=== PATIENT | male | born 1980 | race African-American/Black ===

== ENCOUNTER 2019-05-16 13:00 | Inpatient (IN) | payer OTHER ==
--- NOTE | 2019-05-16 14:37 | PDOC ---
History of Present Illness - General Chief Complaint: Altered Mental Status Stated Complaint: LETHARGIC Time Seen by Provider: 05/16/19 13:38 - History of Present Illness Initial Comments: 05/16/19 13:30 38yo M hx autism, HTN, behavior disorder, seizure disorder, and obesity presents from [facility] with lethargy and AMS x1 day. Per [facility] workers at bedside, pt's baseline is walking, talking (slightly slurred speech), and taking care of self. Pt was at baseline in [facility] yesterday, last seen normal yesterday afternoon. When they checked on him this AM, he was in bed lethargic but still able to walk and talk. Pt ate a little then went back to sleep. Pt was checked in at approximately 1200 and was found severely lethargic, responsive only to painful stimuli, unable to walk or talk. 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 States the [facility] is in charge of his medications and did not recently change his medications. States they did not notice any fever, vomiting, or indications of pain. Denies head trauma or falls. Meds: Metoprol, Clonazepam, Trazodone, Klor-Con, Hydrochlorot, Lisinopril, Atorvastatin, Cetirizine, Docusate, Divalproex, Quetiapine, Chlorpromazine PCP - Dr Mcdaniel Past History - Past Medical History Allergies/Adverse Reactions: Allergies Allergy/AdvReac Type Severity Reaction Status Date / Time No Known Allergies Allergy Unverified 07/25/13 19:47 Home Medications: Ambulatory Orders Cetirizine HCl [Wal-Zyr] 10 mg PO DAILY 08/28/14 Cholecalciferol (Vitamin D3) [Vitamin D] 2,000 unit PO DAILY 08/28/14 Clonazepam 0.5 mg PO BID 08/28/14 Clonazepam 1 mg PO BID 08/28/14 Clonidine HCl [Clonidine HCl ER] 0.1 mg PO TID 08/28/14 Divalproex *ER* [Depakote *ER* -] 1,000 mg PO BID 08/28/14 Divalproex [Depakote -] 250 mg PO HS 08/28/14 Docusate Sodium [Colace -] 100 mg PO DAILY 08/28/14 Hydrochlorothiazide [Hctz -] 25 mg PO DAILY 08/28/14 Lisinopril [Prinivil -] 5 mg PO DAILY 08/28/14 Potassium Chloride [Klor-Con 10] 10 meq PO DAILY 08/28/14 Quetiapine Fumarate "Xr" [Seroquel XR] 200 mg PO BID 08/28/14 Quetiapine Fumarate [Seroquel -] 400 mg PO HS 08/28/14 traZODone HCL [Desyrel -] 50 mg PO TID 08/28/14 COPD: No HTN: Yes Seizures: Yes - Immunization History Immunization Up to Date: Yes - Psycho Social/Smoking Cessation Hx Smoking History: Never smoked Have you smoked in the past 12 months: No Number of Cigarettes Smoked Daily: 0 Information on smoking cessation initiated: No Hx Alcohol Use: No Drug/Substance Use Hx: No Substance Use Type: None Review of Systems - Review of Systems Able to Perform ROS?: No (AMS) *Physical Exam - Vital Signs Last Vital Signs Temp Pulse Resp BP Pulse Ox 99.4 F 98 H 18 110/73 99 05/16/19 13:16 05/16/19 13:16 05/16/19 13:16 05/16/19 13:16 05/16/19 13:16 - Physical Exam Comments: 05/16/19 18:06 Gen: Responsive to painful stimulus only, NAD HEENT: PERRL, EOMI, MMM, NCAT. No conjunctival pallor. Sclera are non-icteric. Oropharynx is clear. CV: Regular rate and rhythm. No murmurs, rubs, or gallops. PULM: No resp distress. CTAB, no wheezes, rales, or rhonchi. ABD: soft, NT/ND, no rebound tenderness or guarding, no CVA tenderness. BACK: No TTP of c/t/l-spine. No step-offs or deformities. MSK: No bony deformities. 2+ pulses in all extremities. NEURO: Responsive to painful stimulus only, unable to talk. PERRL. No gross CN deficits. Moving all extremities on own. EXTREMITIES: No cyanosis. No clubbing. No edema. +1" diameter round wound on L knee, no exudate, w/extensive surrounding erythema and warmth. +large bump distal to patella b/l (chronic). PSYCH: Unable to assess. SKIN: Warm and dry. Normal capillary refill. No jaundice. Heart Score/ECG Review - ECG Impressions Comment:: 05/16/19 18:24 Sinus tachycardia, 103bpm, normal axis, no TWIs, no ST elevations or depressions. ED Treatment Course - LABORATORY CBC & Chemistry Diagram: 05/16/19 16:04 05/16/19 15:46 Medical Decision Making - Medical Decision Making Medical Decision Makin 38yo M hx autism, HTN, behavior disorder, seizure disorder, and obesity presents from [facility] with lethargy and AMS x1 day. Per [facility] workers at bedside, pt's baseline is walking, talking (slightly slurred speech), and taking care of self. Pt was at baseline in [place] yesterday, last seen normal yesterday afternoon. When they checked on him this AM, he was in bed lethargic but still able to walk and talk. Pt ate a little then went back to sleep. Pt was checked in at approximately 1200 and was found severely lethargic, responsive only to painful stimuli, unable to walk or talk. 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 States the [facility] is in charge of his medications and did not recently change his medications. States they did not notice any fever, vomiting, or indications of pain. Denies head trauma or falls. Upon arrival, pt is responsive only to pain, nonverbal, moving all extremities on own, opens eyes to painful stimulus, able to swallow secretions, in no respiratory distress, managing airway, no indications of pain on physical exam. Tachycardic to 100s, hypotensive 80s/50s, tachypneic 20s, O2 98% on RA, rectal temp 100.0, +small wound with extensive surrounding erythema and warmth overlying L chopra/knee. Meds: Metoprol, Clonazepam, Trazodone, Klor-Con, Hydrochlorot, Lisinopril, Atorvastatin, Cetirizine, Docusate, Divalproex, Quetiapine, Chlorpromazine PCP - Dr Mcdaniel High concern for sepsis, most likely 2/2 LLE cellulitis, but also consider UTI or PNA - r/o with sepsis w/u including UTI and UA. Also consider meningitis, though of lower concern due to supple neck and low-grade fever, will consider further testing pending w/u. Due to AMS, obtain CTH to r/o ICH, though of lower concern due to lack of reported head injury. Also consider metabolic derangement , anemia, or cardiac etiology - r/o w/labs including fingerstick glucose and EKG. -Fingerstick glucose -Sepsis w/u: CBC, CMP, Coags, Trop, Lact, ABG, BCx x2, UA/UC -IVF -CTH -CXR -EKG -Monitor -Dispo: likely admit pending w/u 1400 CTH reviewed. No acute pathology. Fingerstick glucose reviewed. 1613 Labs drawn from radial artery. Labs sent. CXR ordered. IVF running in R hand. 1648 Labs reviewed. Of note, WBC WNL, lact 0.7. BP 110s/60s. d/c 2nd lact. No septic shock. Tachycardia, hypotension, and tachypnea resolved s/p IVF. 1657 Start vanc/zosyn. Admit for sepsis 2/2 LLE cellulitis. 1736 2nd CXR obtained, attempted better inspiratory effort but still poor. Signed out to admitting team. 05/16/19 19:19 Also consider medication overdose. No dilated pupils, decreased bowel sounds, HTN, high-grade fever, or muscular rigidity concerning for serotonin syndrome at this time. Discharge - Discharge Information Problems reviewed: Yes Clinical Impression/Diagnosis: Sepsis Condition: Improved - Admission Yes - Follow up/Referral - Patient Discharge Instructions - Post Discharge Activity
[2019-05-16] MEDS ORDERED: SODIUM CHLORIDE 3,266 ML IV ONE (15:59)
[2019-05-16 16:21] LABS: BASO % 0.6 % (0-2.0); EOS % 0.2 % (0-4.5); HEMATOCRIT 38.3 % (35.4-49); HEMOGLOBIN 12.9 GM/dL (11.7-16.9); LYMPH % 25.3 % (8-40); MCH 30.5 pg (25.7-33.7); MCHC 33.8 g/dl (32.0-35.9); MEAN CELL VOLUME 90.3 fl (80-96); MEAN PLT VOLUME 9.8 fl (7.5-11.1); MONO % 20.6 % (3.8-10.2); NEUT % 53.3 % (42.8-82.8); PLATELET COUNT 188 K/MM3 (134-434); RBC 4.24 M/mm3 (4.00-5.60); RDW 13.6 % (11.9-15.9); WHITE BLOOD COUNT 8.3 K/mm3 (4.0-10.0)
[2019-05-16 16:36] LABS: INR 1.18 (0.83-1.09); PROTHROMBIN TIME (PATIENT) 13.9 SEC (9.7-13.0)
[2019-05-16 16:37] LABS: ARTERIAL BLD GAS O2 SATURATION 98.2 % (95-98); ARTERIAL BLOOD GAS BASE EXCESS 2.9 meq/l (-2-2); ARTERIAL BLOOD GAS PCO2 42.6 mmHg (35-45); ARTERIAL BLOOD GAS PO2 114 mmHg (80-100); ARTERIAL BLOOD GAS pH 7.42 (7.35-7.45)
[2019-05-16 16:38] LABS: ACTIVATED PTT 34.3 SECONDS (25.2-36.5)
[2019-05-16 16:52] LABS: ALBUMIN 3.4 g/dl (3.4-5.0); BILIRUBIN,TOTAL 0.6 mg/dL (0.2-1); BLOOD UREA NITROGEN 13.9 mg/dL (7-18); CALCIUM 8.9 mg/dL (8.5-10.1); CREATININE 1.1 mg/dL (0.55-1.3); POTASSIUM 4.4 mmol/L (3.5-5.1); TOT PROT 7.2 g/dl (6.4-8.2)
[2019-05-16] MEDS ORDERED: VANCOMYCIN 1 GM in D5W (PRE-DOCKED) 1,000 MG/250 ML IVPB ONE (16:55)
[2019-05-16] MEDS ORDERED: PIPERACILLIN/TAZOB 3.375 GM 3.375 GM in DEXTROSE 5%-WATER - 50 ML IVPB ONE (16:55)
[2019-05-16 17:07] LABS: PLATELET ESTIMATE ADEQUATE
--- NOTE | 2019-05-16 17:36 | HP ---
Admitting History and Physical - Primary Care Physician PCP: Shena Mcdaniel - Admission Chief Complaint: AMS as per senior care staff x 36-48 hrs with lethargy and ataxia History of Present Illness: 38yo M hx autism, HTN,sz disorder,able to communicate (slightly slurred speech) , and taking care of self. Pt was at baseline yesterday, last seen normal yesterday afternoon. When they checked on him this AM, he was in bed lethargic but still able to walk and talk. Pt ate a little then went back to sleep. Pt was checked in at approximately 1200 and was found severely lethargic, responsive only to painful stimuli, unable to walk or talk. 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 States the senior care is in charge of his medications and did not recently change his medications. States they did not notice any fever, vomiting, or indications of pain. Denies head trauma or falls. 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 Cardiovascular: Yes: HTN Psych: Yes: Other (austic/developmental delays) - Smoking History Smoking history: Never smoked Have you smoked in the past 12 months: No Aproximately how many cigarettes per day: 0 - Alcohol/Substance Use Hx Alcohol Use: No - Social History Usual Living Arrangement: Yes: Other (senior care) ADL: Support Services Occupation: disability History of Recent Travel: No Other Social History: mother involved in detention Medications - Allergies Allergies/Adverse Reactions: Allergies Allergy/AdvReac Type Severity Reaction Status Date / Time No Known Allergies Allergy Unverified 07/25/13 19:47 - Home Medications Home Medications: Ambulatory Orders Cetirizine HCl [Wal-Zyr] 10 mg PO DAILY 08/28/14 Cholecalciferol (Vitamin D3) [Vitamin D] 2,000 unit PO DAILY 08/28/14 Clonazepam 0.5 mg PO BID 08/28/14 Clonazepam 1 mg PO BID 08/28/14 Clonidine HCl [Clonidine HCl ER] 0.1 mg PO TID 08/28/14 Divalproex *ER* [Depakote *ER* -] 1,000 mg PO BID 08/28/14 Divalproex [Depakote -] 250 mg PO HS 08/28/14 Docusate Sodium [Colace -] 100 mg PO DAILY 08/28/14 Hydrochlorothiazide [Hctz -] 25 mg PO DAILY 08/28/14 Lisinopril [Prinivil -] 5 mg PO DAILY 08/28/14 Potassium Chloride [Klor-Con 10] 10 meq PO DAILY 08/28/14 Quetiapine Fumarate "Xr" [Seroquel XR] 200 mg PO BID 08/28/14 Quetiapine Fumarate [Seroquel -] 400 mg PO HS 08/28/14 traZODone HCL [Desyrel -] 50 mg PO TID 08/28/14 Family Medical History Family History: Unable to Obtain Review of Systems Unable to obtain ROS, reason: no able to fully obtain - Review of Systems Musculoskeletal: reports: Extremity Pain (left knee/calf), Joint Pain, Joint Swelling Neurological: reports: Change in LOC, Incoordination Physical Examination Vital Signs: Vital Signs Temperature 100.0 F H 05/16/19 15:59 Pulse Rate 98 H 05/16/19 13:16 Respiratory Rate 18 05/16/19 13:16 Blood Pressure 110/73 05/16/19 13:16 O2 Sat by Pulse Oximetry (%) 99 05/16/19 13:16 Constitutional: Yes: Well Nourished, Anxious Eyes: Yes: WNL, Conjunctiva Clear, EOM Intact HENT: Yes: Drooling Neck: Yes: WNL, Supple, Trachea Midline Cardiovascular: Yes: WNL, Regular Rate and Rhythm Respiratory: Yes: Regular, CTA Bilaterally, On Nasal O2 Gastrointestinal: Yes: WNL, Normal Bowel Sounds ...Rectal Exam: Yes: Deferred Renal/: Yes: WNL Breast(s): Yes: WNL Musculoskeletal: Yes: Joint Swelling (left knee) Extremities: Yes: Erythema (to left knee/calf) Edema: LLE: 1+, RLE: Trace Peripheral Pulses WNL: Yes Peripheral Pulses: Left Radial: 2+, Right Radial: 2+, Left Doralis Pedis: 2+, Right Dorsalis Pedis: 2+, Left Femoral: 2+, Right Femoral: 2+ Integumentary: Yes: Erythema, Other (1cm lesion to left patella) Neurological: Yes: Alert, Confusion, Dysarthria, Unsteady Gait ...Motor Strength: WNL Labs: CBC, BMP 05/16/19 16:04 05/16/19 15:46 Imaging - Results Chest X-ray: Image Reviewed (no acute lung pathology) Ultrasound: Report Reviewed (to evidence of DVT) Problem List - Problems (1) Altered mental state Assessment/Plan: head CT withput acute pathology toxicology panel pending hold sedating agents until mental status is back to baseline c/w depakote for sz prevention r/o infectious etiology LA .7, WBC 8.3, afebrile blood urine Cx pending Vanco/zosyn given in ED neurology consult if mental status does no return back to baseline Code(s): R41.82 - ALTERED MENTAL STATUS, UNSPECIFIED (2) HTN (hypertension) Assessment/Plan: hypotensive on arrival, 2L NS given hold antihypertensives Code(s): I10 - ESSENTIAL (PRIMARY) HYPERTENSION (3) Developmental delay, severe Assessment/Plan: supportive care Code(s): R62.50 - UNSP LACK OF EXPECTED NORMAL PHYSIOL DEV IN CHILDHOOD (4) Cellulitis Assessment/Plan: left knee with erythema with 1cm lesion/scab ceftriaxone 2g daily dopplers of lower extrem without DVT ID consultation requested monitor WBC, temp trend Code(s): L03.90 - CELLULITIS, UNSPECIFIED (5) Seizure Assessment/Plan: dose od depakote not clear in med reconciliation will dose 1000mg bid and contact senior care for dose fall precautions Code(s): R56.9 - UNSPECIFIED CONVULSIONS (6) Preventive measure Assessment/Plan: FEN 2L IVF given in ED chopped diet monitor electrolytes and replete prn DVT heparin sq Dispo mainatin as in patient Full code discharge planning back to senior care Code(s): Z29.9 - ENCOUNTER FOR PROPHYLACTIC MEASURES, UNSPECIFIED Visit type - Emergency Visit Emergency Visit: Yes ED Registration Date: 05/16/19 Care time: The patient presented to the Emergency Department on the above date and was hospitalized for further evaluation of their emergent condition. - New Patient This patient is new to me today: Yes Date on this admission: 05/16/19 - Critical Care Critical Care patient: No
[2019-05-16] MEDS ORDERED: VANCOMYCIN 1 GRAM (PRE-DOCKED) 1,000 MG/250 ML BAG IVPB ONE (18:11)
[2019-05-16] MEDS ORDERED: PIPERACILLIN/TAZOB 3.375 GM 3.375 GM/50 ML BAG IVPB ONE (18:11)
[2019-05-16 19:02] LABS: CARBOXYHEMOGLOBIN 1.2 % (0-2)
--- NOTE | 2019-05-16 21:34 | PDOC ---
Documentation entered by Abdias Feliciano SCRIBE, acting as scribe for Uyen Sanchez MD. Uyen Sanchez MD: This documentation has been prepared by the katteBraden Aiswarya, SCRIBE, under my direction and personally reviewed by me in its entirety. I confirm that the documentation accurately reflects all work, treatment, procedures, and medical decision making performed by me. Attending Attestation - Resident Resident Name: Carmelita Beverly - ED Attending Attestation I have performed the following: I have examined & evaluated the patient, The case was reviewed & discussed with the resident, I agree w/resident's findings & plan, Exceptions are as noted - HPI HPI: 05/16/19 15:46 38 yo male h/o psych disorder , lives in a [facility], htn hld, here with AMS pt unable to provide history and history is provided by [facility] staff at bedside. per them. pt became more progressively altered last 48 . states at baseline he talks, is interactive and ambulates. over last two days he becamse more sleepy. no new change to his medications. no f/c no n/v no cough. no trauma. - Physicial Exam PE: 05/16/19 21:26 awake, but drowsy, pupils small reactive. lungs clear bilat heart rrr no mrg. abd soft nt nd ext wwp. bilat prominant ant tibial tuberosity. left with small wound scab over tibial tuberosity. mild fluctuance. knee FROM no effusion. nuero : pt not following commmands, moves all four ext, speech slow intermittent. skin warm and dry, except left leg leg erythema redness to calf, scab as described. 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 differential: sepsis, from left leg cellulitis, pna, uti, medication SE such as depakote toxicity, vs do not fix serotonergic syndrome or NMS. will obtain ct head r/o ich or other intracranial process. plan to cover broad spectrum abx for sepsis and left leg cellulitis. admit. throughout time in ED pt verbal at times, ct head negative. rectal temperature 100. abx given, sugar normal 115. admitted to medical team. for AMS, sepsis
[2019-05-16] MEDS ORDERED: DIVALPROEX SODIUM 250 MG TABLET E.C. PO SCH (22:00)
[2019-05-16] MEDS ORDERED: DIVALPROEX NA *ER* EXTEND REL 500 MG TABLET.SA (FP) PO SCH (22:00)
[2019-05-16] MEDS ORDERED: DIVALPROEX SODIUM 500 MG TABLET E.C. ONE (22:44)
[2019-05-16] MEDS: DIVALPROEX SODIUM 500 MG TABLET E.C. PO SCH (22:50)
[2019-05-16] MEDS: HEPARIN NA (PORCINE) 5,000 UNITS/ML 1ML VIAL SQ SCH (23:28)
--- NOTE | 2019-05-17 08:18 | PN ---
Progress Note, Physician Chief Complaint: more alert, requesting to go home with [facility] (staff at [facility]) History of Present Illness: 38yo M hx autism, HTN,sz disorder,able to communicate (slightly slurred speech) , and taking care of self. Pt was at baseline yesterday, last seen normal yesterday afternoon. When they checked on him this AM, he was in bed lethargic but still able to walk and talk. Pt ate a little then went back to sleep. Pt was checked in at approximately 1200 and was found severely lethargic, responsive only to painful stimuli, unable to walk or talk. 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 States the [facility] is in charge of his medications and did not recently change his medications. States they did not notice any fever, vomiting, or indications of pain. Denies head trauma or falls. Noted that his left knee was warm with a "scab" on middle of patella Resident of [facility] [place], [facility] - Current Medication List Current Medications: Active Medications Cholecalciferol (Vitamin D3 -) 2,000 unit PO DAILY [facility] Divalproex Sodium (Depakote -) 1,000 mg PO BID [facility] Last Admin: 05/16/19 22:50 Dose: 1,000 mg Docusate Sodium (Colace -) 100 mg PO DAILY [facility] Heparin Sodium (Porcine) (Heparin -) 5,000 unit SQ BID [facility] Last Admin: 05/16/19 23:28 Dose: 5,000 unit Hydrochlorothiazide (Hctz -) 25 mg PO DAILY [facility] Ceftriaxone Sodium 2 gm/ (Dextrose) 100 mls @ 200 mls/hr IVPB DAILY [facility]; Protocol Quetiapine Fumarate (Seroquel -) 400 mg PO [facility] - Objective Vital Signs: Vital Signs Temperature 98.2 F 05/17/19 07:00 Pulse Rate 113 H 05/17/19 07:00 Respiratory Rate 18 05/17/19 07:00 Blood Pressure 138/83 05/17/19 07:00 O2 Sat by Pulse Oximetry (%) 97 05/17/19 02:25 Additional Findings/Remarks: Constitutional: Yes: Well Nourished, Anxious Eyes: Yes: WNL, Conjunctiva Clear, EOM Intact HENT: Yes: Drooling Neck: Yes: WNL, Supple, Trachea Midline Cardiovascular: Yes: WNL, Regular Rate and Rhythm Respiratory: Yes: Regular, CTA Bilaterally, On Nasal O2 Gastrointestinal: Yes: WNL, Normal Bowel Sounds ...Rectal Exam: Yes: Deferred Renal/: Yes: WNL Breast(s): Yes: WNL Musculoskeletal: Yes: Joint Swelling (left knee) Extremities: Yes: Erythema (to left knee/calf) Edema: LLE: 1+, RLE: Trace Peripheral Pulses WNL: Yes Peripheral Pulses: Left Radial: 2+, Right Radial: 2+, Left Doralis Pedis: 2+, Right Dorsalis Pedis: 2+, Left Femoral: 2+, Right Femoral: 2+ Integumentary: Yes: Erythema, Other (1cm lesion to left patella) 3cm flucuant are to medial acpect of patella Neurological: Yes: Alert, Confusion, Dysarthria, Unsteady Gait ...Motor Strength: WNL Labs: INR, PTT INR 1.18 (0.83-1.09) H 05/16/19 16:04 - ....Imaging X-ray: Report Reviewed (Knee xray: no acute pathology) Ultrasound: Report Reviewed (no DVT) MRI: Pending (Lower extrem) Problem List - Problems (1) Altered mental state Assessment/Plan: Back to baseline as per Skilled Nursing staff head CT without acute pathology LA .7, WBC 7.1, afebrile blood urine Cx pending Vanco/zosyn given in ED ceftriaxone, vanco to continue appreciate ID consultation resume all psych meds MRI lower extrem for cellulitus/osteo Code(s): R41.82 - ALTERED MENTAL STATUS, UNSPECIFIED (2) HTN (hypertension) Assessment/Plan: c/w lisinipril, hctz Code(s): I10 - ESSENTIAL (PRIMARY) HYPERTENSION (3) Developmental delay, severe Assessment/Plan: supportive care staff from [facility] present spoke with Dr Hernandez from home and reviewed medications [phone] Code(s): R62.50 - UNSP LACK OF EXPECTED NORMAL PHYSIOL DEV IN CHILDHOOD (4) Cellulitis Assessment/Plan: left knee with erythema with 1cm lesion/scab 3cm flucuant area ceftriaxone 2g daily, vanco bid dopplers of lower extrem without DVT ID consultation apppreciated monitor WBC, temp trend MRI on LE Code(s): L03.90 - CELLULITIS, UNSPECIFIED (5) Seizure Assessment/Plan: c/w depakote fall precautions Code(s): R56.9 - UNSPECIFIED CONVULSIONS (6) Preventive measure Assessment/Plan: FEN 2L IVF given in ED chopped diet monitor electrolytes and replete prn DVT heparin sq Dispo maintain as in patient Full code discharge planning back to [facility] Code(s): Z29.9 - ENCOUNTER FOR PROPHYLACTIC MEASURES, UNSPECIFIED Visit type - Emergency Visit Emergency Visit: Yes ED Registration Date: 05/16/19 Care time: The patient presented to the Emergency Department on the above date and was hospitalized for further evaluation of their emergent condition. - New Patient This patient is new to me today: No - Critical Care Critical Care patient: No - Discharge Referral Referred to [facility] No
[2019-05-17 08:19] LABS: ALBUMIN 3.2 g/dl (3.4-5.0); BILIRUBIN,TOTAL 0.5 mg/dL (0.2-1); CALCIUM 8.6 mg/dL (8.5-10.1); MAGNESIUM 2.2 mg/dL (1.8-2.4); TOT PROT 6.9 g/dl (6.4-8.2)
[2019-05-17 08:42] LABS: BASO % 0.5 % (0-2.0); EOS % 0.7 % (0-4.5); HEMATOCRIT 36.7 % (35.4-49); HEMOGLOBIN 12.8 GM/dL (11.7-16.9); LYMPH % 29.4 % (8-40); MCH 31.3 pg (25.7-33.7); MCHC 34.8 g/dl (32.0-35.9); MEAN CELL VOLUME 89.9 fl (80-96); MEAN PLT VOLUME 9.7 fl (7.5-11.1); MONO % 19.6 % (3.8-10.2); NEUT % 49.8 % (42.8-82.8); PLATELET COUNT 187 K/MM3 (134-434); RBC 4.09 M/mm3 (4.00-5.60); RDW 13.5 % (11.9-15.9); WHITE BLOOD COUNT 7.1 K/mm3 (4.0-10.0)
[2019-05-17] MEDS ORDERED: DEXTROSE 5%-WATER 100 ML IVPB ONE (09:52)
[2019-05-17] MEDS ORDERED: VANCOMYCIN 1 GM in D5W (PRE-DOCKED) 1,000 MG/250 ML IVPB SCH (10:00)
[2019-05-17] MEDS: HYDROCHLOROTHIAZIDE 25 MG TABLET (FP) PO SCH (10:02)
[2019-05-17] MEDS: HEPARIN NA (PORCINE) 5,000 UNITS/ML 1ML VIAL SQ SCH ×2 (10:02→21:51)
[2019-05-17] MEDS: CHOLECALCIFEROL (VIT D3) 1,000 UNIT (25 MCG) TABLET PO SCH (10:02)
[2019-05-17] MEDS: DOCUSATE SODIUM 100 MG CAPSULE (FP) PO SCH (10:02)
[2019-05-17] MEDS: DIVALPROEX SODIUM 500 MG TABLET E.C. PO SCH (10:02)
[2019-05-17] MEDS: CEFTRIAXONE 2 GM in DEXTROSE 5%-WATER 100 ML IVPB SCH (10:03)
--- NOTE | 2019-05-17 11:48 | CON.ID ---
Consult - History of Present Illness History of Present Illness: 38 y.o. male with PMH of autism/developmental delay, seizure d.o., HTN brought in from halfway for AMS/lethargy noted x 1 day. Normally pt was reported to be alert, talking, ambulating at baseline but became lethargic, only responding to painful stimuli. No reported fever/chills, n/v/d, rash prior to arrival. In the ER pt was noted to be lethargic, with low grade fever 100F, tachycardic, and initially with low BP. Found to have LLE/tibial lesion and warmth/mild erythema/edema in LLE. CXR/Lt Knee Xray without any specific findings. Was given doses of antibiotics empirically. Currently patient is alert and responsive, with hazardous waste material technician at bedside stating he is at baseline mental status/ functional level today. No other specific complaints. 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 Cardio/Vascular: Yes: HTN Psych: Yes: Other (austic/developmental delays) - Alcohol/Substance Use Hx Alcohol Use: No - Smoking History Smoking history: Never smoked Have you smoked in the past 12 months: No Aproximately how many cigarettes per day: 0 - Social History ADL: Support Services Occupation: disability History of Recent Travel: No Home Medications - Allergies Allergies/Adverse Reactions: Allergies Allergy/AdvReac Type Severity Reaction Status Date / Time No Known Allergies Allergy Unverified 07/25/13 19:47 - Home Medications Home Medications: Ambulatory Orders Cetirizine HCl [Wal-Zyr] 10 mg PO DAILY 08/28/14 Cholecalciferol (Vitamin D3) [Vitamin D] 2,000 unit PO DAILY 08/28/14 Clonazepam 0.5 mg PO BID 08/28/14 Clonazepam 1 mg PO BID 08/28/14 Divalproex *ER* [Depakote *ER* -] 500 mg PO AM 08/28/14 Divalproex [Depakote -] 750 mg PO HS 08/28/14 Docusate Sodium [Colace -] 100 mg PO DAILY 08/28/14 Hydrochlorothiazide [Hctz -] 25 mg PO AM 08/28/14 Lisinopril [Prinivil -] 5 mg PO DAILY 08/28/14 Potassium Chloride [Klor-Con 10] 10 meq PO DAILY 08/28/14 Quetiapine Fumarate "Xr" [Seroquel XR] 200 mg PO BID 08/28/14 Quetiapine Fumarate [Seroquel -] 400 mg PO HS 08/28/14 traZODone HCL [Desyrel -] 25 mg PO TID 08/28/14 Atorvastatin Ca [Lipitor] 20 mg PO HS 05/16/19 Chlorpromazine [Thorazine -] 100 mg PO BID 05/16/19 Metoprolol Tartrate 25 mg PO BID 05/16/19 Sodium Chloride [Saline Nasal Mist] 126 ml NS BID 05/16/19 traZODone HCL [Trazodone HCl] 50 mg PO HS 05/16/19 Review of Systems - Review of Systems Constitutional: reports: No Symptoms Eyes: reports: No Symptoms HENT: reports: No Symptoms Neck: reports: No Symptoms Cardiovascular: reports: No Symptoms Respiratory: reports: No Symptoms Gastrointestinal: reports: No Symptoms Musculoskeletal: reports: No Symptoms Neurological: reports: No Symptoms Hematology/Lymphatic: reports: No Symptoms Physical Exam Vital Signs: Vital Signs Temperature 99.1 F 05/17/19 09:01 Pulse Rate 111 H 05/17/19 09:01 Respiratory Rate 20 05/17/19 09:01 Blood Pressure 153/78 05/17/19 09:01 O2 Sat by Pulse Oximetry (%) 97 05/17/19 02:25 Constitutional: Yes: No Distress, Calm Eyes: Yes: Conjunctiva Clear HENT: Yes: Atraumatic Neck: Yes: Supple Cardiovascular: Yes: Tachycardia Respiratory: Yes: CTA Bilaterally Gastrointestinal: Yes: Normal Bowel Sounds, Soft Renal/: Yes: WNL Integumentary: Yes: Other (Lt tibial fluctuant 3x3 inch lesion, without significant tenderness, +LLE edema/erythema/mild warmth) Labs: CBC, BMP 05/17/19 07:15 05/17/19 07:15 Imaging - Results Chest X-ray: Report Reviewed X-ray: Report Reviewed Problem List - Problems (1) Altered mental state Code(s): R41.82 - ALTERED MENTAL STATUS, UNSPECIFIED (2) Cellulitis Code(s): L03.90 - CELLULITIS, UNSPECIFIED (3) Developmental delay, severe Code(s): R62.50 - UNSP LACK OF EXPECTED NORMAL PHYSIOL DEV IN CHILDHOOD (4) HTN (hypertension) Code(s): I10 - ESSENTIAL (PRIMARY) HYPERTENSION (5) Seizure Code(s): R56.9 - UNSPECIFIED CONVULSIONS (6) Sepsis Code(s): A41.9 - SEPSIS, UNSPECIFIED ORGANISM Assessment/Plan 38 y.o. male with PMH of autism/developmental delay, seizure d.o., HTN brought in from halfway for AMS/lethargy noted x 1 day, low grade fever, Lt tibial fluctuant lesion AMS / Possible Sepsis LLE Cellulitis r/o abscess Fever -- Ceftriaxone/Vancomycin IV for now -- suggest MRI of LLE -- follow up blood culture results -- monitor temps/vitals, mental status Will follow Thank you
[2019-05-17] MEDS ORDERED: traZODone HCL 50 MG TABLET (FP) PO SCH ×2 (12:00)
--- NOTE | 2019-05-17 14:08 | EKG ---
Test Reason : Blood Pressure : / mmHG Vent. Rate : 103 BPM Atrial Rate : 103 BPM P-R Int : 154 ms QRS Dur : 078 ms QT Int : 334 ms P-R-T Axes : 040 -05 039 degrees QTc Int : 437 ms SINUS TACHYCARDIA OTHERWISE NORMAL ECG NO PREVIOUS ECGS AVAILABLE Confirmed by KERI YEE MD ([id number]) on 05/17/2019 2:08:18 PM Referred By: Confirmed By:KERI YEE MD
[2019-05-17] MEDS: clonazePAM 0.5 MG TABLET PO SCH ×3 (14:19→20:58)
[2019-05-17] MEDS: VANCOMYCIN 1 GM in D5W (PRE-DOCKED) 1,000 MG/250 ML IVPB SCH (14:19)
[2019-05-17] MEDS: traZODone HCL 50 MG TABLET (FP) PO SCH ×3 (14:19→21:51)
[2019-05-17] MEDS: QUEtiapine FUMARATE 200 MG TABLET PO SCH (17:52)
[2019-05-17] MEDS: chlorproMAZINE HCL 100 MG TABLET PO SCH (17:56)
[2019-05-17] MEDS: LISINOPRIL 5 MG TABLET (FP) PO SCH (20:56)
[2019-05-17] MEDS: ATORVASTATIN CA 20 MG TABLET (FP) PO SCH (21:51)
[2019-05-17] MEDS: METOPROLOL TARTRATE 25 MG TABLET (FP) PO SCH (21:51)
[2019-05-17] MEDS: DIVALPROEX NA *ER* EXTEND REL 250 MG TABLET.SA PO SCH (21:52)
[2019-05-17] MEDS ORDERED: QUEtiapine FUMARATE 400 MG TABLET PO SCH (22:00)
[2019-05-18] MEDS: VANCOMYCIN 1 GM in D5W (PRE-DOCKED) 1,000 MG/250 ML IVPB SCH (01:14)
--- NOTE | 2019-05-18 07:55 | PN ---
Progress Note, Physician Chief Complaint: back to his baseline as per [facility] staff, asking when he's going home History of Present Illness: 38yo M hx autism, HTN,sz disorder,able to communicate (slightly slurred speech) , and taking care of self. Pt was at baseline yesterday, last seen normal yesterday afternoon. When they checked on him this AM, he was in bed lethargic but still able to walk and talk. Pt ate a little then went back to sleep. Pt was checked in at approximately 1200 and was found severely lethargic, responsive only to painful stimuli, unable to walk or talk. 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 States the [facility] is in charge [facility] his [facility] and did not recently change his medications. States they did not notice any fever, vomiting, or indications of pain. Denies head trauma or falls. Noted that his left knee was warm with a "scab" on middle of patella Resident of [facility] - Current Medication List Current Medications: Active Medications Atorvastatin Calcium (Lipitor -) 20 mg PO HS [facility] Last Admin: 05/17/19 21:51 Dose: 20 mg Chlorpromazine HCl (Thorazine -) 100 mg PO BID@0800,1600 [facility] Last Admin: 05/17/19 17:56 Dose: 100 mg Cholecalciferol (Vitamin D3 -) 2,000 unit PO DAILY [facility] Last Admin: 05/17/19 10:02 Dose: 2,000 unit Clonazepam (Klonopin -) 0.5 mg PO 0800,1200,1600,2100 [facility] Last Admin: 05/17/19 20:58 Dose: 0.5 mg Divalproex Sodium (Depakote *Er* -) 750 mg PO DAILY@2100 [facility] Last Admin: 05/17/19 21:52 Dose: 750 mg Divalproex Sodium (Depakote *Er* -) 500 mg PO DAILY@0800 [facility] Docusate Sodium (Colace -) 100 mg PO DAILY [facility] Last Admin: 05/17/19 10:02 Dose: 100 mg Heparin Sodium (Porcine) (Heparin -) 5,000 unit SQ BID [facility] Last Admin: 05/17/19 21:51 Dose: 5,000 unit Hydrochlorothiazide (Hctz -) 25 mg PO DAILY [facility] Last Admin: 05/17/19 10:02 Dose: 25 mg Ceftriaxone Sodium 2 gm/ (Dextrose) 100 mls @ 200 mls/hr IVPB DAILY [facility]; Protocol Last Admin: 05/17/19 10:03 Dose: 200 mls/hr Lisinopril (Prinivil) 5 mg PO DAILY@2100 [facility] Last Admin: 05/17/19 20:56 Dose: 5 mg Metoprolol Tartrate (Lopressor -) 12.5 mg PO BID [facility] Last Admin: 05/17/19 21:51 Dose: 12.5 mg Quetiapine Fumarate (Seroquel -) 400 mg PO 0800,1600 [facility] Last Admin: 05/17/19 17:52 Dose: 400 mg Quetiapine Fumarate (Seroquel -) 400 mg PO HS [facility] Trazodone HCl (Desyrel -) 50 mg PO HS [facility] Last Admin: 05/17/19 21:51 Dose: 50 mg Trazodone HCl (Desyrel -) 25 mg PO 0800,1200,1600 [facility] Last Admin: 05/17/19 17:52 Dose: 25 mg Vancomycin HCl (Vancomycin (Pre-Docked)) 1,000 mg IVPB Q12H [facility]; Protocol Last Admin: 05/18/19 01:14 Dose: 1,000 mg - Objective Vital Signs: Vital Signs Temperature 98.2 F 05/18/19 03:00 Pulse Rate 94 H 05/18/19 03:00 Respiratory Rate 20 05/17/19 23:41 Blood Pressure 107/66 05/18/19 03:00 O2 Sat by Pulse Oximetry (%) 97 05/17/19 21:00 Additional Findings/Remarks: Constitutional: Yes: Well Nourished, Anxious Eyes: Yes: WNL, Conjunctiva Clear, EOM Intact HENT: Yes: Drooling Neck: Yes: WNL, Supple, Trachea Midline Cardiovascular: Yes: WNL, Regular Rate and Rhythm Respiratory: Yes: Regular, CTA Bilaterally, On Nasal O2 Gastrointestinal: Yes: WNL, Normal Bowel Sounds ...Rectal Exam: Yes: Deferred Renal/: Yes: WNL Breast(s): Yes: WNL Musculoskeletal: Yes: Joint Swelling (left knee) Extremities: Yes: Erythema (to left knee/calf) Edema: LLE: 1+, RLE: Trace Peripheral Pulses WNL: Yes Peripheral Pulses: Left Radial: 2+, Right Radial: 2+, Left Doralis Pedis: 2+, Right Dorsalis Pedis: 2+, Left Femoral: 2+, Right Femoral: 2+ Integumentary: Yes: Erythema, Other (1cm lesion to left patella) 3cm flucuant area to medial aspect of patella Neurological: Yes: Alert, Confusion, Dysarthria, Unsteady Gait ...Motor Strength: WNL Labs: CBC, BMP 05/17/19 07:15 05/17/19 07:15 INR, PTT INR 1.18 (0.83-1.09) H 05/16/19 16:04 - ....Imaging MRI: Report Reviewed (6 cm in its longer axis subcutaneous fluid collection anterior to the tibial tuberosity and distal aspect of the patellar tendon with extensive soft tissue swelling anterior and lateral aspect of the knee joint compatible with extensive cellulitis. The fluid collection is suspicious of abscess or less likely hematoma. Aspiration preferably under sonographic guidance recommended for further evaluation) Problem List - Problems (1) Altered mental state Assessment/Plan: [facility] head [facility] without acute pathology LA .7, WBC 7.1, afebrile blood urine Cx NGTD Vanco/zosyn given in ED appreciate ID consultation ceftriaxone to continue, vanco to stop resume all psych meds MRI noted Code(s): R41.82 - ALTERED MENTAL STATUS, UNSPECIFIED (2) HTN (hypertension) Assessment/Plan: c/w lisinipril, hctz Code(s): I10 - ESSENTIAL (PRIMARY) HYPERTENSION (3) Developmental delay, severe Assessment/Plan: supportive care staff from [facility] present spoke with Dr Hernandez from home yesterday and reviewed medications [phone] ordered all meds as per home regimen. On several Qtc prolonging agents. 437 Code(s): R62.50 - UNSP LACK OF EXPECTED NORMAL PHYSIOL DEV IN CHILDHOOD (4) Cellulitis Assessment/Plan: left knee with erythema with 1cm lesion/scab 3cm flucuant area ceftriaxone 2g daily, vanco bid dopplers of lower extrem without DVT ID consultation apppreciated monitor WBC, temp trend MRI noted. Suspicious of abcess Ortho consulted Code(s): L03.90 - CELLULITIS, UNSPECIFIED (5) Seizure Assessment/Plan: c/w depakote fall precautions Code(s): R56.9 - UNSPECIFIED CONVULSIONS (6) Preventive measure Assessment/Plan: FEN chopped diet monitor electrolytes and replete prn DVT heparin sq Dispo maintain as in patient Full code discharge planning back to [facility] Code(s): Z29.9 - ENCOUNTER FOR PROPHYLACTIC MEASURES, UNSPECIFIED Visit type - Emergency Visit Emergency Visit: Yes ED Registration Date: 05/16/19 Care time: The patient presented to the Emergency Department on the above date and was hospitalized for further evaluation of their emergent condition. - New Patient This patient is new to me today: No - Critical Care Critical Care patient: No - Discharge Referral Referred to [facility] Med P.C.: No
[2019-05-18] MEDS ORDERED: DIVALPROEX NA *ER* EXTEND REL 500 MG TABLET.SA (FP) PO SCH (08:00)
[2019-05-18 09:17] LABS: BASO % 0.9 % (0-2.0); EOS % 0.9 % (0-4.5); HEMATOCRIT 39.3 % (35.4-49); HEMOGLOBIN 13.4 GM/dL (11.7-16.9); LYMPH % 41.5 % (8-40); MCH 30.9 pg (25.7-33.7); MCHC 34.2 g/dl (32.0-35.9); MEAN CELL VOLUME 90.1 fl (80-96); MONO % 11.3 % (3.8-10.2); NEUT % 45.4 % (42.8-82.8); PLATELET COUNT 190 K/MM3 (134-434); RBC 4.36 M/mm3 (4.00-5.60); RDW 13.5 % (11.9-15.9); WHITE BLOOD COUNT 5.1 K/mm3 (4.0-10.0)
[2019-05-18] MEDS: traZODone HCL 50 MG TABLET (FP) PO SCH ×4 (09:19→21:24)
[2019-05-18] MEDS: DIVALPROEX NA *ER* EXTEND REL 500 MG TABLET.SA (FP) PO SCH (09:19)
[2019-05-18] MEDS: chlorproMAZINE HCL 100 MG TABLET PO SCH ×2 (09:20→17:33)
[2019-05-18] MEDS: QUEtiapine FUMARATE 200 MG TABLET PO SCH ×3 (09:20→21:24)
[2019-05-18] MEDS: clonazePAM 0.5 MG TABLET PO SCH ×4 (09:20→21:17)
[2019-05-18] MEDS ORDERED: DEXTROSE 5%-WATER 100 ML IVPB ONE (09:30)
[2019-05-18] MEDS: CEFTRIAXONE 2 GM in DEXTROSE 5%-WATER 100 ML IVPB SCH (09:31)
[2019-05-18] MEDS: DOCUSATE SODIUM 100 MG CAPSULE (FP) PO SCH (09:31)
[2019-05-18] MEDS: HEPARIN NA (PORCINE) 5,000 UNITS/ML 1ML VIAL SQ SCH ×2 (09:31→21:17)
[2019-05-18] MEDS: CHOLECALCIFEROL (VIT D3) 1,000 UNIT (25 MCG) TABLET PO SCH (09:31)
[2019-05-18] MEDS: METOPROLOL TARTRATE 25 MG TABLET (FP) PO SCH ×2 (09:31→21:16)
[2019-05-18] MEDS: HYDROCHLOROTHIAZIDE 25 MG TABLET (FP) PO SCH (09:31)
[2019-05-18 09:47] LABS: ALBUMIN 3.4 g/dl (3.4-5.0); BILIRUBIN,TOTAL 0.5 mg/dL (0.2-1); BLOOD UREA NITROGEN 14.9 mg/dL (7-18); CALCIUM 9.2 mg/dL (8.5-10.1); MAGNESIUM 2.4 mg/dL (1.8-2.4); POTASSIUM 4.2 mmol/L (3.5-5.1); TOT PROT 7.6 g/dl (6.4-8.2)
--- NOTE | 2019-05-18 10:57 | PN ---
Progress Note, Physician History of Present Illness: patient stable doing well - Current Medication List Current Medications: Active Medications Atorvastatin Calcium (Lipitor -) 20 mg PO [facility] Last Admin: 05/17/19 21:51 Dose: 20 mg Chlorpromazine HCl (Thorazine -) 100 mg PO BID@0800,1600 [facility] Last Admin: 05/18/19 09:20 Dose: 100 mg Cholecalciferol (Vitamin D3 -) 2,000 unit PO DAILY [facility] Last Admin: 05/18/19 09:31 Dose: 2,000 unit Clonazepam (Klonopin -) 0.5 mg PO 0800,1200,1600,2100 [facility] Last Admin: 05/18/19 09:20 Dose: 0.5 mg Divalproex Sodium (Depakote *Er* -) 750 mg PO DAILY@2100 [facility] Last Admin: 05/17/19 21:52 Dose: 750 mg Divalproex Sodium (Depakote *Er* -) 500 mg PO DAILY@0800 [facility] Last Admin: 05/18/19 09:19 Dose: 500 mg Docusate Sodium (Colace -) 100 mg PO DAILY [facility] Last Admin: 05/18/19 09:31 Dose: 100 mg Heparin Sodium (Porcine) (Heparin -) 5,000 unit SQ BID [facility] Last Admin: 05/18/19 09:31 Dose: 5,000 unit Hydrochlorothiazide (Hctz -) 25 mg PO DAILY [facility] Last Admin: 05/18/19 09:31 Dose: 25 mg Ceftriaxone Sodium 2 gm/ (Dextrose) 100 mls @ 200 mls/hr IVPB DAILY [facility]; Protocol Last Admin: 05/18/19 09:31 Dose: 200 mls/hr Lisinopril (Prinivil) 5 mg PO DAILY@2100 [facility] Last Admin: 05/17/19 20:56 Dose: 5 mg Metoprolol Tartrate (Lopressor -) 12.5 mg PO BID [facility] Last Admin: 05/18/19 09:31 Dose: 12.5 mg Quetiapine Fumarate (Seroquel -) 400 mg PO 0800,1600 [facility] Last Admin: 05/18/19 09:20 Dose: 400 mg Quetiapine Fumarate (Seroquel -) 400 mg PO [facility] Trazodone HCl (Desyrel -) 50 mg PO [facility] Last Admin: 05/17/19 21:51 Dose: 50 mg Trazodone HCl (Desyrel -) 25 mg PO 0800,1200,1600 [facility] Last Admin: 05/18/19 09:19 Dose: 25 mg Vancomycin HCl (Vancomycin (Pre-Docked)) 1,000 mg IVPB Q12H [facility]; Protocol Last Admin: 05/18/19 01:14 Dose: 1,000 mg - Objective Vital Signs: Vital Signs Temperature 98.2 F 05/18/19 06:00 Pulse Rate 95 H 05/18/19 06:00 Respiratory Rate 20 05/17/19 23:41 Blood Pressure 104/62 05/18/19 06:00 O2 Sat by Pulse Oximetry (%) 97 05/17/19 21:00 Constitutional: Yes: No Distress, Calm Cardiovascular: Yes: S1, S2 Respiratory: Yes: Regular, CTA Bilaterally Gastrointestinal: Yes: Normal Bowel Sounds, Soft Musculoskeletal: Yes: WNL Extremities: Yes: Other (left lower ext edema fluctuation present) Neurological: Yes: Alert Psychiatric: Yes: Other Labs: CBC, BMP 05/18/19 08:26 05/18/19 08:26 INR, PTT INR 1.18 (0.83-1.09) H 05/16/19 16:04 Assessment/Plan Problem List - Problems (1) Altered mental state Code(s): R41.82 - ALTERED MENTAL STATUS, UNSPECIFIED (2) Cellulitis Code(s): L03.90 - CELLULITIS, UNSPECIFIED (3) Developmental delay, severe Code(s): R62.50 - UNSP LACK OF EXPECTED NORMAL PHYSIOL DEV IN CHILDHOOD (4) HTN (hypertension) Code(s): I10 - ESSENTIAL (PRIMARY) HYPERTENSION (5) Seizure Code(s): R56.9 - UNSPECIFIED CONVULSIONS (6) Sepsis Code(s): A41.9 - SEPSIS, UNSPECIFIED ORGANISM plan will stop vanco now will continue ceftiraxone consider surgical evaluation rest as per the team
--- NOTE | 2019-05-18 14:04 | EKG ---
Test Reason : Blood Pressure : / mmHG Vent. Rate : 098 BPM Atrial Rate : 098 BPM P-R Int : 150 ms QRS Dur : 084 ms QT Int : 350 ms P-R-T Axes : 052 016 058 degrees QTc Int : 446 ms NORMAL SINUS RHYTHM NORMAL ECG WHEN COMPARED WITH ECG OF 16-MAY-2019 18:24, NO SIGNIFICANT CHANGE WAS FOUND Confirmed by ASHLEIGH CHENEY MD ([id number]) on 05/18/2019 2:04:26 PM Referred By: STEFANI KUMAR Confirmed By:ASHLEIGH CHENEY MD
--- NOTE | 2019-05-18 17:28 | CONSULT ---
Consult Consult Specialty:: orthopedics - History of Present Illness History of Present Illness: 38y/o male admitted for lethargy admitted to the hospital was found to have swelling and a scab on his left knee. Patient underwent mri examination which showed a fluid collection suspicious for an abscess. No pain in the knee at rest. patient is a poor historian. Unknown history of trauma. 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 Cardio/Vascular: Yes: HTN Psych: Yes: Other (austic/developmental delays) - Alcohol/Substance Use Hx Alcohol Use: No - Smoking History Smoking history: Never smoked Have you smoked in the past 12 months: No Aproximately how many cigarettes per day: 0 - Social History ADL: Support Services Occupation: disability History of Recent Travel: No Home Medications - Allergies Allergies/Adverse Reactions: Allergies Allergy/AdvReac Type Severity Reaction Status Date / Time No Known Allergies Allergy Unverified 07/25/13 19:47 - Home Medications Home Medications: Ambulatory Orders Cetirizine HCl [Wal-Zyr] 10 mg PO DAILY 08/28/14 Cholecalciferol (Vitamin D3) [Vitamin D] 2,000 unit PO DAILY 08/28/14 Clonazepam 0.5 mg PO BID 08/28/14 Clonazepam 1 mg PO BID 08/28/14 Divalproex *ER* [Depakote *ER* -] 500 mg PO AM 08/28/14 Divalproex [Depakote -] 750 mg PO HS 08/28/14 Docusate Sodium [Colace -] 100 mg PO DAILY 08/28/14 Hydrochlorothiazide [Hctz -] 25 mg PO AM 08/28/14 Lisinopril [Prinivil -] 5 mg PO DAILY 08/28/14 Potassium Chloride [Klor-Con 10] 10 meq PO DAILY 08/28/14 Quetiapine Fumarate "Xr" [Seroquel XR] 200 mg PO BID 08/28/14 Quetiapine Fumarate [Seroquel -] 400 mg PO HS 08/28/14 traZODone HCL [Desyrel -] 25 mg PO TID 08/28/14 Atorvastatin Ca [Lipitor] 20 mg PO HS 05/16/19 Chlorpromazine [Thorazine -] 100 mg PO BID 05/16/19 Metoprolol Tartrate 25 mg PO BID 05/16/19 Sodium Chloride [Saline Nasal Mist] 126 ml NS BID 05/16/19 traZODone HCL [Trazodone HCl] 50 mg PO HS 05/16/19 Review of Systems - Review of Systems Constitutional: reports: No Symptoms Eyes: reports: No Symptoms HENT: reports: No Symptoms Neck: reports: No Symptoms Cardiovascular: reports: No Symptoms Respiratory: reports: No Symptoms Gastrointestinal: reports: No Symptoms Genitourinary: reports: No Symptoms Breasts: reports: No Symptoms Reported Musculoskeletal: reports: No Symptoms Integumentary: reports: No Symptoms Neurological: reports: No Symptoms Endocrine: reports: No Symptoms Hematology/Lymphatic: reports: No Symptoms Psychiatric: reports: No Symptoms Physical Exam Vital Signs: Vital Signs Temperature 97.5 F L 05/18/19 15:00 Pulse Rate 88 05/18/19 15:00 Respiratory Rate 18 05/18/19 15:00 Blood Pressure 131/75 05/18/19 15:00 O2 Sat by Pulse Oximetry (%) 96 05/18/19 10:00 Constitutional: Yes: Well Nourished, No Distress, Calm HENT: Yes: Atraumatic, Normocephalic Extremities: Yes: Other (Left knee. There is a palpable flutuant area along the anterior aspect of the knee at the level of the prepatella bursa. There is mild tenderness here. There are no other areas of tenderness. Mild warmth here. Full ROM of the knee. No instablility. Compartments soft. NVID.) Labs: CBC, BMP 05/18/19 08:26 05/18/19 08:26 Imaging - Results MRI: Report Reviewed, Image Reviewed (Fulid collection suspicious for abcess) Assessment/Plan #1 Left knee swelling r/o abscess -I discussed todays findings and treatment options with the patient, caregiver and mother. I recommended aspiration of the fluid collection with possible I&D. Verbal consent via telephone was obtained from the mother. Procedure, Aspiration left knee bursa: A timeout procedure was performed and the site and procedure were reviewed. The knee was then double prepped with alcohol and allowed to fully dry. A 18g needle and 20cc syringe was then used to aspirate the fluid collection at the area of maximum fluctuance. Appox 10cc of serous fluid was removed and a sterile dressing was placed. The patient tolerated the procedure well. The knee was wrapped with an JEN bandage. -Culture, Cell count and crystal analysis sent to lab. -No abscess, aspirate consistent with bursitis. -WBAT -ABX per ID
[2019-05-18] MEDS ORDERED: PT OWN MED DRAWER 7, Y5N ONE ×2 (17:29→20:17)
[2019-05-18 18:55] LABS: BF WBC & OTHER NUCLEATED CELLS 3680 /mm3
[2019-05-18 19:37] LABS: BODY FLUID MONOCYTE 5 %
[2019-05-18] MEDS: DIVALPROEX NA *ER* EXTEND REL 250 MG TABLET.SA PO SCH (21:16)
[2019-05-18] MEDS: ATORVASTATIN CA 20 MG TABLET (FP) PO SCH (21:16)
[2019-05-18] MEDS: LISINOPRIL 5 MG TABLET (FP) PO SCH (21:17)
[2019-05-19 08:02] LABS: BASO % 0.7 % (0-2.0); EOS % 1.3 % (0-4.5); HEMATOCRIT 34.6 % (35.4-49); HEMOGLOBIN 12.2 GM/dL (11.7-16.9); LYMPH % 51.8 % (8-40); MCH 31.3 pg (25.7-33.7); MCHC 35.2 g/dl (32.0-35.9); MEAN PLT VOLUME 9.4 fl (7.5-11.1); MONO % 12.7 % (3.8-10.2); NEUT % 33.5 % (42.8-82.8); PLATELET COUNT 187 K/MM3 (134-434); RBC 3.89 M/mm3 (4.00-5.60); RDW 13.5 % (11.9-15.9); WHITE BLOOD COUNT 4.8 K/mm3 (4.0-10.0)
[2019-05-19 08:20] LABS: ALBUMIN 3.1 g/dl (3.4-5.0); BILIRUBIN,TOTAL 0.6 mg/dL (0.2-1); BLOOD UREA NITROGEN 16.2 mg/dL (7-18); CALCIUM 9.1 mg/dL (8.5-10.1); MAGNESIUM 2.3 mg/dL (1.8-2.4); POTASSIUM 4.2 mmol/L (3.5-5.1)
[2019-05-19] MEDS: traZODone HCL 50 MG TABLET (FP) PO SCH ×4 (08:26→22:33)
[2019-05-19] MEDS: clonazePAM 0.5 MG TABLET PO SCH ×4 (08:26→22:37)
[2019-05-19] MEDS: QUEtiapine FUMARATE 200 MG TABLET PO SCH ×3 (08:27→22:32)
[2019-05-19] MEDS: chlorproMAZINE HCL 100 MG TABLET PO SCH ×2 (08:27→16:15)
--- NOTE | 2019-05-19 08:33 | PN ---
Physical Exam: History of Present Illness: 38yo M hx autism, HTN,sz disorder,able to communicate (slightly slurred speech) , and taking care of self. Pt was at baseline yesterday, last seen normal yesterday afternoon. When they checked on him this AM, he was in bed lethargic but still able to walk and talk. Pt ate a little then went back to sleep. Pt was checked in at approximately 1200 and was found severely lethargic, responsive only to painful stimuli, unable to walk or talk. caseworker intake says he has never been like this before. States the [facility] is in charge of his medications and did not recently change his medications. States they did not notice any fever, vomiting, or indications of pain. Denies head trauma or falls. Noted that his left knee was warm with a "scab" on middle of patella Resident of [facility] SUBJECTIVE: Patient seen and examined. No signs or symptoms of distress. Staff AidKely at bedside OBJECTIVE: Vital Signs Period Temp Pulse Resp BP Sys/Baldwin Pulse Ox Last 24 Hr 97.5 F-98.2 F 79-101 18-19 123-131/70-79 96-96 Constitutional: Yes: Well Nourished, Anxious Eyes: Yes: WNL, Conjunctiva Clear, EOM Intact HENT: Yes: Drooling Neck: Yes: WNL, Supple, Trachea Midline Cardiovascular: Yes: WNL, Regular Rate and Rhythm Respiratory: Yes: Regular, CTA Bilaterally, On Nasal O2 Gastrointestinal: Yes: WNL, Normal Bowel Sounds ...Rectal Exam: Yes: Deferred Renal/: Yes: WNL Breast(s): Yes: WNL Musculoskeletal: Yes: Joint Swelling (left knee) Extremities: Yes: Erythema (to left knee/calf) Edema: LLE: 1+, RLE: Trace Peripheral Pulses WNL: Yes Peripheral Pulses: Left Radial: 2+, Right Radial: 2+, Left Doralis Pedis: 2+, Right Dorsalis Pedis: 2+, Left Femoral: 2+, Right Femoral: 2+ Integumentary: Yes: Erythema, Other (1cm lesion to left patella) 3cm flucuant area to medial aspect of patella Neurological: Yes: Alert, Confusion, Dysarthria, Unsteady Gait ...Motor Strength: WNL Laboratory Results - last 24 hr 05/18/19 05/18/19 05/18/19 08:26 08:26 10:02 WBC 5.1 RBC 4.36 Hgb 13.4 Hct 39.3 MCV 90.1 MCH 30.9 MCHC 34.2 RDW 13.5 Plt Count 190 MPV 10.0 Absolute Neuts (auto) 2.3 Neutrophils % 45.4 Lymphocytes % 41.5 H D Monocytes % 11.3 H Eosinophils % 0.9 Basophils % 0.9 Nucleated RBC % 0 Sodium 134 L Potassium 4.2 Chloride 97 L Carbon Dioxide 29 Anion Gap 8 BUN 14.9 Creatinine 1.0 Est GFR (CKD-EPI)AfAm 109.40 Est GFR (CKD-EPI)NonAf 94.39 Random Glucose 84 Calcium 9.2 Magnesium 2.4 Total Bilirubin 0.5 AST 49 H ALT 29 Alkaline Phosphatase 50 Total Protein 7.6 Albumin 3.4 Fluid Source Fluid WBC Fluid RBC Fluid Neutrophils Fluid Lymphocytes Pleural Monocytes Synovial Crystals Valproic Acid 98.3 05/18/19 05/18/19 05/19/19 17:15 17:15 07:15 WBC RBC Hgb Hct MCV MCH MCHC RDW Plt Count MPV Absolute Neuts (auto) Neutrophils % Lymphocytes % Monocytes % Eosinophils % Basophils % Nucleated RBC % Sodium 135 L Potassium 4.2 Chloride 100 Carbon Dioxide 29 Anion Gap 6 L BUN 16.2 Creatinine 1.0 Est GFR (CKD-EPI)AfAm 109.40 Est GFR (CKD-EPI)NonAf 94.39 Random Glucose 86 Calcium 9.1 Magnesium 2.3 Total Bilirubin 0.6 AST 41 H ALT 30 Alkaline Phosphatase 47 Total Protein 7.0 Albumin 3.1 L Fluid Source Synovial fluid Fluid WBC 3680 Fluid RBC 1387 Fluid Neutrophils 94 Fluid Lymphocytes 1 Pleural Monocytes 5 Synovial Crystals Negative Valproic Acid Active Medications Generic Name Dose Route Start Last Admin Trade Name Freq PRN Reason Stop Dose Admin Atorvastatin Calcium 20 mg 05/17/19 22:00 05/18/19 21:16 Lipitor - PO 20 mg HS REAL Administration Chlorpromazine HCl 100 mg 05/17/19 16:00 05/19/19 08:27 Thorazine - PO 100 mg BID@0800,1600 REAL Administration Cholecalciferol 2,000 unit 05/17/19 10:00 05/18/19 09:31 Vitamin D3 - PO 2,000 unit DAILY REAL Administration Clonazepam 0.5 mg 05/17/19 12:00 05/19/19 08:26 Klonopin - PO 0.5 mg 0800,1200,1600,2100 REAL Administration Divalproex Sodium 750 mg 05/17/19 21:00 05/18/19 21:16 Depakote *Er* - PO 750 mg DAILY@2100 REAL Administration Divalproex Sodium 500 mg 05/18/19 08:00 05/18/19 09:19 Depakote *Er* - PO 500 mg DAILY@0800 REAL Administration Docusate Sodium 100 mg 05/17/19 10:00 05/18/19 09:31 Colace - PO 100 mg DAILY REAL Administration Heparin Sodium (Porcine) 5,000 unit 05/16/19 22:00 05/18/19 21:17 Heparin - SQ 5,000 unit BID REAL Administration Hydrochlorothiazide 25 mg 05/17/19 10:00 05/18/19 09:31 Hctz - PO 25 mg DAILY REAL Administration Ceftriaxone Sodium 2 gm/ 100 mls @ 200 mls/hr 05/17/19 10:00 05/18/19 09:31 Dextrose IVPB 200 mls/hr DAILY REAL Administration Protocol Lisinopril 5 mg 05/17/19 21:00 05/18/19 21:17 Prinivil PO 5 mg DAILY@2100 REAL Administration Metoprolol Tartrate 12.5 mg 05/17/19 22:00 05/18/19 21:16 Lopressor - PO 12.5 mg BID REAL Administration Quetiapine Fumarate 400 mg 05/17/19 22:02 05/18/19 21:24 Seroquel - PO Not Given HS REAL Quetiapine Fumarate 200 mg 05/18/19 21:53 05/19/19 08:27 Seroquel - PO 200 mg 0800,1600 REAL Administration Trazodone HCl 50 mg 05/17/19 22:00 05/18/19 21:24 Desyrel - PO 50 mg HS REAL Administration Trazodone HCl 25 mg 05/17/19 12:00 05/19/19 08:26 Desyrel - PO 25 mg 0800,1200,1600 REAL Administration Imaging MRI: Report Reviewed (6 cm in its longer axis subcutaneous fluid collection anterior to the tibial tuberosity and distal aspect of the patellar tendon with extensive soft tissue swelling anterior and lateral aspect of the knee joint compatible with extensive cellulitis. The fluid collection is suspicious of abscess or less likely hematoma. Aspiration preferably under sonographic guidance recommended for further evaluation) ASSESSMENT/PLAN: (1) Altered mental state Assessment/Plan: Back to baseline as per Nursing Home staff head CT without acute pathology LA .7, WBC 4.8, afebrile blood urine Cx NGTD Vanco/zosyn given in ED appreciate ID consultation-Dr. Domenica Elizondo following today ceftriaxone to continue resume all psych meds Code(s): R41.82 - ALTERED MENTAL STATUS, UNSPECIFIED (2) HTN (hypertension) Assessment/Plan: c/w lisinipril, hctz Code(s): I10 - ESSENTIAL (PRIMARY) HYPERTENSION (3) Developmental delay, severe Assessment/Plan: supportive care staff from [facility] present (Kely) Dr Hernandez reached from home 05/17 and reviewed medications [phone] ordered all meds as per home regimen. On several Qtc prolonging agents. 437 Code(s): R62.50 - UNSP LACK OF EXPECTED NORMAL PHYSIOL DEV IN CHILDHOOD (4) Cellulitis Assessment/Plan: left knee with erythema with 1cm lesion/scab 3cm flucuant area ceftriaxone 2g daily, vanco bid dopplers of lower extrem without DVT ID consultation apppreciated Othro Consult-Dr. House aspirated fluid from knee --Culture, Cell count and crystal analysis sent to lab. --No abscess, aspirate consistent with bursitis. --WBAT --ABX per ID monitor WBC, temp trend MRI noted. Suspicious of abcess Ortho consulted Code(s): L03.90 - CELLULITIS, UNSPECIFIED (5) Seizure Assessment/Plan: c/w depakote fall precautions Code(s): R56.9 - UNSPECIFIED CONVULSIONS (6) Preventive measure Assessment/Plan: FEN chopped diet monitor electrolytes and replete prn DVT heparin sq Dispo maintain as in patient Full code discharge planning back to [facility] Code(s): Z29.9 - ENCOUNTER FOR PROPHYLACTIC MEASURES, UNSPECIFIED Visit type - Emergency Visit Emergency Visit: Yes ED Registration Date: 05/16/19 Care time: The patient presented to the Emergency Department on the above date and was hospitalized for further evaluation of their emergent condition. - New Patient This patient is new to me today: Yes Date on this admission: 05/19/19 - Critical Care Critical Care patient: No - Discharge Referral Referred to [facility] Med P.C.: No
[2019-05-19] MEDS ORDERED: DEXTROSE 5%-WATER 100 ML IVPB ONE (09:06)
[2019-05-19] MEDS: DOCUSATE SODIUM 100 MG CAPSULE (FP) PO SCH (09:08)
[2019-05-19] MEDS: CHOLECALCIFEROL (VIT D3) 1,000 UNIT (25 MCG) TABLET PO SCH (09:08)
[2019-05-19] MEDS: DIVALPROEX NA *ER* EXTEND REL 500 MG TABLET.SA (FP) PO SCH (09:08)
[2019-05-19] MEDS: HYDROCHLOROTHIAZIDE 25 MG TABLET (FP) PO SCH (09:09)
[2019-05-19] MEDS: HEPARIN NA (PORCINE) 5,000 UNITS/ML 1ML VIAL SQ SCH ×2 (09:09→22:34)
[2019-05-19] MEDS: METOPROLOL TARTRATE 25 MG TABLET (FP) PO SCH ×2 (09:11→22:30)
[2019-05-19] MEDS: CEFTRIAXONE 2 GM in DEXTROSE 5%-WATER 100 ML IVPB SCH (09:11)
--- NOTE | 2019-05-19 17:27 | PN ---
Progress Note, Physician History of Present Illness: Events noted. Pt had drainage of fluctuant tibial/knee lesion yesterday. He is afebrile but intermittently lethargic although easily arousable. Afebrile, vitals stable. No distress noted. - Current Medication List Current Medications: Active Medications Atorvastatin Calcium (Lipitor -) 20 mg PO HS [facility] Last Admin: 05/18/19 21:16 Dose: 20 mg Chlorpromazine HCl (Thorazine -) 100 mg PO BID@0800,1600 [facility] Last Admin: 05/19/19 16:15 Dose: 100 mg Cholecalciferol (Vitamin D3 -) 2,000 unit PO DAILY [facility] Last Admin: 05/19/19 09:08 Dose: 2,000 unit Clonazepam (Klonopin -) 0.5 mg PO 0800,1200,1600,2100 [facility] Last Admin: 05/19/19 16:14 Dose: 0.5 mg Divalproex Sodium (Depakote *Er* -) 750 mg PO DAILY@2100 [facility] Last Admin: 05/18/19 21:16 Dose: 750 mg Divalproex Sodium (Depakote *Er* -) 500 mg PO DAILY@0800 [facility] Last Admin: 05/19/19 09:08 Dose: 500 mg Docusate Sodium (Colace -) 100 mg PO DAILY [facility] Last Admin: 05/19/19 09:08 Dose: 100 mg Heparin Sodium (Porcine) (Heparin -) 5,000 unit SQ BID [facility] Last Admin: 05/19/19 09:09 Dose: 5,000 unit Hydrochlorothiazide (Hctz -) 25 mg PO DAILY [facility] Last Admin: 05/19/19 09:09 Dose: 25 mg Ceftriaxone Sodium 2 gm/ (Dextrose) 100 mls @ 200 mls/hr IVPB DAILY [facility]; Protocol Last Admin: 05/19/19 09:11 Dose: 200 mls/hr Lisinopril (Prinivil) 5 mg PO DAILY@2100 [facility] Last Admin: 05/18/19 21:17 Dose: 5 mg Metoprolol Tartrate (Lopressor -) 12.5 mg PO BID [facility] Last Admin: 05/19/19 09:11 Dose: 12.5 mg Quetiapine Fumarate (Seroquel -) 400 mg PO HS [facility] Last Admin: 05/18/19 21:24 Dose: Not Given Quetiapine Fumarate (Seroquel -) 200 mg PO 0800,1600 [facility] Last Admin: 05/19/19 16:14 Dose: 200 mg Trazodone HCl (Desyrel -) 50 mg PO HS [facility] Last Admin: 05/18/19 21:24 Dose: 50 mg Trazodone HCl (Desyrel -) 25 mg PO 0800,1200,1600 [facility] Last Admin: 05/19/19 16:14 Dose: 25 mg - Objective Vital Signs: Vital Signs Temperature 98.0 F 05/19/19 09:58 Pulse Rate 85 05/19/19 09:58 Respiratory Rate 20 05/19/19 09:58 Blood Pressure 120/73 05/19/19 09:58 O2 Sat by Pulse Oximetry (%) 94 L 05/19/19 09:00 Constitutional: Yes: No Distress Neck: Yes: Supple Cardiovascular: Yes: Regular Rate and Rhythm Respiratory: Yes: Regular Gastrointestinal: Yes: Normal Bowel Sounds, Soft Genitourinary: Yes: WNL Extremities: Yes: Other (Lt tibial fluctuance decreased since aspiration, less edema/no tenderness) Neurological: Yes: Other (arousable/responsive) Labs: CBC, BMP 05/19/19 07:15 05/19/19 07:15 INR, PTT INR 1.18 (0.83-1.09) H 05/16/19 16:04 - ....Imaging MRI: Report Reviewed Problem List - Problems (1) Altered mental state Code(s): R41.82 - ALTERED MENTAL STATUS, UNSPECIFIED (2) Cellulitis Code(s): L03.90 - CELLULITIS, UNSPECIFIED (3) Developmental delay, severe Code(s): R62.50 - UNSP LACK OF EXPECTED NORMAL PHYSIOL DEV IN CHILDHOOD (4) HTN (hypertension) Code(s): I10 - ESSENTIAL (PRIMARY) HYPERTENSION (5) Seizure Code(s): R56.9 - UNSPECIFIED CONVULSIONS (6) Sepsis Code(s): A41.9 - SEPSIS, UNSPECIFIED ORGANISM Assessment/Plan 38 y.o. male with PMH of autism/developmental delay, seizure d.o., HTN brought in from assisted for AMS/lethargy noted x 1 day, low grade fever, Lt tibial fluctuant lesion AMS Lt patellar bursitis s/p aspiration Fever - resolved -- continue antibiotics -- follow up fluid culture results, fluid analysis results noted -- monitor temps/vitals, mental status
[2019-05-19] MEDS: ATORVASTATIN CA 20 MG TABLET (FP) PO SCH (22:30)
[2019-05-19] MEDS: LISINOPRIL 5 MG TABLET (FP) PO SCH (22:30)
[2019-05-19] MEDS: DIVALPROEX NA *ER* EXTEND REL 250 MG TABLET.SA PO SCH (22:37)
[2019-05-20 08:15] LABS: BASO % 0.8 % (0-2.0); EOS % 3.2 % (0-4.5); HEMATOCRIT 37.5 % (35.4-49); HEMOGLOBIN 12.8 GM/dL (11.7-16.9); MCH 30.8 pg (25.7-33.7); MEAN CELL VOLUME 90.6 fl (80-96); MEAN PLT VOLUME 9.3 fl (7.5-11.1); MONO % 11.6 % (3.8-10.2); NEUT % 41.4 % (42.8-82.8); PLATELET COUNT 232 K/MM3 (134-434); RBC 4.14 M/mm3 (4.00-5.60); RDW 13.3 % (11.9-15.9); WHITE BLOOD COUNT 4.6 K/mm3 (4.0-10.0)
[2019-05-20] MEDS ORDERED: DEXTROSE 5%-WATER 100 ML IVPB ONE (08:21)
[2019-05-20] MEDS: traZODone HCL 50 MG TABLET (FP) PO SCH ×4 (08:30→21:15)
[2019-05-20] MEDS: chlorproMAZINE HCL 100 MG TABLET PO SCH ×2 (08:30→16:12)
[2019-05-20] MEDS: clonazePAM 0.5 MG TABLET PO SCH ×4 (08:30→21:24)
[2019-05-20 08:40] LABS: ALBUMIN 3.2 g/dl (3.4-5.0); BILIRUBIN,TOTAL 0.5 mg/dL (0.2-1); BLOOD UREA NITROGEN 16.6 mg/dL (7-18); CALCIUM 9.3 mg/dL (8.5-10.1); CREATININE 0.9 mg/dL (0.55-1.3); MAGNESIUM 2.1 mg/dL (1.8-2.4); POTASSIUM 4.4 mmol/L (3.5-5.1); TOT PROT 7.5 g/dl (6.4-8.2)
[2019-05-20] MEDS: CEFTRIAXONE 2 GM in DEXTROSE 5%-WATER 100 ML IVPB SCH (09:53)
[2019-05-20] MEDS: DIVALPROEX NA *ER* EXTEND REL 500 MG TABLET.SA (FP) PO SCH (09:54)
[2019-05-20] MEDS: METOPROLOL TARTRATE 25 MG TABLET (FP) PO SCH ×2 (09:55→21:12)
[2019-05-20] MEDS: HYDROCHLOROTHIAZIDE 25 MG TABLET (FP) PO SCH (09:55)
[2019-05-20] MEDS: CHOLECALCIFEROL (VIT D3) 1,000 UNIT (25 MCG) TABLET PO SCH (09:55)
[2019-05-20] MEDS: QUEtiapine FUMARATE 200 MG TABLET PO SCH ×3 (09:59→21:12)
[2019-05-20] MEDS: DOCUSATE SODIUM 100 MG CAPSULE (FP) PO SCH (10:00)
[2019-05-20] MEDS: HEPARIN NA (PORCINE) 5,000 UNITS/ML 1ML VIAL SQ SCH ×2 (10:00→21:16)
--- NOTE | 2019-05-20 13:30 | PN ---
Progress Note, Physician Chief Complaint: no complaints offered, staff from [place] at bedside History of Present Illness: 38yo M hx autism, HTN,sz disorder,able to communicate (slightly slurred speech) , and taking care of self. Pt was at baseline yesterday, last seen normal yesterday afternoon. When they checked on him this AM, he was in bed lethargic but still able to walk and talk. Pt ate a little then went back to sleep. Pt was checked in at approximately 1200 and was found severely lethargic, responsive only to painful stimuli, unable to walk or talk. engineering production worker says he has never been like this before. States the custodial is in charge of his medications and did not recently change his medications. States they did not notice any fever, vomiting, or indications of pain. Denies head trauma or falls. Noted that his left knee was warm with a "scab" on middle of patella Resident of [facility] - Current Medication List Current Medications: Active Medications Atorvastatin Calcium (Lipitor -) 20 mg PO HS [facility] Last Admin: 05/19/19 22:30 Dose: 20 mg Chlorpromazine HCl (Thorazine -) 100 mg PO BID@0800,1600 [facility] Last Admin: 05/20/19 08:30 Dose: 100 mg Cholecalciferol (Vitamin D3 -) 2,000 unit PO DAILY [facility] Last Admin: 05/20/19 09:55 Dose: 2,000 unit Clonazepam (Klonopin -) 0.5 mg PO 0800,1200,1600,2100 [facility] Last Admin: 05/20/19 13:25 Dose: 0.5 mg Divalproex Sodium (Depakote *Er* -) 750 mg PO DAILY@2100 [facility] Last Admin: 05/19/19 22:37 Dose: 750 mg Divalproex Sodium (Depakote *Er* -) 500 mg PO DAILY@0800 [facility] Last Admin: 05/20/19 09:54 Dose: 500 mg Docusate Sodium (Colace -) 100 mg PO DAILY [facility] Last Admin: 05/20/19 10:00 Dose: 100 mg Heparin Sodium (Porcine) (Heparin -) 5,000 unit SQ BID [facility] Last Admin: 05/20/19 10:00 Dose: 5,000 unit Hydrochlorothiazide (Hctz -) 25 mg PO DAILY [facility] Last Admin: 05/20/19 09:55 Dose: 25 mg Ceftriaxone Sodium 2 gm/ (Dextrose) 100 mls @ 200 mls/hr IVPB DAILY [facility]; Protocol Last Admin: 05/20/19 09:53 Dose: 200 mls/hr Lisinopril (Prinivil) 5 mg PO DAILY@2100 [facility] Last Admin: 05/19/19 22:30 Dose: 5 mg Metoprolol Tartrate (Lopressor -) 12.5 mg PO BID [facility] Last Admin: 05/20/19 09:55 Dose: 12.5 mg Quetiapine Fumarate (Seroquel -) 400 mg PO [facility] Last Admin: 05/19/19 22:32 Dose: 400 mg Quetiapine Fumarate (Seroquel -) 200 mg PO 0800,1600 [facility] Last Admin: 05/20/19 09:59 Dose: 200 mg Trazodone HCl (Desyrel -) 50 mg PO [facility] Last Admin: 05/19/19 22:33 Dose: 50 mg Trazodone HCl (Desyrel -) 25 mg PO 0800,1200,1600 [facility] Last Admin: 05/20/19 13:25 Dose: 25 mg - Objective Vital Signs: Vital Signs Temperature 98.3 F 05/20/19 10:00 Pulse Rate 85 05/20/19 10:00 Respiratory Rate 20 05/20/19 10:00 Blood Pressure 128/77 05/20/19 10:00 O2 Sat by Pulse Oximetry (%) 94 L 05/19/19 09:00 Additional Findings/Remarks: Constitutional: Yes: Well Nourished, Anxious Eyes: Yes: WNL, Conjunctiva Clear, EOM Intact HENT: Yes: Drooling Neck: Yes: WNL, Supple, Trachea Midline Cardiovascular: Yes: WNL, Regular Rate and Rhythm Respiratory: Yes: Regular, CTA Bilaterally, On Nasal O2 Gastrointestinal: Yes: WNL, Normal Bowel Sounds ...Rectal Exam: Yes: Deferred Renal/: Yes: WNL Breast(s): Yes: WNL Musculoskeletal: Yes: Joint Swelling (left knee) Extremities: Yes: Erythema (to left knee/calf) Edema: LLE: 1+, RLE: Trace Peripheral Pulses WNL: Yes Peripheral Pulses: Left Radial: 2+, Right Radial: 2+, Left Doralis Pedis: 2+, Right Dorsalis Pedis: 2+, Left Femoral: 2+, Right Femoral: 2+ Integumentary: Yes: Erythema, Other (1cm lesion to left patella) Area to medial aspect of patella no lomger flucuant Neurological: Yes: Alert, Confusion, Dysarthria, Unsteady Gait ...Motor Strength: WNL Labs: CBC, BMP 05/20/19 07:35 05/20/19 07:30 INR, PTT INR 1.18 (0.83-1.09) H 05/16/19 16:04 Problem List - Problems (1) Altered mental state Assessment/Plan: Back to baseline as per [facility] staff head CT without acute pathology appreciate ID consultation c/w ceftriaxone until synovial cx if resulted resume all psych meds MRI noted Code(s): R41.82 - ALTERED MENTAL STATUS, UNSPECIFIED (2) HTN (hypertension) Assessment/Plan: c/w lisinipril, hctz Code(s): I10 - ESSENTIAL (PRIMARY) HYPERTENSION (3) Developmental delay, severe Assessment/Plan: supportive care staff from custodial present spoke with Dr Hernandez from home, reviewed medications [phone] ordered all meds as per home regimen. On several Qtc prolonging agents. 446 Code(s): R62.50 - UNSP LACK OF EXPECTED NORMAL PHYSIOL DEV IN CHILDHOOD (4) Cellulitis Assessment/Plan: left knee with less erythema with 1cm lesion/scab c/w ceftriaxone dopplers of lower extrem without DVT ID consultation apppreciated monitor WBC, temp trend MRI noted. left knee aspiration done by Ortho, pending Cx Code(s): L03.90 - CELLULITIS, UNSPECIFIED (5) Seizure Assessment/Plan: c/w depakote fall precautions Code(s): R56.9 - UNSPECIFIED CONVULSIONS (6) Preventive measure Assessment/Plan: FEN chopped diet monitor electrolytes and replete prn DVT heparin sq Dispo maintain as in patient Full code discharge planning back to custodial Code(s): Z29.9 - ENCOUNTER FOR PROPHYLACTIC MEASURES, UNSPECIFIED Visit type - Emergency Visit Emergency Visit: Yes ED Registration Date: 05/16/19 Care time: The patient presented to the Emergency Department on the above date and was hospitalized for further evaluation of their emergent condition. - New Patient This patient is new to me today: No - Critical Care Critical Care patient: No - Discharge Referral Referred to [facility] Med P.C.: No
--- NOTE | 2019-05-20 14:32 | PN ---
Progress Note, Physician History of Present Illness: resting in bed. according to aid he has not been walking. c/o pain in knee. - Current Medication List Current Medications: Active Medications Atorvastatin Calcium (Lipitor -) 20 mg PO HS [facility] Last Admin: 05/19/19 22:30 Dose: 20 mg Chlorpromazine HCl (Thorazine -) 100 mg PO BID@0800,1600 [facility] Last Admin: 05/20/19 08:30 Dose: 100 mg Cholecalciferol (Vitamin D3 -) 2,000 unit PO DAILY [facility] Last Admin: 05/20/19 09:55 Dose: 2,000 unit Clonazepam (Klonopin -) 0.5 mg PO 0800,1200,1600,2100 [facility] Last Admin: 05/20/19 13:25 Dose: 0.5 mg Divalproex Sodium (Depakote *Er* -) 750 mg PO DAILY@2100 [facility] Last Admin: 05/19/19 22:37 Dose: 750 mg Divalproex Sodium (Depakote *Er* -) 500 mg PO DAILY@0800 [facility] Last Admin: 05/20/19 09:54 Dose: 500 mg Docusate Sodium (Colace -) 100 mg PO DAILY [facility] Last Admin: 05/20/19 10:00 Dose: 100 mg Heparin Sodium (Porcine) (Heparin -) 5,000 unit SQ BID [facility] Last Admin: 05/20/19 10:00 Dose: 5,000 unit Hydrochlorothiazide (Hctz -) 25 mg PO DAILY [facility] Last Admin: 05/20/19 09:55 Dose: 25 mg Ceftriaxone Sodium 2 gm/ (Dextrose) 100 mls @ 200 mls/hr IVPB DAILY [facility]; Protocol Last Admin: 05/20/19 09:53 Dose: 200 mls/hr Lisinopril (Prinivil) 5 mg PO DAILY@2100 [facility] Last Admin: 05/19/19 22:30 Dose: 5 mg Metoprolol Tartrate (Lopressor -) 12.5 mg PO BID [facility] Last Admin: 05/20/19 09:55 Dose: 12.5 mg Quetiapine Fumarate (Seroquel -) 400 mg PO HS [facility] Last Admin: 05/19/19 22:32 Dose: 400 mg Quetiapine Fumarate (Seroquel -) 200 mg PO 0800,1600 [facility] Last Admin: 05/20/19 09:59 Dose: 200 mg Trazodone HCl (Desyrel -) 50 mg PO HS [facility] Last Admin: 05/19/19 22:33 Dose: 50 mg Trazodone HCl (Desyrel -) 25 mg PO 0800,1200,1600 [facility] Last Admin: 05/20/19 13:25 Dose: 25 mg - Objective Vital Signs: Vital Signs Temperature 98.3 F 05/20/19 10:00 Pulse Rate 85 05/20/19 10:00 Respiratory Rate 20 05/20/19 10:00 Blood Pressure 128/77 05/20/19 10:00 O2 Sat by Pulse Oximetry (%) 94 L 05/19/19 09:00 Constitutional: Yes: Well Nourished, No Distress, Calm Musculoskeletal: Yes: Other (Left knee: Mild swelling along the infrapatella bursa. This is less swollen than prior to drainage tuesday evening. There is no tenderness to palpation. Full motion of the knee. patella centrally tracking. NVID. Compartments soft.) Labs: CBC, BMP 05/20/19 07:35 05/20/19 07:30 INR, PTT INR 1.18 (0.83-1.09) H 05/16/19 16:04 Laboratory Results - last 24 hr 05/20/19 05/20/19 07:30 07:35 WBC 4.6 RBC 4.14 Hgb 12.8 Hct 37.5 MCV 90.6 MCH 30.8 MCHC 34.0 RDW 13.3 Plt Count 232 D MPV 9.3 Absolute Neuts (auto) 1.9 Neutrophils % 41.4 L D Lymphocytes % 43.0 H Monocytes % 11.6 H Eosinophils % 3.2 D Basophils % 0.8 Nucleated RBC % 0 Sodium 136 Potassium 4.4 Chloride 100 Carbon Dioxide 29 Anion Gap 7 L BUN 16.6 Creatinine 0.9 Est GFR (CKD-EPI)AfAm 124.26 Est GFR (CKD-EPI)NonAf 107.21 Random Glucose 91 Calcium 9.3 Magnesium 2.1 Total Bilirubin 0.5 AST 38 H ALT 34 Alkaline Phosphatase 54 Total Protein 7.5 Albumin 3.2 L Microbiology 05/18/19 17:15 Aspirate Gram Stain - Final 05/18/19 17:15 Aspirate Body Fluid Culture - Preliminary 05/16/19 16:00 Blood - Peripheral Venous Blood Culture - Preliminary NO GROWTH OBTAINED AFTER 72 HOURS, INCUBATION TO CONTINUE FOR 2 DAYS. 05/16/19 16:00 Blood - Peripheral Venous Blood Culture - Preliminary NO GROWTH OBTAINED AFTER 72 HOURS, INCUBATION TO CONTINUE FOR 2 DAYS. Assessment/Plan Left knee infrapatellar bursitis, unlikely abscess -Awaiting culture -Continue abx per ID -PT WBAT
--- NOTE | 2019-05-20 16:45 | PN ---
Progress Note, Physician History of Present Illness: Pt afebrile, easily arousable, in no distress. - Current Medication List Current Medications: Active Medications Atorvastatin Calcium (Lipitor -) 20 mg PO [facility] Last Admin: 05/19/19 22:30 Dose: 20 mg Chlorpromazine HCl (Thorazine -) 100 mg PO BID@0800,1600 [facility] Last Admin: 05/20/19 16:12 Dose: 100 mg Cholecalciferol (Vitamin D3 -) 2,000 unit PO DAILY [facility] Last Admin: 05/20/19 09:55 Dose: 2,000 unit Clonazepam (Klonopin -) 0.5 mg PO 0800,1200,1600,2100 [facility] Last Admin: 05/20/19 16:11 Dose: 0.5 mg Divalproex Sodium (Depakote *Er* -) 750 mg PO DAILY@2100 [facility] Last Admin: 05/19/19 22:37 Dose: 750 mg Divalproex Sodium (Depakote *Er* -) 500 mg PO DAILY@0800 [facility] Last Admin: 05/20/19 09:54 Dose: 500 mg Docusate Sodium (Colace -) 100 mg PO DAILY [facility] Last Admin: 05/20/19 10:00 Dose: 100 mg Heparin Sodium (Porcine) (Heparin -) 5,000 unit SQ BID [facility] Last Admin: 05/20/19 10:00 Dose: 5,000 unit Hydrochlorothiazide (Hctz -) 25 mg PO DAILY [facility] Last Admin: 05/20/19 09:55 Dose: 25 mg Ceftriaxone Sodium 2 gm/ (Dextrose) 100 mls @ 200 mls/hr IVPB DAILY [facility]; Protocol Last Admin: 05/20/19 09:53 Dose: 200 mls/hr Lisinopril (Prinivil) 5 mg PO DAILY@2100 [facility] Last Admin: 05/19/19 22:30 Dose: 5 mg Metoprolol Tartrate (Lopressor -) 12.5 mg PO BID [facility] Last Admin: 05/20/19 09:55 Dose: 12.5 mg Quetiapine Fumarate (Seroquel -) 400 mg PO [facility] Last Admin: 05/19/19 22:32 Dose: 400 mg Quetiapine Fumarate (Seroquel -) 200 mg PO 0800,1600 [facility] Last Admin: 05/20/19 16:11 Dose: 200 mg Trazodone HCl (Desyrel -) 50 mg PO HS [facility] Last Admin: 05/19/19 22:33 Dose: 50 mg Trazodone HCl (Desyrel -) 25 mg PO 0800,1200,1600 [facility] Last Admin: 05/20/19 16:11 Dose: 25 mg - Objective Vital Signs: Vital Signs Temperature 98.3 F 05/20/19 10:00 Pulse Rate 85 05/20/19 10:00 Respiratory Rate 20 05/20/19 10:00 Blood Pressure 128/77 05/20/19 10:00 O2 Sat by Pulse Oximetry (%) 94 L 05/19/19 09:00 Constitutional: Yes: No Distress, Calm Cardiovascular: Yes: Regular Rate and Rhythm Respiratory: Yes: Regular Gastrointestinal: Yes: Normal Bowel Sounds, Soft Musculoskeletal: Yes: Other (LT tibial swelling, no erythema/tenderness/drainage ) Neurological: Yes: Alert Labs: CBC, BMP 05/20/19 07:35 05/20/19 07:30 INR, PTT INR 1.18 (0.83-1.09) H 05/16/19 16:04 Microbiology 05/16/19 16:00 Blood - Peripheral Venous Blood Culture - Preliminary NO GROWTH OBTAINED AFTER 96 HOURS, INCUBATION TO CONTINUE FOR 1 DAYS. 05/16/19 16:00 Blood - Peripheral Venous Blood Culture - Preliminary NO GROWTH OBTAINED AFTER 96 HOURS, INCUBATION TO CONTINUE FOR 1 DAYS. 05/18/19 17:15 Aspirate Gram Stain - Final 05/18/19 17:15 Aspirate Body Fluid Culture - Preliminary Problem List - Problems (1) Altered mental state Code(s): R41.82 - ALTERED MENTAL STATUS, UNSPECIFIED (2) Cellulitis Code(s): L03.90 - CELLULITIS, UNSPECIFIED (3) Developmental delay, severe Code(s): R62.50 - UNSP LACK OF EXPECTED NORMAL PHYSIOL DEV IN CHILDHOOD (4) HTN (hypertension) Code(s): I10 - ESSENTIAL (PRIMARY) HYPERTENSION (5) Seizure Code(s): R56.9 - UNSPECIFIED CONVULSIONS (6) Sepsis Code(s): A41.9 - SEPSIS, UNSPECIFIED ORGANISM Assessment/Plan 38 y.o. male with PMH of autism/developmental delay, seizure d.o., HTN brought in from assisted for AMS/lethargy noted x 1 day, low grade fever, Lt tibial fluctuant lesion AMS - now easily arousable Lt patellar bursitis s/p aspiration Fever - resolved -- follow up fluid culture results to determine need for continued antibiotic treatment -- monitor temps/vitals, mental status
[2019-05-20] MEDS: DIVALPROEX NA *ER* EXTEND REL 250 MG TABLET.SA PO SCH (21:12)
[2019-05-20] MEDS: LISINOPRIL 5 MG TABLET (FP) PO SCH (21:15)
[2019-05-20] MEDS: ATORVASTATIN CA 20 MG TABLET (FP) PO SCH (21:15)
[2019-05-21 08:43] LABS: BASO % 0.9 % (0-2.0); EOS % 3.9 % (0-4.5); HEMATOCRIT 36.7 % (35.4-49); HEMOGLOBIN 12.7 GM/dL (11.7-16.9); LYMPH % 44.1 % (8-40); MCHC 34.5 g/dl (32.0-35.9); MEAN PLT VOLUME 8.9 fl (7.5-11.1); MONO % 10.3 % (3.8-10.2); NEUT % 40.8 % (42.8-82.8); PLATELET COUNT 265 K/MM3 (134-434); RBC 4.08 M/mm3 (4.00-5.60); RDW 13.3 % (11.9-15.9); WHITE BLOOD COUNT 5.1 K/mm3 (4.0-10.0)
[2019-05-21] MEDS ORDERED: DEXTROSE 5%-WATER 100 ML IVPB ONE (09:08)
[2019-05-21] MEDS: DOCUSATE SODIUM 100 MG CAPSULE (FP) PO SCH (09:10)
[2019-05-21] MEDS: chlorproMAZINE HCL 100 MG TABLET PO SCH ×2 (09:10→16:55)
[2019-05-21] MEDS: HEPARIN NA (PORCINE) 5,000 UNITS/ML 1ML VIAL SQ SCH ×2 (09:11→21:45)
[2019-05-21] MEDS: traZODone HCL 50 MG TABLET (FP) PO SCH ×4 (09:11→21:42)
[2019-05-21] MEDS: CHOLECALCIFEROL (VIT D3) 1,000 UNIT (25 MCG) TABLET PO SCH (09:11)
[2019-05-21] MEDS: METOPROLOL TARTRATE 25 MG TABLET (FP) PO SCH ×2 (09:11→21:42)
[2019-05-21] MEDS: HYDROCHLOROTHIAZIDE 25 MG TABLET (FP) PO SCH (09:12)
[2019-05-21] MEDS: clonazePAM 0.5 MG TABLET PO SCH ×4 (09:12→21:46)
[2019-05-21] MEDS: CEFTRIAXONE 2 GM in DEXTROSE 5%-WATER 100 ML IVPB SCH (09:13)
[2019-05-21] MEDS: QUEtiapine FUMARATE 200 MG TABLET PO SCH ×3 (09:14→21:42)
[2019-05-21] MEDS: DIVALPROEX NA *ER* EXTEND REL 500 MG TABLET.SA (FP) PO SCH (09:14)
[2019-05-21 09:21] LABS: ALBUMIN 3.2 g/dl (3.4-5.0); BILIRUBIN,TOTAL 0.4 mg/dL (0.2-1); BLOOD UREA NITROGEN 16.8 mg/dL (7-18); MAGNESIUM 1.9 mg/dL (1.8-2.4); POTASSIUM 4.4 mmol/L (3.5-5.1); TOT PROT 7.3 g/dl (6.4-8.2)
--- NOTE | 2019-05-21 11:24 | PN ---
Progress Note, Physician History of Present Illness: stable no new issues - Current Medication List Current Medications: Active Medications Atorvastatin Calcium (Lipitor -) 20 mg PO HS [facility] Last Admin: 05/20/19 21:15 Dose: 20 mg Chlorpromazine HCl (Thorazine -) 100 mg PO BID@0800,1600 [facility] Last Admin: 05/21/19 09:10 Dose: 100 mg Cholecalciferol (Vitamin D3 -) 2,000 unit PO DAILY [facility] Last Admin: 05/21/19 09:11 Dose: 2,000 unit Clonazepam (Klonopin -) 0.5 mg PO 0800,1200,1600,2100 [facility] Last Admin: 05/21/19 09:12 Dose: 0.5 mg Divalproex Sodium (Depakote *Er* -) 750 mg PO DAILY@2100 [facility] Last Admin: 05/20/19 21:12 Dose: 750 mg Divalproex Sodium (Depakote *Er* -) 500 mg PO DAILY@0800 [facility] Last Admin: 05/21/19 09:14 Dose: 500 mg Docusate Sodium (Colace -) 100 mg PO DAILY [facility] Last Admin: 05/21/19 09:10 Dose: 100 mg Heparin Sodium (Porcine) (Heparin -) 5,000 unit SQ BID [facility] Last Admin: 05/21/19 09:11 Dose: 5,000 unit Hydrochlorothiazide (Hctz -) 25 mg PO DAILY [facility] Last Admin: 05/21/19 09:12 Dose: 25 mg Ceftriaxone Sodium 2 gm/ (Dextrose) 100 mls @ 200 mls/hr IVPB DAILY [facility]; Protocol Last Admin: 05/21/19 09:13 Dose: 200 mls/hr Lisinopril (Prinivil) 5 mg PO DAILY@2100 [facility] Last Admin: 05/20/19 21:15 Dose: 5 mg Metoprolol Tartrate (Lopressor -) 12.5 mg PO BID [facility] Last Admin: 05/21/19 09:11 Dose: 12.5 mg Quetiapine Fumarate (Seroquel -) 400 mg PO [facility] Last Admin: 05/20/19 21:12 Dose: 400 mg Quetiapine Fumarate (Seroquel -) 200 mg PO 0800,1600 [facility] Last Admin: 05/21/19 09:14 Dose: 200 mg Trazodone HCl (Desyrel -) 50 mg PO [facility] Last Admin: 05/20/19 21:15 Dose: 50 mg Trazodone HCl (Desyrel -) 25 mg PO 0800,1200,1600 [facility] Last Admin: 05/21/19 09:11 Dose: 25 mg - Objective Vital Signs: Vital Signs Temperature 98.0 F 05/21/19 07:00 Pulse Rate 72 05/21/19 07:00 Respiratory Rate 20 05/21/19 07:00 Blood Pressure 123/82 05/21/19 07:00 O2 Sat by Pulse Oximetry (%) 95 05/21/19 09:00 Constitutional: Yes: No Distress, Calm Cardiovascular: Yes: S1, S2 Respiratory: Yes: Regular, CTA Bilaterally Gastrointestinal: Yes: Normal Bowel Sounds, Soft Musculoskeletal: Yes: WNL Extremities: Yes: Other Neurological: Yes: Alert Psychiatric: Yes: Alert, Other Labs: CBC, BMP 05/21/19 07:45 05/21/19 07:45 INR, PTT INR 1.18 (0.83-1.09) H 05/16/19 16:04 Assessment/Plan Problem List - Problems (1) Altered mental state Code(s): R41.82 - ALTERED MENTAL STATUS, UNSPECIFIED (2) Cellulitis Code(s): L03.90 - CELLULITIS, UNSPECIFIED (3) Developmental delay, severe Code(s): R62.50 - UNSP LACK OF EXPECTED NORMAL PHYSIOL DEV IN CHILDHOOD (4) HTN (hypertension) Code(s): I10 - ESSENTIAL (PRIMARY) HYPERTENSION (5) Seizure Code(s): R56.9 - UNSPECIFIED CONVULSIONS (6) Sepsis Code(s): A41.9 - SEPSIS, UNSPECIFIED ORGANISM Assessment/Plan 38 y.o. male with PMH of autism/developmental delay, seizure d.o., HTN brought in from [facility] for AMS/lethargy noted x 1 day, low grade fever, Lt tibial fluctuant lesion AMS - now easily arousable Lt patellar bursitis s/p aspiration Fever - resolved await for cx results once w ehave that then we will decide on further treatment
--- NOTE | 2019-05-21 17:26 | PN ---
Progress Note, Physician Chief Complaint: 24HR events -no complaints, ready to be d/ever back to long-term -aspirate fluid culture - MSSA. - Current Medication List Current Medications: Active Medications Atorvastatin Calcium (Lipitor -) 20 mg PO HS [facility] Last Admin: 05/20/19 21:15 Dose: 20 mg Chlorpromazine HCl (Thorazine -) 100 mg PO BID@0800,1600 [facility] Last Admin: 05/21/19 16:55 Dose: 100 mg Cholecalciferol (Vitamin D3 -) 2,000 unit PO DAILY [facility] Last Admin: 05/21/19 09:11 Dose: 2,000 unit Clonazepam (Klonopin -) 0.5 mg PO 0800,1200,1600,2100 [facility] Last Admin: 05/21/19 16:57 Dose: 0.5 mg Divalproex Sodium (Depakote *Er* -) 750 mg PO DAILY@2100 [facility] Last Admin: 05/20/19 21:12 Dose: 750 mg Divalproex Sodium (Depakote *Er* -) 500 mg PO DAILY@0800 [facility] Last Admin: 05/21/19 09:14 Dose: 500 mg Docusate Sodium (Colace -) 100 mg PO DAILY [facility] Last Admin: 05/21/19 09:10 Dose: 100 mg Heparin Sodium (Porcine) (Heparin -) 5,000 unit SQ BID [facility] Last Admin: 05/21/19 09:11 Dose: 5,000 unit Hydrochlorothiazide (Hctz -) 25 mg PO DAILY [facility] Last Admin: 05/21/19 09:12 Dose: 25 mg Ceftriaxone Sodium 2 gm/ (Dextrose) 100 mls @ 200 mls/hr IVPB DAILY [facility]; Protocol Last Admin: 05/21/19 09:13 Dose: 200 mls/hr Lisinopril (Prinivil) 5 mg PO DAILY@2100 [facility] Last Admin: 05/20/19 21:15 Dose: 5 mg Metoprolol Tartrate (Lopressor -) 12.5 mg PO BID [facility] Last Admin: 05/21/19 09:11 Dose: 12.5 mg Quetiapine Fumarate (Seroquel -) 400 mg PO HS [facility] Last Admin: 05/20/19 21:12 Dose: 400 mg Quetiapine Fumarate (Seroquel -) 200 mg PO 0800,1600 [facility] Last Admin: 05/21/19 16:57 Dose: 200 mg Trazodone HCl (Desyrel -) 50 mg PO HS [facility] Last Admin: 05/20/19 21:15 Dose: 50 mg Trazodone HCl (Desyrel -) 25 mg PO 0800,1200,1600 [facility] Last Admin: 05/21/19 16:57 Dose: 25 mg - Objective Vital Signs: Vital Signs Temperature 97.9 F 05/21/19 10:00 Pulse Rate 78 05/21/19 10:00 Respiratory Rate 18 05/21/19 10:00 Blood Pressure 122/75 05/21/19 10:00 O2 Sat by Pulse Oximetry (%) 95 05/21/19 09:00 Constitutional: Yes: Well Nourished, No Distress, Calm Eyes: Yes: PERRL HENT: Yes: Atraumatic Neck: Yes: Supple Cardiovascular: Yes: Regular Rate and Rhythm Respiratory: Yes: Regular Gastrointestinal: Yes: Normal Bowel Sounds, Soft ...Rectal Exam: Yes: Deferred Musculoskeletal: Yes: WNL Extremities: Yes: WNL Edema: No Peripheral Pulses WNL: Yes Peripheral Pulses: Left Radial: 2+, Right Radial: 2+, Left Doralis Pedis: 2+, Right Dorsalis Pedis: 2+ Integumentary: Yes: Other (Left knee healing inferior patella lesion. non- tender to palpation) Neurological: Yes: Alert ...Motor Strength: WNL Psychiatric: Yes: Alert Labs: CBC, BMP 05/21/19 07:45 05/21/19 07:45 INR, PTT INR 1.18 (0.83-1.09) H 05/16/19 16:04 Impression/Plan Impression/Plan: 38yo M hx autism, HTN,sz disorder admitted for work up of lethargy and was noted to have left knee joint infection. He is now s/p aspiration along with IV abx therapy with much improvement in his condition. (1) HTN (hypertension) c/w lisinopril, hctz, metoprolol cardiac diet Code(s): I10 - ESSENTIAL (PRIMARY) HYPERTENSION (2) Developmental delay, severe supportive care staff from long-term present continue trazodone, thorazine, seroquel - monitor QTc c/w klonopin Code(s): R62.50 - UNSP LACK OF EXPECTED NORMAL PHYSIOL DEV IN CHILDHOOD (3) Cellulitis left knee lesion improving c/w ceftriaxone - ID consultation apppreciated dopplers of lower extremity without DVT monitor WBC, temp trend left knee aspiration done by Ortho, pending final aspirate Cx Code(s): L03.90 - CELLULITIS, UNSPECIFIED (4) Seizure c/w depakote fall precautions Code(s): R56.9 - UNSPECIFIED CONVULSIONS (5) Preventive measure FEN- cardiac diet monitor electrolytes and replete prn DVT: heparin sq colace daily HLD- statin therapy Dispo: consider d/c tomorrow if aspirate culture finalized Full code discharge planning back to long-term Code(s): Z29.9 - ENCOUNTER FOR PROPHYLACTIC MEASURES, UNSPECIFIED Visit type - Emergency Visit Emergency Visit: Yes ED Registration Date: 05/16/19 Care time: The patient presented to the Emergency Department on the above date and was hospitalized for further evaluation of their emergent condition. - New Patient This patient is new to me today: Yes Date on this admission: 05/21/19 - Critical Care Critical Care patient: No - Discharge Referral Referred to [facility] Med P.C.: No
[2019-05-21] MEDS ORDERED: PT OWN MED DRAWER 7, Y5N ONE (21:07)
[2019-05-21] MEDS: DIVALPROEX NA *ER* EXTEND REL 250 MG TABLET.SA PO SCH (21:42)
[2019-05-21] MEDS: ATORVASTATIN CA 20 MG TABLET (FP) PO SCH (21:42)
[2019-05-21] MEDS: LISINOPRIL 5 MG TABLET (FP) PO SCH (21:45)
--- NOTE | 2019-05-22 07:47 | PN ---
Progress Note, Physician History of Present Illness: patient stable no issues - Current Medication List Current Medications: Active Medications Atorvastatin Calcium (Lipitor -) 20 mg PO HS [facility] Last Admin: 05/21/19 21:42 Dose: 20 mg Chlorpromazine HCl (Thorazine -) 100 mg PO BID@0800,1600 [facility] Last Admin: 05/21/19 16:55 Dose: 100 mg Cholecalciferol (Vitamin D3 -) 2,000 unit PO DAILY [facility] Last Admin: 05/21/19 09:11 Dose: 2,000 unit Clonazepam (Klonopin -) 0.5 mg PO 0800,1200,1600,2100 [facility] Last Admin: 05/21/19 21:46 Dose: 0.5 mg Divalproex Sodium (Depakote *Er* -) 750 mg PO DAILY@2100 [facility] Last Admin: 05/21/19 21:42 Dose: 750 mg Divalproex Sodium (Depakote *Er* -) 500 mg PO DAILY@0800 [facility] Last Admin: 05/21/19 09:14 Dose: 500 mg Docusate Sodium (Colace -) 100 mg PO DAILY [facility] Last Admin: 05/21/19 09:10 Dose: 100 mg Heparin Sodium (Porcine) (Heparin -) 5,000 unit SQ BID [facility] Last Admin: 05/21/19 21:45 Dose: 5,000 unit Hydrochlorothiazide (Hctz -) 25 mg PO DAILY [facility] Last Admin: 05/21/19 09:12 Dose: 25 mg Ceftriaxone Sodium 2 gm/ (Dextrose) 100 mls @ 200 mls/hr IVPB DAILY [facility]; Protocol Last Admin: 05/21/19 09:13 Dose: 200 mls/hr Lisinopril (Prinivil) 5 mg PO DAILY@2100 [facility] Last Admin: 05/21/19 21:45 Dose: 5 mg Metoprolol Tartrate (Lopressor -) 12.5 mg PO BID [facility] Last Admin: 05/21/19 21:42 Dose: 12.5 mg Quetiapine Fumarate (Seroquel -) 400 mg PO [facility] Last Admin: 05/21/19 21:42 Dose: 400 mg Quetiapine Fumarate (Seroquel -) 200 mg PO 0800,1600 [facility] Last Admin: 05/21/19 16:57 Dose: 200 mg Trazodone HCl (Desyrel -) 50 mg PO [facility] Last Admin: 05/21/19 21:42 Dose: 50 mg Trazodone HCl (Desyrel -) 25 mg PO 0800,1200,1600 [facility] Last Admin: 05/21/19 16:57 Dose: 25 mg - Objective Vital Signs: Vital Signs Temperature 98.7 F 05/22/19 06:00 Pulse Rate 72 05/22/19 06:00 Respiratory Rate 18 05/22/19 06:00 Blood Pressure 131/86 05/22/19 06:00 O2 Sat by Pulse Oximetry (%) 97 05/21/19 21:00 Constitutional: Yes: No Distress, Calm, Obese Cardiovascular: Yes: Regular Rate and Rhythm Respiratory: Yes: Regular, CTA Bilaterally Gastrointestinal: Yes: Normal Bowel Sounds, Soft Musculoskeletal: Yes: Other Extremities: Yes: Other Neurological: Yes: Alert, Other Labs: CBC, BMP 05/21/19 07:45 05/21/19 07:45 INR, PTT INR 1.18 (0.83-1.09) H 05/16/19 16:04 Assessment/Plan Problem List - Problems (1) Altered mental state Code(s): R41.82 - ALTERED MENTAL STATUS, UNSPECIFIED (2) Cellulitis Code(s): L03.90 - CELLULITIS, UNSPECIFIED (3) Developmental delay, severe Code(s): R62.50 - UNSP LACK OF EXPECTED NORMAL PHYSIOL DEV IN CHILDHOOD (4) HTN (hypertension) Code(s): I10 - ESSENTIAL (PRIMARY) HYPERTENSION (5) Seizure Code(s): R56.9 - UNSPECIFIED CONVULSIONS (6) Sepsis Code(s): A41.9 - SEPSIS, UNSPECIFIED ORGANISM 7 septic knee left Assessment/Plan 38 y.o. male with PMH of autism/developmental delay, seizure d.o., HTN brought in from [facility] for AMS/lethargy noted x 1 day, low grade fever, Lt tibial fluctuant lesion AMS - now easily arousable Lt patellar bursitis s/p aspiration Fever - resolved cx result noted continue abx await for sensitivities rest as per the team
[2019-05-22 08:15] LABS: HEMATOCRIT 35.9 % (35.4-49); HEMOGLOBIN 12.3 GM/dL (11.7-16.9); MCH 30.8 pg (25.7-33.7); MCHC 34.4 g/dl (32.0-35.9); MEAN CELL VOLUME 89.4 fl (80-96); MEAN PLT VOLUME 8.9 fl (7.5-11.1); PLATELET COUNT 291 K/MM3 (134-434); RBC 4.01 M/mm3 (4.00-5.60); RDW 13.3 % (11.9-15.9); WHITE BLOOD COUNT 5.5 K/mm3 (4.0-10.0)
[2019-05-22] MEDS: QUEtiapine FUMARATE 200 MG TABLET PO SCH ×3 (08:18→21:22)
[2019-05-22] MEDS: clonazePAM 0.5 MG TABLET PO SCH ×4 (08:18→21:35)
[2019-05-22] MEDS: traZODone HCL 50 MG TABLET (FP) PO SCH ×4 (08:18→21:23)
[2019-05-22] MEDS ORDERED: DEXTROSE 5%-WATER 100 ML IVPB ONE (09:02)
[2019-05-22] MEDS: METOPROLOL TARTRATE 25 MG TABLET (FP) PO SCH ×2 (09:07→21:21)
[2019-05-22] MEDS: chlorproMAZINE HCL 100 MG TABLET PO SCH ×2 (09:07→15:54)
[2019-05-22] MEDS: DOCUSATE SODIUM 100 MG CAPSULE (FP) PO SCH (09:07)
[2019-05-22] MEDS: CHOLECALCIFEROL (VIT D3) 1,000 UNIT (25 MCG) TABLET PO SCH (09:07)
[2019-05-22] MEDS: DIVALPROEX NA *ER* EXTEND REL 500 MG TABLET.SA (FP) PO SCH (09:07)
[2019-05-22] MEDS: HEPARIN NA (PORCINE) 5,000 UNITS/ML 1ML VIAL SQ SCH ×2 (09:07→21:23)
[2019-05-22] MEDS: HYDROCHLOROTHIAZIDE 25 MG TABLET (FP) PO SCH (09:07)
[2019-05-22] MEDS: CEFTRIAXONE 2 GM in DEXTROSE 5%-WATER 100 ML IVPB SCH (09:08)
--- NOTE | 2019-05-22 12:34 | PN ---
Physical Exam: SUBJECTIVE: Patient seen and examined at the bedside. aides at bedside. patient appears comfortable and mentation at baseline. OBJECTIVE: Patient is a 38 year old male with a significant past medical history of autism , HTN,sz disorder admitted for work up of lethargy and was noted to have left knee joint infection. He is now s/p aspiration on 05/18/19 along with IV abx therapy with much improvement in his condition. Vital Signs Period Temp Pulse Resp BP Sys/Baldwin Pulse Ox Last 24 Hr 98.7 F-99.3 F 72-80 18-18 120-135/68-88 97 Constitutional: Yes: Well Nourished, No Distress, Calm Eyes: Yes: PERRL HENT: Yes: Atraumatic Neck: Yes: Supple Cardiovascular: Yes: Regular Rate and Rhythm Respiratory: Yes: Regular Gastrointestinal: Yes: Normal Bowel Sounds, Soft ...Rectal Exam: Yes: Deferred Musculoskeletal: Yes: WNL Extremities: Yes: WNL Edema: No Peripheral Pulses WNL: Yes Peripheral Pulses: Left Radial: 2+, Right Radial: 2+, Left Doralis Pedis: 2+, Right Dorsalis Pedis: 2+ Integumentary: Yes: Other (Left knee healing inferior patella lesion. non- tender to palpation) Neurological: Yes: Alert ...Motor Strength: WNL Psychiatric: Yes: Alert Laboratory Results - last 24 hr 05/22/19 06:25 WBC 5.5 RBC 4.01 Hgb 12.3 Hct 35.9 MCV 89.4 MCH 30.8 MCHC 34.4 RDW 13.3 Plt Count 291 MPV 8.9 Active Medications Generic Name Dose Route Start Last Admin Trade Name Andresq PRN Reason Stop Dose Admin Atorvastatin Calcium 20 mg 05/17/19 22:00 05/21/19 21:42 Lipitor - PO 20 mg HS REAL Administration Chlorpromazine HCl 100 mg 05/17/19 16:00 05/22/19 09:07 Thorazine - PO 100 mg BID@0800,1600 REAL Administration Cholecalciferol 2,000 unit 05/17/19 10:00 05/22/19 09:07 Vitamin D3 - PO 2,000 unit DAILY REAL Administration Clonazepam 0.5 mg 05/17/19 12:00 05/22/19 08:18 Klonopin - PO 0.5 mg 0800,1200,1600,2100 REAL Administration Divalproex Sodium 750 mg 05/17/19 21:00 05/21/19 21:42 Depakote *Er* - PO 750 mg DAILY@2100 REAL Administration Divalproex Sodium 500 mg 05/18/19 08:00 05/22/19 09:07 Depakote *Er* - PO 500 mg DAILY@0800 REAL Administration Docusate Sodium 100 mg 05/17/19 10:00 05/22/19 09:07 Colace - PO 100 mg DAILY REAL Administration Heparin Sodium (Porcine) 5,000 unit 05/16/19 22:00 05/22/19 09:07 Heparin - SQ 5,000 unit BID REAL Administration Hydrochlorothiazide 25 mg 05/17/19 10:00 05/22/19 09:07 Hctz - PO 25 mg DAILY REAL Administration Ceftriaxone Sodium 2 gm/ 100 mls @ 200 mls/hr 05/17/19 10:00 05/22/19 09:08 Dextrose IVPB 200 mls/hr DAILY REAL Administration Protocol Lisinopril 5 mg 05/17/19 21:00 05/21/19 21:45 Prinivil PO 5 mg DAILY@2100 REAL Administration Metoprolol Tartrate 12.5 mg 05/17/19 22:00 05/22/19 09:07 Lopressor - PO 12.5 mg BID REAL Administration Quetiapine Fumarate 400 mg 05/17/19 22:02 05/21/19 21:42 Seroquel - PO 400 mg HS REAL Administration Quetiapine Fumarate 200 mg 05/18/19 21:53 05/22/19 08:18 Seroquel - PO 200 mg 0800,1600 REAL Administration Trazodone HCl 50 mg 05/17/19 22:00 05/21/19 21:42 Desyrel - PO 50 mg HS REAL Administration Trazodone HCl 25 mg 05/17/19 12:00 05/22/19 08:18 Desyrel - PO 25 mg 0800,1200,1600 REAL Administration ASSESSMENT/PLAN: Problem List - Problems (1) Cellulitis Assessment/Plan: eft knee lesion improving c/w ceftriaxone - ID consultation apppreciated dopplers of lower extremity without DVT monitor WBC, temp trend left knee aspiration done by Ortho on 05/18, pending final culture Code(s): L03.90 - CELLULITIS, UNSPECIFIED (2) Developmental delay, severe Assessment/Plan: supportive care Code(s): R62.50 - UNSP LACK OF EXPECTED NORMAL PHYSIOL DEV IN CHILDHOOD (3) HTN (hypertension) Assessment/Plan: controlled lisinopril, hctz, metoprolol cardiac diet Code(s): I10 - ESSENTIAL (PRIMARY) HYPERTENSION (4) Seizure Assessment/Plan: c/w depakote fall precautions Code(s): R56.9 - UNSPECIFIED CONVULSIONS (5) Sepsis Code(s): A41.9 - SEPSIS, UNSPECIFIED ORGANISM (6) DVT prophylaxis Assessment/Plan: heparin Code(s): Z29.9 - ENCOUNTER FOR PROPHYLACTIC MEASURES, UNSPECIFIED Visit type - Emergency Visit Emergency Visit: Yes ED Registration Date: 05/16/19 Care time: The patient presented to the Emergency Department on the above date and was hospitalized for further evaluation of their emergent condition. - New Patient This patient is new to me today: Yes Date on this admission: 05/22/19 - Critical Care Critical Care patient: No - Discharge Referral Referred to [facility] Med P.C.: No
[2019-05-22] MEDS ORDERED: PT OWN MED DRAWER 7, Y5N ONE ×2 (20:48→21:48)
[2019-05-22] MEDS: DIVALPROEX NA *ER* EXTEND REL 250 MG TABLET.SA PO SCH (21:21)
[2019-05-22] MEDS: ATORVASTATIN CA 20 MG TABLET (FP) PO SCH (21:23)
[2019-05-22] MEDS: LISINOPRIL 5 MG TABLET (FP) PO SCH (21:24)
[2019-05-23 07:56] LABS: BASO % 0.8 % (0-2.0); EOS % 5.7 % (0-4.5); HEMATOCRIT 38.9 % (35.4-49); HEMOGLOBIN 13.3 GM/dL (11.7-16.9); LYMPH % 36.6 % (8-40); MCHC 34.3 g/dl (32.0-35.9); MEAN CELL VOLUME 90.3 fl (80-96); MEAN PLT VOLUME 8.7 fl (7.5-11.1); MONO % 12.4 % (3.8-10.2); NEUT % 44.5 % (42.8-82.8); PLATELET COUNT 319 K/MM3 (134-434); RBC 4.31 M/mm3 (4.00-5.60); RDW 13.2 % (11.9-15.9); WHITE BLOOD COUNT 5.9 K/mm3 (4.0-10.0)
[2019-05-23 08:25] LABS: ALBUMIN 3.4 g/dl (3.4-5.0); BILIRUBIN,TOTAL 0.4 mg/dL (0.2-1); BLOOD UREA NITROGEN 19.8 mg/dL (7-18); CALCIUM 9.2 mg/dL (8.5-10.1); MAGNESIUM 2.1 mg/dL (1.8-2.4); POTASSIUM 4.4 mmol/L (3.5-5.1); TOT PROT 7.8 g/dl (6.4-8.2)
[2019-05-23] MEDS ORDERED: DEXTROSE 5%-WATER 100 ML IVPB ONE (08:53)
[2019-05-23] MEDS ORDERED: PT OWN MED DRAWER 7, Y5N ONE (08:53)
[2019-05-23] MEDS: CEFTRIAXONE 2 GM in DEXTROSE 5%-WATER 100 ML IVPB SCH (09:03)
[2019-05-23] MEDS: DIVALPROEX NA *ER* EXTEND REL 500 MG TABLET.SA (FP) PO SCH (09:04)
[2019-05-23] MEDS: chlorproMAZINE HCL 100 MG TABLET PO SCH ×2 (09:04→16:55)
[2019-05-23] MEDS: clonazePAM 0.5 MG TABLET PO SCH ×4 (09:06→21:37)
[2019-05-23] MEDS: CHOLECALCIFEROL (VIT D3) 1,000 UNIT (25 MCG) TABLET PO SCH (09:07)
[2019-05-23] MEDS: QUEtiapine FUMARATE 200 MG TABLET PO SCH ×3 (09:07→21:30)
[2019-05-23] MEDS: METOPROLOL TARTRATE 25 MG TABLET (FP) PO SCH ×2 (09:08→21:31)
[2019-05-23] MEDS: DOCUSATE SODIUM 100 MG CAPSULE (FP) PO SCH (09:08)
[2019-05-23] MEDS: traZODone HCL 50 MG TABLET (FP) PO SCH ×4 (09:08→21:31)
[2019-05-23] MEDS: HYDROCHLOROTHIAZIDE 25 MG TABLET (FP) PO SCH (09:09)
[2019-05-23] MEDS: HEPARIN NA (PORCINE) 5,000 UNITS/ML 1ML VIAL SQ SCH ×2 (09:09→21:31)
--- NOTE | 2019-05-23 10:29 | PN ---
Physical Exam: SUBJECTIVE: Patient seen and examined at the bedside. OBJECTIVE: per id, will need 3 more weeks of ceftriaxone NA trending down - will gently hydrate and hold HCTZ Vital Signs Period Temp Pulse Resp BP Sys/Baldwin Pulse Ox Last 24 Hr 97.6 F-98.8 F 70-81 19-20 105-118/56-76 97 Constitutional: Yes: Well Nourished, No Distress, Calm Eyes: Yes: PERRL HENT: Yes: Atraumatic Neck: Yes: Supple Cardiovascular: Yes: Regular Rate and Rhythm Respiratory: Yes: Regular Gastrointestinal: Yes: Normal Bowel Sounds, Soft ...Rectal Exam: Yes: Deferred Musculoskeletal: Yes: WNL Extremities: Yes: WNL Edema: left knee s/p aspiration Peripheral Pulses WNL: Yes Peripheral Pulses: Left Radial: 2+, Right Radial: 2+, Left Doralis Pedis: 2+, Right Dorsalis Pedis: 2+ Integumentary: Yes: Other (Left knee healing inferior patella lesion. non- tender to palpation) Neurological: Yes: Alert ...Motor Strength: WNL Psychiatric: Yes: Alert Laboratory Results - last 24 hr 05/23/19 05/23/19 06:50 06:50 WBC 5.9 RBC 4.31 Hgb 13.3 Hct 38.9 MCV 90.3 MCH 31.0 MCHC 34.3 RDW 13.2 Plt Count 319 MPV 8.7 Absolute Neuts (auto) 2.6 Neutrophils % 44.5 Lymphocytes % 36.6 Monocytes % 12.4 H Eosinophils % 5.7 H Basophils % 0.8 Nucleated RBC % 0 Sodium 131 L Potassium 4.4 Chloride 97 L Carbon Dioxide 27 Anion Gap 7 L BUN 19.8 H Creatinine 1.0 Est GFR (CKD-EPI)AfAm 109.40 Est GFR (CKD-EPI)NonAf 94.39 Random Glucose 83 Calcium 9.2 Magnesium 2.1 Total Bilirubin 0.4 AST 26 ALT 33 Alkaline Phosphatase 62 Total Protein 7.8 Albumin 3.4 Active Medications Generic Name Dose Route Start Last Admin Trade Name Freq PRN Reason Stop Dose Admin Atorvastatin Calcium 20 mg 05/17/19 22:00 05/22/19 21:23 Lipitor - PO 20 mg HS REAL Administration Chlorpromazine HCl 100 mg 05/17/19 16:00 05/23/19 09:04 Thorazine - PO 100 mg BID@0800,1600 REAL Administration Cholecalciferol 2,000 unit 05/17/19 10:00 05/23/19 09:07 Vitamin D3 - PO 2,000 unit DAILY REAL Administration Clonazepam 0.5 mg 05/17/19 12:00 05/23/19 09:06 Klonopin - PO 0.5 mg 0800,1200,1600,2100 REAL Administration Divalproex Sodium 750 mg 05/17/19 21:00 05/22/19 21:21 Depakote *Er* - PO 750 mg DAILY@2100 REAL Administration Divalproex Sodium 500 mg 05/18/19 08:00 05/23/19 09:04 Depakote *Er* - PO 500 mg DAILY@0800 REAL Administration Docusate Sodium 100 mg 05/17/19 10:00 05/23/19 09:08 Colace - PO 100 mg DAILY REAL Administration Heparin Sodium (Porcine) 5,000 unit 05/16/19 22:00 05/23/19 09:09 Heparin - SQ 5,000 unit BID REAL Administration Hydrochlorothiazide 25 mg 05/17/19 10:00 05/23/19 09:09 Hctz - PO 25 mg DAILY REAL Administration Ceftriaxone Sodium 2 gm/ 100 mls @ 200 mls/hr 05/17/19 10:00 05/23/19 09:03 Dextrose IVPB 200 mls/hr DAILY REAL Administration Protocol Sodium Chloride 1,000 mls @ 75 mls/hr 05/23/19 10:30 Normal Saline - IV ASDIR REAL Lisinopril 5 mg 05/17/19 21:00 05/22/19 21:24 Prinivil PO 5 mg DAILY@2100 REAL Administration Metoprolol Tartrate 12.5 mg 05/17/19 22:00 05/23/19 09:08 Lopressor - PO 12.5 mg BID REAL Administration Quetiapine Fumarate 400 mg 05/17/19 22:02 05/22/19 21:22 Seroquel - PO 400 mg HS REAL Administration Quetiapine Fumarate 200 mg 05/18/19 21:53 05/23/19 09:07 Seroquel - PO 200 mg 0800,1600 REAL Administration Trazodone HCl 50 mg 05/17/19 22:00 05/22/19 21:23 Desyrel - PO 50 mg HS REAL Administration Trazodone HCl 25 mg 05/17/19 12:00 05/23/19 09:08 Desyrel - PO 25 mg 0800,1200,1600 REAL Administration ASSESSMENT/PLAN: Problem List - Problems (1) Cellulitis Assessment/Plan: left knee lesion improving s/p left knee aspiration done by Ortho on 05/18. Per ID will need another 3 weeks of ceftriaxone. will need a picc line which patient is unable to have at the shelter he lives in. SW aware and d/c planning in progress (may need SNF x 3 weeks until antibiotics completed). Code(s): L03.90 - CELLULITIS, UNSPECIFIED (2) Developmental delay, severe Assessment/Plan: supportive care. aides at bedside and provide cares for patient. Code(s): R62.50 - UNSP LACK OF EXPECTED NORMAL PHYSIOL DEV IN CHILDHOOD (3) HTN (hypertension) Assessment/Plan: controlled lisinopril, hold hctz, metoprolol cardiac diet Code(s): I10 - ESSENTIAL (PRIMARY) HYPERTENSION (4) Seizure Assessment/Plan: c/w depakote fall precautions Code(s): R56.9 - UNSPECIFIED CONVULSIONS (5) Sepsis Code(s): A41.9 - SEPSIS, UNSPECIFIED ORGANISM (6) Hyponatremia Assessment/Plan: serum sodium down trending. hold hctz and start on gentle hydration recheck levels in a.m. Code(s): E87.1 - HYPO-OSMOLALITY AND HYPONATREMIA (7) DVT prophylaxis Assessment/Plan: heparin Code(s): Z29.9 - ENCOUNTER FOR PROPHYLACTIC MEASURES, UNSPECIFIED Visit type - Emergency Visit Emergency Visit: Yes ED Registration Date: 05/16/19 Care time: The patient presented to the Emergency Department on the above date and was hospitalized for further evaluation of their emergent condition. - New Patient This patient is new to me today: No - Critical Care Critical Care patient: No - Discharge Referral Referred to [facility] Med P.C.: No
--- NOTE | 2019-05-23 10:49 | PN ---
Progress Note, Physician History of Present Illness: stable no new issues - Current Medication List Current Medications: Active Medications Atorvastatin Calcium (Lipitor -) 20 mg PO HS [facility] Last Admin: 05/22/19 21:23 Dose: 20 mg Chlorpromazine HCl (Thorazine -) 100 mg PO BID@0800,1600 [facility] Last Admin: 05/23/19 09:04 Dose: 100 mg Cholecalciferol (Vitamin D3 -) 2,000 unit PO DAILY [facility] Last Admin: 05/23/19 09:07 Dose: 2,000 unit Clonazepam (Klonopin -) 0.5 mg PO 0800,1200,1600,2100 [facility] Last Admin: 05/23/19 09:06 Dose: 0.5 mg Divalproex Sodium (Depakote *Er* -) 750 mg PO DAILY@2100 [facility] Last Admin: 05/22/19 21:21 Dose: 750 mg Divalproex Sodium (Depakote *Er* -) 500 mg PO DAILY@0800 [facility] Last Admin: 05/23/19 09:04 Dose: 500 mg Docusate Sodium (Colace -) 100 mg PO DAILY [facility] Last Admin: 05/23/19 09:08 Dose: 100 mg Heparin Sodium (Porcine) (Heparin -) 5,000 unit SQ BID [facility] Last Admin: 05/23/19 09:09 Dose: 5,000 unit Hydrochlorothiazide (Hctz -) 25 mg PO DAILY [facility] Last Admin: 05/23/19 09:09 Dose: 25 mg Ceftriaxone Sodium 2 gm/ (Dextrose) 100 mls @ 200 mls/hr IVPB DAILY [facility]; Protocol Last Admin: 05/23/19 09:03 Dose: 200 mls/hr Sodium Chloride (Normal Saline -) 1,000 mls @ 75 mls/hr IV ASDIR [facility] Lisinopril (Prinivil) 5 mg PO DAILY@2100 [facility] Last Admin: 05/22/19 21:24 Dose: 5 mg Metoprolol Tartrate (Lopressor -) 12.5 mg PO BID [facility] Last Admin: 05/23/19 09:08 Dose: 12.5 mg Quetiapine Fumarate (Seroquel -) 400 mg PO [facility] Last Admin: 05/22/19 21:22 Dose: 400 mg Quetiapine Fumarate (Seroquel -) 200 mg PO 0800,1600 [facility] Last Admin: 05/23/19 09:07 Dose: 200 mg Trazodone HCl (Desyrel -) 50 mg PO HS [facility] Last Admin: 05/22/19 21:23 Dose: 50 mg Trazodone HCl (Desyrel -) 25 mg PO 0800,1200,1600 [facility] Last Admin: 05/23/19 09:08 Dose: 25 mg - Objective Vital Signs: Vital Signs Temperature 98.1 F 05/23/19 09:27 Pulse Rate 81 05/23/19 09:27 Respiratory Rate 19 05/23/19 09:27 Blood Pressure 115/76 05/23/19 09:27 O2 Sat by Pulse Oximetry (%) 97 05/22/19 21:00 Constitutional: Yes: No Distress, Calm Cardiovascular: Yes: S1, S2 Respiratory: Yes: Regular, CTA Bilaterally Gastrointestinal: Yes: Normal Bowel Sounds, Soft Musculoskeletal: Yes: WNL Extremities: Yes: Other Neurological: Yes: Alert, Other Psychiatric: Yes: Other Labs: CBC, BMP 05/23/19 06:50 05/23/19 06:50 INR, PTT INR 1.18 (0.83-1.09) H 05/16/19 16:04 Assessment/Plan Problem List - Problems (1) Altered mental state Code(s): R41.82 - ALTERED MENTAL STATUS, UNSPECIFIED (2) Cellulitis Code(s): L03.90 - CELLULITIS, UNSPECIFIED (3) Developmental delay, severe Code(s): R62.50 - UNSP LACK OF EXPECTED NORMAL PHYSIOL DEV IN CHILDHOOD (4) HTN (hypertension) Code(s): I10 - ESSENTIAL (PRIMARY) HYPERTENSION (5) Seizure Code(s): R56.9 - UNSPECIFIED CONVULSIONS (6) Sepsis Code(s): A41.9 - SEPSIS, UNSPECIFIED ORGANISM 7 septic knee left Assessment/Plan 38 y.o. male with PMH of autism/developmental delay, seizure d.o., HTN brought in from custodial for AMS/lethargy noted x 1 day, low grade fever, Lt tibial fluctuant lesion AMS - now easily arousable Lt patellar bursitis s/p aspiration Fever - resolved cx result noted continue abx sensitivities noted ceftriaxone for another 3 more weeks
[2019-05-23] MEDS ORDERED: FLU VACCINE QUAD 60 MCG/0.5 ML (MDV 19-20) IM ONE (12:00)
[2019-05-23] MEDS: SODIUM CHLORIDE 1,000 ML IV SCH (15:35)
[2019-05-23] MEDS: DIVALPROEX NA *ER* EXTEND REL 250 MG TABLET.SA PO SCH (21:30)
[2019-05-23] MEDS: LISINOPRIL 5 MG TABLET (FP) PO SCH (21:31)
[2019-05-23] MEDS: ATORVASTATIN CA 20 MG TABLET (FP) PO SCH (21:31)
[2019-05-24] MEDS: SODIUM CHLORIDE 1,000 ML IV SCH (05:31)
[2019-05-24 08:08] LABS: BASO % 0.9 % (0-2.0); EOS % 5.2 % (0-4.5); HEMOGLOBIN 12.2 GM/dL (11.7-16.9); LYMPH % 34.5 % (8-40); MCHC 34.8 g/dl (32.0-35.9); MEAN CELL VOLUME 89.3 fl (80-96); MEAN PLT VOLUME 8.5 fl (7.5-11.1); MONO % 11.8 % (3.8-10.2); NEUT % 47.6 % (42.8-82.8); PLATELET COUNT 312 K/MM3 (134-434); RBC 3.92 M/mm3 (4.00-5.60); RDW 13.3 % (11.9-15.9); WHITE BLOOD COUNT 5.6 K/mm3 (4.0-10.0)
[2019-05-24 08:49] LABS: BILIRUBIN,TOTAL 0.6 mg/dL (0.2-1); BLOOD UREA NITROGEN 20.3 mg/dL (7-18); CALCIUM 8.9 mg/dL (8.5-10.1); CREATININE 0.9 mg/dL (0.55-1.3); MAGNESIUM 2.1 mg/dL (1.8-2.4); POTASSIUM 4.4 mmol/L (3.5-5.1)
[2019-05-24] MEDS ORDERED: DEXTROSE 5%-WATER 100 ML IVPB ONE (09:13)
[2019-05-24] MEDS: clonazePAM 0.5 MG TABLET PO SCH ×4 (09:27→22:11)
[2019-05-24] MEDS: METOPROLOL TARTRATE 25 MG TABLET (FP) PO SCH ×2 (09:27→22:06)
[2019-05-24] MEDS: CHOLECALCIFEROL (VIT D3) 1,000 UNIT (25 MCG) TABLET PO SCH (09:29)
[2019-05-24] MEDS: DIVALPROEX NA *ER* EXTEND REL 250 MG TABLET.SA PO SCH ×2 (09:29→22:06)
[2019-05-24] MEDS: CEFTRIAXONE 2 GM in DEXTROSE 5%-WATER 100 ML IVPB SCH (09:30)
[2019-05-24] MEDS: traZODone HCL 50 MG TABLET (FP) PO SCH ×4 (09:30→22:07)
[2019-05-24] MEDS: DOCUSATE SODIUM 100 MG CAPSULE (FP) PO SCH (09:30)
[2019-05-24] MEDS: QUEtiapine FUMARATE 200 MG TABLET PO SCH ×3 (09:31→22:43)
[2019-05-24] MEDS: HEPARIN NA (PORCINE) 5,000 UNITS/ML 1ML VIAL SQ SCH ×2 (09:32→22:07)
[2019-05-24] MEDS: chlorproMAZINE HCL 100 MG TABLET PO SCH ×2 (09:32→16:37)
--- NOTE | 2019-05-24 10:15 | PN ---
Progress Note, Physician History of Present Illness: stable no new issues - Current Medication List Current Medications: Active Medications Atorvastatin Calcium (Lipitor -) 20 mg PO HS [facility] Last Admin: 05/23/19 21:31 Dose: 20 mg Chlorpromazine HCl (Thorazine -) 100 mg PO BID@0800,1600 [facility] Last Admin: 05/24/19 09:32 Dose: 100 mg Cholecalciferol (Vitamin D3 -) 2,000 unit PO DAILY [facility] Last Admin: 05/24/19 09:29 Dose: 2,000 unit Clonazepam (Klonopin -) 0.5 mg PO 0800,1200,1600,2100 [facility] Last Admin: 05/24/19 09:27 Dose: 0.5 mg Divalproex Sodium (Depakote *Er* -) 750 mg PO DAILY@2100 [facility] Last Admin: 05/23/19 21:30 Dose: 750 mg Divalproex Sodium (Depakote *Er* -) 500 mg PO DAILY@0800 [facility] Last Admin: 05/24/19 09:29 Dose: 500 mg Docusate Sodium (Colace -) 100 mg PO DAILY [facility] Last Admin: 05/24/19 09:30 Dose: 100 mg Heparin Sodium (Porcine) (Heparin -) 5,000 unit SQ BID [facility] Last Admin: 05/24/19 09:32 Dose: 5,000 unit Hydrochlorothiazide (Hctz -) 25 mg PO DAILY [facility] Last Admin: 05/23/19 09:09 Dose: 25 mg Ceftriaxone Sodium 2 gm/ (Dextrose) 100 mls @ 200 mls/hr IVPB DAILY [facility]; Protocol Last Admin: 05/23/19 09:03 Dose: 200 mls/hr Sodium Chloride (Normal Saline -) 1,000 mls @ 75 mls/hr IV ASDIR [facility] Last Admin: 05/24/19 05:31 Dose: 75 mls/hr Lisinopril (Prinivil) 5 mg PO DAILY@2100 [facility] Last Admin: 05/23/19 21:31 Dose: 5 mg Metoprolol Tartrate (Lopressor -) 12.5 mg PO BID [facility] Last Admin: 05/24/19 09:27 Dose: 12.5 mg Quetiapine Fumarate (Seroquel -) 400 mg PO HS [facility] Last Admin: 05/23/19 21:30 Dose: 400 mg Quetiapine Fumarate (Seroquel -) 200 mg PO 0800,1600 [facility] Last Admin: 05/24/19 09:31 Dose: 200 mg Trazodone HCl (Desyrel -) 50 mg PO HS [facility] Last Admin: 05/23/19 21:31 Dose: 50 mg Trazodone HCl (Desyrel -) 25 mg PO 0800,1200,1600 [facility] Last Admin: 05/24/19 09:30 Dose: 25 mg - Objective Vital Signs: Vital Signs Temperature 98.4 F 05/24/19 06:00 Pulse Rate 70 05/24/19 06:00 Respiratory Rate 18 05/24/19 06:00 Blood Pressure 122/78 05/24/19 06:00 O2 Sat by Pulse Oximetry (%) 97 05/23/19 21:00 Constitutional: Yes: No Distress, Calm Cardiovascular: Yes: Regular Rate and Rhythm Respiratory: Yes: Regular, CTA Bilaterally Gastrointestinal: Yes: Normal Bowel Sounds, Soft Musculoskeletal: Yes: WNL Extremities: Yes: WNL Neurological: Yes: Alert Psychiatric: Yes: Alert Labs: CBC, BMP 05/24/19 06:45 05/24/19 06:45 INR, PTT INR 1.18 (0.83-1.09) H 05/16/19 16:04 Assessment/Plan Problem List - Problems (1) Altered mental state Code(s): R41.82 - ALTERED MENTAL STATUS, UNSPECIFIED (2) Cellulitis Code(s): L03.90 - CELLULITIS, UNSPECIFIED (3) Developmental delay, severe Code(s): R62.50 - UNSP LACK OF EXPECTED NORMAL PHYSIOL DEV IN CHILDHOOD (4) HTN (hypertension) Code(s): I10 - ESSENTIAL (PRIMARY) HYPERTENSION (5) Seizure Code(s): R56.9 - UNSPECIFIED CONVULSIONS (6) Sepsis Code(s): A41.9 - SEPSIS, UNSPECIFIED ORGANISM 7 septic knee left Assessment/Plan 38 y.o. male with PMH of autism/developmental delay, seizure d.o., HTN brought in from prison for AMS/lethargy noted x 1 day, low grade fever, Lt tibial fluctuant lesion AMS - now easily arousable Lt patellar bursitis s/p aspiration Fever - resolved cx result noted continue abx sensitivities noted ceftriaxone for another 3 more weeks
--- NOTE | 2019-05-24 11:08 | PN ---
Physical Exam: SUBJECTIVE: Patient seen and examined at the bedside. aide at bedside. patient at baseline. OBJECTIVE: Patient is a 38 year old male with a significant past medical history of autism , HTN, sz disorder admitted for work up of lethargy and was noted to have left knee joint infection. He is now s/p aspiration on 05/18/19 along with IV abx therapy with much improvement in his condition. He is awaiting placement to a facility for continuation of antibiotics. Will need 3 weeks of ceftriaxone via picc line. PICC line to be ordered on discharge. Patient is from a [facility]dc. care home not equipped to manage a picc line with antibiotic infusion, therefore will need NH. Vital Signs Period Temp Pulse Resp BP Sys/Baldwin Pulse Ox Last 24 Hr 98.1 F-98.7 F 70-85 18-20 119-144/74-84 97 Constitutional: Yes: Well Nourished, No Distress, Calm Eyes: Yes: PERRL HENT: Yes: Atraumatic Neck: Yes: Supple Cardiovascular: Yes: Regular Rate and Rhythm Respiratory: Yes: Regular Gastrointestinal: Yes: Normal Bowel Sounds, Soft ...Rectal Exam: Yes: Deferred Musculoskeletal: Yes: WNL Extremities: Yes: WNL Edema: left knee s/p aspiration Peripheral Pulses WNL: Yes Peripheral Pulses: Left Radial: 2+, Right Radial: 2+, Left Doralis Pedis: 2+, Right Dorsalis Pedis: 2+ Integumentary: Yes: Other (Left knee healing inferior patella lesion. non- tender to palpation) Neurological: Yes: Alert ...Motor Strength: WNL Psychiatric: Yes: Alert Laboratory Results - last 24 hr 05/24/19 05/24/19 06:45 06:45 WBC 5.6 RBC 3.92 L Hgb 12.2 Hct 35.0 L MCV 89.3 MCH 31.0 MCHC 34.8 RDW 13.3 Plt Count 312 MPV 8.5 Absolute Neuts (auto) 2.7 Neutrophils % 47.6 Lymphocytes % 34.5 Monocytes % 11.8 H Eosinophils % 5.2 H Basophils % 0.9 Nucleated RBC % 0 Sodium 136 Potassium 4.4 Chloride 102 Carbon Dioxide 26 Anion Gap 8 BUN 20.3 H Creatinine 0.9 Est GFR (CKD-EPI)AfAm 124.26 Est GFR (CKD-EPI)NonAf 107.21 Random Glucose 81 Calcium 8.9 Magnesium 2.1 Total Bilirubin 0.6 AST 24 ALT 32 Alkaline Phosphatase 62 Total Protein 7.0 Albumin 3.0 L Active Medications Generic Name Dose Route Start Last Admin Trade Name Cristino PRN Reason Stop Dose Admin Atorvastatin Calcium 20 mg 05/17/19 22:00 05/23/19 21:31 Lipitor - PO 20 mg HS REAL Administration Chlorpromazine HCl 100 mg 05/17/19 16:00 05/24/19 09:32 Thorazine - PO 100 mg BID@0800,1600 REAL Administration Cholecalciferol 2,000 unit 05/17/19 10:00 05/24/19 09:29 Vitamin D3 - PO 2,000 unit DAILY REAL Administration Clonazepam 0.5 mg 05/17/19 12:00 05/24/19 09:27 Klonopin - PO 0.5 mg 0800,1200,1600,2100 REAL Administration Divalproex Sodium 750 mg 05/17/19 21:00 05/23/19 21:30 Depakote *Er* - PO 750 mg DAILY@2100 REAL Administration Divalproex Sodium 500 mg 05/23/19 11:14 05/24/19 09:29 Depakote *Er* - PO 500 mg DAILY@0800 REAL Administration Docusate Sodium 100 mg 05/17/19 10:00 05/24/19 09:30 Colace - PO 100 mg DAILY REAL Administration Heparin Sodium (Porcine) 5,000 unit 05/16/19 22:00 05/24/19 09:32 Heparin - SQ 5,000 unit BID REAL Administration Hydrochlorothiazide 25 mg 05/17/19 10:00 05/23/19 09:09 Hctz - PO 25 mg DAILY REAL Administration Ceftriaxone Sodium 2 gm/ 100 mls @ 200 mls/hr 05/17/19 10:00 05/23/19 09:03 Dextrose IVPB 200 mls/hr DAILY REAL Administration Protocol Sodium Chloride 1,000 mls @ 75 mls/hr 05/23/19 10:30 05/24/19 05:31 Normal Saline - IV 75 mls/hr ASDIR REAL Administration Lisinopril 5 mg 05/17/19 21:00 05/23/19 21:31 Prinivil PO 5 mg DAILY@2100 REAL Administration Metoprolol Tartrate 12.5 mg 05/17/19 22:00 05/24/19 09:27 Lopressor - PO 12.5 mg BID REAL Administration Quetiapine Fumarate 400 mg 05/17/19 22:02 05/23/19 21:30 Seroquel - PO 400 mg HS REAL Administration Quetiapine Fumarate 200 mg 05/18/19 21:53 05/24/19 09:31 Seroquel - PO 200 mg 0800,1600 REAL Administration Trazodone HCl 50 mg 05/17/19 22:00 05/23/19 21:31 Desyrel - PO 50 mg HS REAL Administration Trazodone HCl 25 mg 05/17/19 12:00 05/24/19 09:30 Desyrel - PO 25 mg 0800,1200,1600 REAL Administration ASSESSMENT/PLAN: Problem List - Problems (1) Cellulitis Assessment/Plan: left knee lesion improving s/p left knee aspiration done by Ortho on 05/18. Per ID will need another 3 weeks of ceftriaxone. will need a picc line which patient is unable to have at the [facility]dc he lives in. SW aware and d/c planning in progress (may need SNF x 3 weeks until antibiotics completed). Code(s): L03.90 - CELLULITIS, UNSPECIFIED (2) Developmental delay, severe Assessment/Plan: supportive care. aides at bedside and provide cares for patient. Code(s): R62.50 - UNSP LACK OF EXPECTED NORMAL PHYSIOL DEV IN CHILDHOOD (3) HTN (hypertension) Assessment/Plan: controlled lisinopril, hold hctz, metoprolol cardiac diet Code(s): I10 - ESSENTIAL (PRIMARY) HYPERTENSION (4) Seizure Assessment/Plan: c/w depakote fall precautions Code(s): R56.9 - UNSPECIFIED CONVULSIONS (5) Sepsis Code(s): A41.9 - SEPSIS, UNSPECIFIED ORGANISM (6) Hyponatremia Assessment/Plan: resolved. Code(s): E87.1 - HYPO-OSMOLALITY AND HYPONATREMIA (7) DVT prophylaxis Assessment/Plan: heparin Code(s): Z29.9 - ENCOUNTER FOR PROPHYLACTIC MEASURES, UNSPECIFIED Visit type - Emergency Visit Emergency Visit: Yes ED Registration Date: 05/16/19 Care time: The patient presented to the Emergency Department on the above date and was hospitalized for further evaluation of their emergent condition. - New Patient This patient is new to me today: No - Critical Care Critical Care patient: No - Discharge Referral Referred to [facility] Med P.C.: No
--- NOTE | 2019-05-24 14:08 | PN ---
Progress Note (short form) - Note Progress Note: This is a nonverbal 38 yo M with left infrapatella bursitis. Patient is lying comfortably in bed. Patient's scale tester is at bedside and notes patient has not shown any discomfort with ambulating or movement of left knee. She also notes the swelling seems to be significantly improving since its onset. Last Vital Signs Temp Pulse Resp BP Pulse Ox 98.2 F 84 17 132/83 97 05/24/19 09:25 05/24/19 09:25 05/24/19 09:25 05/24/19 09:25 05/23/19 21:00 PE: LLE Mild swelling to infrapatella bursa Nontender throughout Full pain free ROM NVID Abnormal Lab Results 05/24/19 05/24/19 06:45 06:45 RBC 3.92 L Hct 35.0 L Monocytes % 11.8 H Eosinophils % 5.2 H BUN 20.3 H Albumin 3.0 L A: Left infrapatellar bursitis P: Patient scheduled for picc line placement Abx as per ID Continue PT WBAT
[2019-05-24] MEDS: LISINOPRIL 5 MG TABLET (FP) PO SCH (22:06)
[2019-05-24] MEDS: ATORVASTATIN CA 20 MG TABLET (FP) PO SCH (22:06)
[2019-05-25 08:31] LABS: EOS % 7.2 % (0-4.5); HEMATOCRIT 35.8 % (35.4-49); HEMOGLOBIN 12.4 GM/dL (11.7-16.9); LYMPH % 36.4 % (8-40); MCH 31.1 pg (25.7-33.7); MCHC 34.7 g/dl (32.0-35.9); MEAN CELL VOLUME 89.7 fl (80-96); MEAN PLT VOLUME 8.6 fl (7.5-11.1); MONO % 12.8 % (3.8-10.2); NEUT % 42.6 % (42.8-82.8); PLATELET COUNT 314 K/MM3 (134-434); RBC 3.99 M/mm3 (4.00-5.60); RDW 13.1 % (11.9-15.9); WHITE BLOOD COUNT 5.9 K/mm3 (4.0-10.0)
[2019-05-25] MEDS ORDERED: DEXTROSE 5%-WATER 100 ML IVPB ONE (09:02)
[2019-05-25 09:05] LABS: ALBUMIN 3.4 g/dl (3.4-5.0); BILIRUBIN,TOTAL 0.3 mg/dL (0.2-1); BLOOD UREA NITROGEN 16.7 mg/dL (7-18); CALCIUM 8.9 mg/dL (8.5-10.1); MAGNESIUM 2.1 mg/dL (1.8-2.4); POTASSIUM 4.6 mmol/L (3.5-5.1); TOT PROT 7.3 g/dl (6.4-8.2)
[2019-05-25] MEDS: CHOLECALCIFEROL (VIT D3) 1,000 UNIT (25 MCG) TABLET PO SCH (09:06)
[2019-05-25] MEDS: DIVALPROEX NA *ER* EXTEND REL 250 MG TABLET.SA PO SCH ×2 (09:07→21:52)
[2019-05-25] MEDS: QUEtiapine FUMARATE 200 MG TABLET PO SCH ×2 (09:08→17:25)
[2019-05-25] MEDS: traZODone HCL 50 MG TABLET (FP) PO SCH ×4 (09:08→21:52)
[2019-05-25] MEDS: HEPARIN NA (PORCINE) 5,000 UNITS/ML 1ML VIAL SQ SCH ×2 (09:10→21:52)
[2019-05-25] MEDS: METOPROLOL TARTRATE 25 MG TABLET (FP) PO SCH ×2 (09:10→21:51)
[2019-05-25] MEDS: CEFTRIAXONE 2 GM in DEXTROSE 5%-WATER 100 ML IVPB SCH (09:12)
[2019-05-25] MEDS: chlorproMAZINE HCL 100 MG TABLET PO SCH ×2 (09:22→16:54)
[2019-05-25] MEDS: clonazePAM 0.5 MG TABLET PO SCH ×4 (09:34→21:54)
--- NOTE | 2019-05-25 10:31 | PN ---
Physical Exam: SUBJECTIVE: Patient seen and examined. patient at baseline OBJECTIVE: discharge planning Patient is a 38 year old male with a significant past medical history of autism , HTN, sz disorder admitted for work up of lethargy and was noted to have left knee joint infection. He is now s/p aspiration on 05/18/19 along with IV abx therapy with much improvement in his condition. He is awaiting placement to a facility for continuation of antibiotics vs coming in to the infusion suite daily for ceftriaxone IV. Vital Signs Period Temp Pulse Resp BP Sys/Baldwin Pulse Ox Last 24 Hr 97.8 F-98.6 F 69-84 18-19 118-128/71-83 100-100 Constitutional: Yes: Well Nourished, No Distress, Calm Eyes: Yes: PERRL HENT: Yes: Atraumatic Neck: Yes: Supple Cardiovascular: Yes: Regular Rate and Rhythm Respiratory: Yes: Regular Gastrointestinal: Yes: Normal Bowel Sounds, Soft ...Rectal Exam: Yes: Deferred Musculoskeletal: Yes: WNL Extremities: Yes: WNL Edema: left knee s/p aspiration Peripheral Pulses WNL: Yes Peripheral Pulses: Left Radial: 2+, Right Radial: 2+, Left Doralis Pedis: 2+, Right Dorsalis Pedis: 2+ Integumentary: Yes: Other (Left knee healing inferior patella lesion. non- tender to palpation) Neurological: Yes: Alert ...Motor Strength: WNL Psychiatric: Yes: Alert Laboratory Results - last 24 hr 05/25/19 05/25/19 07:20 07:20 WBC 5.9 RBC 3.99 L Hgb 12.4 Hct 35.8 MCV 89.7 MCH 31.1 MCHC 34.7 RDW 13.1 Plt Count 314 MPV 8.6 Absolute Neuts (auto) 2.5 Neutrophils % 42.6 L Lymphocytes % 36.4 Monocytes % 12.8 H Eosinophils % 7.2 H Basophils % 1.0 Nucleated RBC % 0 Sodium 134 L Potassium 4.6 Chloride 99 Carbon Dioxide 29 Anion Gap 6 L BUN 16.7 Creatinine 1.0 Est GFR (CKD-EPI)AfAm 109.40 Est GFR (CKD-EPI)NonAf 94.39 Random Glucose 79 Calcium 8.9 Magnesium 2.1 Total Bilirubin 0.3 AST 24 ALT 37 Alkaline Phosphatase 72 Total Protein 7.3 Albumin 3.4 Active Medications Generic Name Dose Route Start Last Admin Trade Name Cristino PRN Reason Stop Dose Admin Atorvastatin Calcium 20 mg 05/17/19 22:00 05/24/19 22:06 Lipitor - PO 20 mg HS REAL Administration Chlorpromazine HCl 100 mg 05/17/19 16:00 05/25/19 09:22 Thorazine - PO 100 mg BID@0800,1600 REAL Administration Cholecalciferol 2,000 unit 05/17/19 10:00 05/25/19 09:06 Vitamin D3 - PO 2,000 unit DAILY REAL Administration Clonazepam 0.5 mg 05/17/19 12:00 05/25/19 09:34 Klonopin - PO 0.5 mg 0800,1200,1600,2100 REAL Administration Divalproex Sodium 750 mg 05/17/19 21:00 05/24/19 22:06 Depakote *Er* - PO 750 mg DAILY@2100 REAL Administration Divalproex Sodium 500 mg 05/23/19 11:14 05/25/19 09:07 Depakote *Er* - PO 500 mg DAILY@0800 REAL Administration Docusate Sodium 100 mg 05/17/19 10:00 05/24/19 09:30 Colace - PO 100 mg DAILY REAL Administration Heparin Sodium (Porcine) 5,000 unit 05/16/19 22:00 05/25/19 09:10 Heparin - SQ 5,000 unit BID REAL Administration Hydrochlorothiazide 25 mg 05/17/19 10:00 05/23/19 09:09 Hctz - PO 25 mg DAILY REAL Administration Ceftriaxone Sodium 2 gm/ 100 mls @ 200 mls/hr 05/17/19 10:00 05/25/19 09:12 Dextrose IVPB 200 mls/hr DAILY REAL Administration Protocol Lisinopril 5 mg 05/17/19 21:00 05/24/19 22:06 Prinivil PO 5 mg DAILY@2100 REAL Administration Metoprolol Tartrate 12.5 mg 05/17/19 22:00 05/25/19 09:10 Lopressor - PO 12.5 mg BID REAL Administration Quetiapine Fumarate 400 mg 05/17/19 22:02 05/24/19 22:43 Seroquel - PO 400 mg HS REAL Administration Quetiapine Fumarate 200 mg 05/18/19 21:53 05/25/19 09:08 Seroquel - PO 200 mg 0800,1600 REAL Administration Trazodone HCl 50 mg 05/17/19 22:00 05/24/19 22:07 Desyrel - PO 50 mg HS REAL Administration Trazodone HCl 25 mg 05/17/19 12:00 05/25/19 09:08 Desyrel - PO 25 mg 0800,1200,1600 REAL Administration ASSESSMENT/PLAN: Problem List - Problems (1) Cellulitis Assessment/Plan: left knee lesion improving s/p left knee aspiration done by Ortho on 05/18. Per ID will need another 3 weeks of ceftriaxone. will need a picc line which patient is unable to have at the shelter he lives in. SW aware and d/c planning in progress. Code(s): L03.90 - CELLULITIS, UNSPECIFIED (2) Developmental delay, severe Assessment/Plan: supportive care. aides at bedside and provide cares for patient. Code(s): R62.50 - UNSP LACK OF EXPECTED NORMAL PHYSIOL DEV IN CHILDHOOD (3) HTN (hypertension) Assessment/Plan: controlled lisinopril, hold hctz, metoprolol cardiac diet Code(s): I10 - ESSENTIAL (PRIMARY) HYPERTENSION (4) Seizure Assessment/Plan: c/w depakote fall precautions Code(s): R56.9 - UNSPECIFIED CONVULSIONS (5) Sepsis Code(s): A41.9 - SEPSIS, UNSPECIFIED ORGANISM (6) Hyponatremia Assessment/Plan: resolved. Code(s): E87.1 - HYPO-OSMOLALITY AND HYPONATREMIA (7) DVT prophylaxis Assessment/Plan: heparin Code(s): Z29.9 - ENCOUNTER FOR PROPHYLACTIC MEASURES, UNSPECIFIED Visit type - Emergency Visit Emergency Visit: Yes ED Registration Date: 05/16/19 Care time: The patient presented to the Emergency Department on the above date and was hospitalized for further evaluation of their emergent condition. - New Patient This patient is new to me today: No - Critical Care Critical Care patient: No - Discharge Referral Referred to [facility] Med P.C.: No
[2019-05-25] MEDS: DOCUSATE SODIUM 100 MG CAPSULE (FP) PO SCH (10:32)
--- NOTE | 2019-05-25 11:18 | PN ---
Progress Note, Physician - Current Medication List Current Medications: Active Medications Atorvastatin Calcium (Lipitor -) 20 mg PO [facility] Last Admin: 05/24/19 22:06 Dose: 20 mg Chlorpromazine HCl (Thorazine -) 100 mg PO BID@0800,1600 [facility] Last Admin: 05/25/19 09:22 Dose: 100 mg Cholecalciferol (Vitamin D3 -) 2,000 unit PO DAILY [facility] Last Admin: 05/25/19 09:06 Dose: 2,000 unit Clonazepam (Klonopin -) 0.5 mg PO 0800,1200,1600,2100 [facility] Last Admin: 05/25/19 09:34 Dose: 0.5 mg Divalproex Sodium (Depakote *Er* -) 750 mg PO DAILY@2100 [facility] Last Admin: 05/24/19 22:06 Dose: 750 mg Divalproex Sodium (Depakote *Er* -) 500 mg PO DAILY@0800 [facility] Last Admin: 05/25/19 09:07 Dose: 500 mg Docusate Sodium (Colace -) 100 mg PO DAILY [facility] Last Admin: 05/24/19 09:30 Dose: 100 mg Heparin Sodium (Porcine) (Heparin -) 5,000 unit SQ BID [facility] Last Admin: 05/25/19 09:10 Dose: 5,000 unit Hydrochlorothiazide (Hctz -) 25 mg PO DAILY [facility] Last Admin: 05/23/19 09:09 Dose: 25 mg Ceftriaxone Sodium 2 gm/ (Dextrose) 100 mls @ 200 mls/hr IVPB DAILY [facility]; Protocol Last Admin: 05/25/19 09:12 Dose: 200 mls/hr Lisinopril (Prinivil) 5 mg PO DAILY@2100 [facility] Last Admin: 05/24/19 22:06 Dose: 5 mg Metoprolol Tartrate (Lopressor -) 12.5 mg PO BID [facility] Last Admin: 05/25/19 09:10 Dose: 12.5 mg Quetiapine Fumarate (Seroquel -) 400 mg PO [facility] Last Admin: 05/24/19 22:43 Dose: 400 mg Quetiapine Fumarate (Seroquel -) 200 mg PO 0800,1600 [facility] Last Admin: 05/25/19 09:08 Dose: 200 mg Trazodone HCl (Desyrel -) 50 mg PO [facility] Last Admin: 05/24/19 22:07 Dose: 50 mg Trazodone HCl (Desyrel -) 25 mg PO 0800,1200,1600 [facility] Last Admin: 05/25/19 09:08 Dose: 25 mg - Objective Vital Signs: Vital Signs Temperature 97.8 F 05/25/19 08:44 Pulse Rate 69 05/25/19 08:44 Respiratory Rate 18 05/25/19 08:44 Blood Pressure 121/75 05/25/19 08:44 O2 Sat by Pulse Oximetry (%) 100 05/25/19 08:44 Labs: CBC, BMP 05/25/19 07:20 05/25/19 07:20 INR, PTT INR 1.18 (0.83-1.09) H 05/16/19 16:04
[2019-05-25] MEDS ORDERED: PT OWN MED DRAWER 7, Y5N ONE ×3 (16:56→21:16)
--- NOTE | 2019-05-25 18:14 | PN ---
Progress Note (short form) - Note Progress Note: 38y M seen lying comfortably in bed pt unable to answer questions about his knee LLE prominence with chronic skin changes over tibial tubercle mild warmth no apparent tenderness no fluctuance comfortable ROM NV exam grossly intact A: L prepatellar bursitis P: I reviewed today's findings with Joel' lawnmower mechanic advised exam today shows only slight warmth infection seems to be improving since no gross purulence in bursa, no need for surgical intervention will continue on abx per can follow up as outpatient
[2019-05-25] MEDS ORDERED: QUEtiapine FUMARATE 100 MG TABLET (FP) PO SCH (21:24)
[2019-05-25] MEDS: ATORVASTATIN CA 20 MG TABLET (FP) PO SCH (21:51)
[2019-05-25] MEDS: LISINOPRIL 5 MG TABLET (FP) PO SCH (21:52)
[2019-05-26] MEDS: DIVALPROEX NA *ER* EXTEND REL 250 MG TABLET.SA PO SCH ×2 (08:39→22:11)
[2019-05-26] MEDS: clonazePAM 0.5 MG TABLET PO SCH ×4 (08:39→22:16)
[2019-05-26] MEDS: traZODone HCL 50 MG TABLET (FP) PO SCH ×4 (08:39→22:13)
[2019-05-26] MEDS: chlorproMAZINE HCL 100 MG TABLET PO SCH ×2 (08:40→16:39)
[2019-05-26] MEDS: QUEtiapine FUMARATE 200 MG TABLET PO SCH ×3 (08:41→22:12)
--- NOTE | 2019-05-26 08:46 | PN ---
Progress Note, Physician History of Present Illness: stable no new issues - Current Medication List Current Medications: Active Medications Atorvastatin Calcium (Lipitor -) 20 mg PO [facility] Last Admin: 05/25/19 21:51 Dose: 20 mg Chlorpromazine HCl (Thorazine -) 100 mg PO BID@0800,1600 [facility] Last Admin: 05/26/19 08:40 Dose: 100 mg Cholecalciferol (Vitamin D3 -) 2,000 unit PO DAILY [facility] Last Admin: 05/25/19 09:06 Dose: 2,000 unit Clonazepam (Klonopin -) 0.5 mg PO 0800,1200,1600,2100 [facility] Last Admin: 05/26/19 08:39 Dose: 0.5 mg Divalproex Sodium (Depakote *Er* -) 750 mg PO DAILY@2100 [facility] Last Admin: 05/25/19 21:52 Dose: 750 mg Divalproex Sodium (Depakote *Er* -) 500 mg PO DAILY@0800 [facility] Last Admin: 05/26/19 08:39 Dose: 500 mg Docusate Sodium (Colace -) 100 mg PO DAILY [facility] Last Admin: 05/25/19 10:32 Dose: 100 mg Heparin Sodium (Porcine) (Heparin -) 5,000 unit SQ BID [facility] Last Admin: 05/25/19 21:52 Dose: 5,000 unit Hydrochlorothiazide (Hctz -) 25 mg PO DAILY [facility] Last Admin: 05/23/19 09:09 Dose: 25 mg Ceftriaxone Sodium 2 gm/ (Dextrose) 100 mls @ 200 mls/hr IVPB DAILY [facility]; Protocol Last Admin: 05/25/19 09:12 Dose: 200 mls/hr Lisinopril (Prinivil) 5 mg PO DAILY@2100 [facility] Last Admin: 05/25/19 21:52 Dose: 5 mg Metoprolol Tartrate (Lopressor -) 12.5 mg PO BID [facility] Last Admin: 05/25/19 21:51 Dose: 12.5 mg Quetiapine Fumarate (Seroquel -) 200 mg PO 0800,1600 [facility] Last Admin: 05/26/19 08:41 Dose: 200 mg Quetiapine Fumarate (Seroquel -) 400 mg PO [facility] Last Admin: 05/25/19 21:50 Dose: 400 mg Trazodone HCl (Desyrel -) 50 mg PO [facility] Last Admin: 05/25/19 21:52 Dose: 50 mg Trazodone HCl (Desyrel -) 25 mg PO 0800,1200,1600 [facility] Last Admin: 05/26/19 08:39 Dose: 25 mg - Objective Vital Signs: Vital Signs Temperature 98.4 F 05/26/19 05:57 Pulse Rate 74 05/26/19 05:57 Respiratory Rate 18 05/26/19 05:57 Blood Pressure 122/80 05/26/19 05:57 O2 Sat by Pulse Oximetry (%) 100 05/25/19 20:43 Constitutional: Yes: No Distress, Calm Cardiovascular: Yes: S1, S2 Respiratory: Yes: Regular, CTA Bilaterally Gastrointestinal: Yes: Normal Bowel Sounds, Soft Musculoskeletal: Yes: WNL Extremities: Yes: Other Neurological: Yes: Alert, Other Psychiatric: Yes: Other Labs: CBC, BMP 05/25/19 07:20 05/25/19 07:20 INR, PTT INR 1.18 (0.83-1.09) H 05/16/19 16:04 Assessment/Plan Problem List - Problems (1) Altered mental state Code(s): R41.82 - ALTERED MENTAL STATUS, UNSPECIFIED (2) Cellulitis Code(s): L03.90 - CELLULITIS, UNSPECIFIED (3) Developmental delay, severe Code(s): R62.50 - UNSP LACK OF EXPECTED NORMAL PHYSIOL DEV IN CHILDHOOD (4) HTN (hypertension) Code(s): I10 - ESSENTIAL (PRIMARY) HYPERTENSION (5) Seizure Code(s): R56.9 - UNSPECIFIED CONVULSIONS (6) Sepsis Code(s): A41.9 - SEPSIS, UNSPECIFIED ORGANISM 7 septic knee left Assessment/Plan 38 y.o. male with PMH of autism/developmental delay, seizure d.o., HTN brought in from halfway for AMS/lethargy noted x 1 day, low grade fever, Lt tibial fluctuant lesion AMS - now easily arousable Lt patellar bursitis s/p aspiration Fever - resolved cx result noted continue abx sensitivities noted ceftriaxone as planned
[2019-05-26] MEDS ORDERED: DEXTROSE 5%-WATER 100 ML IVPB ONE (09:20)
[2019-05-26] MEDS: METOPROLOL TARTRATE 25 MG TABLET (FP) PO SCH ×2 (09:30→22:11)
[2019-05-26] MEDS: DOCUSATE SODIUM 100 MG CAPSULE (FP) PO SCH (09:30)
[2019-05-26] MEDS: HEPARIN NA (PORCINE) 5,000 UNITS/ML 1ML VIAL SQ SCH ×2 (09:30→22:16)
[2019-05-26] MEDS: CHOLECALCIFEROL (VIT D3) 1,000 UNIT (25 MCG) TABLET PO SCH (09:30)
[2019-05-26] MEDS: CEFTRIAXONE 2 GM in DEXTROSE 5%-WATER 100 ML IVPB SCH (09:32)
--- NOTE | 2019-05-26 10:38 | PN ---
Physical Exam: SUBJECTIVE: Patient seen and examined at the bedside. in no acute distress. caregiver at bedside. OBJECTIVE: will need two more weeks of ceftriaxone 2 grams awaiting final d/c plan discharge planning Patient is a 38 year old male with a significant past medical history of autism , HTN, sz disorder admitted for work up of lethargy and was noted to have left knee joint infection. He is now s/p aspiration on 05/18/19 along with IV abx therapy with much improvement in his condition. He is awaiting placement to a facility for continuation of antibiotics vs coming in to the infusion suite daily for ceftriaxone IV. Vital Signs Period Temp Pulse Resp BP Sys/Baldwin Pulse Ox Last 24 Hr 98.1 F-99.4 F 72-77 18-19 119-126/70-80 100 Constitutional: Yes: Well Nourished, No Distress, Calm Eyes: Yes: PERRL HENT: Yes: Atraumatic Neck: Yes: Supple Cardiovascular: Yes: Regular Rate and Rhythm Respiratory: Yes: Regular Gastrointestinal: Yes: Normal Bowel Sounds, Soft ...Rectal Exam: Yes: Deferred Musculoskeletal: Yes: WNL Extremities: Yes: WNL Edema: left knee s/p aspiration Peripheral Pulses WNL: Yes Peripheral Pulses: Left Radial: 2+, Right Radial: 2+, Left Doralis Pedis: 2+, Right Dorsalis Pedis: 2+ Integumentary: Yes: Other (Left knee healing inferior patella lesion. non- tender to palpation) Neurological: Yes: Alert ...Motor Strength: WNL Psychiatric: Yes: Alert Active Medications Generic Name Dose Route Start Last Admin Trade Name Cristino PRN Reason Stop Dose Admin Atorvastatin Calcium 20 mg 05/17/19 22:00 05/25/19 21:51 Lipitor - PO 20 mg HS [facility] Administration Chlorpromazine HCl 100 mg 05/17/19 16:00 05/26/19 08:40 Thorazine - PO 100 mg BID@0800,1600 [facility] Administration Cholecalciferol 2,000 unit 05/17/19 10:00 05/26/19 09:30 Vitamin D3 - PO 2,000 unit DAILY [facility] Administration Clonazepam 0.5 mg 05/17/19 12:00 05/26/19 08:39 Klonopin - PO 0.5 mg 0800,1200,1600,2100 [facility] Administration Divalproex Sodium 750 mg 05/17/19 21:00 05/25/19 21:52 Depakote *Er* - PO 750 mg DAILY@2100 [facility] Administration Divalproex Sodium 500 mg 05/23/19 11:14 05/26/19 08:39 Depakote *Er* - PO 500 mg DAILY@0800 [facility] Administration Docusate Sodium 100 mg 05/17/19 10:00 05/26/19 09:30 Colace - PO 100 mg DAILY [facility] Administration Heparin Sodium (Porcine) 5,000 unit 05/16/19 22:00 05/26/19 09:30 Heparin - SQ 5,000 unit BID [facility] Administration Hydrochlorothiazide 25 mg 05/17/19 10:00 05/23/19 09:09 Hctz - PO 25 mg DAILY [facility] Administration Ceftriaxone Sodium 2 gm/ 100 mls @ 200 mls/hr 05/17/19 10:00 05/26/19 09:32 Dextrose IVPB 200 mls/hr DAILY [facility] Administration Protocol Lisinopril 5 mg 05/17/19 21:00 05/25/19 21:52 Prinivil PO 5 mg DAILY@2100 [facility] Administration Metoprolol Tartrate 12.5 mg 05/17/19 22:00 05/26/19 09:30 Lopressor - PO 12.5 mg BID [facility] Administration Quetiapine Fumarate 200 mg 05/18/19 21:53 05/26/19 08:41 Seroquel - PO 200 mg 0800,1600 [facility] Administration Quetiapine Fumarate 400 mg 05/25/19 21:24 05/25/19 21:50 Seroquel - PO 400 mg HS [facility] Administration Trazodone HCl 50 mg 05/17/19 22:00 05/25/19 21:52 Desyrel - PO 50 mg HS [facility] Administration Trazodone HCl 25 mg 05/17/19 12:00 05/26/19 08:39 Desyrel - PO 25 mg 0800,1200,1600 [facility] Administration ASSESSMENT/PLAN: Problem List - Problems (1) Cellulitis Assessment/Plan: left knee lesion improving s/p left knee aspiration done by Ortho on 05/18. Per ID will need another 3 weeks of ceftriaxone. will need a picc line which patient is unable to have at the snf he lives in. SW aware and d/c planning in progress. Code(s): L03.90 - CELLULITIS, UNSPECIFIED (2) Developmental delay, severe Assessment/Plan: supportive care. aides at bedside and provide cares for patient. Code(s): R62.50 - UNSP LACK OF EXPECTED NORMAL PHYSIOL DEV IN CHILDHOOD (3) HTN (hypertension) Assessment/Plan: controlled lisinopril, hold hctz, metoprolol cardiac diet Code(s): I10 - ESSENTIAL (PRIMARY) HYPERTENSION (4) Seizure Assessment/Plan: c/w depakote fall precautions Code(s): R56.9 - UNSPECIFIED CONVULSIONS (5) Sepsis Code(s): A41.9 - SEPSIS, UNSPECIFIED ORGANISM (6) Hyponatremia Assessment/Plan: resolved. Code(s): E87.1 - HYPO-OSMOLALITY AND HYPONATREMIA (7) DVT prophylaxis Assessment/Plan: heparin Code(s): Z29.9 - ENCOUNTER FOR PROPHYLACTIC MEASURES, UNSPECIFIED Visit type - Emergency Visit Emergency Visit: Yes ED Registration Date: 05/16/19 Care time: The patient presented to the Emergency Department on the above date and was hospitalized for further evaluation of their emergent condition. - New Patient This patient is new to me today: No - Critical Care Critical Care patient: No - Discharge Referral Referred to [facility] Med P.C.: No
--- NOTE | 2019-05-26 11:56 | PN ---
Progress Note (short form) - Note Progress Note: 38y M seen sitting up in no apparent discomfort LLE no significant change prominence with chronic skin changes over tibial tubercle mild warmth no apparent tenderness no fluctuance comfortable ROM NV exam grossly intact A: L prepatellar bursitis P: I reviewed today's findings with Joel' quality assurance monitor final no significant clinical change continue antibiotics ok to follow up as outpatient after discharge
[2019-05-26] MEDS ORDERED: PT OWN MED DRAWER 7, Y5N ONE (22:04)
[2019-05-26] MEDS: LISINOPRIL 5 MG TABLET (FP) PO SCH (22:13)
[2019-05-26] MEDS: ATORVASTATIN CA 20 MG TABLET (FP) PO SCH (22:13)
[2019-05-27] MEDS ORDERED: PT OWN MED DRAWER 7, Y5N ONE ×3 (06:42→18:19)
[2019-05-27] MEDS: chlorproMAZINE HCL 100 MG TABLET PO SCH ×2 (07:05→17:16)
[2019-05-27] MEDS: QUEtiapine FUMARATE 200 MG TABLET PO SCH ×3 (07:06→21:42)
[2019-05-27] MEDS: DIVALPROEX NA *ER* EXTEND REL 250 MG TABLET.SA PO SCH ×2 (07:07→21:42)
[2019-05-27] MEDS ORDERED: LORazepam 2 MG/ML SDV VIAL IVPUSH STA (07:09)
[2019-05-27] MEDS ORDERED: HALOPERIDOL LACTATE 5 MG/ML IM ONE (07:09)
[2019-05-27] MEDS: traZODone HCL 50 MG TABLET (FP) PO SCH ×4 (07:09→21:43)
[2019-05-27] MEDS ORDERED: LORazepam 2 MG/ML SDV VIAL ONE (07:09)
[2019-05-27] MEDS ORDERED: LORazepam 2 MG/ML SDV VIAL IM ONE (07:11)
--- NOTE | 2019-05-27 07:22 | PN ---
Progress Note (short form) - Note Progress Note: Rapid Response called for combative patient. Condition 10 called due to patient acting aggressive towards staff and roommate. Staff states that patient will scratch the staff. Patient was found with security staff holding down patient's arms. -Ativan 2mg IM -Haldol 5mg IM Patient's agitation improved. Primary team(LINE TECHNICIAN) arrived who took over for patient's care
[2019-05-27] MEDS ORDERED: chlorproMAZINE HCL 25 MG TABLET PO PRN (07:43)
--- NOTE | 2019-05-27 08:03 | PN ---
Physical Exam: SUBJECTIVE: Patient seen and examined at the bedside. called to bedside this morning after patient became very agitated and needed to be given ativan 2, haldol 5 and thorazine IM to maintain him calm. It took him a few hours to calm down but he eventually was able to. his home health aide was present and she states that he gets this way intermittently at the . Discussed with ID and the plan to continue ceftriaxone 2 grams for another two weeks (until 06/06/2019->last dose of ceftriaxone) --- Patient is a 38 year old male with a significant past medical history of autism , HTN, sz disorder admitted for work up of lethargy and was noted to have left knee joint infection. He is now s/p aspiration on 05/18/19 along with IV abx therapy with much improvement in his condition. He is awaiting placement to a facility for continuation of antibiotics vs coming in to the infusion suite daily for ceftriaxone IV. patient with behavioral issues and we are not able to send [facility] to the [facility] with a central line. OBJECTIVE: Lt patellar bursitis s/p aspiration Vital Signs Period Temp Pulse Resp BP Sys/Baldwin Pulse Ox Last 24 Hr 98.2 F-99.1 F 77-96 18-20 119-141/54-96 100-100 Constitutional: Yes: Well Nourished, No Distress, Calm Eyes: Yes: PERRL HENT: Yes: Atraumatic Neck: Yes: Supple Cardiovascular: Yes: Regular Rate and Rhythm Respiratory: Yes: Regular Gastrointestinal: Yes: Normal Bowel Sounds, Soft Musculoskeletal: Yes: WNL Extremities: Yes: WNL Edema: left knee s/p aspiration Peripheral Pulses WNL: Yes Peripheral Pulses: Left Radial: 2+, Right Radial: 2+, Left Doralis Pedis: 2+, Right Dorsalis Pedis: 2+ Integumentary: Yes: Other (Left knee healing inferior patella lesion. non- tender to palpation) Neurological: Yes: Alert Psychiatric: Yes: Alert Active Medications Generic Name Dose Route Start Last Admin Trade Name Freq PRN Reason Stop Dose Admin Atorvastatin Calcium 20 mg 05/17/19 22:00 05/26/19 22:13 Lipitor - PO 20 mg HS [facility] Administration Chlorpromazine HCl 100 mg 05/17/19 16:00 05/27/19 07:05 Thorazine - PO 100 mg BID@0800,1600 [facility] Administration Chlorpromazine HCl 50 mg 05/27/19 06:50 05/27/19 07:06 Thorazine Injection - IM 50 mg Q6H PRN Administration NAUSEA AND/OR VOMITING Chlorpromazine HCl 50 mg 05/27/19 07:43 Thorazine - PO QID PRN AGITATION Cholecalciferol 2,000 unit 05/17/19 10:00 05/26/19 09:30 Vitamin D3 - PO 2,000 unit DAILY [facility] Administration Clonazepam 0.5 mg 05/17/19 12:00 05/26/19 22:16 Klonopin - PO 0.5 mg 0800,1200,1600,2100 [facility] Administration Diphenhydramine HCl 25 mg 05/27/19 07:59 Benadryl Injection - IM 05/27/19 08:00 ONCE ONE Divalproex Sodium 750 mg 05/17/19 21:00 05/26/19 22:11 Depakote *Er* - PO 750 mg DAILY@2100 [facility] Administration Divalproex Sodium 500 mg 05/23/19 11:14 05/27/19 07:07 Depakote *Er* - PO 500 mg DAILY@0800 [facility] Administration Docusate Sodium 100 mg 05/17/19 10:00 05/26/19 09:30 Colace - PO 100 mg DAILY [facility] Administration Heparin Sodium (Porcine) 5,000 unit 05/16/19 22:00 05/26/19 22:16 Heparin - SQ 5,000 unit BID [facility] Administration Hydrochlorothiazide 25 mg 05/17/19 10:00 05/23/19 09:09 Hctz - PO 25 mg DAILY [facility] Administration Ceftriaxone Sodium 2 gm/ 100 mls @ 200 mls/hr 05/17/19 10:00 05/26/19 09:32 Dextrose IVPB 200 mls/hr DAILY [facility] Administration Protocol Lisinopril 5 mg 05/17/19 21:00 05/26/19 22:13 Prinivil PO 5 mg DAILY@2100 [facility] Administration Metoprolol Tartrate 12.5 mg 05/17/19 22:00 05/26/19 22:11 Lopressor - PO 12.5 mg BID REAL Administration Quetiapine Fumarate 200 mg 05/18/19 21:53 05/27/19 07:06 Seroquel - PO 200 mg 0800,1600 [facility] Administration Quetiapine Fumarate 400 mg 05/26/19 22:00 05/26/19 22:12 Seroquel - PO 400 mg HS REAL Administration Trazodone HCl 50 mg 05/17/19 22:00 05/26/19 22:13 Desyrel - PO 50 mg HS [facility] Administration Trazodone HCl 25 mg 05/17/19 12:00 05/27/19 07:09 Desyrel - PO 25 mg 0800,1200,1600 [facility] Administration ASSESSMENT/PLAN: Problem List - Problems (1) Agitation Assessment/Plan: agitated today requiring ativan, haldol. on standing klonopin, seroquel and thorazine. also on throazine 50mg IM q8 pscyhe follow up appreciated Code(s): R45.1 - RESTLESSNESS AND AGITATION (2) Cellulitis Assessment/Plan: L prepatellar bursitis improving s/p left knee aspiration done by Ortho on . Per ID will need another 2 weeks of ceftriaxone (to complete on 06/06/2019 which will be his last dose). will need a picc line which patient is unable to have at the [facility]. he may need to present daily to the infusion center for scheduled ceftriaxone 2g. SW aware and d/c planning in progress. Code(s): L03.90 - CELLULITIS, UNSPECIFIED (3) Developmental delay, severe Assessment/Plan: supportive care. aides at bedside and provide cares for patient. Code(s): R62.50 - UNSP LACK OF EXPECTED NORMAL PHYSIOL DEV IN CHILDHOOD (4) HTN (hypertension) Assessment/Plan: controlled lisinopril, hold hctz, metoprolol cardiac diet Code(s): I10 - ESSENTIAL (PRIMARY) HYPERTENSION (5) Seizure Assessment/Plan: c/w depakote fall precautions Code(s): R56.9 - UNSPECIFIED CONVULSIONS (6) Hyponatremia Assessment/Plan: resolved. Code(s): E87.1 - HYPO-OSMOLALITY AND HYPONATREMIA (7) DVT prophylaxis Assessment/Plan: heparin Code(s): Z29.9 - ENCOUNTER FOR PROPHYLACTIC MEASURES, UNSPECIFIED Visit type - Emergency Visit Emergency Visit: Yes ED Registration Date: 05/16/19 Care time: The patient presented to the Emergency Department on the above date and was hospitalized for further evaluation of their emergent condition. - New Patient This patient is new to me today: No - Critical Care Critical Care patient: No - Discharge Referral Referred to [facility] Med P.C.: No
[2019-05-27] MEDS: clonazePAM 0.5 MG TABLET PO SCH ×4 (08:31→21:43)
--- NOTE | 2019-05-27 09:17 | PN ---
Progress Note, Physician History of Present Illness: calm was agitated now calm - Current Medication List Current Medications: Active Medications Atorvastatin Calcium (Lipitor -) 20 mg PO HS [facility] Last Admin: 05/26/19 22:13 Dose: 20 mg Chlorpromazine HCl (Thorazine -) 100 mg PO BID@0800,1600 [facility] Last Admin: 05/27/19 07:05 Dose: 100 mg Chlorpromazine HCl (Thorazine Injection -) 50 mg IM Q6H PRN PRN Reason: NAUSEA AND/OR VOMITING Last Admin: 05/27/19 08:11 Dose: 50 mg Cholecalciferol (Vitamin D3 -) 2,000 unit PO DAILY [facility] Last Admin: 05/26/19 09:30 Dose: 2,000 unit Clonazepam (Klonopin -) 0.5 mg PO 0800,1200,1600,2100 [facility] [place] Last Admin: 05/26/19 22:16 Dose: 0.5 mg Divalproex Sodium (Depakote *Er* -) 750 mg PO DAILY@2100 [facility] [place] Last Admin: 05/26/19 22:11 Dose: 750 mg Divalproex Sodium (Depakote *Er* -) 500 mg PO DAILY@0800 [facility] Last Admin: 05/27/19 07:07 Dose: 500 mg Docusate Sodium (Colace -) 100 mg PO DAILY [facility] Last Admin: 05/26/19 09:30 Dose: 100 mg Heparin Sodium (Porcine) (Heparin -) 5,000 unit SQ BID [facility] [place] Last Admin: 05/26/19 22:16 Dose: 5,000 unit Hydrochlorothiazide (Hctz -) 25 mg PO DAILY [facility] [place] Last Admin: 05/23/19 09:09 Dose: 25 mg Ceftriaxone Sodium 2 gm/ (Dextrose) 100 mls @ 200 mls/hr IVPB DAILY [facility]; Protocol Last Admin: 05/26/19 09:32 Dose: 200 mls/hr Lisinopril (Prinivil) 5 mg PO DAILY@2100 [facility] Last Admin: 05/26/19 22:13 Dose: 5 mg Metoprolol Tartrate (Lopressor -) 12.5 mg PO BID [facility] Last Admin: 05/26/19 22:11 Dose: 12.5 mg Quetiapine Fumarate (Seroquel -) 200 mg PO 0800,1600 [facility] Last Admin: 05/27/19 07:06 Dose: 200 mg Quetiapine Fumarate (Seroquel -) 400 mg PO [facility] Last Admin: 05/26/19 22:12 Dose: 400 mg Trazodone HCl (Desyrel -) 50 mg PO [facility] Last Admin: 05/26/19 22:13 Dose: 50 mg Trazodone HCl (Desyrel -) 25 mg PO 0800,1200,1600 [facility] Last Admin: 05/27/19 07:09 Dose: 25 mg - Objective Vital Signs: Vital Signs Temperature 99.1 F 05/27/19 06:00 Pulse Rate 88 05/27/19 08:16 Respiratory Rate 15 05/27/19 08:16 Blood Pressure 117/77 05/27/19 08:16 O2 Sat by Pulse Oximetry (%) 100 05/26/19 21:00 Constitutional: Yes: No Distress, Calm Cardiovascular: Yes: Regular Rate and Rhythm Respiratory: Yes: Regular, CTA Bilaterally Gastrointestinal: Yes: Normal Bowel Sounds, Soft Musculoskeletal: Yes: WNL Extremities: Yes: WNL Neurological: Yes: Alert, Other Psychiatric: Yes: Other Labs: CBC, BMP 05/25/19 07:20 05/25/19 07:20 INR, PTT INR 1.18 (0.83-1.09) H 05/16/19 16:04 Assessment/Plan Problem List - Problems (1) Altered mental state Code(s): R41.82 - ALTERED MENTAL STATUS, UNSPECIFIED (2) Cellulitis Code(s): L03.90 - CELLULITIS, UNSPECIFIED (3) Developmental delay, severe Code(s): R62.50 - UNSP LACK OF EXPECTED NORMAL PHYSIOL DEV IN CHILDHOOD (4) HTN (hypertension) Code(s): I10 - ESSENTIAL (PRIMARY) HYPERTENSION (5) Seizure Code(s): R56.9 - UNSPECIFIED CONVULSIONS (6) Sepsis Code(s): A41.9 - SEPSIS, UNSPECIFIED ORGANISM 7 septic knee left Assessment/Plan 38 y.o. male with PMH of autism/developmental delay, seizure d.o., HTN brought in from half-way for AMS/lethargy noted x 1 day, low grade fever, Lt tibial fluctuant lesion AMS - now easily arousable Lt patellar bursitis s/p aspiration Fever - resolved cx result noted continue abx sensitivities noted ceftriaxone as planned
[2019-05-27 09:53] LABS: HEMATOCRIT 38.1 % (35.4-49); LYMPH % 33.7 % (8-40); MCH 30.7 pg (25.7-33.7); MCHC 34.1 g/dl (32.0-35.9); MEAN PLT VOLUME 8.6 fl (7.5-11.1); MONO % 12.6 % (3.8-10.2); NEUT % 47.7 % (42.8-82.8); PLATELET COUNT 330 K/MM3 (134-434); RBC 4.23 M/mm3 (4.00-5.60); RDW 13.4 % (11.9-15.9)
[2019-05-27 10:13] LABS: ALBUMIN 3.4 g/dl (3.4-5.0); BILIRUBIN,TOTAL 0.3 mg/dL (0.2-1); BLOOD UREA NITROGEN 15.7 mg/dL (7-18); CALCIUM 9.4 mg/dL (8.5-10.1); MAGNESIUM 2.2 mg/dL (1.8-2.4); POTASSIUM 4.4 mmol/L (3.5-5.1); TOT PROT 7.8 g/dl (6.4-8.2)
[2019-05-27] MEDS ORDERED: DEXTROSE 5%-WATER 100 ML IVPB ONE (10:39)
[2019-05-27] MEDS: CEFTRIAXONE 2 GM in DEXTROSE 5%-WATER 100 ML IVPB SCH (10:50)
[2019-05-27] MEDS: HEPARIN NA (PORCINE) 5,000 UNITS/ML 1ML VIAL SQ SCH ×2 (10:51→21:43)
--- NOTE | 2019-05-27 13:01 | CON.PSY ---
Psychiatry Consult Chief Complaint: Asked to see Mr. Li,this am for agitation History of Present Problem: Patient has a history of Autism/developmental delay and resides at a Nursing Home. According to RN this am, he was doing well well and in good behavoiral control since admission until this AM when he got extremely agitated with loud verbal outburst. Presently, there is a [facility]. He was given Haldol/IV Ativan and he was found sound asleep . Review of meds and [facility] Last Valproic Acid level from 05/18/ = 98.3 Symptoms: reports: Other (Unable to continue mental status exam or to obtain subjective history at this time) - Current Medications Current Medications: Active Medications Atorvastatin Calcium (Lipitor -) 20 mg PO HS [facility] Last Admin: 05/26/19 22:13 Dose: 20 mg Chlorpromazine HCl (Thorazine -) 100 mg PO BID@0800,1600 [facility] Last Admin: 05/27/19 07:05 Dose: 100 mg Chlorpromazine HCl (Thorazine Injection -) 50 mg IM Q8H PRN PRN Reason: NAUSEA AND/OR VOMITING Cholecalciferol (Vitamin D3 -) 2,000 unit PO DAILY [facility] Last Admin: 05/26/19 09:30 Dose: 2,000 unit Clonazepam (Klonopin -) 0.5 mg PO 0800,1200,1600,2100 [facility] Last Admin: 05/26/19 22:16 Dose: 0.5 mg Divalproex Sodium (Depakote *Er* -) 750 mg PO DAILY@2100 [facility] Last Admin: 05/26/19 22:11 Dose: 750 mg Divalproex Sodium (Depakote *Er* -) 500 mg PO DAILY@0800 [facility] Last Admin: 05/27/19 07:07 Dose: 500 mg Docusate Sodium (Colace -) 100 mg PO DAILY [facility] Last Admin: 05/26/19 09:30 Dose: 100 mg Heparin Sodium (Porcine) (Heparin -) 5,000 unit SQ BID [facility] Last Admin: 05/27/19 10:51 Dose: 5,000 unit Hydrochlorothiazide (Hctz -) 25 mg PO DAILY [facility] Last Admin: 05/23/19 09:09 Dose: 25 mg Ceftriaxone Sodium 2 gm/ (Dextrose) 100 mls @ 200 mls/hr IVPB DAILY [facility]; Protocol Last Admin: 05/27/19 10:50 Dose: 200 mls/hr Lisinopril (Prinivil) 5 mg PO DAILY@2100 [facility] Last Admin: 05/26/19 22:13 Dose: 5 mg Metoprolol Tartrate (Lopressor -) 12.5 mg PO BID [facility] Last Admin: 05/26/19 22:11 Dose: 12.5 mg Quetiapine Fumarate (Seroquel -) 200 mg PO 0800,1600 [facility] Last Admin: 05/27/19 07:06 Dose: 200 mg Quetiapine Fumarate (Seroquel -) 400 mg PO [facility] Last Admin: 05/26/19 22:12 Dose: 400 mg Trazodone HCl (Desyrel -) 50 mg PO [facility] Last Admin: 05/26/19 22:13 Dose: 50 mg Trazodone HCl (Desyrel -) 25 mg PO 0800,1200,1600 [facility] Last Admin: 05/27/19 07:09 Dose: 25 mg - Allergies Allergies: Allergies Allergy/AdvReac Type Severity Reaction Status Date / Time No Known Allergies Allergy Unverified 07/25/13 19:47 - Speech/Language Expressive: Other (Quite sedated at this time- and asleep) - Homicidal Ideation Plan: Patient may continue prn dose of haldol and ativan on a prn basis .
[2019-05-27] MEDS: HYDROCHLOROTHIAZIDE 25 MG TABLET (FP) PO SCH (13:23)
[2019-05-27] MEDS: DOCUSATE SODIUM 100 MG CAPSULE (FP) PO SCH (13:24)
[2019-05-27] MEDS: CHOLECALCIFEROL (VIT D3) 1,000 UNIT (25 MCG) TABLET PO SCH (13:24)
[2019-05-27] MEDS: METOPROLOL TARTRATE 25 MG TABLET (FP) PO SCH ×2 (13:25→21:43)
[2019-05-27] MEDS ORDERED: LORazepam 2 MG/ML SDV VIAL IVPUSH ONE (18:17)
[2019-05-27] MEDS: ATORVASTATIN CA 20 MG TABLET (FP) PO SCH (21:42)
[2019-05-27] MEDS: LISINOPRIL 5 MG TABLET (FP) PO SCH (21:43)
--- NOTE | 2019-05-28 07:51 | PN ---
Progress Note, Physician Chief Complaint: resting comfortably in bed. No events over night as per [facility] staff History of Present Illness: Patient is a 38 year old male with a significant past medical history of autism , HTN, sz disorder admitted for work up of lethargy and was noted to have left knee joint infection. He is now s/p aspiration on 05/18/19 along with IV abx therapy. Discussed with ID and the plan to continue ceftriaxone 2 grams for another two weeks (until 06/06/2019->last dose of ceftriaxone) Resident of [facility] - Current Medication List Current Medications: Active Medications Atorvastatin Calcium (Lipitor -) 20 mg PO HS [facility] Last Admin: 05/27/19 21:42 Dose: 20 mg Chlorpromazine HCl (Thorazine -) 100 mg PO BID@0800,1600 [facility] Last Admin: 05/27/19 17:16 Dose: 100 mg Chlorpromazine HCl (Thorazine Injection -) 50 mg IM Q8H PRN PRN Reason: NAUSEA AND/OR VOMITING Last Admin: 05/27/19 18:23 Dose: 50 mg Cholecalciferol (Vitamin D3 -) 2,000 unit PO DAILY [facility] Last Admin: 05/27/19 13:24 Dose: 2,000 unit Clonazepam (Klonopin -) 0.5 mg PO 0800,1200,1600,2100 [facility] Last Admin: 05/27/19 21:43 Dose: 0.5 mg Divalproex Sodium (Depakote *Er* -) 750 mg PO DAILY@2100 [facility] Last Admin: 05/27/19 21:42 Dose: 750 mg Divalproex Sodium (Depakote *Er* -) 500 mg PO DAILY@0800 [facility] Last Admin: 05/27/19 07:07 Dose: 500 mg Docusate Sodium (Colace -) 100 mg PO DAILY [facility] Last Admin: 05/27/19 13:24 Dose: 100 mg Heparin Sodium (Porcine) (Heparin -) 5,000 unit SQ BID [facility] Last Admin: 05/27/19 21:43 Dose: 5,000 unit Hydrochlorothiazide (Hctz -) 25 mg PO DAILY [facility] Last Admin: 05/27/19 13:23 Dose: 25 mg Ceftriaxone Sodium 2 gm/ (Dextrose) 100 mls @ 200 mls/hr IVPB DAILY [facility]; Protocol Last Admin: 05/27/19 10:50 Dose: 200 mls/hr Lisinopril (Prinivil) 5 mg PO DAILY@2100 [facility] Last Admin: 05/27/19 21:43 Dose: 5 mg Metoprolol Tartrate (Lopressor -) 12.5 mg PO BID [facility] Last Admin: 05/27/19 21:43 Dose: 12.5 mg Quetiapine Fumarate (Seroquel -) 200 mg PO 0800,1600 [facility] Last Admin: 05/27/19 17:16 Dose: 200 mg Quetiapine Fumarate (Seroquel -) 400 mg PO [facility] Last Admin: 05/27/19 21:42 Dose: 400 mg Trazodone HCl (Desyrel -) 50 mg PO [facility] Last Admin: 05/27/19 21:43 Dose: 50 mg Trazodone HCl (Desyrel -) 25 mg PO 0800,1200,1600 [facility] Last Admin: 05/27/19 17:15 Dose: 25 mg - Objective Vital Signs: Vital Signs Temperature 98 F 05/28/19 05:56 Pulse Rate 77 05/28/19 05:56 Respiratory Rate 16 05/28/19 05:56 Blood Pressure 102/58 L 05/28/19 05:56 O2 Sat by Pulse Oximetry (%) 98 05/27/19 20:09 Constitutional: Yes: Well Nourished, No Distress, Calm Eyes: Yes: WNL, Conjunctiva Clear HENT: Yes: WNL, Atraumatic, Normocephalic Neck: Yes: WNL, Supple, Trachea Midline Cardiovascular: Yes: WNL, Regular Rate and Rhythm Respiratory: Yes: WNL, Regular, CTA Bilaterally Gastrointestinal: Yes: WNL, Normal Bowel Sounds ...Rectal Exam: Yes: Deferred Genitourinary: Yes: WNL Breast(s): Yes: WNL Musculoskeletal: Yes: Joint Swelling (left knee) Extremities: Yes: Other (healing lesion to left patella) Edema: Yes Edema: LLE: Trace, RLE: Trace Peripheral Pulses WNL: Yes Peripheral Pulses: Left Radial: 2+, Right Radial: 2+, Left Doralis Pedis: 2+, Right Dorsalis Pedis: 2+, Left Femoral: 2+, Right Femoral: 2+ Integumentary: Yes: Other (s/p left knee aspiration) Neurological: Yes: Alert ...Motor Strength: WNL Psychiatric: Yes: Alert Labs: CBC, BMP 05/27/19 09:35 05/27/19 09:35 INR, PTT INR 1.18 (0.83-1.09) H 05/16/19 16:04 Problem List - Problems (1) Altered mental state Assessment/Plan: Back to baseline as per [facility] staff head CT without acute pathology appreciate ID consultation c/w ceftriaxone until 06/06 c/w all psych meds Code(s): R41.82 - ALTERED MENTAL STATUS, UNSPECIFIED (2) HTN (hypertension) Assessment/Plan: c/w lisinipril, hctz Code(s): I10 - ESSENTIAL (PRIMARY) HYPERTENSION (3) Developmental delay, severe Assessment/Plan: supportive care staff from nursing home present spoke with Dr Hernandez from home, reviewed medications [phone] ordered all meds as per home regimen. On several Qtc prolonging agents. 446 Code(s): R62.50 - UNSP LACK OF EXPECTED NORMAL PHYSIOL DEV IN CHILDHOOD (4) Cellulitis Assessment/Plan: resolved c/w ceftriaxone for bursitis dopplers of lower extrem without DVT ID consultation apppreciated monitor WBC, temp trend Code(s): L03.90 - CELLULITIS, UNSPECIFIED (5) Seizure Assessment/Plan: c/w depakote fall precautions Code(s): R56.9 - UNSPECIFIED CONVULSIONS (6) Preventive measure Assessment/Plan: FEN chopped diet monitor electrolytes and replete prn DVT heparin sq Dispo maintain as in patient Full code discharge planning back to nursing home after completion pf abx Code(s): Z29.9 - ENCOUNTER FOR PROPHYLACTIC MEASURES, UNSPECIFIED Visit type - Emergency Visit Emergency Visit: Yes ED Registration Date: 05/16/19 Care time: The patient presented to the Emergency Department on the above date and was hospitalized for further evaluation of their emergent condition. - New Patient This patient is new to me today: No - Critical Care Critical Care patient: No - Discharge Referral Referred to [facility] Med P.C.: No
[2019-05-28] MEDS ORDERED: DEXTROSE 5%-WATER 100 ML IVPB ONE (08:25)
[2019-05-28] MEDS: DIVALPROEX NA *ER* EXTEND REL 250 MG TABLET.SA PO SCH ×2 (09:22→19:55)
[2019-05-28] MEDS: METOPROLOL TARTRATE 25 MG TABLET (FP) PO SCH ×2 (09:23→22:19)
[2019-05-28] MEDS: DOCUSATE SODIUM 100 MG CAPSULE (FP) PO SCH (09:23)
[2019-05-28] MEDS: HYDROCHLOROTHIAZIDE 25 MG TABLET (FP) PO SCH (09:23)
[2019-05-28] MEDS: QUEtiapine FUMARATE 200 MG TABLET PO SCH ×3 (09:24→22:19)
[2019-05-28] MEDS: clonazePAM 0.5 MG TABLET PO SCH ×4 (09:25→19:55)
[2019-05-28] MEDS: CHOLECALCIFEROL (VIT D3) 1,000 UNIT (25 MCG) TABLET PO SCH (09:25)
[2019-05-28] MEDS: CEFTRIAXONE 2 GM in DEXTROSE 5%-WATER 100 ML IVPB SCH (09:26)
[2019-05-28] MEDS: chlorproMAZINE HCL 100 MG TABLET PO SCH ×2 (09:26→16:09)
[2019-05-28] MEDS: traZODone HCL 50 MG TABLET (FP) PO SCH ×4 (09:27→22:19)
[2019-05-28] MEDS: HEPARIN NA (PORCINE) 5,000 UNITS/ML 1ML VIAL SQ SCH ×2 (09:28→22:20)
--- NOTE | 2019-05-28 10:48 | PN ---
Progress Note, Physician History of Present Illness: calm now calm - Current Medication List Current Medications: Active Medications Atorvastatin Calcium (Lipitor -) 20 mg PO HS [facility] Last Admin: 05/27/19 21:42 Dose: 20 mg Chlorpromazine HCl (Thorazine -) 100 mg PO BID@0800,1600 [facility] Last Admin: 05/28/19 09:26 Dose: 100 mg Chlorpromazine HCl (Thorazine Injection -) 50 mg IM Q8H PRN PRN Reason: NAUSEA AND/OR VOMITING Last Admin: 05/27/19 18:23 Dose: 50 mg Cholecalciferol (Vitamin D3 -) 2,000 unit PO DAILY [facility] Last Admin: 05/28/19 09:25 Dose: 2,000 unit Clonazepam (Klonopin -) 0.5 mg PO 0800,1200,1600,2100 [facility] Last Admin: 05/28/19 09:25 Dose: 0.5 mg Divalproex Sodium (Depakote *Er* -) 750 mg PO DAILY@2100 [facility] Last Admin: 05/27/19 21:42 Dose: 750 mg Divalproex Sodium (Depakote *Er* -) 500 mg PO DAILY@0800 [facility] Last Admin: 05/28/19 09:22 Dose: 500 mg Docusate Sodium (Colace -) 100 mg PO DAILY [facility] Last Admin: 05/28/19 09:23 Dose: 100 mg Heparin Sodium (Porcine) (Heparin -) 5,000 unit SQ BID [facility] Last Admin: 05/28/19 09:28 Dose: 5,000 unit Hydrochlorothiazide (Hctz -) 25 mg PO DAILY [facility] Last Admin: 05/28/19 09:23 Dose: 25 mg Ceftriaxone Sodium 2 gm/ (Dextrose) 100 mls @ 200 mls/hr IVPB DAILY [facility]; Protocol Last Admin: 05/28/19 09:26 Dose: 200 mls/hr Lisinopril (Prinivil) 5 mg PO DAILY@2100 [facility] Last Admin: 05/27/19 21:43 Dose: 5 mg Metoprolol Tartrate (Lopressor -) 12.5 mg PO BID [facility] Last Admin: 05/28/19 09:23 Dose: 12.5 mg Quetiapine Fumarate (Seroquel -) 200 mg PO 0800,1600 [facility] Last Admin: 05/28/19 09:24 Dose: 200 mg Quetiapine Fumarate (Seroquel -) 400 mg PO [facility] Last Admin: 05/27/19 21:42 Dose: 400 mg Trazodone HCl (Desyrel -) 50 mg PO [facility] Last Admin: 05/27/19 21:43 Dose: 50 mg Trazodone HCl (Desyrel -) 25 mg PO 0800,1200,1600 [facility] Last Admin: 05/28/19 09:27 Dose: 25 mg - Objective Vital Signs: Vital Signs Temperature 98.2 F 05/28/19 09:00 Pulse Rate 93 H 05/28/19 09:00 Respiratory Rate 18 05/28/19 09:00 Blood Pressure 132/81 05/28/19 09:00 O2 Sat by Pulse Oximetry (%) 98 05/28/19 09:00 Constitutional: Yes: No Distress, Calm Cardiovascular: Yes: S1, S2 Respiratory: Yes: Regular, CTA Bilaterally Gastrointestinal: Yes: Normal Bowel Sounds, Soft Musculoskeletal: Yes: WNL Extremities: Yes: WNL Neurological: Yes: Alert Psychiatric: Yes: Alert Labs: CBC, BMP 05/27/19 09:35 05/27/19 09:35 INR, PTT INR 1.18 (0.83-1.09) H 05/16/19 16:04 Assessment/Plan Problem List - Problems (1) Altered mental state Code(s): R41.82 - ALTERED MENTAL STATUS, UNSPECIFIED (2) Cellulitis Code(s): L03.90 - CELLULITIS, UNSPECIFIED (3) Developmental delay, severe Code(s): R62.50 - UNSP LACK OF EXPECTED NORMAL PHYSIOL DEV IN CHILDHOOD (4) HTN (hypertension) Code(s): I10 - ESSENTIAL (PRIMARY) HYPERTENSION (5) Seizure Code(s): R56.9 - UNSPECIFIED CONVULSIONS (6) Sepsis Code(s): A41.9 - SEPSIS, UNSPECIFIED ORGANISM 7 septic knee left Assessment/Plan 38 y.o. male with PMH of autism/developmental delay, seizure d.o., HTN brought in from long-term for AMS/lethargy noted x 1 day, low grade fever, Lt tibial fluctuant lesion AMS - now easily arousable Lt patellar bursitis s/p aspiration Fever - resolved cx result noted continue abx sensitivities noted ceftriaxone as planned
[2019-05-28 11:09] LABS: BASO % 1.2 % (0-2.0); EOS % 4.5 % (0-4.5); HEMATOCRIT 38.7 % (35.4-49); HEMOGLOBIN 13.1 GM/dL (11.7-16.9); LYMPH % 23.2 % (8-40); MCH 30.6 pg (25.7-33.7); MONO % 13.5 % (3.8-10.2); NEUT % 57.6 % (42.8-82.8); PLATELET COUNT 305 K/MM3 (134-434); RDW 13.5 % (11.9-15.9); WHITE BLOOD COUNT 7.8 K/mm3 (4.0-10.0)
[2019-05-28 11:34] LABS: ALBUMIN 3.3 g/dl (3.4-5.0); BILIRUBIN,TOTAL 0.2 mg/dL (0.2-1); BLOOD UREA NITROGEN 15.4 mg/dL (7-18); CALCIUM 9.5 mg/dL (8.5-10.1); POTASSIUM 4.3 mmol/L (3.5-5.1); TOT PROT 7.9 g/dl (6.4-8.2)
[2019-05-28] MEDS ORDERED: PT OWN MED DRAWER 7, Y5N ONE ×3 (18:03→19:51)
--- NOTE | 2019-05-28 18:45 | PN ---
Progress Note (short form) - Note Progress Note: Nonverbal 38 yo M with left infrapatella bursitis. Patient's rn examiner is at bedside and notes patient was very agitated today. He refused to get out of bed today. Last Vital Signs Temp Pulse Resp BP Pulse Ox 98.4 F 91 H 18 130/82 98 05/28/19 14:59 05/28/19 14:59 05/28/19 14:59 05/28/19 14:59 05/28/19 09:00 PE: LLE Mild to moderate swelling to infrapatella bursa Warmth to area of swelling without erythema or fluctuance Nontender throughout Full pain free ROM NVID Abnormal Lab Results 05/28/19 05/28/19 10:36 10:36 Monocytes % 13.5 H Sodium 135 L Anion Gap 7 L AST 41 H Albumin 3.3 L A: Left infrapatellar bursitis P: Patient's PE shows mild increased warmth without erythema or fluctuance PE still c/w infrapatellar bursitis Continue abx as per ID
[2019-05-28] MEDS: LISINOPRIL 5 MG TABLET (FP) PO SCH (19:55)
[2019-05-28] MEDS: ATORVASTATIN CA 20 MG TABLET (FP) PO SCH (22:20)
--- NOTE | 2019-05-29 08:01 | PN ---
Progress Note, Physician Chief Complaint: Wants to go home, very agitated at times History of Present Illness: Patient is a 38 year old male with a significant past medical history of autism , HTN, sz disorder admitted for work up of lethargy and was noted to have left knee joint infection. He is now s/p aspiration on 05/18/19 along with IV abx therapy. Discussed with ID and the plan to continue ceftriaxone 2 grams for another two weeks (until 06/06/2019->last dose of ceftriaxone) Resident of [facility] - Current Medication List Current Medications: Active Medications Atorvastatin Calcium (Lipitor -) 20 mg PO HS [facility] Last Admin: 05/28/19 22:20 Dose: 20 mg Chlorpromazine HCl (Thorazine -) 100 mg PO BID@0800,1600 [facility] Last Admin: 05/28/19 16:09 Dose: 100 mg Chlorpromazine HCl (Thorazine Injection -) 50 mg IM Q8H PRN PRN Reason: NAUSEA AND/OR VOMITING Last Admin: 05/28/19 18:06 Dose: 50 mg Cholecalciferol (Vitamin D3 -) 2,000 unit PO DAILY [facility] Last Admin: 05/28/19 09:25 Dose: 2,000 unit Clonazepam (Klonopin -) 0.5 mg PO 0800,1200,1600,2100 [facility] Last Admin: 05/28/19 19:55 Dose: 0.5 mg Divalproex Sodium (Depakote *Er* -) 750 mg PO DAILY@2100 [facility] Last Admin: 05/28/19 19:55 Dose: 750 mg Divalproex Sodium (Depakote *Er* -) 500 mg PO DAILY@0800 [facility] Last Admin: 05/28/19 09:22 Dose: 500 mg Docusate Sodium (Colace -) 100 mg PO DAILY [facility] Last Admin: 05/28/19 09:23 Dose: 100 mg Heparin Sodium (Porcine) (Heparin -) 5,000 unit SQ BID [facility] Last Admin: 05/28/19 22:20 Dose: 5,000 unit Hydrochlorothiazide (Hctz -) 25 mg PO DAILY [facility] Last Admin: 05/28/19 09:23 Dose: 25 mg Ceftriaxone Sodium 2 gm/ (Dextrose) 100 mls @ 200 mls/hr IVPB DAILY [facility]; Protocol Last Admin: 05/28/19 09:26 Dose: 200 mls/hr Lisinopril (Prinivil) 5 mg PO DAILY@2100 [facility] Last Admin: 05/28/19 19:55 Dose: 5 mg Metoprolol Tartrate (Lopressor -) 12.5 mg PO BID [facility] Last Admin: 05/28/19 22:19 Dose: 12.5 mg Quetiapine Fumarate (Seroquel -) 200 mg PO 0800,1600 [facility] Last Admin: 05/28/19 16:08 Dose: 200 mg Quetiapine Fumarate (Seroquel -) 400 mg PO [facility] Last Admin: 05/28/19 22:19 Dose: 400 mg Trazodone HCl (Desyrel -) 50 mg PO [facility] Last Admin: 05/28/19 22:19 Dose: 50 mg Trazodone HCl (Desyrel -) 25 mg PO 0800,1200,1600 [facility] Last Admin: 05/28/19 16:09 Dose: 25 mg - Objective Vital Signs: Vital Signs Temperature 98.2 F 05/29/19 05:54 Pulse Rate 88 05/29/19 05:54 Respiratory Rate 20 05/29/19 05:54 Blood Pressure 136/87 05/29/19 05:54 O2 Sat by Pulse Oximetry (%) 98 05/28/19 21:00 Additional Findings/Remarks: Constitutional: Yes: Well Nourished, No Distress, Calm Eyes: Yes: WNL, Conjunctiva Clear HENT: Yes: WNL, Atraumatic, Normocephalic Neck: Yes: WNL, Supple, Trachea Midline Cardiovascular: Yes: WNL, Regular Rate and Rhythm Respiratory: Yes: WNL, Regular, CTA Bilaterally Gastrointestinal: Yes: WNL, Normal Bowel Sounds ...Rectal Exam: Yes: Deferred Genitourinary: Yes: WNL Breast(s): Yes: WNL Musculoskeletal: Yes: Joint Swelling (left knee) Extremities: Yes: Other (healing lesion to left patella) Edema: Yes Edema: LLE: Trace, RLE: Trace Peripheral Pulses WNL: Yes Peripheral Pulses: Left Radial: 2+, Right Radial: 2+, Left Doralis Pedis: 2+, Right Dorsalis Pedis: 2+, Left Femoral: 2+, Right Femoral: 2+ Integumentary: Yes: Other (s/p left knee aspiration) Neurological: Yes: Alert ...Motor Strength: WNL Psychiatric: Yes: Alert Labs: CBC, BMP 05/28/19 10:36 05/28/19 10:36 INR, PTT INR 1.18 (0.83-1.09) H 05/16/19 16:04 Problem List - Problems (1) Altered mental state Assessment/Plan: very agitated at times, throwing objects in room and attempting to hit staff c/w prescribed antipsychotics/sedatives message left for Dr Rodas home psychiatrist head CT without acute pathology appreciate ID consultation c/w ceftriaxone until 06/06 c/w all psych meds Code(s): R41.82 - ALTERED MENTAL STATUS, UNSPECIFIED (2) HTN (hypertension) Assessment/Plan: c/w lisinipril, hctz Code(s): I10 - ESSENTIAL (PRIMARY) HYPERTENSION (3) Developmental delay, severe Assessment/Plan: supportive care staff from senior care present message left for Dr Hernandez from home, ordered all meds as per home regimen. On several Qtc prolonging agents. 446 Code(s): R62.50 - UNSP LACK OF EXPECTED NORMAL PHYSIOL DEV IN CHILDHOOD (4) Cellulitis Assessment/Plan: resolved c/w ceftriaxone for bursitis ID consultation apppreciated monitor WBC, temp trend Code(s): L03.90 - CELLULITIS, UNSPECIFIED (5) Seizure Assessment/Plan: c/w depakote fall precautions Code(s): R56.9 - UNSPECIFIED CONVULSIONS (6) Preventive measure Assessment/Plan: FEN chopped diet monitor electrolytes and replete prn DVT heparin sq Dispo maintain as in patient Full code discharge planning back to senior care after completion pf abx Code(s): Z29.9 - ENCOUNTER FOR PROPHYLACTIC MEASURES, UNSPECIFIED Visit type - Emergency Visit Emergency Visit: Yes ED Registration Date: 05/16/19 Care time: The patient presented to the Emergency Department on the above date and was hospitalized for further evaluation of their emergent condition. - New Patient This patient is new to me today: No - Critical Care Critical Care patient: No - Discharge Referral Referred to [facility] Med P.C.: No
[2019-05-29] MEDS ORDERED: DEXTROSE 5%-WATER 100 ML IVPB ONE (08:46)
[2019-05-29] MEDS: CHOLECALCIFEROL (VIT D3) 1,000 UNIT (25 MCG) TABLET PO SCH ×2 (08:52→10:02)
[2019-05-29] MEDS: DIVALPROEX NA *ER* EXTEND REL 250 MG TABLET.SA PO SCH ×2 (08:52→21:15)
[2019-05-29] MEDS: chlorproMAZINE HCL 100 MG TABLET PO SCH ×2 (08:53→16:30)
[2019-05-29] MEDS: traZODone HCL 50 MG TABLET (FP) PO SCH ×4 (08:53→21:14)
[2019-05-29] MEDS: clonazePAM 0.5 MG TABLET PO SCH ×4 (08:53→21:14)
[2019-05-29] MEDS: QUEtiapine FUMARATE 200 MG TABLET PO SCH ×3 (09:19→21:16)
[2019-05-29] MEDS: chlorproMAZINE HCL 25 MG/1 ML AMP IM PRN ×2 (09:26→17:12)
[2019-05-29] MEDS: DOCUSATE SODIUM 100 MG CAPSULE (FP) PO SCH (10:01)
[2019-05-29] MEDS: HYDROCHLOROTHIAZIDE 25 MG TABLET (FP) PO SCH (10:01)
[2019-05-29] MEDS: HEPARIN NA (PORCINE) 5,000 UNITS/ML 1ML VIAL SQ SCH ×2 (10:02→21:16)
[2019-05-29] MEDS: METOPROLOL TARTRATE 25 MG TABLET (FP) PO SCH ×2 (10:02→21:14)
--- NOTE | 2019-05-29 11:49 | PN ---
Progress Note, Physician - Current Medication List Current Medications: Active Medications Atorvastatin Calcium (Lipitor -) 20 mg PO HS [facility] Last Admin: 05/28/19 22:20 Dose: 20 mg Chlorpromazine HCl (Thorazine -) 100 mg PO BID@0800,1600 [facility] Last Admin: 05/29/19 08:53 Dose: 100 mg Chlorpromazine HCl (Thorazine Injection -) 50 mg IM Q8H PRN PRN Reason: NAUSEA AND/OR VOMITING Last Admin: 05/29/19 09:26 Dose: 50 mg Cholecalciferol (Vitamin D3 -) 2,000 unit PO DAILY [facility] Last Admin: 05/29/19 10:02 Dose: Not Given Clonazepam (Klonopin -) 0.5 mg PO 0800,1200,1600,2100 [facility] Last Admin: 05/29/19 11:21 Dose: 0.5 mg Divalproex Sodium (Depakote *Er* -) 750 mg PO DAILY@2100 [facility] Last Admin: 05/28/19 19:55 Dose: 750 mg Divalproex Sodium (Depakote *Er* -) 500 mg PO DAILY@0800 [facility] Last Admin: 05/29/19 08:52 Dose: 500 mg Docusate Sodium (Colace -) 100 mg PO DAILY [facility] Last Admin: 05/29/19 10:01 Dose: 100 mg Heparin Sodium (Porcine) (Heparin -) 5,000 unit SQ BID [facility] Last Admin: 05/29/19 10:02 Dose: 5,000 unit Hydrochlorothiazide (Hctz -) 25 mg PO DAILY [facility] Last Admin: 05/29/19 10:01 Dose: Not Given Ceftriaxone Sodium 2 gm/ (Dextrose) 100 mls @ 200 mls/hr IVPB DAILY [facility]; Protocol Last Admin: 05/28/19 09:26 Dose: 200 mls/hr Lisinopril (Prinivil) 5 mg PO DAILY@2100 [facility] Last Admin: 05/28/19 19:55 Dose: 5 mg Metoprolol Tartrate (Lopressor -) 12.5 mg PO BID [facility] Last Admin: 05/29/19 10:02 Dose: 12.5 mg Quetiapine Fumarate (Seroquel -) 200 mg PO 0800,1600 [facility] Last Admin: 05/29/19 09:19 Dose: 200 mg Quetiapine Fumarate (Seroquel -) 400 mg PO [facility] Last Admin: 05/28/19 22:19 Dose: 400 mg Trazodone HCl (Desyrel -) 50 mg PO HS [facility] Last Admin: 05/28/19 22:19 Dose: 50 mg Trazodone HCl (Desyrel -) 25 mg PO 0800,1200,1600 [facility] Last Admin: 05/29/19 11:21 Dose: 25 mg - Objective Vital Signs: Vital Signs Temperature 98.5 F 05/29/19 09:00 Pulse Rate 97 H 05/29/19 09:00 Respiratory Rate 20 05/29/19 09:00 Blood Pressure 112/55 L 05/29/19 09:00 O2 Sat by Pulse Oximetry (%) 98 05/28/19 21:00 Labs: CBC, BMP 05/28/19 10:36 05/28/19 10:36 INR, PTT INR 1.18 (0.83-1.09) H 05/16/19 16:04
[2019-05-29] MEDS: CEFTRIAXONE 2 GM in DEXTROSE 5%-WATER 100 ML IVPB SCH (12:30)
[2019-05-29] MEDS ORDERED: HALOPERIDOL LACTATE 5 MG/ML IM ONE (18:16)
--- NOTE | 2019-05-29 18:47 | HOSP ---
Subjective - Review of Symptoms Neurological: Yes: Other (severe agitation) Physical Examination Vital Signs: Vital Signs Temperature 97.4 F L 05/29/19 14:45 Pulse Rate 89 05/29/19 14:45 Respiratory Rate 20 05/29/19 14:45 Blood Pressure 114/75 05/29/19 14:45 O2 Sat by Pulse Oximetry (%) 98 05/29/19 09:00 Psychiatric: Yes: Agitated (severe, agressive behavior) Labs: CBC, BMP 05/28/19 10:36 05/28/19 10:36 Hospitalist Encounter Assessment: Condition 10 called numerous times of pt for severe agitation and lauren aggressive behavior Multiple doses of thorazine given to attempt to calm patient. Behavioral aid at bedside with him and hes is hitting and throwing items in the room. Left several message for Dr Perrin pt psychiatrist to help us better deal with behavioral issues-multiple cocktails of medications have been tried. Additional 10mg haldol ordered now. According to his aid he has not "responded" well to haldol in the past. One dose was given prior with no adverse affects. For the safety of the patient and the staff we will attempt another dose.
[2019-05-29] MEDS: LISINOPRIL 5 MG TABLET (FP) PO SCH (21:14)
[2019-05-29] MEDS: ATORVASTATIN CA 20 MG TABLET (FP) PO SCH (21:16)
--- NOTE | 2019-05-29 21:18 | PN ---
Progress Note (short form) - Note Progress Note: 38y M seen lying in bed in no apparent discomfort LLE prominence with chronic skin changes over tibial tubercle mild warmth no apparent tenderness small fluctuance comfortable ROM NV exam grossly intact A: L prepatellar bursitis P: I reviewed today's findings with Joel' drafting layout worker and his mother over the phone pt has persistent warmth and increased fluctuance, recommend repeat aspiration reviewed w mom on phone and obtained consent after discussion of risks, benefits and alternatives will send for repeat cx continue abx procedure: the knee was triple prepped with betadine an 18g needle was inserted in the bursa 7cc of serosanguinous fluid obtained sent for cx compressive dressing placed
[2019-05-30] MEDS ORDERED: DEXTROSE 5%-WATER 100 ML IVPB ONE (07:38)
[2019-05-30] MEDS: CHOLECALCIFEROL (VIT D3) 1,000 UNIT (25 MCG) TABLET PO SCH ×2 (07:45→09:44)
[2019-05-30] MEDS: METOPROLOL TARTRATE 25 MG TABLET (FP) PO SCH ×3 (07:45→21:15)
[2019-05-30] MEDS: HEPARIN NA (PORCINE) 5,000 UNITS/ML 1ML VIAL SQ SCH ×3 (07:45→21:16)
[2019-05-30] MEDS: DOCUSATE SODIUM 100 MG CAPSULE (FP) PO SCH ×2 (07:45→09:43)
[2019-05-30] MEDS: QUEtiapine FUMARATE 200 MG TABLET PO SCH ×3 (07:46→21:14)
[2019-05-30] MEDS: HYDROCHLOROTHIAZIDE 25 MG TABLET (FP) PO SCH ×2 (07:46→09:43)
[2019-05-30] MEDS: traZODone HCL 50 MG TABLET (FP) PO SCH ×4 (07:46→21:15)
[2019-05-30] MEDS: chlorproMAZINE HCL 100 MG TABLET PO SCH ×2 (07:47→17:56)
[2019-05-30] MEDS: clonazePAM 0.5 MG TABLET PO SCH ×4 (07:48→21:15)
[2019-05-30] MEDS: DIVALPROEX NA *ER* EXTEND REL 250 MG TABLET.SA PO SCH ×2 (07:48→21:15)
--- NOTE | 2019-05-30 07:51 | PN ---
Progress Note, Physician Chief Complaint: Repeat aspiration done last night. Cx sent and pending. History of Present Illness: Patient is a 38 year old male with a significant past medical history of autism , HTN, sz disorder admitted for work up of lethargy and was noted to have left knee joint infection. He is now s/p aspiration on 05/18/19 along with IV abx therapy. Discussed with ID and the plan to continue ceftriaxone 2 grams for another two weeks (until 06/06/2019->last dose of ceftriaxone) Resident of [facility] - Current Medication List Current Medications: Active Medications Atorvastatin Calcium (Lipitor -) 20 mg PO HS [facility] Last Admin: 05/29/19 21:16 Dose: 20 mg Chlorpromazine HCl (Thorazine -) 100 mg PO BID@0800,1600 [facility] Last Admin: 05/29/19 16:30 Dose: 100 mg Chlorpromazine HCl (Thorazine Injection -) 50 mg IM Q8H PRN PRN Reason: NAUSEA AND/OR VOMITING Last Admin: 05/29/19 17:12 Dose: 50 mg Chlorpromazine HCl (Thorazine Injection -) 50 mg IM Q4H PRN PRN Reason: AGITATION Cholecalciferol (Vitamin D3 -) 2,000 unit PO DAILY [facility] Last Admin: 05/29/19 10:02 Dose: Not Given Clonazepam (Klonopin -) 0.5 mg PO 0800,1200,1600,2100 [facility] Last Admin: 05/29/19 21:14 Dose: 0.5 mg Divalproex Sodium (Depakote *Er* -) 750 mg PO DAILY@2100 [facility] Last Admin: 05/29/19 21:15 Dose: 750 mg Divalproex Sodium (Depakote *Er* -) 500 mg PO DAILY@0800 [facility] Last Admin: 05/29/19 08:52 Dose: 500 mg Docusate Sodium (Colace -) 100 mg PO DAILY [facility] Last Admin: 05/29/19 10:01 Dose: 100 mg Heparin Sodium (Porcine) (Heparin -) 5,000 unit SQ BID [facility] Last Admin: 05/29/19 21:16 Dose: 5,000 unit Hydrochlorothiazide (Hctz -) 25 mg PO DAILY [facility] Last Admin: 05/29/19 10:01 Dose: Not Given Ceftriaxone Sodium 2 gm/ (Dextrose) 100 mls @ 200 mls/hr IVPB DAILY [facility]; Protocol Last Admin: 05/29/19 12:30 Dose: 200 mls/hr Lisinopril (Prinivil) 5 mg PO DAILY@2100 [facility] Last Admin: 05/29/19 21:14 Dose: 5 mg Metoprolol Tartrate (Lopressor -) 12.5 mg PO BID [facility] Last Admin: 05/29/19 21:14 Dose: 12.5 mg Quetiapine Fumarate (Seroquel -) 200 mg PO 0800,1600 [facility] Last Admin: 05/29/19 16:29 Dose: 200 mg Quetiapine Fumarate (Seroquel -) 400 mg PO [facility] Last Admin: 05/29/19 21:16 Dose: 400 mg Trazodone HCl (Desyrel -) 50 mg PO [facility] Last Admin: 05/29/19 21:14 Dose: 50 mg Trazodone HCl (Desyrel -) 25 mg PO 0800,1200,1600 [facility] Last Admin: 05/29/19 16:29 Dose: 25 mg - Objective Vital Signs: Vital Signs Temperature 97.9 F 05/30/19 06:27 Pulse Rate 106 H 05/30/19 06:27 Respiratory Rate 19 05/30/19 06:27 Blood Pressure 122/76 05/30/19 06:27 O2 Sat by Pulse Oximetry (%) 98 05/29/19 22:00 Additional Findings/Remarks: Constitutional: Yes: Well Nourished, No Distress, Calm Eyes: Yes: WNL, Conjunctiva Clear HENT: Yes: WNL, Atraumatic, Normocephalic Neck: Yes: WNL, Supple, Trachea Midline Cardiovascular: Yes: WNL, Regular Rate and Rhythm Respiratory: Yes: WNL, Regular, CTA Bilaterally Gastrointestinal: Yes: WNL, Normal Bowel Sounds ...Rectal Exam: Yes: Deferred Genitourinary: Yes: WNL Breast(s): Yes: WNL Musculoskeletal: Yes: Joint Swelling (left knee) Extremities: Yes: Other (healing lesion to left patella) Edema: Yes Edema: LLE: Trace, RLE: Trace Peripheral Pulses WNL: Yes Peripheral Pulses: Left Radial: 2+, Right Radial: 2+, Left Doralis Pedis: 2+, Right Dorsalis Pedis: 2+, Left Femoral: 2+, Right Femoral: 2+ Integumentary: Yes: Other (s/p left knee aspiration) Neurological: Yes: Alert ...Motor Strength: WNL Psychiatric: Yes: Alert Labs: CBC, BMP 05/28/19 10:36 05/28/19 10:36 INR, PTT INR 1.18 (0.83-1.09) H 05/16/19 16:04 - ....Imaging Other: Pending (knee aspiration cx) Problem List - Problems (1) Altered mental state Assessment/Plan: very agitated at times, throwing objects in room and attempting to hit staff c/w prescribed antipsychotics/sedatives message left for Dr Rodas home psychiatrist head CT without acute pathology appreciate ID consultation c/w ceftriaxone until 06/06 c/w all psych meds Code(s): R41.82 - ALTERED MENTAL STATUS, UNSPECIFIED (2) HTN (hypertension) Assessment/Plan: c/w lisinipril, hctz Code(s): I10 - ESSENTIAL (PRIMARY) HYPERTENSION (3) Developmental delay, severe Assessment/Plan: supportive care staff from prison present mush less agitation today [facility]. On several Qtc prolonging agents. Not able to do EKG d/t agitation Code(s): R62.50 - UNSP LACK OF EXPECTED NORMAL PHYSIOL DEV IN CHILDHOOD (4) Cellulitis Assessment/Plan: resolved c/w ceftriaxone for bursitis ID consultation apppreciated monitor WBC, temp trend Code(s): L03.90 - CELLULITIS, UNSPECIFIED (5) Seizure Assessment/Plan: c/w depakote fall precautions Code(s): R56.9 - UNSPECIFIED CONVULSIONS (6) Preventive measure Assessment/Plan: FEN chopped diet monitor electrolytes and replete prn DVT heparin sq Dispo maintain as in patient Full code discharge planning back to prison after completion pf abx Code(s): Z29.9 - ENCOUNTER FOR PROPHYLACTIC MEASURES, UNSPECIFIED (7) Bursitis Assessment/Plan: repeat aspiration done at [facility] last night cultures pending c/w ceftriaxone until 06/06 or if new cx grow something different Code(s): M71.9 - BURSOPATHY, UNSPECIFIED Visit type - Emergency Visit Emergency Visit: Yes ED Registration Date: 05/16/19 Care time: The patient presented to the Emergency Department on the above date and was hospitalized for further evaluation of their emergent condition. - New Patient This patient is new to me today: No - Critical Care Critical Care patient: No - Discharge Referral Referred to [facility] No
[2019-05-30] MEDS: CEFTRIAXONE 2 GM in DEXTROSE 5%-WATER 100 ML IVPB SCH (09:44)
--- NOTE | 2019-05-30 12:22 | PN ---
Progress Note, Physician - Current Medication List Current Medications: Active Medications Atorvastatin Calcium (Lipitor -) 20 mg PO HS [facility] Last Admin: 05/29/19 21:16 Dose: 20 mg Chlorpromazine HCl (Thorazine -) 100 mg PO BID@0800,1600 [facility] Last Admin: 05/30/19 07:47 Dose: 100 mg Chlorpromazine HCl (Thorazine Injection -) 50 mg IM Q8H PRN PRN Reason: NAUSEA AND/OR VOMITING Last Admin: 05/29/19 17:12 Dose: 50 mg Chlorpromazine HCl (Thorazine Injection -) 50 mg IM Q4H PRN PRN Reason: AGITATION Last Admin: 05/30/19 07:48 Dose: 50 mg Cholecalciferol (Vitamin D3 -) 2,000 unit PO DAILY [facility] Last Admin: 05/30/19 09:44 Dose: Not Given Clonazepam (Klonopin -) 0.5 mg PO 0800,1200,1600,2100 [facility] Last Admin: 05/30/19 07:48 Dose: 0.5 mg Divalproex Sodium (Depakote *Er* -) 750 mg PO DAILY@2100 [facility] Last Admin: 05/29/19 21:15 Dose: 750 mg Divalproex Sodium (Depakote *Er* -) 500 mg PO DAILY@0800 [facility] Last Admin: 05/30/19 07:48 Dose: 500 mg Docusate Sodium (Colace -) 100 mg PO DAILY [facility] Last Admin: 05/30/19 09:43 Dose: Not Given Heparin Sodium (Porcine) (Heparin -) 5,000 unit SQ BID [facility] Last Admin: 05/30/19 09:43 Dose: Not Given Hydrochlorothiazide (Hctz -) 25 mg PO DAILY [facility] Last Admin: 05/30/19 09:43 Dose: Not Given Ceftriaxone Sodium 2 gm/ (Dextrose) 100 mls @ 200 mls/hr IVPB DAILY [facility]; Protocol Last Admin: 05/30/19 09:44 Dose: 200 mls/hr Lisinopril (Prinivil) 5 mg PO DAILY@2100 [facility] Last Admin: 05/29/19 21:14 Dose: 5 mg Metoprolol Tartrate (Lopressor -) 12.5 mg PO BID [facility] Last Admin: 05/30/19 09:44 Dose: Not Given Quetiapine Fumarate (Seroquel -) 200 mg PO 0800,1600 [facility] Last Admin: 05/30/19 07:46 Dose: 200 mg Quetiapine Fumarate (Seroquel -) 400 mg PO HS [facility] Last Admin: 05/29/19 21:16 Dose: 400 mg Trazodone HCl (Desyrel -) 50 mg PO HS [facility] Last Admin: 05/29/19 21:14 Dose: 50 mg Trazodone HCl (Desyrel -) 25 mg PO 0800,1200,1600 [facility] Last Admin: 05/30/19 07:46 Dose: 25 mg - Objective Vital Signs: Vital Signs Temperature 97.9 F 05/30/19 06:27 Pulse Rate 106 H 05/30/19 06:27 Respiratory Rate 19 05/30/19 06:27 Blood Pressure 122/76 05/30/19 06:27 O2 Sat by Pulse Oximetry (%) 98 05/29/19 22:00 Labs: CBC, BMP 05/28/19 10:36 05/28/19 10:36 INR, PTT INR 1.18 (0.83-1.09) H 05/16/19 16:04
[2019-05-30] MEDS: LISINOPRIL 5 MG TABLET (FP) PO SCH (21:14)
[2019-05-30] MEDS: ATORVASTATIN CA 20 MG TABLET (FP) PO SCH (21:15)
[2019-05-31] MEDS ORDERED: PT OWN MED DRAWER 7, Y5N ONE ×3 (06:30→08:10)
[2019-05-31] MEDS: traZODone HCL 50 MG TABLET (FP) PO SCH ×4 (08:11→21:58)
[2019-05-31] MEDS: clonazePAM 0.5 MG TABLET PO SCH ×4 (08:11→21:57)
[2019-05-31] MEDS: DIVALPROEX NA *ER* EXTEND REL 250 MG TABLET.SA PO SCH ×2 (08:11→21:57)
[2019-05-31] MEDS: QUEtiapine FUMARATE 200 MG TABLET PO SCH ×3 (08:12→21:58)
[2019-05-31] MEDS: chlorproMAZINE HCL 100 MG TABLET PO SCH ×2 (08:13→17:44)
[2019-05-31] MEDS ORDERED: DEXTROSE 5%-WATER 100 ML IVPB ONE (09:54)
[2019-05-31] MEDS: CEFTRIAXONE 2 GM in DEXTROSE 5%-WATER 100 ML IVPB SCH (09:59)
[2019-05-31] MEDS: METOPROLOL TARTRATE 25 MG TABLET (FP) PO SCH ×2 (10:02→21:58)
[2019-05-31] MEDS: HYDROCHLOROTHIAZIDE 25 MG TABLET (FP) PO SCH (10:02)
[2019-05-31] MEDS: CHOLECALCIFEROL (VIT D3) 1,000 UNIT (25 MCG) TABLET PO SCH (10:02)
[2019-05-31] MEDS: HEPARIN NA (PORCINE) 5,000 UNITS/ML 1ML VIAL SQ SCH ×2 (10:02→21:58)
[2019-05-31] MEDS: DOCUSATE SODIUM 100 MG CAPSULE (FP) PO SCH (10:09)
--- NOTE | 2019-05-31 13:26 | PN ---
Physical Exam: SUBJECTIVE: Patient seen and examined at the bedside. asleep, aide at bedside. patient easily agitated, therefore will not awaken him from his sleep. noted to have left upper arm edema, red, swelling. unclear etiology. noticed by primary RN today. will order doppler to r/o dvt and xray to r/o fracture. OBJECTIVE: Patient is a 38 year old male with a significant past medical history of autism , HTN, sz disorder admitted for work up of lethargy and was noted to have left knee joint infection. He is now s/p aspiration on 05/18/19 along with IV abx therapy. Discussed with ID and the plan to continue ceftriaxone 2 grams for another two weeks (until 06/06/2019->last dose of ceftriaxone) Vital Signs Period Temp Pulse Resp BP Sys/Baldwin Pulse Ox Last 24 Hr 97.6 F-98.9 F 68-111 16-20 116-131/70-84 98 Constitutional: Yes: Well Nourished, No Distress, Calm Eyes: Yes: PERRL HENT: Yes: Atraumatic Neck: Yes: Supple Cardiovascular: Yes: Regular Rate and Rhythm Respiratory: Yes: Regular Gastrointestinal: Yes: Normal Bowel Sounds, Soft Musculoskeletal: Yes: WNL Extremities: left upper arm edema, redness. Edema: left knee s/p aspiration Peripheral Pulses WNL: Yes Peripheral Pulses: Left Radial: 2+, Right Radial: 2+, Left Doralis Pedis: 2+, Right Dorsalis Pedis: 2+ Integumentary: Yes: Other (Left knee healing inferior patella lesion. non- tender to palpation) Neurological: Yes: Alert Psychiatric: Yes: Alert Active Medications Generic Name Dose Route Start Last Admin Trade Name Freq PRN Reason Stop Dose Admin Atorvastatin Calcium 20 mg 05/17/19 22:00 05/30/19 21:15 Lipitor - PO 20 mg HS REAL Administration Chlorpromazine HCl 100 mg 05/17/19 16:00 05/31/19 08:13 Thorazine - PO 100 mg BID@0800,1600 REAL Administration Chlorpromazine HCl 50 mg 05/29/19 18:00 05/30/19 07:48 Thorazine Injection - IM 50 mg Q4H PRN Administration AGITATION Cholecalciferol 2,000 unit 05/17/19 10:00 05/31/19 10:02 Vitamin D3 - PO 2,000 unit DAILY REAL Administration Clonazepam 0.5 mg 05/17/19 12:00 05/31/19 11:37 Klonopin - PO 0.5 mg 0800,1200,1600,2100 REAL Administration Divalproex Sodium 750 mg 05/17/19 21:00 05/30/19 21:15 Depakote *Er* - PO 750 mg DAILY@2100 REAL Administration Divalproex Sodium 500 mg 05/23/19 11:14 05/31/19 08:11 Depakote *Er* - PO 500 mg DAILY@0800 REAL Administration Docusate Sodium 100 mg 05/17/19 10:00 05/31/19 10:09 Colace - PO 100 mg DAILY REAL Administration Heparin Sodium (Porcine) 5,000 unit 05/16/19 22:00 05/31/19 10:02 Heparin - SQ 5,000 unit BID REAL Administration Hydrochlorothiazide 25 mg 05/17/19 10:00 05/31/19 10:02 Hctz - PO 25 mg DAILY REAL Administration Ceftriaxone Sodium 2 gm/ 100 mls @ 200 mls/hr 05/17/19 10:00 05/31/19 09:59 Dextrose IVPB 200 mls/hr DAILY REAL Administration Protocol Lisinopril 5 mg 05/17/19 21:00 05/30/19 21:14 Prinivil PO 5 mg DAILY@2100 REAL Administration Metoprolol Tartrate 12.5 mg 05/17/19 22:00 05/31/19 10:02 Lopressor - PO 12.5 mg BID REAL Administration Quetiapine Fumarate 200 mg 05/18/19 21:53 05/31/19 08:12 Seroquel - PO 200 mg 0800,1600 REAL Administration Quetiapine Fumarate 400 mg 05/26/19 22:00 05/30/19 21:14 Seroquel - PO 400 mg HS REAL Administration Trazodone HCl 50 mg 05/17/19 22:00 05/30/19 21:15 Desyrel - PO 50 mg HS REAL Administration Trazodone HCl 25 mg 05/17/19 12:00 05/31/19 11:37 Desyrel - PO 25 mg 0800,1200,1600 REAL Administration ASSESSMENT/PLAN: Problem List - Problems (1) Agitation Assessment/Plan: very agitated at times in past few days. He was noted to be throwing objects in room and attempting to hit staff. Was also reported to be hitting the rodriguez with his arms. Left arm now swollen. will rule out dvt/fracture. c/w prescribed antipsychotics/sedatives head CT without acute pathology appreciate ID consultation c/w ceftriaxone until 06/06 c/w all psych meds Code(s): R45.1 - RESTLESSNESS AND AGITATION (2) Cellulitis Assessment/Plan: L prepatellar bursitis improving s/p left knee aspiration done by Ortho on . Per ID will need another 2 weeks of ceftriaxone (to complete on 06/06/2019 which will be his last dose). will need a picc line which patient is unable to have at the longterm he lives in. he may need to present daily to the infusion center for scheduled ceftriaxone 2g. SW aware and d/c planning in progress. Code(s): L03.90 - CELLULITIS, UNSPECIFIED (3) Developmental delay, severe Assessment/Plan: supportive care. aides at bedside and provide cares for patient. Code(s): R62.50 - UNSP LACK OF EXPECTED NORMAL PHYSIOL DEV IN CHILDHOOD (4) HTN (hypertension) Assessment/Plan: controlled lisinopril, hold hctz, metoprolol cardiac diet Code(s): I10 - ESSENTIAL (PRIMARY) HYPERTENSION (5) Seizure Assessment/Plan: c/w depakote fall precautions Code(s): R56.9 - UNSPECIFIED CONVULSIONS (6) Hyponatremia Assessment/Plan: resolved. Code(s): E87.1 - HYPO-OSMOLALITY AND HYPONATREMIA (7) DVT prophylaxis Assessment/Plan: heparin bid Code(s): Z29.9 - ENCOUNTER FOR PROPHYLACTIC MEASURES, UNSPECIFIED (8) Bursitis Code(s): M71.9 - BURSOPATHY, UNSPECIFIED (9) DVT prophylaxis Assessment/Plan: on heparin bid Code(s): Z29.9 - ENCOUNTER FOR PROPHYLACTIC MEASURES, UNSPECIFIED Visit type - Emergency Visit Emergency Visit: Yes ED Registration Date: 05/16/19 Care time: The patient presented to the Emergency Department on the above date and was hospitalized for further evaluation of their emergent condition. - New Patient This patient is new to me today: No - Critical Care Critical Care patient: No - Discharge Referral Referred to [facility] No
--- NOTE | 2019-05-31 14:02 | PN ---
Progress Note, Physician - Current Medication List Current Medications: Active Medications Atorvastatin Calcium (Lipitor -) 20 mg PO HS [facility] Last Admin: 05/30/19 21:15 Dose: 20 mg Chlorpromazine HCl (Thorazine -) 100 mg PO BID@0800,1600 [facility] Last Admin: 05/31/19 08:13 Dose: 100 mg Chlorpromazine HCl (Thorazine Injection -) 50 mg IM Q4H PRN PRN Reason: AGITATION Last Admin: 05/30/19 07:48 Dose: 50 mg Cholecalciferol (Vitamin D3 -) 2,000 unit PO DAILY [facility] Last Admin: 05/31/19 10:02 Dose: 2,000 unit Clonazepam (Klonopin -) 0.5 mg PO 0800,1200,1600,2100 [facility] Last Admin: 05/31/19 11:37 Dose: 0.5 mg Divalproex Sodium (Depakote *Er* -) 750 mg PO DAILY@2100 [facility] Last Admin: 05/30/19 21:15 Dose: 750 mg Divalproex Sodium (Depakote *Er* -) 500 mg PO DAILY@0800 [facility] Last Admin: 05/31/19 08:11 Dose: 500 mg Docusate Sodium (Colace -) 100 mg PO DAILY [facility] Last Admin: 05/31/19 10:09 Dose: 100 mg Heparin Sodium (Porcine) (Heparin -) 5,000 unit SQ BID [facility] Last Admin: 05/31/19 10:02 Dose: 5,000 unit Hydrochlorothiazide (Hctz -) 25 mg PO DAILY [facility] Last Admin: 05/31/19 10:02 Dose: 25 mg Ceftriaxone Sodium 2 gm/ (Dextrose) 100 mls @ 200 mls/hr IVPB DAILY [facility]; Protocol Last Admin: 05/31/19 09:59 Dose: 200 mls/hr Lisinopril (Prinivil) 5 mg PO DAILY@2100 [facility] Last Admin: 05/30/19 21:14 Dose: 5 mg Metoprolol Tartrate (Lopressor -) 12.5 mg PO BID [facility] Last Admin: 05/31/19 10:02 Dose: 12.5 mg Quetiapine Fumarate (Seroquel -) 200 mg PO 0800,1600 [facility] Last Admin: 05/31/19 08:12 Dose: 200 mg Quetiapine Fumarate (Seroquel -) 400 mg PO [facility] Last Admin: 05/30/19 21:14 Dose: 400 mg Trazodone HCl (Desyrel -) 50 mg PO HS [facility] Last Admin: 05/30/19 21:15 Dose: 50 mg Trazodone HCl (Desyrel -) 25 mg PO 0800,1200,1600 [facility] Last Admin: 05/31/19 11:37 Dose: 25 mg - Objective Vital Signs: Vital Signs Temperature 98.5 F 05/31/19 09:00 Pulse Rate 91 H 05/31/19 09:00 Respiratory Rate 16 05/31/19 09:00 Blood Pressure 122/70 05/31/19 09:00 O2 Sat by Pulse Oximetry (%) 98 05/30/19 22:00 Labs: CBC, BMP 05/28/19 10:36 05/28/19 10:36 INR, PTT INR 1.18 (0.83-1.09) H 05/16/19 16:04
[2019-05-31] MEDS: LISINOPRIL 5 MG TABLET (FP) PO SCH (21:58)
[2019-05-31] MEDS: ATORVASTATIN CA 20 MG TABLET (FP) PO SCH (21:58)
[2019-06-01] MEDS ORDERED: PT OWN MED DRAWER 7, Y5N ONE ×2 (07:06→15:22)
[2019-06-01] MEDS: QUEtiapine FUMARATE 200 MG TABLET PO SCH ×3 (07:35→21:23)
[2019-06-01] MEDS: chlorproMAZINE HCL 100 MG TABLET PO SCH ×2 (07:35→15:27)
[2019-06-01] MEDS: traZODone HCL 50 MG TABLET (FP) PO SCH ×4 (07:35→21:22)
[2019-06-01] MEDS: DIVALPROEX NA *ER* EXTEND REL 250 MG TABLET.SA PO SCH ×2 (07:35→21:22)
[2019-06-01] MEDS: clonazePAM 0.5 MG TABLET PO SCH ×4 (07:39→21:23)
[2019-06-01] MEDS ORDERED: DEXTROSE 5%-WATER 100 ML IVPB ONE (08:56)
[2019-06-01] MEDS: DOCUSATE SODIUM 100 MG CAPSULE (FP) PO SCH (09:03)
[2019-06-01] MEDS: CHOLECALCIFEROL (VIT D3) 1,000 UNIT (25 MCG) TABLET PO SCH (09:03)
[2019-06-01] MEDS: METOPROLOL TARTRATE 25 MG TABLET (FP) PO SCH ×2 (09:17→21:22)
[2019-06-01] MEDS: HYDROCHLOROTHIAZIDE 25 MG TABLET (FP) PO SCH (09:18)
[2019-06-01] MEDS: HEPARIN NA (PORCINE) 5,000 UNITS/ML 1ML VIAL SQ SCH ×2 (09:20→21:23)
[2019-06-01] MEDS: CEFTRIAXONE 2 GM in DEXTROSE 5%-WATER 100 ML IVPB SCH (09:21)
[2019-06-01 09:48] LABS: BASO % 0.6 % (0-2.0); EOS % 2.6 % (0-4.5); HEMATOCRIT 35.9 % (35.4-49); HEMOGLOBIN 12.3 GM/dL (11.7-16.9); LYMPH % 20.9 % (8-40); MCH 30.8 pg (25.7-33.7); MCHC 34.3 g/dl (32.0-35.9); MEAN CELL VOLUME 89.9 fl (80-96); MEAN PLT VOLUME 9.2 fl (7.5-11.1); MONO % 11.6 % (3.8-10.2); NEUT % 64.3 % (42.8-82.8); PLATELET COUNT 278 K/MM3 (134-434); RBC 3.99 M/mm3 (4.00-5.60); RDW 13.2 % (11.9-15.9); WHITE BLOOD COUNT 9.3 K/mm3 (4.0-10.0)
[2019-06-01 10:08] LABS: ALBUMIN 2.8 g/dl (3.4-5.0); BILIRUBIN,TOTAL 0.5 mg/dL (0.2-1); BLOOD UREA NITROGEN 15.5 mg/dL (7-18); CALCIUM 9.1 mg/dL (8.5-10.1); CREATININE 1.1 mg/dL (0.55-1.3); POTASSIUM 4.5 mmol/L (3.5-5.1)
--- NOTE | 2019-06-01 10:08 | PN ---
Physical Exam: SUBJECTIVE: Patient seen and examined OBJECTIVE: Patient is a 38 year old male with a significant past medical history of autism , HTN, sz disorder admitted for work up of lethargy and was noted to have left knee joint infection. He is now s/p aspiration on 05/18/19 and repeat aspiration was done again by ortho on 05/28/19. He is currently on Ceftriaxone 2 grams and the plan to continue ceftriaxone 2 grams until 06/06/2019 (last dose of ceftriaxone). We are unable to place a central line as his facility will not accept him back to facility with central line and SNF placement is ongoing currently. Yesterday, he had a notable left upper arm with edema and redness. however, negative for dvt and negative for fracture. Vital Signs Period Temp Pulse Resp BP Sys/Baldwin Pulse Ox Last 24 Hr 97.5 F-100.0 F 95-112 16-20 101-125/53-78 98 Constitutional: Yes: Well Nourished, No Distress, Calm Eyes: Yes: PERRL HENT: Yes: Atraumatic Neck: Yes: Supple Cardiovascular: Yes: Regular Rate and Rhythm Respiratory: Yes: Regular Gastrointestinal: Yes: Normal Bowel Sounds, Soft Musculoskeletal: Yes: WNL Extremities: left upper arm edema, redness. Edema: left knee s/p aspiration Peripheral Pulses WNL: Yes Peripheral Pulses: Left Radial: 2+, Right Radial: 2+, Left Doralis Pedis: 2+, Right Dorsalis Pedis: 2+ Integumentary: Yes: Other (Left knee healing inferior patella lesion. non- tender to palpation) Neurological: Yes: Alert Psychiatric: Yes: Alert Laboratory Results - last 24 hr 06/01/19 08:30 WBC 9.3 RBC 3.99 L Hgb 12.3 Hct 35.9 MCV 89.9 MCH 30.8 MCHC 34.3 RDW 13.2 Plt Count 278 MPV 9.2 Absolute Neuts (auto) 6.0 Neutrophils % 64.3 Lymphocytes % 20.9 Monocytes % 11.6 H Eosinophils % 2.6 Basophils % 0.6 Nucleated RBC % 0 Active Medications Generic Name Dose Route Start Last Admin Trade Name Freq PRN Reason Stop Dose Admin Atorvastatin Calcium 20 mg 05/17/19 22:00 05/31/19 21:58 Lipitor - PO 20 mg HS REAL Administration Chlorpromazine HCl 100 mg 05/17/19 16:00 06/01/19 07:35 Thorazine - PO 100 mg BID@0800,1600 REAL Administration Chlorpromazine HCl 50 mg 06/01/19 07:34 Thorazine Injection - IM Q4H PRN AGITATION Cholecalciferol 2,000 unit 05/17/19 10:00 06/01/19 09:03 Vitamin D3 - PO 2,000 unit DAILY REAL Administration Clonazepam 0.5 mg 05/17/19 12:00 06/01/19 07:39 Klonopin - PO 0.5 mg 0800,1200,1600,2100 REAL Administration Divalproex Sodium 750 mg 05/17/19 21:00 05/31/19 21:57 Depakote *Er* - PO 750 mg DAILY@2100 REAL Administration Divalproex Sodium 500 mg 05/23/19 11:14 06/01/19 07:35 Depakote *Er* - PO 500 mg DAILY@0800 REAL Administration Docusate Sodium 100 mg 05/17/19 10:00 06/01/19 09:03 Colace - PO 100 mg DAILY REAL Administration Heparin Sodium (Porcine) 5,000 unit 05/16/19 22:00 06/01/19 09:20 Heparin - SQ 5,000 unit BID REAL Administration Hydrochlorothiazide 25 mg 05/17/19 10:00 06/01/19 09:18 Hctz - PO Not Given DAILY [facility] Ceftriaxone Sodium 2 gm/ 100 mls @ 200 mls/hr 05/17/19 10:00 06/01/19 09:21 Dextrose IVPB 200 mls/hr DAILY REAL Administration Protocol Lisinopril 5 mg 05/17/19 21:00 05/31/19 21:58 Prinivil PO 5 mg DAILY@2100 REAL Administration Metoprolol Tartrate 12.5 mg 05/17/19 22:00 06/01/19 09:17 Lopressor - PO Not Given BID REAL Quetiapine Fumarate 200 mg 05/18/19 21:53 06/01/19 07:35 Seroquel - PO 200 mg 0800,1600 REAL Administration Quetiapine Fumarate 400 mg 05/26/19 22:00 05/31/19 21:58 Seroquel - PO 400 mg HS REAL Administration Trazodone HCl 50 mg 05/17/19 22:00 05/31/19 21:58 Desyrel - PO 50 mg HS REAL Administration Trazodone HCl 25 mg 05/17/19 12:00 06/01/19 07:35 Desyrel - PO 25 mg 0800,1200,1600 REAL Administration ASSESSMENT/PLAN: Problem List - Problems (1) Cellulitis Assessment/Plan: L prepatellar bursitis improving s/p left knee aspiration done by Ortho on 05/18 and again on 05/28. Awaiting cultures for repeated aspiration continue ceftriaxone (to complete on 06/06/2019 which will be his last dose). Plan was for PICC, but due to skilled nursing legal requirements, patient will not be able to go back there with a central line. Unable to come to infusion suite daily SNF placement ongoing Code(s): L03.90 - CELLULITIS, UNSPECIFIED (2) Agitation Assessment/Plan: very agitated at times. Left arm now swollen/reddened. Ruled out for DVT and fracture. continue physical therapy as tolerated c/w prescribed antipsychotics/sedatives head CT without acute pathology appreciate ID consultation c/w ceftriaxone until 06/06 c/w all psych meds Code(s): R45.1 - RESTLESSNESS AND AGITATION (3) Bursitis Assessment/Plan: L prepatellar bursitis improving s/p left knee aspiration done by Ortho on 05/18 and again on 05/28. Awaiting cultures for repeated aspiration continue ceftriaxone (to complete on 06/06/2019 which will be his last dose). Plan was for PICC, but due to skilled nursing legal requirements, patient will not be able to go back there with a central line. Unable to come to infusion suite daily SNF placement ongoing Code(s): M71.9 - BURSOPATHY, UNSPECIFIED (4) Developmental delay, severe Assessment/Plan: supportive care. aides at bedside and provide cares for patient. Code(s): R62.50 - UNSP LACK OF EXPECTED NORMAL PHYSIOL DEV IN CHILDHOOD (5) HTN (hypertension) Assessment/Plan: controlled lisinopril, hold hctz, metoprolol cardiac diet Code(s): I10 - ESSENTIAL (PRIMARY) HYPERTENSION (6) Seizure Assessment/Plan: c/w depakote fall precautions Code(s): R56.9 - UNSPECIFIED CONVULSIONS (7) Hyponatremia Assessment/Plan: monitor daily, encourage adequate PO intake Code(s): E87.1 - HYPO-OSMOLALITY AND HYPONATREMIA (8) DVT prophylaxis Assessment/Plan: heparin bid Code(s): Z29.9 - ENCOUNTER FOR PROPHYLACTIC MEASURES, UNSPECIFIED Visit type - Emergency Visit Emergency Visit: Yes ED Registration Date: 05/16/19 Care time: The patient presented to the Emergency Department on the above date and was hospitalized for further evaluation of their emergent condition. - New Patient This patient is new to me today: No - Critical Care Critical Care patient: No - Discharge Referral Referred to [facility] No
[2019-06-01] MEDS: NYSTATIN 100,000 UNIT/GM TOPICAL CREAM 15 GM TUBE TP SCH ×2 (11:45→21:52)
--- NOTE | 2019-06-01 12:24 | PN ---
Progress Note, Physician History of Present Illness: stable knee pain - Current Medication List Current Medications: Active Medications Atorvastatin Calcium (Lipitor -) 20 mg PO HS [facility] Last Admin: 05/31/19 21:58 Dose: 20 mg Chlorpromazine HCl (Thorazine -) 100 mg PO BID@0800,1600 [facility] Last Admin: 06/01/19 07:35 Dose: 100 mg Chlorpromazine HCl (Thorazine Injection -) 50 mg IM Q4H PRN PRN Reason: AGITATION Cholecalciferol (Vitamin D3 -) 2,000 unit PO DAILY [facility] Last Admin: 06/01/19 09:03 Dose: 2,000 unit Clonazepam (Klonopin -) 0.5 mg PO 0800,1200,1600,2100 [facility] Last Admin: 06/01/19 12:02 Dose: 0.5 mg Divalproex Sodium (Depakote *Er* -) 750 mg PO DAILY@2100 [facility] Last Admin: 05/31/19 21:57 Dose: 750 mg Divalproex Sodium (Depakote *Er* -) 500 mg PO DAILY@0800 [facility] Last Admin: 06/01/19 07:35 Dose: 500 mg Docusate Sodium (Colace -) 100 mg PO DAILY [facility] Last Admin: 06/01/19 09:03 Dose: 100 mg Heparin Sodium (Porcine) (Heparin -) 5,000 unit SQ BID [facility] Last Admin: 06/01/19 09:20 Dose: 5,000 unit Hydrochlorothiazide (Hctz -) 25 mg PO DAILY [facility] Last Admin: 06/01/19 09:18 Dose: Not Given Ceftriaxone Sodium 2 gm/ (Dextrose) 100 mls @ 200 mls/hr IVPB DAILY [facility]; Protocol Last Admin: 06/01/19 09:21 Dose: 200 mls/hr Lisinopril (Prinivil) 5 mg PO DAILY@2100 [facility] Last Admin: 05/31/19 21:58 Dose: 5 mg Metoprolol Tartrate (Lopressor -) 12.5 mg PO BID [facility] Last Admin: 06/01/19 09:17 Dose: Not Given Nystatin (Mycostatin Cream -) 1 applic TP BID [facility] Quetiapine Fumarate (Seroquel -) 200 mg PO 0800,1600 [facility] Last Admin: 06/01/19 07:35 Dose: 200 mg Quetiapine Fumarate (Seroquel -) 400 mg PO HS [facility] Last Admin: 05/31/19 21:58 Dose: 400 mg Trazodone HCl (Desyrel -) 50 mg PO HS [facility] Last Admin: 05/31/19 21:58 Dose: 50 mg Trazodone HCl (Desyrel -) 25 mg PO 0800,1200,1600 [facility] Last Admin: 06/01/19 12:02 Dose: 25 mg - Objective Vital Signs: Vital Signs Temperature 98.0 F 06/01/19 09:00 Pulse Rate 95 H 06/01/19 09:00 Respiratory Rate 16 06/01/19 09:00 Blood Pressure 103/57 L 06/01/19 09:00 O2 Sat by Pulse Oximetry (%) 98 05/31/19 21:00 Constitutional: Yes: Calm, Mild Distress Cardiovascular: Yes: S1, S2 Respiratory: Yes: Regular, CTA Bilaterally Gastrointestinal: Yes: Normal Bowel Sounds, Soft Musculoskeletal: Yes: WNL Extremities: Yes: WNL Neurological: Yes: Alert Psychiatric: Yes: Other Labs: CBC, BMP 06/01/19 08:30 06/01/19 08:30 INR, PTT INR 1.18 (0.83-1.09) H 05/16/19 16:04 Assessment/Plan Problem List - Problems (1) Altered mental state Code(s): R41.82 - ALTERED MENTAL STATUS, UNSPECIFIED (2) Cellulitis Code(s): L03.90 - CELLULITIS, UNSPECIFIED (3) Developmental delay, severe Code(s): R62.50 - UNSP LACK OF EXPECTED NORMAL PHYSIOL DEV IN CHILDHOOD (4) HTN (hypertension) Code(s): I10 - ESSENTIAL (PRIMARY) HYPERTENSION (5) Seizure Code(s): R56.9 - UNSPECIFIED CONVULSIONS (6) Sepsis Code(s): A41.9 - SEPSIS, UNSPECIFIED ORGANISM 7 septic knee left Assessment/Plan 38 y.o. male with PMH of autism/developmental delay, seizure d.o., HTN brought in from [facility] for AMS/lethargy noted x 1 day, low grade fever, Lt tibial fluctuant lesion AMS - now easily arousable Lt patellar bursitis s/p aspiration Fever - resolved cx result noted continue abx sensitivities noted ceftriaxone as planned
[2019-06-01] MEDS: ATORVASTATIN CA 20 MG TABLET (FP) PO SCH (21:22)
[2019-06-01] MEDS: LISINOPRIL 5 MG TABLET (FP) PO SCH (21:23)
[2019-06-02] MEDS ORDERED: PT OWN MED DRAWER 7, Y5N ONE ×2 (08:21→17:00)
[2019-06-02] MEDS ORDERED: DEXTROSE 5%-WATER 100 ML IVPB ONE (08:21)
[2019-06-02] MEDS: DIVALPROEX NA *ER* EXTEND REL 250 MG TABLET.SA PO SCH ×2 (08:23→21:23)
[2019-06-02] MEDS: clonazePAM 0.5 MG TABLET PO SCH ×4 (08:23→21:23)
[2019-06-02] MEDS: QUEtiapine FUMARATE 200 MG TABLET PO SCH ×3 (08:23→21:22)
[2019-06-02] MEDS: traZODone HCL 50 MG TABLET (FP) PO SCH ×4 (08:24→21:23)
[2019-06-02] MEDS: chlorproMAZINE HCL 100 MG TABLET PO SCH ×2 (08:24→17:47)
[2019-06-02] MEDS: CHOLECALCIFEROL (VIT D3) 1,000 UNIT (25 MCG) TABLET PO SCH (09:00)
[2019-06-02] MEDS: DOCUSATE SODIUM 100 MG CAPSULE (FP) PO SCH (09:00)
[2019-06-02] MEDS: HYDROCHLOROTHIAZIDE 25 MG TABLET (FP) PO SCH (09:01)
[2019-06-02] MEDS: METOPROLOL TARTRATE 25 MG TABLET (FP) PO SCH ×2 (09:01→21:23)
[2019-06-02] MEDS: NYSTATIN 100,000 UNIT/GM TOPICAL CREAM 15 GM TUBE TP SCH ×2 (09:01→21:24)
[2019-06-02] MEDS: CEFTRIAXONE 2 GM in DEXTROSE 5%-WATER 100 ML IVPB SCH (09:01)
[2019-06-02] MEDS: HEPARIN NA (PORCINE) 5,000 UNITS/ML 1ML VIAL SQ SCH ×2 (09:51→21:22)
--- NOTE | 2019-06-02 12:03 | PN ---
Physical Exam: SUBJECTIVE: Patient seen and examined; no new complaints; pain controlled. Providing weekend coverage. Cannot go back to facility with CVC so continue with ceftriaxone and pending SNF placement. 10 sys ROS done and negative aside HPI OBJECTIVE: Vital Signs Period Temp Pulse Resp BP Sys/Baldwin Pulse Ox Last 24 Hr 97.4 F-100 F 89-119 16-19 117-133/72-77 98 GENERAL: The patient is awake, alert, and fully oriented, in no acute distress. HEAD: Normal with no signs of trauma. EYES: PERRL, extraocular movements intact, sclera anicteric, conjunctiva clear. No ptosis. ENT: Ears normal, nares patent, oropharynx clear without exudates, moist mucous membranes. NECK: Trachea midline, full range of motion, supple. LUNGS: Breath sounds equal, clear to auscultation bilaterally, no wheezes, no crackles, no accessory muscle use. HEART: Regular rate and rhythm, S1, S2 without murmur, rub or gallop. ABDOMEN: Soft, nontender, nondistended, normoactive bowel sounds, no guarding, no rebound, no hepatosplenomegaly, no masses. EXTREMITIES: 2+ pulses, warm, well-perfused, no edema. NEUROLOGICAL: Cranial nerves II through XII grossly intact. Normal speech, gait not observed. PSYCH: Normal mood, normal affect. SKIN: Warm, dry, normal turgor, no rashes or lesions noted; somne redness and warmth at site but overall no wrosening infection compared to prior descriptions. Laboratory Results - last 24 hr 05/16/19 05/16/19 05/16/19 13:49 15:46 16:04 WBC 8.3 RBC 4.24 Hgb 12.9 Hct 38.3 MCV 90.3 MCH 30.5 MCHC 33.8 RDW 13.6 Plt Count 188 MPV 9.8 Absolute Neuts (auto) 4.4 Neutrophils % 53.3 Neutrophils % (Manual) 54.0 Band Neutrophils % 2.0 Lymphocytes % 25.3 Lymphocytes % (Manual) 20.0 Monocytes % 20.6 H Monocytes % (Manual) 20 H Eosinophils % 0.2 Basophils % 0.6 Nucleated RBC % 0 Platelet Estimate Adequate PT with INR INR PTT (Actin FS) ABG pH ABG pCO2 at Pt Temp ABG pO2 at Pt Temp ABG HCO3 ABG O2 Sat (Measured) ABG O2 Content ABG Base Excess Carboxyhemoglobin Methemoglobin Sodium 136 Potassium 4.4 Chloride 102 Carbon Dioxide 25 Anion Gap 10 BUN 13.9 Creatinine 1.1 Est GFR (CKD-EPI)AfAm 97.49 Est GFR (CKD-EPI)NonAf 84.12 POC Glucometer 114 Random Glucose 99 Lactic Acid Calcium 8.9 Magnesium Total Bilirubin 0.6 AST 27 ALT 21 Alkaline Phosphatase 45 Troponin I Total Protein 7.2 Albumin 3.4 TSH Fluid Source Fluid WBC Fluid RBC Fluid Neutrophils Fluid Lymphocytes Pleural Monocytes Synovial Crystals Valproic Acid 05/16/19 05/16/19 05/16/19 16:04 16:04 16:04 WBC RBC Hgb Hct MCV MCH MCHC RDW Plt Count MPV Absolute Neuts (auto) Neutrophils % Neutrophils % (Manual) Band Neutrophils % Lymphocytes % Lymphocytes % (Manual) Monocytes % Monocytes % (Manual) Eosinophils % Basophils % Nucleated RBC % Platelet Estimate PT with INR 13.90 H INR 1.18 H PTT (Actin FS) 34.3 ABG pH ABG pCO2 at Pt Temp ABG pO2 at Pt Temp ABG HCO3 ABG O2 Sat (Measured) ABG O2 Content ABG Base Excess Carboxyhemoglobin Methemoglobin Sodium Potassium Chloride Carbon Dioxide Anion Gap BUN Creatinine Est GFR (CKD-EPI)AfAm Est GFR (CKD-EPI)NonAf POC Glucometer Random Glucose Lactic Acid 0.7 Calcium Magnesium Total Bilirubin AST ALT Alkaline Phosphatase Troponin I < 0.02 Total Protein Albumin TSH Fluid Source Fluid WBC Fluid RBC Fluid Neutrophils Fluid Lymphocytes Pleural Monocytes Synovial Crystals Valproic Acid 05/16/19 05/16/19 05/17/19 16:10 18:45 07:15 WBC 7.1 RBC 4.09 Hgb 12.8 Hct 36.7 MCV 89.9 MCH 31.3 MCHC 34.8 RDW 13.5 Plt Count 187 MPV 9.7 Absolute Neuts (auto) 3.5 Neutrophils % 49.8 Neutrophils % (Manual) Band Neutrophils % Lymphocytes % 29.4 Lymphocytes % (Manual) Monocytes % 19.6 H Monocytes % (Manual) Eosinophils % 0.7 D Basophils % 0.5 Nucleated RBC % 0 Platelet Estimate PT with INR INR PTT (Actin FS) ABG pH 7.42 ABG pCO2 at Pt Temp 42.6 ABG pO2 at Pt Temp 114 H ABG HCO3 27.2 H ABG O2 Sat (Measured) 98.2 H ABG O2 Content 17.9 ABG Base Excess 2.9 H Carboxyhemoglobin 1.2 Methemoglobin < 1.0 Sodium Potassium Chloride Carbon Dioxide Anion Gap BUN Creatinine Est GFR (CKD-EPI)AfAm Est GFR (CKD-EPI)NonAf POC Glucometer Random Glucose Lactic Acid Calcium Magnesium Total Bilirubin AST ALT Alkaline Phosphatase Troponin I Total Protein Albumin TSH Fluid Source Fluid WBC Fluid RBC Fluid Neutrophils Fluid Lymphocytes Pleural Monocytes Synovial Crystals Valproic Acid 05/17/19 05/18/19 05/18/19 07:15 08:26 08:26 WBC 5.1 RBC 4.36 Hgb 13.4 Hct 39.3 MCV 90.1 MCH 30.9 MCHC 34.2 RDW 13.5 Plt Count 190 MPV 10.0 Absolute Neuts (auto) 2.3 Neutrophils % 45.4 Neutrophils % (Manual) Band Neutrophils % Lymphocytes % 41.5 H D Lymphocytes % (Manual) Monocytes % 11.3 H Monocytes % (Manual) Eosinophils % 0.9 Basophils % 0.9 Nucleated RBC % 0 Platelet Estimate PT with INR INR PTT (Actin FS) ABG pH ABG pCO2 at Pt Temp ABG pO2 at Pt Temp ABG HCO3 ABG O2 Sat (Measured) ABG O2 Content ABG Base Excess Carboxyhemoglobin Methemoglobin Sodium 135 L 134 L Potassium 4.0 4.2 Chloride 101 97 L Carbon Dioxide 27 29 Anion Gap 7 L 8 BUN 16.0 14.9 Creatinine 1.0 1.0 Est GFR (CKD-EPI)AfAm 109.40 109.40 Est GFR (CKD-EPI)NonAf 94.39 94.39 POC Glucometer Random Glucose 96 84 Lactic Acid Calcium 8.6 9.2 Magnesium 2.2 2.4 Total Bilirubin 0.5 0.5 AST 39 H 49 H ALT 25 29 Alkaline Phosphatase 50 50 Troponin I Total Protein 6.9 7.6 Albumin 3.2 L 3.4 TSH 2.33 Fluid Source Fluid WBC Fluid RBC Fluid Neutrophils Fluid Lymphocytes Pleural Monocytes Synovial Crystals Valproic Acid 05/18/19 05/18/19 05/18/19 10:02 17:15 17:15 WBC RBC Hgb Hct MCV MCH MCHC RDW Plt Count MPV Absolute Neuts (auto) Neutrophils % Neutrophils % (Manual) Band Neutrophils % Lymphocytes % Lymphocytes % (Manual) Monocytes % Monocytes % (Manual) Eosinophils % Basophils % Nucleated RBC % Platelet Estimate PT with INR INR PTT (Actin FS) ABG pH ABG pCO2 at Pt Temp ABG pO2 at Pt Temp ABG HCO3 ABG O2 Sat (Measured) ABG O2 Content ABG Base Excess Carboxyhemoglobin Methemoglobin Sodium Potassium Chloride Carbon Dioxide Anion Gap BUN Creatinine Est GFR (CKD-EPI)AfAm Est GFR (CKD-EPI)NonAf POC Glucometer Random Glucose Lactic Acid Calcium Magnesium Total Bilirubin AST ALT Alkaline Phosphatase Troponin I Total Protein Albumin TSH Fluid Source Synovial fluid Fluid WBC 3680 Fluid RBC 1387 Fluid Neutrophils 94 Fluid Lymphocytes 1 Pleural Monocytes 5 Synovial Crystals Negative Valproic Acid 98.3 05/19/19 05/19/19 05/20/19 07:15 07:15 07:30 WBC 4.8 RBC 3.89 L Hgb 12.2 Hct 34.6 L MCV 89.0 MCH 31.3 MCHC 35.2 RDW 13.5 Plt Count 187 MPV 9.4 Absolute Neuts (auto) 1.6 Neutrophils % 33.5 L D Neutrophils % (Manual) Band Neutrophils % Lymphocytes % 51.8 H D Lymphocytes % (Manual) Monocytes % 12.7 H Monocytes % (Manual) Eosinophils % 1.3 Basophils % 0.7 Nucleated RBC % 0 Platelet Estimate PT with INR INR PTT (Actin FS) ABG pH ABG pCO2 at Pt Temp ABG pO2 at Pt Temp ABG HCO3 ABG O2 Sat (Measured) ABG O2 Content ABG Base Excess Carboxyhemoglobin Methemoglobin Sodium 135 L 136 Potassium 4.2 4.4 Chloride 100 100 Carbon Dioxide 29 29 Anion Gap 6 L 7 L BUN 16.2 16.6 Creatinine 1.0 0.9 Est GFR (CKD-EPI)AfAm 109.40 124.26 Est GFR (CKD-EPI)NonAf 94.39 107.21 POC Glucometer Random Glucose 86 91 Lactic Acid Calcium 9.1 9.3 Magnesium 2.3 2.1 Total Bilirubin 0.6 0.5 AST 41 H 38 H ALT 30 34 Alkaline Phosphatase 47 54 Troponin I Total Protein 7.0 7.5 Albumin 3.1 L 3.2 L TSH Fluid Source Fluid WBC Fluid RBC Fluid Neutrophils Fluid Lymphocytes Pleural Monocytes Synovial Crystals Valproic Acid 05/20/19 05/21/19 05/21/19 07:35 07:45 07:45 WBC 4.6 5.1 RBC 4.14 4.08 Hgb 12.8 12.7 Hct 37.5 36.7 MCV 90.6 90.0 MCH 30.8 31.0 MCHC 34.0 34.5 RDW 13.3 13.3 Plt Count 232 D 265 MPV 9.3 8.9 Absolute Neuts (auto) 1.9 2.1 Neutrophils % 41.4 L D 40.8 L Neutrophils % (Manual) Band Neutrophils % Lymphocytes % 43.0 H 44.1 H Lymphocytes % (Manual) Monocytes % 11.6 H 10.3 H Monocytes % (Manual) Eosinophils % 3.2 D 3.9 Basophils % 0.8 0.9 Nucleated RBC % 0 0 Platelet Estimate PT with INR INR PTT (Actin FS) ABG pH ABG pCO2 at Pt Temp ABG pO2 at Pt Temp ABG HCO3 ABG O2 Sat (Measured) ABG O2 Content ABG Base Excess Carboxyhemoglobin Methemoglobin Sodium 133 L Potassium 4.4 Chloride 99 Carbon Dioxide 28 Anion Gap 7 L BUN 16.8 Creatinine 1.0 Est GFR (CKD-EPI)AfAm 109.40 Est GFR (CKD-EPI)NonAf 94.39 POC Glucometer Random Glucose 84 Lactic Acid Calcium 9.0 Magnesium 1.9 Total Bilirubin 0.4 AST 32 ALT 34 Alkaline Phosphatase 56 Troponin I Total Protein 7.3 Albumin 3.2 L TSH Fluid Source Fluid WBC Fluid RBC Fluid Neutrophils Fluid Lymphocytes Pleural Monocytes Synovial Crystals Valproic Acid 05/22/19 05/23/19 05/23/19 06:25 06:50 06:50 WBC 5.5 5.9 RBC 4.01 4.31 Hgb 12.3 13.3 Hct 35.9 38.9 MCV 89.4 90.3 MCH 30.8 31.0 MCHC 34.4 34.3 RDW 13.3 13.2 Plt Count 291 319 MPV 8.9 8.7 Absolute Neuts (auto) 2.6 Neutrophils % 44.5 Neutrophils % (Manual) Band Neutrophils % Lymphocytes % 36.6 Lymphocytes % (Manual) Monocytes % 12.4 H Monocytes % (Manual) Eosinophils % 5.7 H Basophils % 0.8 Nucleated RBC % 0 Platelet Estimate PT with INR INR PTT (Actin FS) ABG pH ABG pCO2 at Pt Temp ABG pO2 at Pt Temp ABG HCO3 ABG O2 Sat (Measured) ABG O2 Content ABG Base Excess Carboxyhemoglobin Methemoglobin Sodium 131 L Potassium 4.4 Chloride 97 L Carbon Dioxide 27 Anion Gap 7 L BUN 19.8 H Creatinine 1.0 Est GFR (CKD-EPI)AfAm 109.40 Est GFR (CKD-EPI)NonAf 94.39 POC Glucometer Random Glucose 83 Lactic Acid Calcium 9.2 Magnesium 2.1 Total Bilirubin 0.4 AST 26 ALT 33 Alkaline Phosphatase 62 Troponin I Total Protein 7.8 Albumin 3.4 TSH Fluid Source Fluid WBC Fluid RBC Fluid Neutrophils Fluid Lymphocytes Pleural Monocytes Synovial Crystals Valproic Acid 05/24/19 05/24/19 05/25/19 06:45 06:45 07:20 WBC 5.6 5.9 RBC 3.92 L 3.99 L Hgb 12.2 12.4 Hct 35.0 L 35.8 MCV 89.3 89.7 MCH 31.0 31.1 MCHC 34.8 34.7 RDW 13.3 13.1 Plt Count 312 314 MPV 8.5 8.6 Absolute Neuts (auto) 2.7 2.5 Neutrophils % 47.6 42.6 L Neutrophils % (Manual) Band Neutrophils % Lymphocytes % 34.5 36.4 Lymphocytes % (Manual) Monocytes % 11.8 H 12.8 H Monocytes % (Manual) Eosinophils % 5.2 H 7.2 H Basophils % 0.9 1.0 Nucleated RBC % 0 0 Platelet Estimate PT with INR INR PTT (Actin FS) ABG pH ABG pCO2 at Pt Temp ABG pO2 at Pt Temp ABG HCO3 ABG O2 Sat (Measured) ABG O2 Content ABG Base Excess Carboxyhemoglobin Methemoglobin Sodium 136 Potassium 4.4 Chloride 102 Carbon Dioxide 26 Anion Gap 8 BUN 20.3 H Creatinine 0.9 Est GFR (CKD-EPI)AfAm 124.26 Est GFR (CKD-EPI)NonAf 107.21 POC Glucometer Random Glucose 81 Lactic Acid Calcium 8.9 Magnesium 2.1 Total Bilirubin 0.6 AST 24 ALT 32 Alkaline Phosphatase 62 Troponin I Total Protein 7.0 Albumin 3.0 L TSH Fluid Source Fluid WBC Fluid RBC Fluid Neutrophils Fluid Lymphocytes Pleural Monocytes Synovial Crystals Valproic Acid 05/25/19 05/27/19 05/27/19 07:20 09:35 09:35 WBC 5.0 RBC 4.23 Hgb 13.0 Hct 38.1 MCV 90.0 MCH 30.7 MCHC 34.1 RDW 13.4 Plt Count 330 MPV 8.6 Absolute Neuts (auto) 2.4 Neutrophils % 47.7 Neutrophils % (Manual) Band Neutrophils % Lymphocytes % 33.7 Lymphocytes % (Manual) Monocytes % 12.6 H Monocytes % (Manual) Eosinophils % 5.0 H Basophils % 1.0 Nucleated RBC % 0 Platelet Estimate PT with INR INR PTT (Actin FS) ABG pH ABG pCO2 at Pt Temp ABG pO2 at Pt Temp ABG HCO3 ABG O2 Sat (Measured) ABG O2 Content ABG Base Excess Carboxyhemoglobin Methemoglobin Sodium 134 L 134 L Potassium 4.6 4.4 Chloride 99 102 Carbon Dioxide 29 26 Anion Gap 6 L 7 L BUN 16.7 15.7 Creatinine 1.0 1.0 Est GFR (CKD-EPI)AfAm 109.40 109.40 Est GFR (CKD-EPI)NonAf 94.39 94.39 POC Glucometer Random Glucose 79 91 Lactic Acid Calcium 8.9 9.4 Magnesium 2.1 2.2 Total Bilirubin 0.3 0.3 AST 24 38 H ALT 37 47 Alkaline Phosphatase 72 70 Troponin I Total Protein 7.3 7.8 Albumin 3.4 3.4 TSH Fluid Source Fluid WBC Fluid RBC Fluid Neutrophils Fluid Lymphocytes Pleural Monocytes Synovial Crystals Valproic Acid Active Medications Generic Name Dose Route Start Last Admin Trade Name Andresq PRN Reason Stop Dose Admin Atorvastatin Calcium 20 mg 05/17/19 22:00 06/01/19 21:22 Lipitor - PO 20 mg HS REAL Administration Chlorpromazine HCl 100 mg 05/17/19 16:00 06/02/19 08:24 Thorazine - PO 100 mg BID@0800,1600 REAL Administration Chlorpromazine HCl 50 mg 06/01/19 07:34 Thorazine Injection - IM Q4H PRN AGITATION Cholecalciferol 2,000 unit 05/17/19 10:00 06/02/19 09:00 Vitamin D3 - PO 2,000 unit DAILY REAL Administration Clonazepam 0.5 mg 05/17/19 12:00 06/02/19 08:23 Klonopin - PO 0.5 mg 0800,1200,1600,2100 REAL Administration Divalproex Sodium 750 mg 05/17/19 21:00 06/01/19 21:22 Depakote *Er* - PO 750 mg DAILY@2100 REAL Administration Divalproex Sodium 500 mg 05/23/19 11:14 06/02/19 08:23 Depakote *Er* - PO 500 mg DAILY@0800 REAL Administration Docusate Sodium 100 mg 05/17/19 10:00 06/02/19 09:00 Colace - PO 100 mg DAILY REAL Administration Heparin Sodium (Porcine) 5,000 unit 05/16/19 22:00 06/02/19 09:51 Heparin - SQ 5,000 unit BID REAL Administration Hydrochlorothiazide 25 mg 05/17/19 10:00 06/02/19 09:01 Hctz - PO 25 mg DAILY REAL Administration Ceftriaxone Sodium 2 gm/ 100 mls @ 200 mls/hr 05/17/19 10:00 06/02/19 09:01 Dextrose IVPB 200 mls/hr DAILY REAL Administration Protocol Lisinopril 5 mg 05/17/19 21:00 06/01/19 21:23 Prinivil PO 5 mg DAILY@2100 REAL Administration Metoprolol Tartrate 12.5 mg 05/17/19 22:00 06/02/19 09:01 Lopressor - PO 12.5 mg BID REAL Administration Nystatin 1 applic 06/01/19 11:45 06/02/19 09:01 Mycostatin Cream - TP 1 applic BID REAL Administration Quetiapine Fumarate 200 mg 05/18/19 21:53 06/02/19 08:23 Seroquel - PO 200 mg 0800,1600 REAL Administration Quetiapine Fumarate 400 mg 05/26/19 22:00 06/01/19 21:23 Seroquel - PO 400 mg HS REAL Administration Trazodone HCl 50 mg 05/17/19 22:00 06/01/19 21:22 Desyrel - PO 50 mg HS REAL Administration Trazodone HCl 25 mg 05/17/19 12:00 06/02/19 08:24 Desyrel - PO 25 mg 0800,1200,1600 REAL Administration ASSESSMENT/PLAN: Patient continues on IV abx per ID for cellulitis/bursitis. Remains inpatietn due to complex DC planning [facility] CVC and facility (they cannot accept back with central access-discussed with them by prior provider) -Cellulitis/bursitis -Agitation (improved) -Developmental Delay (at baseline, poor historian) -Hx HTN (controlled) -Hx Seizure (no activity noted, monitor with precautions) Overall no changes made; continue to monitor on the floor pending improvement. Full code Visit type - Emergency Visit Emergency Visit: No - New Patient This patient is new to me today: No - Critical Care Critical Care patient: No
[2019-06-02 13:44] LABS: BASO % 0.7 % (0-2.0); EOS % 4.5 % (0-4.5); HEMOGLOBIN 12.7 GM/dL (11.7-16.9); LYMPH % 21.5 % (8-40); MCH 30.8 pg (25.7-33.7); MCHC 34.3 g/dl (32.0-35.9); MEAN CELL VOLUME 89.8 fl (80-96); MEAN PLT VOLUME 9.2 fl (7.5-11.1); MONO % 11.4 % (3.8-10.2); NEUT % 61.9 % (42.8-82.8); PLATELET COUNT 317 K/MM3 (134-434); RBC 4.12 M/mm3 (4.00-5.60); WHITE BLOOD COUNT 7.6 K/mm3 (4.0-10.0)
[2019-06-02 14:11] LABS: BILIRUBIN,TOTAL 0.3 mg/dL (0.2-1); BLOOD UREA NITROGEN 16.9 mg/dL (7-18); CALCIUM 9.1 mg/dL (8.5-10.1); MAGNESIUM 2.4 mg/dL (1.8-2.4); POTASSIUM 4.3 mmol/L (3.5-5.1); TOT PROT 7.6 g/dl (6.4-8.2)
[2019-06-02] MEDS: LISINOPRIL 5 MG TABLET (FP) PO SCH (21:23)
[2019-06-02] MEDS: ATORVASTATIN CA 20 MG TABLET (FP) PO SCH (21:23)
[2019-06-02] MEDS: ACETAMINOPHEN 325 MG TABLET (FP) PO PRN (21:38)
--- NOTE | 2019-06-02 21:49 | PN ---
Progress Note, Physician - Current Medication List Current Medications: Active Medications Acetaminophen (Tylenol -) 650 mg PO Q6H PRN PRN Reason: FEVER Last Admin: 06/02/19 21:38 Dose: 650 mg Atorvastatin Calcium (Lipitor -) 20 mg PO HS [facility] Last Admin: 06/02/19 21:23 Dose: 20 mg Chlorpromazine HCl (Thorazine -) 100 mg PO BID@0800,1600 [facility] Last Admin: 06/02/19 17:47 Dose: 100 mg Chlorpromazine HCl (Thorazine Injection -) 50 mg IM Q4H PRN PRN Reason: AGITATION Cholecalciferol (Vitamin D3 -) 2,000 unit PO DAILY [facility] Last Admin: 06/02/19 09:00 Dose: 2,000 unit Clonazepam (Klonopin -) 0.5 mg PO 0800,1200,1600,2100 [facility] Last Admin: 06/02/19 21:23 Dose: 0.5 mg Divalproex Sodium (Depakote *Er* -) 750 mg PO DAILY@2100 [facility] Last Admin: 06/02/19 21:23 Dose: 750 mg Divalproex Sodium (Depakote *Er* -) 500 mg PO DAILY@0800 [facility] Last Admin: 06/02/19 08:23 Dose: 500 mg Docusate Sodium (Colace -) 100 mg PO DAILY [facility] Last Admin: 06/02/19 09:00 Dose: 100 mg Heparin Sodium (Porcine) (Heparin -) 5,000 unit SQ BID [facility] Last Admin: 06/02/19 21:22 Dose: 5,000 unit Hydrochlorothiazide (Hctz -) 25 mg PO DAILY [facility] Last Admin: 06/02/19 09:01 Dose: 25 mg Ceftriaxone Sodium 2 gm/ (Dextrose) 100 mls @ 200 mls/hr IVPB DAILY [facility]; Protocol Last Admin: 06/02/19 09:01 Dose: 200 mls/hr Lisinopril (Prinivil) 5 mg PO DAILY@2100 [facility] Last Admin: 06/02/19 21:23 Dose: 5 mg Metoprolol Tartrate (Lopressor -) 12.5 mg PO BID [facility] Last Admin: 06/02/19 21:23 Dose: 12.5 mg Nystatin (Mycostatin Cream -) 1 applic TP BID [facility] Last Admin: 06/02/19 21:24 Dose: 1 applic Quetiapine Fumarate (Seroquel -) 200 mg PO 0800,1600 [facility] Last Admin: 06/02/19 17:04 Dose: 200 mg Quetiapine Fumarate (Seroquel -) 400 mg PO [facility] Last Admin: 06/02/19 21:22 Dose: 400 mg Trazodone HCl (Desyrel -) 50 mg PO HS [facility] Last Admin: 06/02/19 21:23 Dose: 50 mg Trazodone HCl (Desyrel -) 25 mg PO 0800,1200,1600 [facility] Last Admin: 06/02/19 17:03 Dose: 25 mg - Objective Vital Signs: Vital Signs Temperature 98.2 F 06/02/19 07:59 Pulse Rate 92 H 06/02/19 07:59 Respiratory Rate 16 06/02/19 07:59 Blood Pressure 117/74 06/02/19 07:59 O2 Sat by Pulse Oximetry (%) 98 06/02/19 09:00 Labs: CBC, BMP 06/02/19 12:55 06/02/19 12:55 INR, PTT INR 1.18 (0.83-1.09) H 05/16/19 16:04 Problem List - Problems (1) Altered mental state Code(s): R41.82 - ALTERED MENTAL STATUS, UNSPECIFIED (2) Cellulitis Code(s): L03.90 - CELLULITIS, UNSPECIFIED (3) Developmental delay, severe Code(s): R62.50 - UNSP LACK OF EXPECTED NORMAL PHYSIOL DEV IN CHILDHOOD (4) HTN (hypertension) Code(s): I10 - ESSENTIAL (PRIMARY) HYPERTENSION (5) Seizure Code(s): R56.9 - UNSPECIFIED CONVULSIONS (6) Sepsis Code(s): A41.9 - SEPSIS, UNSPECIFIED ORGANISM
[2019-06-03] MEDS ORDERED: PT OWN MED DRAWER 7, Y5N ONE ×2 (08:02→16:24)
[2019-06-03] MEDS ORDERED: DEXTROSE 5%-WATER 100 ML IVPB ONE (08:02)
[2019-06-03] MEDS: QUEtiapine FUMARATE 200 MG TABLET PO SCH ×3 (08:07→21:16)
[2019-06-03] MEDS: clonazePAM 0.5 MG TABLET PO SCH ×4 (08:07→21:16)
[2019-06-03] MEDS: DIVALPROEX NA *ER* EXTEND REL 250 MG TABLET.SA PO SCH ×2 (08:07→21:15)
[2019-06-03] MEDS: traZODone HCL 50 MG TABLET (FP) PO SCH ×4 (08:07→21:16)
[2019-06-03] MEDS: chlorproMAZINE HCL 100 MG TABLET PO SCH ×2 (08:08→16:29)
[2019-06-03] MEDS: CEFTRIAXONE 2 GM in DEXTROSE 5%-WATER 100 ML IVPB SCH (09:00)
[2019-06-03] MEDS: ACETAMINOPHEN 325 MG TABLET (FP) PO PRN (09:00)
[2019-06-03] MEDS: CHOLECALCIFEROL (VIT D3) 1,000 UNIT (25 MCG) TABLET PO SCH (09:01)
[2019-06-03] MEDS: HEPARIN NA (PORCINE) 5,000 UNITS/ML 1ML VIAL SQ SCH ×2 (09:02→21:17)
[2019-06-03] MEDS: NYSTATIN 100,000 UNIT/GM TOPICAL CREAM 15 GM TUBE TP SCH ×2 (09:02→21:16)
[2019-06-03] MEDS: DOCUSATE SODIUM 100 MG CAPSULE (FP) PO SCH (09:02)
[2019-06-03] MEDS: HYDROCHLOROTHIAZIDE 25 MG TABLET (FP) PO SCH (09:02)
[2019-06-03] MEDS: METOPROLOL TARTRATE 25 MG TABLET (FP) PO SCH ×2 (09:02→21:17)
[2019-06-03] MEDS: chlorproMAZINE HCL 25 MG/1 ML AMP IM PRN (10:33)
--- NOTE | 2019-06-03 12:08 | PN ---
Physical Exam: Patient seen and examined; no new complaints; pain controlled. Providing weekend coverage. Cannot go back to facility with [facility] so continue with ceftriaxone and pending SNF placement. 10 sys ROS done and negative aside HPI OBJECTIVE: Vital Signs Period Temp Pulse Resp BP Sys/Baldwin Pulse Ox Last 24 Hr 97.4 F-100 F 89-119 16-19 117-133/72-77 98 GENERAL: The patient is awake, alert, and fully oriented, in no acute distress. HEAD: Normal with no signs of trauma. EYES: PERRL, extraocular movements intact, sclera anicteric, conjunctiva clear. No ptosis. ENT: Ears normal, nares patent, oropharynx clear without exudates, moist mucous membranes. NECK: Trachea midline, full range of motion, supple. LUNGS: Breath sounds equal, clear to auscultation bilaterally, no wheezes, no crackles, no accessory muscle use. HEART: Regular rate and rhythm, S1, S2 without murmur, rub or gallop. ABDOMEN: Soft, nontender, nondistended, normoactive bowel sounds, no guarding, no rebound, no hepatosplenomegaly, no masses. EXTREMITIES: 2+ pulses, warm, well-perfused, no edema. NEUROLOGICAL: Cranial nerves II through XII grossly intact. Normal speech, gait not observed. PSYCH: Normal mood, normal affect. SKIN: Warm, dry, normal turgor, no rashes or lesions noted; somne redness and warmth at site but overall no wrosening infection compared to prior descriptions. Laboratory Results - last 24 hr 06/02/19 06/02/19 12:55 12:55 WBC 7.6 RBC 4.12 Hgb 12.7 Hct 37.0 MCV 89.8 MCH 30.8 MCHC 34.3 RDW 13.0 Plt Count 317 MPV 9.2 Absolute Neuts (auto) 4.7 Neutrophils % 61.9 Lymphocytes % 21.5 Monocytes % 11.4 H Eosinophils % 4.5 Basophils % 0.7 Nucleated RBC % 0 Sodium 133 L Potassium 4.3 Chloride 97 L Carbon Dioxide 28 Anion Gap 9 BUN 16.9 Creatinine 1.0 Est GFR (CKD-EPI)AfAm 109.40 Est GFR (CKD-EPI)NonAf 94.39 Random Glucose 121 H Calcium 9.1 Magnesium 2.4 Total Bilirubin 0.3 AST 71 H ALT 74 H Alkaline Phosphatase 76 Total Protein 7.6 Albumin 3.0 L Active Medications Generic Name Dose Route Start Last Admin Trade Name Freq PRN Reason Stop Dose Admin Acetaminophen 650 mg 06/02/19 21:33 06/03/19 09:00 Tylenol - PO 650 mg Q6H PRN Administration FEVER Atorvastatin Calcium 20 mg 05/17/19 22:00 06/02/19 21:23 Lipitor - PO 20 mg HS REAL Administration Chlorpromazine HCl 100 mg 05/17/19 16:00 06/03/19 08:08 Thorazine - PO 100 mg BID@0800,1600 REAL Administration Chlorpromazine HCl 50 mg 06/01/19 07:34 06/03/19 10:33 Thorazine Injection - IM 50 mg Q4H PRN Administration AGITATION Cholecalciferol 2,000 unit 05/17/19 10:00 06/03/19 09:01 Vitamin D3 - PO 2,000 unit DAILY REAL Administration Clonazepam 0.5 mg 05/17/19 12:00 06/03/19 08:07 Klonopin - PO 0.5 mg 0800,1200,1600,2100 REAL Administration Divalproex Sodium 750 mg 05/17/19 21:00 06/02/19 21:23 Depakote *Er* - PO 750 mg DAILY@2100 REAL Administration Divalproex Sodium 500 mg 05/23/19 11:14 06/03/19 08:07 Depakote *Er* - PO 500 mg DAILY@0800 REAL Administration Docusate Sodium 100 mg 05/17/19 10:00 06/03/19 09:02 Colace - PO 100 mg DAILY REAL Administration Heparin Sodium (Porcine) 5,000 unit 05/16/19 22:00 06/03/19 09:02 Heparin - SQ 5,000 unit BID REAL Administration Hydrochlorothiazide 25 mg 05/17/19 10:00 06/03/19 09:02 Hctz - PO 25 mg DAILY REAL Administration Ceftriaxone Sodium 2 gm/ 100 mls @ 200 mls/hr 05/17/19 10:00 06/03/19 09:00 Dextrose IVPB 200 mls/hr DAILY REAL Administration Protocol Lisinopril 5 mg 05/17/19 21:00 06/02/19 21:23 Prinivil PO 5 mg DAILY@2100 REAL Administration Metoprolol Tartrate 12.5 mg 05/17/19 22:00 06/03/19 09:02 Lopressor - PO 12.5 mg BID REAL Administration Nystatin 1 applic 06/01/19 11:45 06/03/19 09:02 Mycostatin Cream - TP 1 applic BID REAL Administration Quetiapine Fumarate 200 mg 05/18/19 21:53 06/03/19 08:07 Seroquel - PO 200 mg 0800,1600 REAL Administration Quetiapine Fumarate 400 mg 05/26/19 22:00 06/02/19 21:22 Seroquel - PO 400 mg HS REAL Administration Trazodone HCl 50 mg 05/17/19 22:00 06/02/19 21:23 Desyrel - PO 50 mg HS REAL Administration Trazodone HCl 25 mg 05/17/19 12:00 06/03/19 08:07 Desyrel - PO 25 mg 0800,1200,1600 REAL Administration ASSESSMENT/PLAN: Patient continues on IV abx per ID for cellulitis/bursitis. Remains inpatietn due to complex DC planning [facility] and facility (they cannot accept back with central access-discussed with them by prior provider) -Cellulitis/bursitis -Agitation (improved) -Developmental Delay (at baseline, poor historian) -Hx HTN (controlled) -Hx Seizure (no activity noted, monitor with precautions) Overall no changes made; continue to monitor on the floor pending improvement. Will discuss with CM and SW on tuesday regarding placement as this has been ongoing issue. Full code Visit type - Emergency Visit Emergency Visit: No - New Patient This patient is new to me today: No - Critical Care Critical Care patient: No
--- NOTE | 2019-06-03 15:59 | PN ---
Progress Note, Physician History of Present Illness: Pt without acute distress. Had mild fever last night, afebrile today. - Current Medication List Current Medications: Active Medications Acetaminophen (Tylenol -) 650 mg PO Q6H PRN PRN Reason: FEVER Last Admin: 06/03/19 09:00 Dose: 650 mg Atorvastatin Calcium (Lipitor -) 20 mg PO HS [facility] Last Admin: 06/02/19 21:23 Dose: 20 mg Chlorpromazine HCl (Thorazine -) 100 mg PO BID@0800,1600 [facility] Last Admin: 06/03/19 08:08 Dose: 100 mg Chlorpromazine HCl (Thorazine Injection -) 50 mg IM Q4H PRN PRN Reason: AGITATION Last Admin: 06/03/19 10:33 Dose: 50 mg Cholecalciferol (Vitamin D3 -) 2,000 unit PO DAILY [facility] Last Admin: 06/03/19 09:01 Dose: 2,000 unit Clonazepam (Klonopin -) 0.5 mg PO 0800,1200,1600,2100 [facility] Last Admin: 06/03/19 12:00 Dose: Not Given Divalproex Sodium (Depakote *Er* -) 750 mg PO DAILY@2100 [facility] Last Admin: 06/02/19 21:23 Dose: 750 mg Divalproex Sodium (Depakote *Er* -) 500 mg PO DAILY@0800 [facility] Last Admin: 06/03/19 08:07 Dose: 500 mg Docusate Sodium (Colace -) 100 mg PO DAILY [facility] Last Admin: 06/03/19 09:02 Dose: 100 mg Heparin Sodium (Porcine) (Heparin -) 5,000 unit SQ BID [facility] Last Admin: 06/03/19 09:02 Dose: 5,000 unit Hydrochlorothiazide (Hctz -) 25 mg PO DAILY [facility] Last Admin: 06/03/19 09:02 Dose: 25 mg Ceftriaxone Sodium 2 gm/ (Dextrose) 100 mls @ 200 mls/hr IVPB DAILY [facility]; Protocol Last Admin: 06/03/19 09:00 Dose: 200 mls/hr Lisinopril (Prinivil) 5 mg PO DAILY@2100 [facility] Last Admin: 06/02/19 21:23 Dose: 5 mg Metoprolol Tartrate (Lopressor -) 12.5 mg PO BID [facility] Last Admin: 06/03/19 09:02 Dose: 12.5 mg Nystatin (Mycostatin Cream -) 1 applic TP BID [facility] Last Admin: 06/03/19 09:02 Dose: 1 applic Quetiapine Fumarate (Seroquel -) 200 mg PO 0800,1600 [facility] Last Admin: 06/03/19 08:07 Dose: 200 mg Quetiapine Fumarate (Seroquel -) 400 mg PO [facility] Last Admin: 06/02/19 21:22 Dose: 400 mg Trazodone HCl (Desyrel -) 50 mg PO [facility] Last Admin: 06/02/19 21:23 Dose: 50 mg Trazodone HCl (Desyrel -) 25 mg PO 0800,1200,1600 [facility] Last Admin: 06/03/19 12:00 Dose: Not Given - Objective Vital Signs: Vital Signs Temperature 97.7 F 06/03/19 13:10 Pulse Rate 73 06/03/19 13:10 Respiratory Rate 15 06/03/19 13:10 Blood Pressure 135/63 06/03/19 13:10 O2 Sat by Pulse Oximetry (%) 97 06/03/19 13:13 Constitutional: Yes: No Distress Cardiovascular: Yes: Regular Rate and Rhythm Respiratory: Yes: Regular Gastrointestinal: Yes: Normal Bowel Sounds, Soft Musculoskeletal: Yes: Joint Swelling (Lt knee edema, no erythema/warmth) Integumentary: Yes: WNL Labs: CBC, BMP 06/02/19 12:55 06/02/19 12:55 INR, PTT INR 1.18 (0.83-1.09) H 05/16/19 16:04 Microbiology 05/29/19 21:20 Knee - Left Gram Stain - Final 05/29/19 21:20 Knee - Left Wound Culture - Final NO GROWTH AFTER 48 HOURS INCUBATION 05/18/19 17:15 Aspirate Gram Stain - Final 05/18/19 17:15 Aspirate Body Fluid Culture - Final Staphylococcus Aureus 05/18/19 17:15 Aspirate Anaerobic Culture - Final NO ANAEROBES WERE ISOLATED 05/16/19 16:00 Blood - Peripheral Venous Blood Culture - Final NO GROWTH AFTER 5 DAYS INCUBATION 05/16/19 16:00 Blood - Peripheral Venous Blood Culture - Final NO GROWTH AFTER 5 DAYS INCUBATION Problem List - Problems (1) Altered mental state Code(s): R41.82 - ALTERED MENTAL STATUS, UNSPECIFIED (2) Cellulitis Code(s): L03.90 - CELLULITIS, UNSPECIFIED (3) Developmental delay, severe Code(s): R62.50 - UNSP LACK OF EXPECTED NORMAL PHYSIOL DEV IN CHILDHOOD (4) HTN (hypertension) Code(s): I10 - ESSENTIAL (PRIMARY) HYPERTENSION (5) Seizure Code(s): R56.9 - UNSPECIFIED CONVULSIONS (6) Sepsis Code(s): A41.9 - SEPSIS, UNSPECIFIED ORGANISM Assessment/Plan 38 y.o. male with PMH of autism/developmental delay, seizure d.o., HTN brought in from [facility] for AMS/lethargy noted x 1 day, low grade fever, Lt tibial fluctuant lesion Lt patellar bursitis s/p aspiration x 2 -- Staph aureus initially isolated, repeat aspiration culture shows no growth Fever -- continue Ceftriaxone -- temp mildly elevated last night, afebrile today - continue close monitoring -- f/u repeat blood culture -- monitor temps/vitals, mental status
[2019-06-03] MEDS: LISINOPRIL 5 MG TABLET (FP) PO SCH (21:15)
[2019-06-03] MEDS: ATORVASTATIN CA 20 MG TABLET (FP) PO SCH (21:17)
--- NOTE | 2019-06-04 07:35 | PN ---
Progress Note, Physician Chief Complaint: resting comfortable, no reports of pain History of Present Illness: Patient is a 38 year old male with a significant past medical history of autism , HTN, sz disorder admitted for work up of lethargy and was noted to have left knee joint infection. He is now s/p aspiration on 05/18/19 along with IV abx therapy. Discussed with ID and the plan to continue ceftriaxone 2 grams for another two weeks (until 06/06/2019->last dose of ceftriaxone) Resident of [facility] - Current Medication List Current Medications: Active Medications Acetaminophen (Tylenol -) 650 mg PO Q6H PRN PRN Reason: FEVER Last Admin: 06/03/19 09:00 Dose: 650 mg Atorvastatin Calcium (Lipitor -) 20 mg PO HS [facility] Last Admin: 06/03/19 21:17 Dose: 20 mg Chlorpromazine HCl (Thorazine -) 100 mg PO BID@0800,1600 [facility] Last Admin: 06/03/19 16:29 Dose: 100 mg Chlorpromazine HCl (Thorazine Injection -) 50 mg IM Q4H PRN PRN Reason: AGITATION Last Admin: 06/03/19 10:33 Dose: 50 mg Cholecalciferol (Vitamin D3 -) 2,000 unit PO DAILY [facility] Last Admin: 06/03/19 09:01 Dose: 2,000 unit Divalproex Sodium (Depakote *Er* -) 750 mg PO DAILY@2100 [facility] Last Admin: 06/03/19 21:15 Dose: 750 mg Divalproex Sodium (Depakote *Er* -) 500 mg PO DAILY@0800 [facility] Last Admin: 06/03/19 08:07 Dose: 500 mg Docusate Sodium (Colace -) 100 mg PO DAILY [facility] Last Admin: 06/03/19 09:02 Dose: 100 mg Hydrochlorothiazide (Hctz -) 25 mg PO DAILY [facility] Last Admin: 06/03/19 09:02 Dose: 25 mg Ceftriaxone Sodium 2 gm/ (Dextrose) 100 mls @ 200 mls/hr IVPB DAILY [facility]; Protocol Last Admin: 06/03/19 09:00 Dose: 200 mls/hr Lisinopril (Prinivil) 5 mg PO DAILY@2100 [facility] Last Admin: 06/03/19 21:15 Dose: 5 mg Metoprolol Tartrate (Lopressor -) 12.5 mg PO BID [facility] Last Admin: 06/03/19 21:17 Dose: 12.5 mg Nystatin (Mycostatin Cream -) 1 applic TP BID [facility] Last Admin: 06/03/19 21:16 Dose: 1 applic Quetiapine Fumarate (Seroquel -) 200 mg PO 0800,1600 [facility] Last Admin: 06/03/19 16:29 Dose: 200 mg Quetiapine Fumarate (Seroquel -) 400 mg PO [facility] Last Admin: 06/03/19 21:16 Dose: 400 mg Trazodone HCl (Desyrel -) 50 mg PO HS [facility] Last Admin: 06/03/19 21:16 Dose: 50 mg Trazodone HCl (Desyrel -) 25 mg PO 0800,1200,1600 [facility] Last Admin: 06/03/19 16:29 Dose: 25 mg - Objective Vital Signs: Vital Signs Temperature 98.7 F 06/04/19 02:00 Pulse Rate 80 06/04/19 02:00 Respiratory Rate 20 06/04/19 02:00 Blood Pressure 111/66 06/04/19 02:00 O2 Sat by Pulse Oximetry (%) 97 06/03/19 21:00 Additional Findings/Remarks: Constitutional: Yes: Well Nourished, No Distress, Calm Eyes: Yes: WNL, Conjunctiva Clear HENT: Yes: WNL, Atraumatic, Normocephalic Neck: Yes: WNL, Supple, Trachea Midline Cardiovascular: Yes: WNL, Regular Rate and Rhythm Respiratory: Yes: WNL, Regular, CTA Bilaterally Gastrointestinal: Yes: WNL, Normal Bowel Sounds ...Rectal Exam: Yes: Deferred Genitourinary: Yes: WNL Breast(s): Yes: WNL Musculoskeletal: Yes: Joint Swelling (left knee) Extremities: Yes: Other (healing lesion to left patella) Edema: Yes Edema: LLE: Trace, RLE: Trace Peripheral Pulses WNL: Yes Peripheral Pulses: Left Radial: 2+, Right Radial: 2+, Left Doralis Pedis: 2+, Right Dorsalis Pedis: 2+, Left Femoral: 2+, Right Femoral: 2+ Integumentary: Yes: Other (s/p left knee aspiration) Neurological: Yes: Alert ...Motor Strength: WNL Psychiatric: Yes: Alert Labs: CBC, BMP 06/02/19 12:55 06/02/19 12:55 INR, PTT INR 1.18 (0.83-1.09) H 05/16/19 16:04 Problem List - Problems (1) Altered mental state Assessment/Plan: less agitated, not abusive to staff overnight c/w prescribed antipsychotics/sedatives head CT without acute pathology appreciate ID consultation c/w ceftriaxone until 06/06 Code(s): R41.82 - ALTERED MENTAL STATUS, UNSPECIFIED (2) HTN (hypertension) Assessment/Plan: c/w lisinipril, hctz Code(s): I10 - ESSENTIAL (PRIMARY) HYPERTENSION (3) Developmental delay, severe Assessment/Plan: supportive care staff from [facility] present c/w current [facility] ordered all meds as per home regimen. On several Qtc prolonging agents. Not able to do EKG d/t agitation Code(s): R62.50 - UNSP LACK OF EXPECTED NORMAL PHYSIOL DEV IN CHILDHOOD (4) Cellulitis Assessment/Plan: resolved c/w ceftriaxone for bursitis ID consultation apppreciated monitor WBC, temp trend Code(s): L03.90 - CELLULITIS, UNSPECIFIED (5) Seizure Assessment/Plan: c/w depakote fall precautions Code(s): R56.9 - UNSPECIFIED CONVULSIONS (6) Preventive measure Assessment/Plan: FEN chopped diet monitor electrolytes and replete prn DVT heparin sq Dispo maintain as in patient Full code discharge planning back to [facility] after completion pf abx Code(s): Z29.9 - ENCOUNTER FOR PROPHYLACTIC MEASURES, UNSPECIFIED (7) Bursitis Code(s): M71.9 - BURSOPATHY, UNSPECIFIED Visit type - Emergency Visit Emergency Visit: Yes ED Registration Date: 05/16/19 Care time: The patient presented to the Emergency Department on the above date and was hospitalized for further evaluation of their emergent condition. - New Patient This patient is new to me today: No - Critical Care Critical Care patient: No - Discharge Referral Referred to [facility] No
[2019-06-04 08:28] LABS: HEMATOCRIT 35.1 % (35.4-49); MCH 30.6 pg (25.7-33.7); MCHC 34.1 g/dl (32.0-35.9); MEAN CELL VOLUME 89.7 fl (80-96); MEAN PLT VOLUME 9.1 fl (7.5-11.1); PLATELET COUNT 328 K/MM3 (134-434); RBC 3.92 M/mm3 (4.00-5.60); WHITE BLOOD COUNT 5.5 K/mm3 (4.0-10.0)
[2019-06-04] MEDS: traZODone HCL 50 MG TABLET (FP) PO SCH ×4 (08:39→21:27)
[2019-06-04] MEDS: QUEtiapine FUMARATE 200 MG TABLET PO SCH ×3 (08:40→21:27)
[2019-06-04] MEDS: DIVALPROEX NA *ER* EXTEND REL 250 MG TABLET.SA PO SCH ×2 (08:40→21:27)
[2019-06-04] MEDS: chlorproMAZINE HCL 100 MG TABLET PO SCH ×2 (08:41→15:14)
[2019-06-04 08:51] LABS: ALBUMIN 2.8 g/dl (3.4-5.0); BILIRUBIN,TOTAL 0.3 mg/dL (0.2-1); BLOOD UREA NITROGEN 14.8 mg/dL (7-18); CALCIUM 9.1 mg/dL (8.5-10.1); CREATININE 0.9 mg/dL (0.55-1.3); MAGNESIUM 2.2 mg/dL (1.8-2.4); POTASSIUM 4.8 mmol/L (3.5-5.1); TOT PROT 6.9 g/dl (6.4-8.2)
[2019-06-04] MEDS ORDERED: DEXTROSE 5%-WATER 100 ML IVPB ONE (09:54)
[2019-06-04] MEDS: CEFTRIAXONE 2 GM in DEXTROSE 5%-WATER 100 ML IVPB SCH (09:56)
[2019-06-04] MEDS: HYDROCHLOROTHIAZIDE 25 MG TABLET (FP) PO SCH (09:56)
[2019-06-04] MEDS: DOCUSATE SODIUM 100 MG CAPSULE (FP) PO SCH (09:56)
[2019-06-04] MEDS: CHOLECALCIFEROL (VIT D3) 1,000 UNIT (25 MCG) TABLET PO SCH (09:56)
[2019-06-04] MEDS: METOPROLOL TARTRATE 25 MG TABLET (FP) PO SCH ×2 (09:56→21:27)
[2019-06-04] MEDS: NYSTATIN 100,000 UNIT/GM TOPICAL CREAM 15 GM TUBE TP SCH ×2 (09:58→21:27)
--- NOTE | 2019-06-04 11:21 | PN ---
Progress Note, Physician History of Present Illness: stable no new issues - Current Medication List Current Medications: Active Medications Acetaminophen (Tylenol -) 650 mg PO Q6H PRN PRN Reason: FEVER Last Admin: 06/03/19 09:00 Dose: 650 mg Atorvastatin Calcium (Lipitor -) 20 mg PO HS [facility] Last Admin: 06/03/19 21:17 Dose: 20 mg Chlorpromazine HCl (Thorazine -) 100 mg PO BID@0800,1600 [facility] Last Admin: 06/04/19 08:41 Dose: 100 mg Chlorpromazine HCl (Thorazine Injection -) 50 mg IM Q4H PRN PRN Reason: AGITATION Last Admin: 06/03/19 10:33 Dose: 50 mg Cholecalciferol (Vitamin D3 -) 2,000 unit PO DAILY [facility] Last Admin: 06/04/19 09:56 Dose: 2,000 unit Divalproex Sodium (Depakote *Er* -) 750 mg PO DAILY@2100 [facility] Last Admin: 06/03/19 21:15 Dose: 750 mg Divalproex Sodium (Depakote *Er* -) 500 mg PO DAILY@0800 [facility] Last Admin: 06/04/19 08:40 Dose: 500 mg Docusate Sodium (Colace -) 100 mg PO DAILY [facility] Last Admin: 06/04/19 09:56 Dose: 100 mg Hydrochlorothiazide (Hctz -) 25 mg PO DAILY [facility] Last Admin: 06/04/19 09:56 Dose: 25 mg Ceftriaxone Sodium 2 gm/ (Dextrose) 100 mls @ 200 mls/hr IVPB DAILY [facility]; Protocol Last Admin: 06/04/19 09:56 Dose: 200 mls/hr Lisinopril (Prinivil) 5 mg PO DAILY@2100 [facility] Last Admin: 06/03/19 21:15 Dose: 5 mg Metoprolol Tartrate (Lopressor -) 12.5 mg PO BID [facility] Last Admin: 06/04/19 09:56 Dose: 12.5 mg Nystatin (Mycostatin Cream -) 1 applic TP BID [facility] Last Admin: 06/04/19 09:58 Dose: 1 applic Quetiapine Fumarate (Seroquel -) 200 mg PO 0800,1600 [facility] Last Admin: 06/04/19 08:40 Dose: 200 mg Quetiapine Fumarate (Seroquel -) 400 mg PO HS [facility] Last Admin: 06/03/19 21:16 Dose: 400 mg Trazodone HCl (Desyrel -) 50 mg PO HS [facility] Last Admin: 06/03/19 21:16 Dose: 50 mg Trazodone HCl (Desyrel -) 25 mg PO 0800,1200,1600 [facility] Last Admin: 06/04/19 08:39 Dose: 25 mg - Objective Vital Signs: Vital Signs Temperature 97.2 F L 06/04/19 10:00 Pulse Rate 84 06/04/19 10:00 Respiratory Rate 18 06/04/19 10:00 Blood Pressure 136/76 06/04/19 10:00 O2 Sat by Pulse Oximetry (%) 95 06/04/19 09:00 Constitutional: Yes: No Distress, Calm Cardiovascular: Yes: S1, S2 Respiratory: Yes: Regular, CTA Bilaterally Gastrointestinal: Yes: Normal Bowel Sounds, Soft Musculoskeletal: Yes: WNL Extremities: Yes: WNL Neurological: Yes: Alert Psychiatric: Yes: Alert Labs: CBC, BMP 06/04/19 07:35 06/04/19 07:35 INR, PTT INR 1.18 (0.83-1.09) H 05/16/19 16:04 Assessment/Plan Problem List - Problems (1) Altered mental state Code(s): R41.82 - ALTERED MENTAL STATUS, UNSPECIFIED (2) Cellulitis Code(s): L03.90 - CELLULITIS, UNSPECIFIED (3) Developmental delay, severe Code(s): R62.50 - UNSP LACK OF EXPECTED NORMAL PHYSIOL DEV IN CHILDHOOD (4) HTN (hypertension) Code(s): I10 - ESSENTIAL (PRIMARY) HYPERTENSION (5) Seizure Code(s): R56.9 - UNSPECIFIED CONVULSIONS (6) Sepsis Code(s): A41.9 - SEPSIS, UNSPECIFIED ORGANISM 7 septic knee left Assessment/Plan 38 y.o. male with PMH of autism/developmental delay, seizure d.o., HTN brought in from skilled nursing for AMS/lethargy noted x 1 day, low grade fever, Lt tibial fluctuant lesion AMS - now easily arousable Lt patellar bursitis s/p aspiration Fever - resolved cx result noted continue abx sensitivities noted ceftriaxone as planned
[2019-06-04 11:49] LABS: ERYTHROCYTE SEDIMENTATION RATE 44 mm/hr (0-10)
[2019-06-04] MEDS: chlorproMAZINE HCL 25 MG/1 ML AMP IM PRN ×2 (18:47→22:12)
[2019-06-04] MEDS: ATORVASTATIN CA 20 MG TABLET (FP) PO SCH (21:26)
[2019-06-04] MEDS: LISINOPRIL 5 MG TABLET (FP) PO SCH (21:27)
[2019-06-05 00:57] VITALS: BMI 29.1
[2019-06-05] MEDS ORDERED: PT OWN MED DRAWER 7, Y5N ONE ×4 (06:33→16:36)
[2019-06-05] MEDS ORDERED: INSULIN (NOVOLOG) ASPART 100 UNITS/ML 10ML VIAL ONE (06:33)
[2019-06-05] MEDS: QUEtiapine FUMARATE 200 MG TABLET PO SCH ×3 (08:31→21:01)
[2019-06-05] MEDS: traZODone HCL 50 MG TABLET (FP) PO SCH ×4 (08:32→21:01)
[2019-06-05] MEDS: DIVALPROEX NA *ER* EXTEND REL 250 MG TABLET.SA PO SCH ×2 (08:34→21:02)
[2019-06-05] MEDS ORDERED: DEXTROSE 5%-WATER 100 ML IVPB ONE (09:44)
[2019-06-05] MEDS: CEFTRIAXONE 2 GM in DEXTROSE 5%-WATER 100 ML IVPB SCH (09:48)
[2019-06-05] MEDS: METOPROLOL TARTRATE 25 MG TABLET (FP) PO SCH ×2 (09:48→21:01)
[2019-06-05] MEDS: DOCUSATE SODIUM 100 MG CAPSULE (FP) PO SCH (09:48)
[2019-06-05] MEDS: CHOLECALCIFEROL (VIT D3) 1,000 UNIT (25 MCG) TABLET PO SCH (09:49)
[2019-06-05] MEDS: NYSTATIN 100,000 UNIT/GM TOPICAL CREAM 15 GM TUBE TP SCH ×2 (09:49→21:01)
[2019-06-05] MEDS: HYDROCHLOROTHIAZIDE 25 MG TABLET (FP) PO SCH (09:49)
[2019-06-05] MEDS: chlorproMAZINE HCL 100 MG TABLET PO SCH ×2 (10:51→15:51)
--- NOTE | 2019-06-05 12:03 | PN ---
Progress Note, Physician History of Present Illness: stable - Current Medication List Current Medications: Active Medications Acetaminophen (Tylenol -) 650 mg PO Q6H PRN PRN Reason: FEVER Last Admin: 06/03/19 09:00 Dose: 650 mg Atorvastatin Calcium (Lipitor -) 20 mg PO HS [facility] Last Admin: 06/04/19 21:26 Dose: 20 mg Chlorpromazine HCl (Thorazine -) 100 mg PO BID@0800,1600 [facility] Last Admin: 06/05/19 10:51 Dose: 100 mg Chlorpromazine HCl (Thorazine Injection -) 50 mg IM Q4H PRN PRN Reason: AGITATION Last Admin: 06/04/19 22:12 Dose: 50 mg Cholecalciferol (Vitamin D3 -) 2,000 unit PO DAILY [facility] Last Admin: 06/05/19 09:49 Dose: 2,000 unit Divalproex Sodium (Depakote *Er* -) 750 mg PO DAILY@2100 [facility] Last Admin: 06/04/19 21:27 Dose: 750 mg Divalproex Sodium (Depakote *Er* -) 500 mg PO DAILY@0800 [facility] Last Admin: 06/05/19 08:34 Dose: 500 mg Docusate Sodium (Colace -) 100 mg PO DAILY [facility] Last Admin: 06/05/19 09:48 Dose: 100 mg Hydrochlorothiazide (Hctz -) 25 mg PO DAILY [facility] Last Admin: 06/05/19 09:49 Dose: 25 mg Ceftriaxone Sodium 2 gm/ (Dextrose) 100 mls @ 200 mls/hr IVPB DAILY [facility]; Protocol Last Admin: 06/05/19 09:48 Dose: 200 mls/hr Lisinopril (Prinivil) 5 mg PO DAILY@2100 [facility] Last Admin: 06/04/19 21:27 Dose: 5 mg Metoprolol Tartrate (Lopressor -) 12.5 mg PO BID [facility] Last Admin: 06/05/19 09:48 Dose: 12.5 mg Nystatin (Mycostatin Cream -) 1 applic TP BID [facility] Last Admin: 06/05/19 09:49 Dose: 1 applic Quetiapine Fumarate (Seroquel -) 200 mg PO 0800,1600 [facility] Last Admin: 06/05/19 08:31 Dose: 200 mg Quetiapine Fumarate (Seroquel -) 400 mg PO HS [facility] Last Admin: 06/04/19 21:27 Dose: 400 mg Trazodone HCl (Desyrel -) 50 mg PO HS [facility] Last Admin: 06/04/19 21:27 Dose: 50 mg Trazodone HCl (Desyrel -) 25 mg PO 0800,1200,1600 [facility] Last Admin: 06/05/19 08:32 Dose: 25 mg - Objective Vital Signs: Vital Signs Temperature 97.2 F L 06/05/19 09:00 Pulse Rate 88 06/05/19 09:00 Respiratory Rate 20 06/05/19 09:00 Blood Pressure 122/84 06/05/19 09:00 O2 Sat by Pulse Oximetry (%) 95 06/04/19 22:00 Constitutional: Yes: No Distress, Calm Cardiovascular: Yes: S1, S2 Respiratory: Yes: Regular, CTA Bilaterally Musculoskeletal: Yes: WNL Extremities: Yes: WNL Neurological: Yes: Alert Psychiatric: Yes: Alert Labs: CBC, BMP 06/04/19 07:35 06/04/19 07:35 INR, PTT INR 1.18 (0.83-1.09) H 05/16/19 16:04 Assessment/Plan Problem List - Problems (1) Altered mental state Code(s): R41.82 - ALTERED MENTAL STATUS, UNSPECIFIED (2) Cellulitis Code(s): L03.90 - CELLULITIS, UNSPECIFIED (3) Developmental delay, severe Code(s): R62.50 - UNSP LACK OF EXPECTED NORMAL PHYSIOL DEV IN CHILDHOOD (4) HTN (hypertension) Code(s): I10 - ESSENTIAL (PRIMARY) HYPERTENSION (5) Seizure Code(s): R56.9 - UNSPECIFIED CONVULSIONS (6) Sepsis Code(s): A41.9 - SEPSIS, UNSPECIFIED ORGANISM 7 septic knee left Assessment/Plan 38 y.o. male with PMH of autism/developmental delay, seizure d.o., HTN brought in from [facility] for AMS/lethargy noted x 1 day, low grade fever, Lt tibial fluctuant lesion AMS - now easily arousable Lt patellar bursitis s/p aspiration Fever - resolved cx result noted continue abx sensitivities noted ceftriaxone as planned
--- NOTE | 2019-06-05 12:30 | PN ---
Physical Exam: SUBJECTIVE: Patient seen and examined at the bedside. eating lunch. aide at the bedside. OBJECTIVE: plan: [facility] tomorrow after last dose of ceftriaxone 2 gram Patient is a 38 year old male with a significant past medical history of autism , HTN, sz disorder admitted for work up of lethargy and was noted to have left knee joint infection. He is now s/p aspiration on 05/18/19 and repeat aspiration was done again by ortho on 05/28/19. He is currently on Ceftriaxone 2 grams and the plan to continue ceftriaxone 2 grams until 06/06/2019 (last dose of ceftriaxone). We are unable to place a central line as his facility will not accept him back to facility with central line. Vital Signs Period Temp Pulse Resp BP Sys/Baldwin Pulse Ox Last 24 Hr 97.2 F-97.8 F 83-107 18-20 108-124/57-84 95 Constitutional: Yes: Well Nourished, No Distress, Calm Eyes: Yes: PERRL HENT: Yes: Atraumatic Neck: Yes: Supple Cardiovascular: Yes: Regular Rate and Rhythm Respiratory: Yes: Regular Gastrointestinal: Yes: Normal Bowel Sounds, Soft Musculoskeletal: Yes: WNL Extremities: left upper arm edema, redness. Edema: left knee s/p aspiration Peripheral Pulses WNL: Yes Peripheral Pulses: Left Radial: 2+, Right Radial: 2+, Left Doralis Pedis: 2+, Right Dorsalis Pedis: 2+ Integumentary: Yes: Other (Left knee healing inferior patella lesion. non- tender to palpation) Neurological: Yes: Alert Psychiatric: Yes: Alert Active Medications Generic Name Dose Route Start Last Admin Trade Name Freq PRN Reason Stop Dose Admin Acetaminophen 650 mg 06/02/19 21:33 06/03/19 09:00 Tylenol - PO 650 mg Q6H PRN Administration FEVER Atorvastatin Calcium 20 mg 05/17/19 22:00 06/04/19 21:26 Lipitor - PO 20 mg HS REAL Administration Chlorpromazine HCl 100 mg 05/17/19 16:00 06/05/19 10:51 Thorazine - PO 100 mg BID@0800,1600 REAL Administration Chlorpromazine HCl 50 mg 06/04/19 21:56 06/04/19 22:12 Thorazine Injection - IM 50 mg Q4H PRN Administration AGITATION Cholecalciferol 2,000 unit 05/17/19 10:00 06/05/19 09:49 Vitamin D3 - PO 2,000 unit DAILY REAL Administration Clonazepam 1 mg 06/05/19 22:00 Klonopin - PO BID REAL Clonazepam 0.5 mg 06/05/19 13:00 Klonopin - PO BID REAL Divalproex Sodium 750 mg 05/17/19 21:00 06/04/19 21:27 Depakote *Er* - PO 750 mg DAILY@2100 REAL Administration Divalproex Sodium 500 mg 05/23/19 11:14 06/05/19 08:34 Depakote *Er* - PO 500 mg DAILY@0800 REAL Administration Docusate Sodium 100 mg 05/17/19 10:00 06/05/19 09:48 Colace - PO 100 mg DAILY REAL Administration Hydrochlorothiazide 25 mg 05/17/19 10:00 06/05/19 09:49 Hctz - PO 25 mg DAILY REAL Administration Ceftriaxone Sodium 2 gm/ 100 mls @ 200 mls/hr 05/17/19 10:00 06/05/19 09:48 Dextrose IVPB 200 mls/hr DAILY REAL Administration Protocol Lisinopril 5 mg 05/17/19 21:00 06/04/19 21:27 Prinivil PO 5 mg DAILY@2100 REAL Administration Metoprolol Tartrate 12.5 mg 05/17/19 22:00 06/05/19 09:48 Lopressor - PO 12.5 mg BID REAL Administration Nystatin 1 applic 06/01/19 11:45 06/05/19 09:49 Mycostatin Cream - TP 1 applic BID REAL Administration Quetiapine Fumarate 200 mg 05/18/19 21:53 06/05/19 08:31 Seroquel - PO 200 mg 0800,1600 REAL Administration Quetiapine Fumarate 400 mg 05/26/19 22:00 06/04/19 21:27 Seroquel - PO 400 mg HS REAL Administration Trazodone HCl 50 mg 05/17/19 22:00 06/04/19 21:27 Desyrel - PO 50 mg HS REAL Administration Trazodone HCl 25 mg 05/17/19 12:00 06/05/19 08:32 Desyrel - PO 25 mg 0800,1200,1600 REAL Administration ASSESSMENT/PLAN: Problem List - Problems (1) Cellulitis Assessment/Plan: L prepatellar bursitis improving s/p left knee aspiration done by Ortho on 05/18 and again on 05/28. continue ceftriaxone (to complete on 06/06/2019 which will be his last dose). Plan was for PICC, but due to jail legal requirements, patient will not be able to go back there with a central line. Unable to come to infusion suite daily and SNF placement was not able to be placed. Code(s): L03.90 - CELLULITIS, UNSPECIFIED (2) Agitation Assessment/Plan: very agitated at times. Left arm now swollen/reddened. Ruled out for DVT and fracture. continue home medications. continue physical therapy as tolerated c/w prescribed antipsychotics/sedatives head CT without acute pathology appreciate ID consultation c/w ceftriaxone until 06/06 c/w all psych meds Code(s): R45.1 - RESTLESSNESS AND AGITATION (3) Bursitis Assessment/Plan: L prepatellar bursitis improving s/p left knee aspiration done by Ortho on 05/18 and again on 05/28. Awaiting cultures for repeated aspiration continue ceftriaxone (to complete on 06/06/2019 which will be his last dose). Plan was for PICC, but due to jail legal requirements, patient will not be able to go back there with a central line. Code(s): M71.9 - BURSOPATHY, UNSPECIFIED (4) Developmental delay, severe Assessment/Plan: supportive care. aides at bedside and provide cares for patient. Code(s): R62.50 - UNSP LACK OF EXPECTED NORMAL PHYSIOL DEV IN CHILDHOOD (5) HTN (hypertension) Assessment/Plan: controlled lisinopril, hold hctz, metoprolol cardiac diet Code(s): I10 - ESSENTIAL (PRIMARY) HYPERTENSION (6) Seizure Assessment/Plan: c/w depakote fall precautions Code(s): R56.9 - UNSPECIFIED CONVULSIONS (7) Hyponatremia Assessment/Plan: monitor daily, encourage adequate PO intake Code(s): E87.1 - HYPO-OSMOLALITY AND HYPONATREMIA (8) DVT prophylaxis Assessment/Plan: heparin bid Code(s): Z29.9 - ENCOUNTER FOR PROPHYLACTIC MEASURES, UNSPECIFIED Visit type - Emergency Visit Emergency Visit: Yes ED Registration Date: 05/16/19 Care time: The patient presented to the Emergency Department on the above date and was hospitalized for further evaluation of their emergent condition. - New Patient This patient is new to me today: No - Critical Care Critical Care patient: No - Discharge Referral Referred to [facility] No
[2019-06-05] MEDS: clonazePAM 0.5 MG TABLET PO SCH ×2 (13:07→21:00)
[2019-06-05] MEDS: chlorproMAZINE HCL 25 MG/1 ML AMP IM PRN (16:41)
[2019-06-05] MEDS: ATORVASTATIN CA 20 MG TABLET (FP) PO SCH (21:00)
[2019-06-05] MEDS: LISINOPRIL 5 MG TABLET (FP) PO SCH (21:02)
[2019-06-05] MEDS ORDERED: clonazePAM 0.5 MG TABLET PO SCH (22:00)
[2019-06-06] MEDS ORDERED: PT OWN MED DRAWER 7, Y5N ONE (08:03)
[2019-06-06] MEDS: QUEtiapine FUMARATE 200 MG TABLET PO SCH (09:00)
[2019-06-06] MEDS: traZODone HCL 50 MG TABLET (FP) PO SCH (09:01)
[2019-06-06] MEDS ORDERED: DEXTROSE 5%-WATER 100 ML IVPB ONE (09:03)
[2019-06-06] MEDS: CHOLECALCIFEROL (VIT D3) 1,000 UNIT (25 MCG) TABLET PO SCH (09:07)
[2019-06-06] MEDS: clonazePAM 0.5 MG TABLET PO SCH (09:07)
[2019-06-06] MEDS: HYDROCHLOROTHIAZIDE 25 MG TABLET (FP) PO SCH (09:08)
[2019-06-06] MEDS: CEFTRIAXONE 2 GM in DEXTROSE 5%-WATER 100 ML IVPB SCH (09:08)
[2019-06-06] MEDS: DOCUSATE SODIUM 100 MG CAPSULE (FP) PO SCH (09:08)
[2019-06-06] MEDS: NYSTATIN 100,000 UNIT/GM TOPICAL CREAM 15 GM TUBE TP SCH (09:08)
[2019-06-06] MEDS: METOPROLOL TARTRATE 25 MG TABLET (FP) PO SCH (09:08)
--- NOTE | 2019-06-06 09:41 | DS ---
Physical Exam: SUBJECTIVE: Patient seen and examined OBJECTIVE: Patient is a 38 year old male with a significant past medical history of autism , HTN, sz disorder admitted for work up of lethargy and was noted to have left knee joint infection. He is now s/p aspiration on 05/18/19 and repeat aspiration was done again by ortho on 05/28/19. He was treated with Ceftriaxone 2 grams and his last dose of ceftriaxone is today. He will be discharged today back to his half-way with orthopedic follow up as an outpatient. During hospital stay, we are unable to place a central line as his facility will not accept him back to facility with central line. Vital Signs Period Temp Pulse Resp BP Sys/Baldwin Pulse Ox Last 24 Hr 9.0 F-98.2 F 90-109 20-20 116-134/75-82 97 PHYSICAL EXAM GENERAL: The patient is awake, alert, in no acute distress. HEAD: Normal with no signs of trauma. EYES: PERRL, extraocular movements intact, sclera anicteric, conjunctiva clear. ENT: Ears normal, nares patent, oropharynx clear without exudates, moist mucous membranes. NECK: Trachea midline, full range of motion, supple. LUNGS:regular w/o accessory muscle use HEART: Regular rate and rhythm ABDOMEN: Soft, nontender, nondistended, normoactive bowel sounds, no guarding, no rebound, no hepatosplenomegaly, no masses. EXTREMITIES: no edema. NEUROLOGICAL: Cranial nerves II through XII grossly intact. Normal speech, gait not observed. PSYCH: Normal mood, normal affect. SKIN: Left knee healing inferior patella lesion. non-tender to palpation LABS HOSPITAL COURSE: Date of Admission:05/16/19 Date of Discharge: 06/06/19 Minutes to complete discharge: 45 Discharge Summary Problems reviewed: Yes Reason For Visit: SEPSIS Current Active Problems Agitation (Acute) Altered mental state (Acute) Bursitis (Acute) Cellulitis (Acute) DVT prophylaxis (Acute) DVT prophylaxis (Acute) Developmental delay, severe (Acute) HTN (hypertension) (Acute) Hyponatremia (Acute) Infrapatellar bursitis of left knee (Acute) Preventive measure (Acute) Seizure (Acute) Sepsis (Acute) Hospital Course: 1330 38yo M hx autism, HTN, behavior disorder, seizure disorder, and obesity presents from half-way with lethargy and AMS x1 day. Per half-way workers at bedside, pt's baseline is walking, talking (slightly slurred speech), and taking care of self. Pt was at baseline in [facility] yesterday, last seen normal yesterday afternoon. When they checked on him this AM, he was in bed lethargic but still able to walk and talk. Pt ate a little then went back to sleep. Pt was checked in at approximately 1200 and was found severely lethargic, responsive only to painful stimuli, unable to walk or talk. fat pressroom worker says he has never been like this before. States the half-way is in charge of his medications and did not recently change his medications. States they did not notice any fever, vomiting, or indications of pain. Denies head trauma or falls. Upon arrival, pt is responsive only to pain, nonverbal, moving all extremities on own, opens eyes to painful stimulus, able to swallow secretions, in no respiratory distress, managing airway, no indications of pain on physical exam. Tachycardic to 100s, hypotensive 80s/50s, tachypneic 20s, O2 98% on RA, rectal temp 100.0, +small wound with extensive surrounding erythema and warmth overlying L chopra/knee. Meds: Metoprol, Clonazepam, Trazodone, Klor-Con, Hydrochlorot, Lisinopril, Atorvastatin, Cetirizine, Docusate, Divalproex, Quetiapine, Chlorpromazine PCP - Dr Mcdaniel High concern for sepsis, most likely 2/2 LLE cellulitis, but also consider UTI or PNA - r/o with sepsis w/u including UTI and UA. Also consider meningitis, though of lower concern due to supple neck and low-grade fever, will consider further testing pending w/u. Due to AMS, obtain CTH to r/o ICH, though of lower concern due to lack of reported head injury. Also consider metabolic derangement , anemia, or cardiac etiology - r/o w/labs including fingerstick glucose and EKG. -Fingerstick glucose -Sepsis w/u: CBC, CMP, Coags, Trop, Lact, ABG, BCx x2, UA/UC -IVF -CTH -CXR -EKG -Monitor -Dispo: likely admit pending w/u 1400 CTH reviewed. No acute pathology. Fingerstick glucose reviewed. 1613 Labs drawn from radial artery. Labs sent. CXR ordered. IVF running in R hand. 1648 Labs reviewed. Of note, WBC WNL, lact 0.7. BP 110s/60s. d/c 2nd lact. No septic shock. Tachycardia, hypotension, and tachypnea resolved s/p IVF. 1657 Start vanc/zosyn. Admit for sepsis 2/2 LLE cellulitis. 173 2nd CXR obtained, attempted better inspiratory effort but still poor. Signed out to admitting team. Condition: Improved - Instructions Diet, Activity, Other Instructions: Mr. Li/Facility staff: Mr. Li was admitted to [facility] on 05/16/2019 for left knee bursitis/infection. Patient completed 2 week course of antibiotics for his left knee bursitis. During hospital stay, he was followed by orthopedics and ID specialist as well as the hospitalist team. We will be sending Mr. Li back to his facility. Here are our discharge instructions. #Left Knee Bursitis Left prepatellar bursitis status post left knee aspiration done by orthopedics on 05/18/19 and again on 06/07/19. He was placed on Ceftriaxone and has completed Ceftriaxone 2 grams today 06/06/2019. HE WILL NOT REQUIRE ANY FURTHER ANTIBIOTICS. He will need to follow up with orthopedics on discharge. Please call their office to make an appointment that works for Mr. Li's schedule. Their information is enclosed. Please consider wrapping his knees with marta bandages if he will be on his knees for prolonged periods. A soft cushioned rug may also be helpful. #Agitation Multiple episodes of agitation during hospital stay. Please continue his home medications and follow up with psyche at the facility. #Hypertension Controlled. continue medications as outlined in the discharge instructions. Monitor his serum sodium while on the HCTZ. FOLLOW UPS - Follow up with primary care physician on discharge from hospital - Follow up blood work routinely as recommended by PCP - Follow up with orthopedics for left knee bursitis. Thank you for allowing us to care for you. Referrals: Ni Owens MD [Staff Physician] - Morgan House PA [Physician Aviation Safety Equipment Technician] - Disposition: CUSTODIAL FACILITY - Home Medications Comprehensive Discharge Medication List: Ambulatory Orders Cetirizine HCl [Wal-Zyr] 10 mg PO DAILY 08/28/14 Cholecalciferol (Vitamin D3) [Vitamin D3] 2,000 unit PO DAILY 08/28/14 Clonazepam 0.5 mg PO BID 08/28/14 Clonazepam 1 mg PO BID 08/28/14 Divalproex *ER* [Depakote *ER* -] 500 mg PO AM 08/28/14 Divalproex [Depakote -] 750 mg PO HS 08/28/14 Docusate Sodium [Colace -] 100 mg PO DAILY 08/28/14 Hydrochlorothiazide [Hctz -] 25 mg PO AM 08/28/14 Lisinopril [Prinivil] 5 mg PO DAILY 08/28/14 Potassium Chloride [Klor-Con 10] 10 meq PO DAILY 08/28/14 Quetiapine Fumarate "Xr" [Seroquel XR] 200 mg PO BID 08/28/14 Quetiapine Fumarate [Seroquel -] 400 mg PO HS 08/28/14 traZODone HCL [Desyrel -] 25 mg PO TID 08/28/14 Atorvastatin Ca [Lipitor] 20 mg PO HS 05/16/19 Chlorpromazine [Thorazine -] 100 mg PO BID 05/16/19 Metoprolol Tartrate 25 mg PO BID 05/16/19 Sodium Chloride [Saline Nasal Mist] 126 ml NS BID 05/16/19 traZODone HCL [Trazodone HCl] 50 mg PO HS 05/16/19 Prescription Drug Monitoring Program (I-STOP) results: I-STOP not reviewed Problem List - Problems (1) Cellulitis Assessment/Plan: L prepatellar bursitis improving s/p left knee aspiration done by Ortho on 05/18 and again on 05/28. Completed Ceftriaxone 2 grams today. Plan was for PICC, but due to [facility]-way legal requirements, patient will not be able to go back there with a central line. Unable to come to infusion suite daily and SNF placement was not able to be placed. Will need to follow up with orthopedics as an outpatient Patient should be kept off his knees as much as possible Problems reviewed: Yes Code(s): L03.90 - CELLULITIS, UNSPECIFIED (2) Agitation Assessment/Plan: continue home medications. c/w prescribed antipsychotics/sedatives head CT without acute pathology Problems reviewed: Yes Code(s): R45.1 - RESTLESSNESS AND AGITATION (3) Bursitis Assessment/Plan: L prepatellar bursitis improving s/p left knee aspiration done by Ortho on 05/18 and again on 05/28. Treated with ceftriaxone based on knee culture. completed antibiotics today . No further antibiotics. Problems reviewed: Yes Code(s): M71.9 - BURSOPATHY, UNSPECIFIED (4) Developmental delay, severe Assessment/Plan: supportive care. aides at bedside and provide cares for patient. Problems reviewed: Yes Code(s): R62.50 - UNSP LACK OF EXPECTED NORMAL PHYSIOL DEV IN CHILDHOOD (5) HTN (hypertension) Assessment/Plan: controlled. continue home medications. HCTZ was held here for hyponatremia. Monitor labs as an outpatient. hyponatremia resolved. Problems reviewed: Yes Code(s): I10 - ESSENTIAL (PRIMARY) HYPERTENSION (6) Seizure Assessment/Plan: c/w depakote fall precautions Problems reviewed: Yes Code(s): R56.9 - UNSPECIFIED CONVULSIONS (7) Hyponatremia Assessment/Plan: monitor daily, encourage adequate PO intake Problems reviewed: Yes Code(s): E87.1 - HYPO-OSMOLALITY AND HYPONATREMIA (8) DVT prophylaxis Assessment/Plan: discharge today Problems reviewed: Yes Code(s): Z29.9 - ENCOUNTER FOR PROPHYLACTIC MEASURES, UNSPECIFIED This patient is new to me today: No Emergency Visit: Yes ED Registration Date: 05/16/19 Care time: The patient presented to the Emergency Department on the above date and was hospitalized for further evaluation of their emergent condition. Critical Care patient: No - Discharge Referral Referred to [facility] No
[2019-06-06] MEDS: DIVALPROEX NA *ER* EXTEND REL 250 MG TABLET.SA PO SCH (10:24)
[2019-06-06] MEDS: chlorproMAZINE HCL 100 MG TABLET PO SCH (10:24)
[2019-06-06 10:58] VITALS: BP 145/85; PULSE 110; TEMP 98.2
--- NOTE | 2019-06-06 11:23 | PN ---
Progress Note, Physician History of Present Illness: stable no new issues com[pleted abx course - Objective Vital Signs: Vital Signs Temperature 98.2 F 06/06/19 10:00 Pulse Rate 110 H 06/06/19 10:00 Respiratory Rate 20 06/06/19 10:00 Blood Pressure 145/85 06/06/19 10:00 O2 Sat by Pulse Oximetry (%) 97 06/05/19 22:00 Constitutional: Yes: No Distress, Calm Cardiovascular: Yes: S1, S2 Respiratory: Yes: Regular, CTA Bilaterally Gastrointestinal: Yes: Normal Bowel Sounds, Soft Musculoskeletal: Yes: WNL Extremities: Yes: WNL Neurological: Yes: Other Psychiatric: Yes: Other Labs: CBC, BMP 06/04/19 07:35 06/04/19 07:35 INR, PTT INR 1.18 (0.83-1.09) H 05/16/19 16:04 Assessment/Plan Problem List - Problems (1) Altered mental state Code(s): R41.82 - ALTERED MENTAL STATUS, UNSPECIFIED (2) Cellulitis Code(s): L03.90 - CELLULITIS, UNSPECIFIED (3) Developmental delay, severe Code(s): R62.50 - UNSP LACK OF EXPECTED NORMAL PHYSIOL DEV IN CHILDHOOD (4) HTN (hypertension) Code(s): I10 - ESSENTIAL (PRIMARY) HYPERTENSION (5) Seizure Code(s): R56.9 - UNSPECIFIED CONVULSIONS (6) Sepsis Code(s): A41.9 - SEPSIS, UNSPECIFIED ORGANISM 7 septic knee left Assessment/Plan 38 y.o. male with PMH of autism/developmental delay, seizure d.o., HTN brought in from correction for AMS/lethargy noted x 1 day, low grade fever, Lt tibial fluctuant lesion AMS - now easily arousable Lt patellar bursitis s/p aspiration Fever - resolved completed abx rest as per the team
== END 2019-06-06 11:09 | disposition home or self-care (01) | DRG 720 ==
LOC: JER 13:00 → JERBED 16:56 → J6S 05-17 01:59
PROVIDERS: ADMIT Internal Medicine; ATTEND Nurse Practitioner Family
PROC: 0Y9 Anatomical Regions, Lower Extremities, Drainage (ICD-10-PCS; principal; 2019-05-18)
DX: A41.01 Sepsis due to Methicillin susceptible Staphylococcus aureus (principal); G93.41 Metabolic encephalopathy; R62.50 Unspecified lack of expected normal physiological development in childhood; I10 Essential (primary) hypertension; M70.42 Prepatellar bursitis, left knee; L03.116 Cellulitis of left lower limb; R45.1 Restlessness and agitation; R56.9 Unspecified convulsions; E87.1 Hypo-osmolality and hyponatremia; R41.82 Altered mental status, unspecified; E66.9 Obesity, unspecified; Z68.29 Body mass index [BMI] 29.0-29.9, adult; F84.0 Autistic disorder
CPT/HCPCS: 36415; 36600; 70450-TC; 71045-TC-FY; 73060-TC-LT-FY; 73562-TC-LT-FY; 73719-LT; 76705-TC; 80053; 80164; 82375; 82803; 82962; 83050; 83605; 83735; 84443; 84484; 85025; 85027; 85610; 85651; 85730; 86140; 87040; 87070; 87075; 87186; 87205; 89060; 93005; 93010; 93970-TC; 93971; 97116-GP; 97161-GP; 99283-25; J1644; J7030; Q2036

== ENCOUNTER 2019-09-24 20:24 | Emergency (ER) | payer OTHER ==
--- NOTE | 2019-09-24 20:35 | PDOC ---
History of Present Illness - General Chief Complaint: Choking Sensation Stated Complaint: DIFFICULTY BREATHING Time Seen by Provider: 09/24/19 20:31 - History of Present Illness Initial Comments: 09/24/19 20:35 HPI: 38 y/o M with hx of autism, HTN, severe mitral stenosis, intellectual disability , seizure disorder from [facility] presenting following a choking incident during dinner. They were eating pasta and sausage. Heimlich was performed at facility and patient had episode of emesis. Per EMS, initial sats on arrival were 86%. Patient had additional emesis en route. In ED, O2 100% , patient with increased secretions from baseline per aide, however, mentating is normal. During interview process, additional emesis of large piece of sausage was expectorated. Aide states secretions is now baseline. PMHx: as noted above ROS: as noted SHx: lives at [facility] Allergies: NKDA ROS: unable to perform 2/2 patient mental status PE: GENERAL: Awake, a&ox1 (baseline), responds with simple commands HEAD: No signs of trauma, normocephalic, atraumatic EYES: EOMI, sclera anicteric, conjunctiva clear ENT: Auricles normal inspection, hearing grossly normal, nares patent, oropharynx clear without exudates. Moist mucosa. occasional drooling, macroglossia NECK: Normal ROM, no lymphadenopathy, no stridor LUNGS: No increased work of breathing, symmetrical chest rise, clear to auscultation bilaterally, no wheezes, crackles or rhonchi, no stridor HEART: Regular rate, regular rhythm, normal S1 and S2, no murmur, peripheral pulses 2+ and equal bilaterally. ABDOMEN: Soft, nondistended, nontender, normoactive bowel sounds. No guarding, no rebound. No masses. No CVAT MUSCULOSKELETAL: FROM NEUROLOGICAL: Cranial nerves II through XII grossly intact. Normal speech, normal gait, no focal sensorimotor deficits SKIN: Warm, Dry, normal turgor, no rashes or lesions noted Past History - Past Medical History Allergies/Adverse Reactions: Allergies Allergy/AdvReac Type Severity Reaction Status Date / Time haloperidol [From Haldol] AdvReac Severe Verified 05/28/19 16:49 lorazepam [From Ativan] AdvReac Severe Verified 05/28/19 16:49 Home Medications: Ambulatory Orders Cetirizine HCl [Wal-Zyr] 10 mg PO DAILY 08/28/14 Cholecalciferol (Vitamin D3) [Vitamin D3] 2,000 unit PO DAILY 08/28/14 Clonazepam 0.5 mg PO BID 08/28/14 Clonazepam 1 mg PO BID 08/28/14 Divalproex *ER* [Depakote *ER* -] 500 mg PO AM 08/28/14 Divalproex [Depakote -] 750 mg PO HS 08/28/14 Docusate Sodium [Colace -] 100 mg PO DAILY 08/28/14 Hydrochlorothiazide [Hctz -] 25 mg PO AM 08/28/14 Lisinopril [Prinivil] 5 mg PO DAILY 08/28/14 Potassium Chloride [Klor-Con 10] 10 meq PO DAILY 08/28/14 Quetiapine Fumarate "Xr" [Seroquel XR] 200 mg PO BID 08/28/14 Quetiapine Fumarate [Seroquel -] 400 mg PO HS 08/28/14 traZODone HCL [Desyrel -] 25 mg PO TID 08/28/14 Atorvastatin Ca [Lipitor] 20 mg PO HS 05/16/19 Chlorpromazine [Thorazine -] 100 mg PO BID 05/16/19 Metoprolol Tartrate 25 mg PO BID 05/16/19 Sodium Chloride [Saline Nasal Mist] 126 ml NS BID 05/16/19 traZODone HCL [Trazodone HCl] 50 mg PO HS 05/16/19 COPD: No HTN: Yes Seizures: Yes - Immunization History Immunization Up to Date: Yes - Psycho Social/Smoking Cessation Hx Smoking History: Never smoked Have you smoked in the past 12 months: No Number of Cigarettes Smoked Daily: 0 Hx Alcohol Use: No Drug/Substance Use Hx: No Substance Use Type: None Medical Decision Making - Medical Decision Making 09/24/19 21:53 38 y/o M with hx of autism, HTN, severe mitral stenosis, intellectual disability , seizure disorder from [facility] presenting following a choking incident during dinner s/p Heimlich and 3 episodes of emesis with large chunks of food. Last emesis here in the ED and since then has been having baseline oral secretions. VSS, AF, O2 100%. PE with macroglossia but otherwise unremarkable -CXR -PO challenge: patient tolerating water and juice; patient tolerated pudding -will observe and reassess 09/24/19 22:39 patient doing well and no more epsidoes of emesis; will DC home with instructions for cutting up food more thoroughly Discharge - Discharge Information Problems reviewed: Yes Clinical Impression/Diagnosis: Choking Qualifiers: Encounter type: initial encounter Qualified Code(s): T17.308A - Unspecified foreign body in larynx causing other injury, initial encounter Condition: Improved Disposition: HOME - Follow up/Referral - Patient Discharge Instructions Patient Printed Discharge Instructions: DI for Choking Episode Additional Instructions: Additional Instructions: Please return to the emergency department with any new or worsening symptoms or concerns. Please follow up with your primary care physician within 72 hours. Please ensure patient receives food in adequately cut up pieces to prevent additional episodes of choking - Post Discharge Activity
--- NOTE | 2019-09-24 21:51 | PDOC ---
Attending Attestation - Resident Resident Name: Mima Flores - ED Attending Attestation I have performed the following: I have examined & evaluated the patient, The case was reviewed & discussed with the resident, I agree w/resident's findings & plan, Exceptions are as noted
--- NOTE | 2019-09-24 22:01 | PDOC ---
Documentation entered by Ta Lopes SCRIBE, acting as scribe for Magdalena Leyva MD. Magdalena Leyva MD: This documentation has been prepared by the Marianne yeh Xhesika, SCRIBE, under my direction and personally reviewed by me in its entirety. I confirm that the documentation accurately reflects all work, treatment, procedures, and medical decision making performed by me. Attending Attestation - Resident Resident Name: Mima Flores - ED Attending Attestation I have performed the following: I have examined & evaluated the patient, The case was reviewed & discussed with the resident, I agree w/resident's findings & plan, Exceptions are as noted - HPI HPI: 09/24/19 21:53 The patient is a 38 year old male with a significant PMH of autism, HTN, severe mitral stenosis, intellectual disability, seizure disorder who presents to the emergency department [facility] from [facility] s/p choking incident 1hr prior to arrival. Pt was eating a piece of sausage for dinner when he felt the food get stuck in his throat. EMS reports patient endorsed a episode of vomiting enroute to the ED. Aide at bedside notes the patient endorses drooling at baseline. The patient denies chest pain, shortness of breath, headache and dizziness. Denies fever, chills, cough, nausea, diarrhea and constipation. Denies dysuria, frequency, urgency and hematuria. Allergies: Haloperidol, Lorazepam - Physicial Exam PE: 09/24/19 21:56 GENERAL: Awake, alert, in no acute distress HEAD: No signs of trauma EYES: PERRLA, EOMI, sclera anicteric, conjunctiva clear ENT: Auricles normal inspection, hearing grossly normal, nares patent, oropharynx clear without exudates. Moist mucosa. +macroglossia. +drooling at baseline LUNGS: Breath sounds equal, clear to auscultation bilaterally. No wheezes, and no crackles HEART: Regular rate and rhythm, normal S1 and S2, no murmurs, rubs or gallops ABDOMEN: Soft, nontender, normoactive bowel sounds. No guarding, no rebound. No masses EXTREMITIES: Normal range of motion, no edema. No clubbing or cyanosis. No cords, erythema, or tenderness NEUROLOGICAL: Able to drink Apple Juice with a straw and eat pudding. SKIN: Warm, Dry, normal turgor, no rashes or lesions noted. - Medical Decision Making 09/24/19 22:01 Patient's pulse ox is been between 99 - 100% on room air He was able to drink apple juice and eat pudding with no difficulty 09/24/19 22:33 this pt had choked will eating sausage and vomited after a hiemlich maneuver and also in the ambulance and in the ED where a piece of sausage was seen in the emesis cxr unchaged from prior imp choking episode resolved
[2019-09-24 22:57] VITALS: BMI 34.0
[2019-09-25 00:42] VITALS: BP 134/99; PULSE 104
== END 2019-09-24 23:08 | disposition home or self-care (01) ==
LOC: JER 20:24
DX: T17.328A Food in larynx causing other injury, initial encounter (principal); X58.XXXA Exposure to other specified factors, initial encounter; Y93.89 Activity, other specified; Y92.098 Other place in other non-institutional residence as the place of occurrence of the external cause; Y99.8 Other external cause status; G40.909 Epilepsy, unspecified, not intractable, without status epilepticus; F79 Unspecified intellectual disabilities; F84.0 Autistic disorder; I10 Essential (primary) hypertension; I05.0 Rheumatic mitral stenosis
CPT/HCPCS: 71045-TC-FY; 99282-25

== ENCOUNTER 2020-03-27 17:32 | Emergency (ER) | payer OTHER ==
[2020-03-27 17:44] VITALS: BP 127/91; PULSE 74; TEMP 98; BMI 34.7
--- NOTE | 2020-03-27 17:50 | PDOC ---
History of Present Illness - General Chief Complaint: Lethargy Stated Complaint: CHOKING SENSATION Time Seen by Provider: 03/27/20 17:48 History Source: Care Provider, [facility] Records Exam Limitations: Clinical Condition - History of Present Illness Initial Comments: 03/27/20 17:49 39 yo M with PMHx of autism with intellectual developmental, HTN, mitral stenosis, swallowing disorder seizure disorder, who is presenting from [facility] for choking and subsequent lethargy. At 5pm, pt stole peanut butter waffles from [employer], ran up to room and choked while eating. Staff visualized half digested waffle on ground when pt coughing. Subsequently became sleepy. Currently not in respiratory distress, still speaking phrases, not drooling. Baseline activity alternates between sleepy from medication (includes seroquel and trazadone given at 12 or 4pm) and aggressive, scratching other people. Pt can only eat chopped up food and thin liquids d/t swallowing di sorder. Past History - Medical History Allergies/Adverse Reactions: Allergies Allergy/AdvReac Type Severity Reaction Status Date / Time haloperidol [From Haldol] AdvReac Severe Verified 05/28/19 16:49 lorazepam [From Ativan] AdvReac Severe Verified 05/28/19 16:49 Home Medications: Ambulatory Orders Cetirizine HCl [Wal-Zyr] 10 mg PO DAILY 08/28/14 Cholecalciferol (Vitamin D3) [Vitamin D3] 2,000 unit PO DAILY 08/28/14 Clonazepam 0.5 mg PO BID 08/28/14 Clonazepam 1 mg PO BID 08/28/14 Divalproex *ER* [Depakote *ER* -] 500 mg PO AM 08/28/14 Divalproex [Depakote -] 750 mg PO HS 08/28/14 Docusate Sodium [Colace -] 100 mg PO DAILY 08/28/14 Hydrochlorothiazide [Hctz -] 25 mg PO AM 08/28/14 Lisinopril [Prinivil] 10 mg PO BID 08/28/14 Potassium Chloride [Klor-Con 10] 10 meq PO DAILY 08/28/14 Quetiapine Fumarate "Xr" [Seroquel XR] 200 mg PO BID 08/28/14 Quetiapine Fumarate [Seroquel -] 400 mg PO HS 08/28/14 traZODone HCL [Desyrel -] 25 mg PO TID 08/28/14 Atorvastatin Ca [Lipitor] 10 mg PO HS 05/16/19 Chlorpromazine [Thorazine -] 100 mg PO BID 05/16/19 Metoprolol Tartrate 12.5 mg PO BID 05/16/19 Sodium Chloride [Saline Nasal Mist] 126 ml NS BID 05/16/19 traZODone HCL [Trazodone HCl] 50 mg PO HS 05/16/19 Ammonium Lactate Cream [Lac-Hydrin 12% *Cream*] 1 applic TP BID 03/27/20 Docusate Sodium [Docusate 100 mg] 100 mg PO DAILY 03/27/20 Hydrochlorothiazide 25 mg PO DAILY 03/27/20 [place]-3/Dha/Epa/Fish Oil [Fish Oil 1,000 mg Softgel] 1 each PO DAILY 03/27/20 Vit D3-Vit K/Berberine/Hops [Ostera Tablet] 1 each PO DAILY 03/27/20 COPD: No HTN: Yes Seizures: Yes - Immunization History Immunization Up to Date: Yes - Psycho-Social/Smoking History Smoking History: Never smoked Have you smoked in the past 12 months: No Number of Cigarettes Smoked Daily: 0 - Substance Abuse Hx (Audit-C & DAST Scrn) How often the patient has a drink containing alcohol: Never Score: In Men: 4 or > Positive; In Women: 3 or > Positive: 0 Screen Result (Pos requires Nsg. Audit-10AR): Negative In the last yr the pt used illegal drug/Rx for NonMed reason: No Score: Yes response is considered Positive: 0 Screen Result (Positive result requires Nsg. DAST-10): Negative Review of Systems - Review of Systems Able to Perform ROS?: No (non verbal) *Physical Exam - Vital Signs Last Vital Signs Temp Pulse Resp BP Pulse Ox 98 F 74 16 127/91 100 03/27/20 17:35 03/27/20 17:35 03/27/20 17:35 03/27/20 17:35 03/27/20 17:35 - Physical Exam General Appearance: Yes: Nourished, Appropriately Dressed. No: Apparent Distress HEENT: positive: EOMI, MISSY, Normal Voice (nonsensical sounds). negative: Scleral Icterus (R), Scleral Icterus (L) Respiratory/Chest: positive: Lungs Clear, Normal Breath Sounds. negative: Chest Tender, Respiratory Distress Cardiovascular: positive: Regular Rhythm, Regular Rate, S1, S2. negative: Edema, Murmur Comments:: 2+ radial, DP pulses sandeep Gastrointestinal/Abdominal: positive: Normal Bowel Sounds, Flat, Soft. negative: Tender, Organomegaly Integumentary: positive: Normal Color, Warm. negative: Dry Neurologic: positive: Normal Mood/Affect (sleepy, opens eyes to command), Respond to painful stimul, Other (moving all extremities spontaneously) Medical Decision Making - Medical Decision Making 03/27/20 19:20 CXR - --- 39 yo M with PMH of autism with intellectual developmental, HTN, mitral stenosis, swallowing disorder seizure disorder, who is presenting from [facility] for choking and subsequent lethargy. Concern for aspiration PNA. Lethargy may also be 2/2 home meds (inc seroquel, trazadone). No sign of food impaction (no respiratory distress, pt tolerating secretions, speaking phrases) Anticipate OK home Signed out to night resident - pending blood labs, CXR - call [facility] for list of meds given today Discharge - Discharge Information Problems reviewed: Yes Clinical Impression/Diagnosis: Lethargy Choking Qualifiers: Encounter type: initial encounter Qualified Code(s): T17.308A - Unspecified foreign body in larynx causing other injury, initial encounter Condition: Stable - Follow up/Referral Referrals: Shena Mcdaniel [Primary Care Provider] - - Patient Discharge Instructions - Post Discharge Activity
--- NOTE | 2020-03-27 18:41 | PDOC ---
Attending Attestation - Resident Resident Name: Mega Ibarra - ED Attending Attestation I have performed the following: I have examined & evaluated the patient, The case was reviewed & discussed with the resident, I agree w/resident's findings & plan - HPI HPI: 03/27/20 18:41 39 yo M with PMH of autism with intellectual developmental, HTN, mitral stenosis, and seizure disorder, who is presenting from [facility] for choking after eating waffles with peanut butter subsequent lethargy. Staff visualized half digested waffle on ground when pt coughing. Subsequently became sleepy. Currently not in respiratory distress, still speaking phrases, not drooling. Baseline activity alternates between sleepy from medication (includes seroquel and trazadone given at 12 or 4pm) and aggressive, scratching other people. Pt can only eat chopped up food and thin liquids d/t swallowing disorder. 03/28/20 09:40 - Physicial Exam PE: 03/27/20 18:39 GENERAL: no distress HEENT: PERRLA, EOMI, moist mucous membranes, NCAT. baseline disconjugate gaze. NECK/BACK: full ROM, neck supple CARDIOVASCULAR: regular rate/rhythm, normal rate, strong peripheral pulses, capillary refill <2 seconds, extremities wwp, no edema LUNGS/RESPIRATORY: no respiratory distress, lungs clear. ABDOMEN: symmetric [id number], normoactive BS, soft, no ttp MSK/EXTREMITIES: no muscle atrophy, no acute deformity SKIN: warm and dry, no pallor, no jaundice, no rash, no pathologic-appearing bruising, no skin breakdown, no cuts, no lesions NEUROLOGICAL: GCS 15, 5/5 strength proximally and distally, no facial droop 03/28/20 09:40 - Medical Decision Making 03/27/20 18:40 Vital Signs Temp Pulse Resp BP Pulse Ox 98 F 74 16 127/91 100 03/27/20 17:35 03/27/20 17:35 03/27/20 17:35 03/27/20 17:35 03/27/20 17:35 vitals reviewed wnl no respiratory distress normal sats more interactive now baseline mental status ddx. aspiration, anemia, electrolyte/metabolic derangements, ACS, arrhythmia, infection had choking episode when he ate solid food cxr to eval for pna/aspiration low threshold for abx s/o to nighttime attg Dr Dunbar pending labs/cxr, reeval. anticipate discharge 03/28/20 09:41 Discharge - Discharge Information Problems reviewed: Yes Clinical Impression/Diagnosis: Choking Qualifiers: Encounter type: initial encounter Qualified Code(s): T17.308A - Unspecified foreign body in larynx causing other injury, initial encounter Condition: Stable Disposition: INTERMEDIATE FACILITY - Additional Discharge Information Prescriptions: Amoxicillin/Potassium Clav [Augmentin 875-125 Tablet] 1 each PO BID 7 Days #14 tablet Clindamycin [Cleocin -] 600 mg PO TID 7 Days #21 capsule - Follow up/Referral Referrals: Shena Mcdaniel [Primary Care Provider] - - Patient Discharge Instructions Additional Instructions: You were seen in the ED for complaints of choking In the ED you were evaluated with labs and a chest x-ray Your results were within normal limits There does not appear to be an acute need for immediate hospitalization. You are advised to follow up with your Primary Care Physician within 1 week. You were given a prescription for Augmentin and Clindamycin to be taken for the next 7 days Return to the ED immediately if you experience shortness of breath, chest pain, nausea, vomiting, drooling, fevers, chills, coughing. - Post Discharge Activity
--- NOTE | 2020-03-27 19:14 | PDOC ---
*Physical Exam - Vital Signs Last Vital Signs Temp Pulse Resp BP Pulse Ox 98 F 74 16 127/91 100 03/27/20 17:35 03/27/20 17:35 03/27/20 17:35 03/27/20 17:35 03/27/20 17:35 <Aileen Santoro - Last Filed: 03/27/20 21:34> - Vital Signs Last Vital Signs Temp Pulse Resp BP Pulse Ox 98 F 74 16 127/91 100 03/27/20 17:35 03/27/20 17:35 03/27/20 17:35 03/27/20 17:35 03/27/20 17:35 - Physical Exam General Appearance: Yes: Appropriately Dressed. No: Apparent Distress HEENT: positive: EOMI, Normal Voice Neck: negative: Tender, Rigid Respiratory/Chest: positive: Lungs Clear, Normal Breath Sounds. negative: Respiratory Distress Cardiovascular: positive: Regular Rhythm, Regular Rate, S1, S2. negative: Edema Gastrointestinal/Abdominal: positive: Normal Bowel Sounds, Flat, Soft. negative: Tender Musculoskeletal: positive: Normal Inspection. negative: CVA Tenderness Extremity: positive: Normal Capillary Refill, Normal Inspection, Normal Range of Motion Integumentary: positive: Normal Color, Dry, Warm Neurologic: positive: Alert. negative: Fully Oriented <Angelo Fletcher - Last Filed: 03/27/20 21:50> ED Treatment Course - LABORATORY CBC & Chemistry Diagram: 03/27/20 19:00 03/27/20 19:00 - ADDITIONAL ORDERS Additional order review: Laboratory Results 03/27/20 03/27/20 19:00 18:00 Sodium 137 Potassium 4.2 Chloride 98 Carbon Dioxide 32 Anion Gap 6 L BUN 11.3 Creatinine 1.1 Est GFR (CKD-EPI)AfAm 96.81 Est GFR (CKD-EPI)NonAf 83.53 POC Glucometer 143 Random Glucose 103 Calcium 9.2 Total Bilirubin 0.3 AST 36 ALT 34 Alkaline Phosphatase 65 Total Protein 7.2 Albumin 3.7 03/27/20 03/27/20 19:00 18:00 RBC 4.16 MCV 90.5 MCHC 34.4 RDW 12.8 MPV 9.8 Neutrophils % 33.9 L D Lymphocytes % 50.8 H D Monocytes % 6.4 Eosinophils % 7.8 H Basophils % 1.1 POC Glucometer 143 <Aileen Santoro - Last Filed: 03/27/20 21:34> - LABORATORY CBC & Chemistry Diagram: 03/27/20 19:00 03/27/20 19:00 - ADDITIONAL ORDERS Additional order review: Laboratory Results 03/27/20 18:00 POC Glucometer 143 03/27/20 18:00 POC Glucometer 143 <Angelo Fletcher - Last Filed: 03/27/20 21:50> Medical Decision Making - Medical Decision Making 39 yo M with PMH of autism with intellectual developmental, HTN, mitral stenosis, and seizure disorder, who is presenting from [facility] for choking. Labs are unremarkable. CXR is unclear and may show an aspiration pneumonia. Treated with augmentin and clindamycin for potential development of aspiration pneumonia Pt is stable for discharge <Angelo Fletcher - Last Filed: 03/27/20 21:50> Discharge <MaudeAileen - Last Filed: 03/27/20 21:34> - Discharge Information Problems reviewed: Yes - Admission No <Angelo Fletcher - Last Filed: 03/27/20 21:50> - Discharge Information Clinical Impression/Diagnosis: Lethargy Choking Qualifiers: Encounter type: initial encounter Qualified Code(s): T17.308A - Unspecified foreign body in larynx causing other injury, initial encounter Condition: Stable Disposition: CARE HOME FACILITY - Additional Discharge Information Prescriptions: Amoxicillin/Potassium Clav [Augmentin 875-125 Tablet] 1 each PO BID 7 Days #14 tablet Clindamycin [Cleocin -] 600 mg PO TID 7 Days #21 capsule - Follow up/Referral Referrals: Shena Mcdaniel [Primary Care Provider] - - Patient Discharge Instructions Additional Instructions: You were seen in the ED for complaints of choking In the ED you were evaluated with labs and a chest x-ray Your results were within normal limits There does not appear to be an acute need for immediate hospitalization. You are advised to follow up with your Primary Care Physician within 1 week. You were given a prescription for Augmentin and Clindamycin to be taken for the next 7 days Return to the ED immediately if you experience shortness of breath, chest pain, nausea, vomiting, drooling, fevers, chills, coughing. - Post Discharge Activity
[2020-03-27 19:54] LABS: BASO % 1.1 % (0-2.0); EOS % 7.8 % (0-4.5); HEMATOCRIT 37.7 % (35.4-49); LYMPH % 50.8 % (8-40); MCH 31.2 pg (25.7-33.7); MCHC 34.4 g/dl (32.0-35.9); MEAN CELL VOLUME 90.5 fl (80-96); MEAN PLT VOLUME 9.8 fl (7.5-11.1); MONO % 6.4 % (3.8-10.2); NEUT % 33.9 % (42.8-82.8); PLATELET COUNT 169 K/MM3 (134-434); RBC 4.16 M/mm3 (4.00-5.60); RDW 12.8 % (11.9-15.9); WHITE BLOOD COUNT 4.3 K/mm3 (4.0-10.0)
[2020-03-27 20:23] LABS: ALBUMIN 3.7 g/dl (3.4-5.0); BILIRUBIN,TOTAL 0.3 mg/dL (0.2-1); BLOOD UREA NITROGEN 11.3 mg/dL (7-18); CALCIUM 9.2 mg/dL (8.5-10.1); CREATININE 1.1 mg/dL (0.55-1.3); POTASSIUM 4.2 mmol/L (3.5-5.1); TOT PROT 7.2 g/dl (6.4-8.2)
== END 2020-03-27 21:37 ==
LOC: JER 17:32
DX: T17.308A Unspecified foreign body in larynx causing other injury, initial encounter (principal)
CPT/HCPCS: 36415; 71045-TC-FY; 80053; 82962; 85025; 99284-25

== ENCOUNTER 2020-10-08 10:46 | Emergency (ER) | payer OTHER ==
[2020-10-08 10:57] VITALS: BP 148/88; PULSE 72; TEMP 97; BMI 25.8
[2020-10-08] MEDS ORDERED: DIPHTH,PERTUSS(ACELL),TET 0.5 ML DISP.SYRIN IM ONE ×2 (11:56→11:58)
== END 2020-10-08 13:08 | disposition home or self-care (01) ==
LOC: JERFT 10:46
DX: S62.630A Displaced fracture of distal phalanx of right index finger, initial encounter for closed fracture (principal); W23.0XXA Caught, crushed, jammed, or pinched between moving objects, initial encounter
CPT/HCPCS: 73140-TC-RT-FY; 90715; 99283-25

== ENCOUNTER 2020-12-04 10:43 | Inpatient (IN) | payer OTHER ==
[2020-12-04] MEDS ORDERED: DEXTROSE 50%-WATER 25 GM/50 ML DISP.SYRIN ONE ×2 (11:37→12:31)
[2020-12-04] MEDS ORDERED: SODIUM CHLORIDE 0.9% 1000 ML INFUS.BAG IV ONE (11:53)
[2020-12-04 12:20] LABS: BASO % 2.5 % (0-2.0); EOS % 9.5 % (0-4.5); HEMATOCRIT 42.4 % (35.4-49); HEMOGLOBIN 14.7 GM/dL (11.7-16.9); LYMPH % 51.8 % (8-40); MCH 31.5 pg (25.7-33.7); MCHC 34.6 g/dl (32.0-35.9); MEAN CELL VOLUME 91.1 fl (80-96); MEAN PLT VOLUME 9.5 fl (7.5-11.1); MONO % 7.9 % (3.8-10.2); NEUT % 28.3 % (42.8-82.8); PLATELET COUNT 186 K/MM3 (134-434); RBC 4.65 M/mm3 (4.00-5.60); RDW 13.3 % (11.9-15.9); WHITE BLOOD COUNT 3.5 K/mm3 (4.0-10.0)
[2020-12-04 12:22] LABS: VENOUS BASE EXCESS 2.5 mmol/L (-2-2); VENOUS O2 SATURATION 32.1 % (70-80); VENOUS PCO2 64.1 mmHg (38-52); VENOUS PH 7.301 (7.310-7.410)
[2020-12-04 12:28] LABS: INR 1.05 (0.83-1.09); PROTHROMBIN TIME (PATIENT) 12.7 SEC (9.7-13.0)
[2020-12-04 12:30] LABS: ACTIVATED PTT 35.3 SECONDS (25.2-36.5)
[2020-12-04] MEDS ORDERED: DEXTROSE 50%-WATER - 25 GM/50 ML VIAL IVPUSH ONE ×2 (12:33→15:33)
[2020-12-04 12:43] LABS: CHLORIDE 96 mmol/L (98-107); SODIUM 132 mmol/L (136-145)
[2020-12-04 12:45] LABS: CALCIUM 10.1 mg/dL (8.5-10.1)
[2020-12-04 12:46] LABS: ALBUMIN 4.3 g/dl (3.4-5.0); ANION GAP 5 MMOL/L (8-16); BLOOD UREA NITROGEN 10.7 mg/dL (7-18); CO2 32 mmol/L (21-32); GLUCOSE,RANDOM 69 mg/dL (74-106)
[2020-12-04 12:47] LABS: PH,URINE 7.5 (5.0-8.0); URINE APPEARANCE CLEAR; URINE BILIRUBIN NEGATIVE (NEGATIVE); URINE COLOR YELLOW; URINE GLUCOSE (UA) 1+ (NEGATIVE); URINE KETONE NEGATIVE (NEGATIVE); URINE LEUK ESTERASE NEGATIVE (NEGATIVE); URINE NITRITE NEGATIVE (NEGATIVE); URINE PROTEIN NEGATIVE (NEGATIVE)
[2020-12-04 12:49] LABS: CREATININE 1.1 mg/dL (0.55-1.3); SGOT/AST 43 U/L (15-37); SGPT/ALT 32 U/L (13-61)
[2020-12-04 12:50] LABS: BILIRUBIN,TOTAL 0.5 mg/dL (0.2-1)
[2020-12-04 12:51] LABS: ALK PHOS 80 U/L (45-117); TOT PROT 9.1 g/dl (6.4-8.2)
[2020-12-04 13:07] LABS: ANISOCYTOSIS 0; MACROCYTOSIS 0; PLATELET ESTIMATE NORMAL
[2020-12-04] MEDS: DEXTROSE 5%-NORMAL SALINE 1,000 ML IV SCH (15:46)
[2020-12-04] MEDS ORDERED: ACETAMINOPHEN 325 MG TABLET (FP) PO PRN (17:15)
[2020-12-04] MEDS ORDERED: LISINOPRIL 20 MG TABLET ONE (17:49)
[2020-12-04] MEDS ORDERED: POTASSIUM CHLORIDE TABS 10 MEQ TABLET.ER (FP) ONE (17:50)
[2020-12-04] MEDS ORDERED: DOCUSATE SODIUM 100 MG CAPSULE (FP) PO ONE (17:50)
[2020-12-04] MEDS ORDERED: ENOXAPARIN NA (PORCINE) 40 MG/0.4 ML DISP.SYRIN SQ ONE (17:50)
[2020-12-04] MEDS: ENOXAPARIN NA (PORCINE) 40 MG/0.4 ML DISP.SYRIN SQ SCH (18:11)
[2020-12-04] MEDS: LISINOPRIL 20 MG TABLET PO SCH (18:20)
[2020-12-04] MEDS: DOCUSATE SODIUM 100 MG CAPSULE (FP) PO SCH (18:20)
[2020-12-04] MEDS: POTASSIUM CHLORIDE TABS 10 MEQ TABLET.ER (FP) PO SCH (18:20)
[2020-12-04] MEDS ORDERED: QUEtiapine FUMARATE 400 MG TABLET PO SCH (20:00)
[2020-12-04] MEDS ORDERED: QUEtiapine FUMARATE 100 MG TABLET (FP) ONE (20:29)
[2020-12-04] MEDS ORDERED: DIVALPROEX SODIUM 250 MG TABLET E.C. PO SCH (22:00)
[2020-12-04] MEDS: METOPROLOL TARTRATE 25 MG TABLET (FP) PO SCH (23:00)
[2020-12-04] MEDS: ATORVASTATIN CA 20 MG TABLET (FP) PO SCH (23:01)
[2020-12-05 02:44] VITALS: BMI 27.8
[2020-12-05] MEDS: HYDROCHLOROTHIAZIDE 25 MG TABLET (FP) PO SCH (06:54)
[2020-12-05] MEDS: DEXTROSE 5%-NORMAL SALINE 1,000 ML IV SCH (06:58)
[2020-12-05] MEDS ORDERED: DIVALPROEX NA *ER* EXTEND REL 500 MG TABLET.SA (FP) PO SCH (08:00)
[2020-12-05] MEDS ORDERED: PT OWN MED DRAWER 7, Y5N ONE ×3 (09:16→21:06)
[2020-12-05] MEDS: ENOXAPARIN NA (PORCINE) 40 MG/0.4 ML DISP.SYRIN SQ SCH (09:27)
[2020-12-05] MEDS: METOPROLOL TARTRATE 25 MG TABLET (FP) PO SCH ×2 (09:27→21:13)
[2020-12-05] MEDS: POTASSIUM CHLORIDE TABS 10 MEQ TABLET.ER (FP) PO SCH (09:27)
[2020-12-05] MEDS: DOCUSATE SODIUM 100 MG CAPSULE (FP) PO SCH (09:27)
[2020-12-05] MEDS: LISINOPRIL 20 MG TABLET PO SCH (09:28)
[2020-12-05 11:22] LABS: BASO % 0.7 % (0-2.0); EOS % 9.9 % (0-4.5); HEMATOCRIT 38.9 % (35.4-49); HEMOGLOBIN 13.4 GM/dL (11.7-16.9); LYMPH % 53.4 % (8-40); MCH 31.6 pg (25.7-33.7); MCHC 34.4 g/dl (32.0-35.9); MEAN CELL VOLUME 91.9 fl (80-96); MEAN PLT VOLUME 10.5 fl (7.5-11.1); MONO % 4.7 % (3.8-10.2); NEUT % 31.3 % (42.8-82.8); PLATELET COUNT 132 K/MM3 (134-434); RBC 4.23 M/mm3 (4.00-5.60); RDW 13.6 % (11.9-15.9); WHITE BLOOD COUNT 3.4 K/mm3 (4.0-10.0)
[2020-12-05 11:44] LABS: CALCIUM 8.8 mg/dL (8.5-10.1); MAGNESIUM 1.8 mg/dL (1.8-2.4)
[2020-12-05 11:47] LABS: CREATININE 0.9 mg/dL (0.55-1.3); PHOSPHOROUS 3.6 mg/dL (2.5-4.9)
[2020-12-05 11:48] LABS: BILIRUBIN,TOTAL 0.4 mg/dL (0.2-1)
[2020-12-05 11:55] LABS: ALBUMIN 3.3 g/dl (3.4-5.0); TOT PROT 6.9 g/dl (6.4-8.2)
[2020-12-05] MEDS ORDERED: DEXTROSE 5%-NORMAL SALINE 1,000 ML IV SCH (12:00)
[2020-12-05] MEDS ORDERED: DEXTROSE 50%-WATER - 25 GM/50 ML VIAL IVPUSH ONE (12:15)
[2020-12-05] MEDS ORDERED: clonazePAM 0.5 MG ODT TABLETS PO SCH (12:28)
[2020-12-05] MEDS ORDERED: DEXTROSE 50%-WATER 25 GM/50 ML DISP.SYRIN ONE (12:51)
[2020-12-05] MEDS ORDERED: DEXTROSE 50%-WATER 25 GM/50 ML DISP.SYRIN IVPUSH ONE (14:07)
[2020-12-05] MEDS ORDERED: QUEtiapine FUMARATE 200 MG TABLET PO SCH (20:00)
[2020-12-05] MEDS: chlorproMAZINE HCL 100 MG TABLET PO SCH (21:09)
[2020-12-05] MEDS: LACTULOSE 20 GM/30 ML UDC (FOR ORAL USE ONLY) PO SCH (21:13)
[2020-12-05] MEDS: ATORVASTATIN CA 20 MG TABLET (FP) PO SCH (21:13)
[2020-12-05] MEDS: clonazePAM 0.5 MG TABLET PO SCH (21:13)
[2020-12-05] MEDS ORDERED: DIVALPROEX SODIUM 500 MG TABLET E.C. PO SCH (22:00)
[2020-12-06] MEDS: HYDROCHLOROTHIAZIDE 25 MG TABLET (FP) PO SCH (06:57)
[2020-12-06 07:50] LABS: BASO % 0.8 % (0-2.0); HEMATOCRIT 38.3 % (35.4-49); HEMOGLOBIN 13.4 GM/dL (11.7-16.9); LYMPH % 54.2 % (8-40); MCH 31.7 pg (25.7-33.7); MCHC 35.1 g/dl (32.0-35.9); MEAN CELL VOLUME 90.4 fl (80-96); MEAN PLT VOLUME 9.6 fl (7.5-11.1); MONO % 10.1 % (3.8-10.2); NEUT % 25.9 % (42.8-82.8); PLATELET COUNT 165 K/MM3 (134-434); RBC 4.24 M/mm3 (4.00-5.60); RDW 13.2 % (11.9-15.9); WHITE BLOOD COUNT 4.9 K/mm3 (4.0-10.0)
[2020-12-06 08:12] LABS: ALBUMIN 3.2 g/dl (3.4-5.0); BLOOD UREA NITROGEN 6.9 mg/dL (7-18); CALCIUM 8.7 mg/dL (8.5-10.1)
[2020-12-06 08:13] LABS: MAGNESIUM 1.7 mg/dL (1.8-2.4)
[2020-12-06 08:15] LABS: CREATININE 0.8 mg/dL (0.55-1.3); PHOSPHOROUS 3.2 mg/dL (2.5-4.9)
[2020-12-06 08:16] LABS: BILIRUBIN,TOTAL 0.4 mg/dL (0.2-1)
[2020-12-06 08:17] LABS: TOT PROT 6.8 g/dl (6.4-8.2)
[2020-12-06] MEDS ORDERED: MAGNESIUM SULF 50% (8.12 MEQ/2 ML-1 GM VIAL) IVPB ONE (08:34)
[2020-12-06] MEDS ORDERED: PT OWN MED DRAWER 7, Y5N ONE ×2 (09:44→09:57)
[2020-12-06] MEDS: POTASSIUM CHLORIDE TABS 10 MEQ TABLET.ER (FP) PO SCH (09:46)
[2020-12-06] MEDS: METOPROLOL TARTRATE 25 MG TABLET (FP) PO SCH (09:47)
[2020-12-06] MEDS: ENOXAPARIN NA (PORCINE) 40 MG/0.4 ML DISP.SYRIN SQ SCH (09:50)
[2020-12-06] MEDS: DOCUSATE SODIUM 100 MG CAPSULE (FP) PO SCH (09:50)
[2020-12-06] MEDS: clonazePAM 0.5 MG TABLET PO SCH (09:50)
[2020-12-06] MEDS: LISINOPRIL 20 MG TABLET PO SCH (09:50)
[2020-12-06] MEDS: chlorproMAZINE HCL 100 MG TABLET PO SCH (09:51)
[2020-12-06] MEDS ORDERED: DIVALPROEX NA *ER* EXTEND REL 500 MG TABLET.SA (FP) PO SCH (10:00)
[2020-12-06] MEDS: LACTULOSE 20 GM/30 ML UDC (FOR ORAL USE ONLY) PO SCH (10:03)
[2020-12-06] MEDS ORDERED: MAGNESIUM OXIDE 400 MG TABLET (FP) PO ONE (12:45)
[2020-12-06 15:51] VITALS: BP 119/77; PULSE 88; TEMP 98.1
== END 2020-12-06 15:53 | disposition home or self-care (01) | DRG 424 ==
LOC: JER 10:43 → JERBED 16:00 → OBSVTOIN 17:15 → J8W 21:50
PROVIDERS: ATTEND Internal Medicine
DX: E16.2 Hypoglycemia, unspecified (principal); G93.41 Metabolic encephalopathy; R65.10 Systemic inflammatory response syndrome (SIRS) of non-infectious origin without acute organ dysfunction; I10 Essential (primary) hypertension; G40.909 Epilepsy, unspecified, not intractable, without status epilepticus; I34.2 Nonrheumatic mitral (valve) stenosis; F84.0 Autistic disorder; F79 Unspecified intellectual disabilities; R55 Syncope and collapse; K59.00 Constipation, unspecified; G80.9 Cerebral palsy, unspecified; D72.819 Decreased white blood cell count, unspecified; T42.6X5A Adverse effect of other antiepileptic and sedative-hypnotic drugs, initial encounter
CPT/HCPCS: 36415; 70450-TC; 71045-TC-FY; 80053; 80061; 80164; 81003; 82140; 82550; 82553; 82803; 82962; 83036; 83605; 83721; 83735; 84100; 84443; 84484; 85025; 85610; 85730; 87040; 87086; 93005; 93010; 99285-25; C9803; G0378; U0003; U0005

== ENCOUNTER 2021-03-18 13:27 | Inpatient (IN) | payer OTHER ==
[2021-03-18 13:46] VITALS: BMI 25.4
[2021-03-18 16:59] LABS: BASO % 0.8 % (0-2.0); EOS % 7.1 % (0-4.5); HEMOGLOBIN 12.1 GM/dL (11.7-16.9); LYMPH % 50.8 % (8-40); MCH 30.9 pg (25.7-33.7); MCHC 34.7 g/dl (32.0-35.9); MEAN PLT VOLUME 9.3 fl (7.5-11.1); MONO % 9.6 % (3.8-10.2); NEUT % 31.7 % (42.8-82.8); PLATELET COUNT 144 10^3/uL (134-434); RBC 3.93 M/mm3 (4.00-5.60); RDW 12.7 % (11.9-15.9); WHITE BLOOD COUNT 3.6 K/mm3 (4.0-10.0)
[2021-03-18 17:06] LABS: INR 1.12 (0.83-1.09); PROTHROMBIN TIME (PATIENT) 13.7 SEC (9.7-13.0)
[2021-03-18 17:09] LABS: ACTIVATED PTT 32.3 SECONDS (25.2-36.5)
[2021-03-18 17:22] LABS: CALCIUM 8.9 mg/dL (8.5-10.1)
[2021-03-18 17:23] LABS: ALBUMIN 3.5 g/dl (3.4-5.0); BLOOD UREA NITROGEN 9.2 mg/dL (7-18)
[2021-03-18 17:25] LABS: CREATININE 0.6 mg/dL (0.55-1.3)
[2021-03-18 17:27] LABS: BILIRUBIN,TOTAL 0.4 mg/dL (0.2-1)
[2021-03-18] MEDS: SODIUM CHLORIDE 1,000 ML IV SCH (21:16)
[2021-03-18] MEDS ORDERED: ATORVASTATIN CA 10 MG TABLET (FP) ONE (21:20)
[2021-03-18] MEDS ORDERED: DIVALPROEX SODIUM 500 MG TABLET E.C. ONE (21:20)
[2021-03-18] MEDS ORDERED: METOPROLOL TARTRATE 25 MG TABLET (FP) ONE (21:30)
[2021-03-18] MEDS: DIVALPROEX NA *ER* EXTEND REL 500 MG TABLET.SA (FP) PO SCH (21:50)
[2021-03-18] MEDS: ATORVASTATIN CA 20 MG TABLET (FP) PO SCH (21:51)
[2021-03-18] MEDS: METOPROLOL TARTRATE 25 MG TABLET (FP) PO SCH (21:51)
[2021-03-18] MEDS ORDERED: DIVALPROEX SODIUM 500 MG TABLET E.C. PO SCH (22:00)
[2021-03-18] MEDS ORDERED: QUEtiapine FUMARATE 400 MG TABLET PO SCH (22:00)
[2021-03-18] MEDS ORDERED: QUEtiapine FUMARATE 100 MG TABLET (FP) ONE (22:07)
[2021-03-18] MEDS: chlorproMAZINE HCL 100 MG TABLET PO SCH (22:19)
[2021-03-19] MEDS: SODIUM CHLORIDE 1,000 ML IV SCH (04:34)
[2021-03-19] MEDS ORDERED: DIVALPROEX NA *ER* EXTEND REL 500 MG TABLET.SA (FP) PO SCH (07:00)
[2021-03-19] MEDS: HYDROCHLOROTHIAZIDE 25 MG TABLET (FP) PO SCH (07:03)
[2021-03-19] MEDS ORDERED: SODIUM CHLORIDE 1,000 ML IV SCH (09:00)
[2021-03-19 10:43] LABS: BASO % 0.5 % (0-2.0); HEMATOCRIT 39.7 % (35.4-49); HEMOGLOBIN 13.5 GM/dL (11.7-16.9); LYMPH % 20.3 % (8-40); MCH 30.8 pg (25.7-33.7); MCHC 34.1 g/dl (32.0-35.9); MEAN CELL VOLUME 90.4 fl (80-96); MEAN PLT VOLUME 9.9 fl (7.5-11.1); MONO % 10.8 % (3.8-10.2); NEUT % 66.4 % (42.8-82.8); PLATELET COUNT 145 10^3/uL (134-434); RBC 4.39 M/mm3 (4.00-5.60); RDW 12.6 % (11.9-15.9); WHITE BLOOD COUNT 7.1 K/mm3 (4.0-10.0)
[2021-03-19 11:40] LABS: ALBUMIN 3.4 g/dl (3.4-5.0); BLOOD UREA NITROGEN 8.7 mg/dL (7-18); CALCIUM 8.9 mg/dL (8.5-10.1)
[2021-03-19] MEDS: LISINOPRIL 20 MG TABLET PO SCH (11:40)
[2021-03-19] MEDS: chlorproMAZINE HCL 100 MG TABLET PO SCH (11:40)
[2021-03-19] MEDS: DOCUSATE SODIUM 100 MG CAPSULE (FP) PO SCH (11:40)
[2021-03-19] MEDS: DIVALPROEX NA *ER* EXTEND REL 500 MG TABLET.SA (FP) PO SCH ×2 (11:40→22:40)
[2021-03-19] MEDS: METOPROLOL TARTRATE 25 MG TABLET (FP) PO SCH ×2 (11:40→21:51)
[2021-03-19 11:41] LABS: MAGNESIUM 1.9 mg/dL (1.8-2.4)
[2021-03-19 11:43] LABS: CREATININE 0.8 mg/dL (0.55-1.3)
[2021-03-19 11:44] LABS: BILIRUBIN,TOTAL 0.6 mg/dL (0.2-1); PHOSPHOROUS 4.2 mg/dL (2.5-4.9)
[2021-03-19] MEDS ORDERED: DEXTROSE 50%-WATER - 25 GM/50 ML VIAL IVPUSH ONE (11:51)
[2021-03-19] MEDS: ENOXAPARIN NA (PORCINE) 40 MG/0.4 ML DISP.SYRIN SQ SCH (14:23)
[2021-03-19] MEDS ORDERED: PT OWN MED DRAWER 7, Y5N ONE ×2 (21:45→23:21)
[2021-03-19] MEDS: ATORVASTATIN CA 20 MG TABLET (FP) PO SCH (21:51)
[2021-03-20] MEDS: HYDROCHLOROTHIAZIDE 25 MG TABLET (FP) PO SCH (06:06)
[2021-03-20] MEDS ORDERED: PT OWN MED DRAWER 7, Y5N ONE ×3 (08:26→17:06)
[2021-03-20 08:48] LABS: HEMATOCRIT 39.8 % (35.4-49); HEMOGLOBIN 13.8 GM/dL (11.7-16.9); MCH 31.1 pg (25.7-33.7); MCHC 34.7 g/dl (32.0-35.9); MEAN CELL VOLUME 89.6 fl (80-96); MEAN PLT VOLUME 9.4 fl (7.5-11.1); PLATELET COUNT 162 10^3/uL (134-434); RBC 4.44 M/mm3 (4.00-5.60); WHITE BLOOD COUNT 4.3 K/mm3 (4.0-10.0)
[2021-03-20] MEDS: DIVALPROEX NA *ER* EXTEND REL 500 MG TABLET.SA (FP) PO SCH (09:05)
[2021-03-20] MEDS: METOPROLOL TARTRATE 25 MG TABLET (FP) PO SCH (09:06)
[2021-03-20] MEDS: LISINOPRIL 20 MG TABLET PO SCH (09:08)
[2021-03-20] MEDS: ENOXAPARIN NA (PORCINE) 40 MG/0.4 ML DISP.SYRIN SQ SCH (09:09)
[2021-03-20] MEDS: DOCUSATE SODIUM 100 MG CAPSULE (FP) PO SCH (09:10)
[2021-03-20 09:12] LABS: CALCIUM 8.9 mg/dL (8.5-10.1)
[2021-03-20 09:13] LABS: ALBUMIN 3.3 g/dl (3.4-5.0); BLOOD UREA NITROGEN 9.9 mg/dL (7-18); MAGNESIUM 2.1 mg/dL (1.8-2.4)
[2021-03-20 09:16] LABS: CREATININE 0.9 mg/dL (0.55-1.3)
[2021-03-20 09:17] LABS: PHOSPHOROUS 3.1 mg/dL (2.5-4.9)
[2021-03-20 09:18] LABS: BILIRUBIN,TOTAL 0.4 mg/dL (0.2-1); TOT PROT 7.2 g/dl (6.4-8.2)
[2021-03-20 14:16] VITALS: BP 116/69; PULSE 89; TEMP 97.5
== END 2021-03-20 19:00 | disposition home or self-care (01) | DRG 52 ==
LOC: JER 13:27 → JERBED 17:36 → J6S 03-19 01:44
PROVIDERS: ATTEND Internal Medicine
DX: G92 Toxic encephalopathy (principal); F84.0 Autistic disorder; I10 Essential (primary) hypertension; I05.0 Rheumatic mitral stenosis; F79 Unspecified intellectual disabilities; G40.909 Epilepsy, unspecified, not intractable, without status epilepticus; F31.9 Bipolar disorder, unspecified; T43.3X5A Adverse effect of phenothiazine antipsychotics and neuroleptics, initial encounter; T43.595A Adverse effect of other antipsychotics and neuroleptics, initial encounter; E72.20 Disorder of urea cycle metabolism, unspecified; E87.1 Hypo-osmolality and hyponatremia
CPT/HCPCS: 36415; 70450-TC; 71045-TC-FY; 80053; 80164; 82140; 83735; 84100; 85025; 85027; 85610; 85730; 93005; 93010; 99285-25; C9803; U0003; U0005

== ENCOUNTER 2021-03-31 10:36 | Emergency (ER) | payer OTHER ==
[2021-03-31 10:51] VITALS: BP 116/89; PULSE 74; TEMP 96.9; BMI 26.0
[2021-03-31 11:11] LABS: VENOUS BASE EXCESS 3.3 mmol/L (-2-2); VENOUS O2 SATURATION 41.1 % (70-80); VENOUS PCO2 63.3 mmHg (38-52); VENOUS PH 7.312 (7.310-7.410)
[2021-03-31 11:16] LABS: BASO % 0.8 % (0-2.0); EOS % 7.7 % (0-4.5); HEMATOCRIT 34.5 % (35.4-49); HEMOGLOBIN 12.1 GM/dL (11.7-16.9); MCH 31.1 pg (25.7-33.7); MCHC 35.1 g/dl (32.0-35.9); MEAN CELL VOLUME 88.6 fl (80-96); MEAN PLT VOLUME 8.4 fl (7.5-11.1); MONO % 10.3 % (3.8-10.2); NEUT % 38.2 % (42.8-82.8); PLATELET COUNT 234 10^3/uL (134-434); RDW 13.3 % (11.9-15.9); WHITE BLOOD COUNT 4.7 K/mm3 (4.0-10.0)
[2021-03-31 11:23] LABS: INR 1.13 (0.83-1.09); PROTHROMBIN TIME (PATIENT) 13.6 SEC (9.7-13.0)
[2021-03-31] MEDS ORDERED: QUEtiapine FUMARATE 100 MG TABLET (FP) ONE (11:26)
[2021-03-31 11:39] LABS: ALBUMIN 3.8 g/dl (3.4-5.0); BLOOD UREA NITROGEN 9.2 mg/dL (7-18); CALCIUM 9.1 mg/dL (8.5-10.1)
[2021-03-31 11:42] LABS: CREATININE 0.9 mg/dL (0.55-1.3)
[2021-03-31 11:44] LABS: BILIRUBIN,TOTAL 0.5 mg/dL (0.2-1); TOT PROT 7.5 g/dl (6.4-8.2)
== END 2021-03-31 14:11 | disposition home or self-care (01) ==
LOC: JER 10:36
DX: R62.50 Unspecified lack of expected normal physiological development in childhood (principal); R41.82 Altered mental status, unspecified
CPT/HCPCS: 36415; 71045-TC-FY; 80053; 82140; 82803; 82962; 83605; 84484; 85025; 85610; 85730; 93005; 93010; 99285-25; C9803; U0003; U0005

== ENCOUNTER 2022-05-07 10:33 | Emergency (ER) | payer OTHER ==
[2022-05-07 10:43] VITALS: BP 125/83; PULSE 92; RESP 21; TEMP 97.9; BMI 26.1
== END 2022-05-07 13:14 | disposition home or self-care (01) ==
LOC: JERFT 10:33
DX: T17.320A Food in larynx causing asphyxiation, initial encounter (principal); Z13.42 Encounter for screening for global developmental delays (milestones)
CPT/HCPCS: 71046-TC-FY; 99283-25

== ENCOUNTER 2022-05-21 12:29 | Emergency (ER) | payer OTHER ==
[2022-05-21 12:47] VITALS: BP 136/88; PULSE 87; RESP 18; TEMP 97.4; BMI 26.6
== END 2022-05-21 13:41 | disposition home or self-care (01) ==
LOC: JERFT 12:29
DX: S63.502A Unspecified sprain of left wrist, initial encounter (principal); X50.0XXA Overexertion from strenuous movement or load, initial encounter
CPT/HCPCS: 73110-TC-LT-FY; 73130-TC-LT-FY; 99283-25

== ENCOUNTER 2022-06-16 15:38 | Emergency (ER) | payer OTHER ==
[2022-06-16 15:47] VITALS: BP 116/84; RESP 19; BMI 26.3
[2022-06-16 18:50] LABS: EOS % 7.9 % (0-4.5); HEMATOCRIT 36.5 % (35.4-49); HEMOGLOBIN 12.4 GM/dL (11.7-16.9); LYMPH % 48.5 % (8-40); MCH 31.1 pg (25.7-33.7); MCHC 34.1 g/dl (32.0-35.9); MEAN CELL VOLUME 91.2 fl (80-96); MEAN PLT VOLUME 8.3 fl (7.5-11.1); MONO % 11.2 % (3.8-10.2); NEUT % 31.4 % (42.8-82.8); PLATELET COUNT 189 10^3/uL (134-434); RDW 13.5 % (11.9-15.9); VENOUS BASE EXCESS -0.2 mmol/L (-2-2); VENOUS O2 SATURATION 94.7 % (70-80); VENOUS PCO2 41.9 mmHg (38-52); VENOUS PH 7.391 (7.310-7.410); WHITE BLOOD COUNT 4.5 K/mm3 (4.0-10.0)
[2022-06-16 19:00] LABS: ACTIVATED PTT 37.3 SECONDS (25.2-36.5); INR 1.09 (0.83-1.09); PROTHROMBIN TIME (PATIENT) 12.6 SEC (9.7-13.0)
[2022-06-16 19:13] LABS: CALCIUM 9.2 mg/dL (8.5-10.1)
[2022-06-16 19:14] LABS: ALBUMIN 3.6 g/dl (3.4-5.0); BLOOD UREA NITROGEN 15.3 mg/dL (7-18)
[2022-06-16 19:16] LABS: PHOSPHOROUS 3.1 mg/dL (2.5-4.9)
[2022-06-16 19:17] LABS: CREATININE 0.8 mg/dL (0.55-1.3)
[2022-06-16 19:18] LABS: BILIRUBIN,TOTAL 0.3 mg/dL (0.2-1); TOT PROT 7.2 g/dl (6.4-8.2)
[2022-06-16 19:20] LABS: N-TERMINAL BNP 20.7 pg/ml (5-125)
[2022-06-16 19:42] VITALS: PULSE 102
[2022-06-16 20:39] LABS: URINE APPEARANCE CLEAR; URINE BILIRUBIN NEGATIVE (NEGATIVE); URINE COLOR YELLOW; URINE GLUCOSE (UA) NEGATIVE (NEGATIVE); URINE KETONE NEGATIVE (NEGATIVE); URINE LEUK ESTERASE NEGATIVE (NEGATIVE); URINE NITRITE NEGATIVE (NEGATIVE); URINE PROTEIN NEGATIVE (NEGATIVE)
[2022-06-16] MEDS ORDERED: traZODone HCL 50 MG TABLET (FP) PO ONE (20:39)
[2022-06-16] MEDS ORDERED: clonazePAM 0.5 MG TABLET PO ONE (20:40)
[2022-06-16] MEDS ORDERED: chlorproMAZINE HCL 100 MG TABLET PO ONE (20:41)
[2022-06-16] MEDS ORDERED: clonazePAM 0.5 MG TABLET ONE (20:43)
[2022-06-16 21:06] VITALS: TEMP 97.6
== END 2022-06-16 20:59 | disposition home or self-care (01) ==
LOC: JER 15:38
DX: R00.0 Tachycardia, unspecified (principal)
CPT/HCPCS: 0241U-QW; 36415; 71045-TC-FY; 80053; 81003; 82803; 83605; 83735; 83880; 84100; 84439; 84443; 84484; 85025; 85379; 85610; 85730; 87040; 87086; 93005; 93010; 99285-25

== ENCOUNTER 2022-07-24 11:18 | Emergency (ER) | payer OTHER ==
[2022-07-24 11:25] VITALS: BP 120/74; PULSE 129; RESP 18; TEMP 99; BMI 22.9
[2022-07-24] MEDS ORDERED: ACETAMINOPHEN 500 MG TABLET (FP) PO ONE (12:45)
[2022-07-24] MEDS ORDERED: IBUPROFEN 600 MG TABLET (FP) PO ONE (12:45)
== END 2022-07-24 13:59 | disposition home or self-care (01) ==
LOC: JER 11:18
DX: B34.9 Viral infection, unspecified (principal)
CPT/HCPCS: 0241U-QW; 99283-25

== ENCOUNTER 2022-08-29 11:06 | Emergency (ER) | payer OTHER ==
[2022-08-29 11:13] VITALS: BP 123/63; RESP 18; TEMP 97.9; BMI 22.9
[2022-08-29] MEDS ORDERED: diphenhydrAMINE HCL 12.5 MG/5 ML UNIT-DOSE CUPS PO ONE (11:34)
[2022-08-29] MEDS ORDERED: LORazepam 2 MG/ML SDV VIAL IM ONE (11:50)
[2022-08-29 12:54] LABS: BASO % 0.7 % (0-2.0); EOS % 8.4 % (0-4.5); HEMATOCRIT 38.9 % (35.4-49); HEMOGLOBIN 12.9 GM/dL (11.7-16.9); LYMPH % 36.7 % (8-40); MCH 30.1 pg (25.7-33.7); MCHC 33.1 g/dl (32.0-35.9); MEAN CELL VOLUME 90.9 fl (80-96); MEAN PLT VOLUME 8.7 fl (7.5-11.1); NEUT % 40.2 % (42.8-82.8); PLATELET COUNT 171 10^3/uL (134-434); RBC 4.28 M/mm3 (4.00-5.60); RDW 13.6 % (11.9-15.9)
[2022-08-29 13:17] LABS: CALCIUM 9.6 mg/dL (8.5-10.1)
[2022-08-29 13:18] LABS: ALBUMIN 3.7 g/dl (3.4-5.0); BLOOD UREA NITROGEN 11.3 mg/dL (7-18)
[2022-08-29 13:21] LABS: CREATININE 0.9 mg/dL (0.55-1.3)
[2022-08-29 13:22] LABS: BILIRUBIN,TOTAL 0.4 mg/dL (0.2-1); TOT PROT 7.5 g/dl (6.4-8.2)
[2022-08-29 13:26] VITALS: PULSE 83
[2022-08-29 14:04] LABS: URINE APPEARANCE CLEAR; URINE BILIRUBIN NEGATIVE (NEGATIVE); URINE COLOR YELLOW; URINE GLUCOSE (UA) NEGATIVE (NEGATIVE); URINE KETONE NEGATIVE (NEGATIVE); URINE LEUK ESTERASE NEGATIVE (NEGATIVE); URINE NITRITE NEGATIVE (NEGATIVE); URINE PROTEIN NEGATIVE (NEGATIVE)
== END 2022-08-29 14:23 | disposition home or self-care (01) ==
LOC: JER 11:06
PROC: 3E023GC Introduction of Other Therapeutic Substance into Muscle, Percutaneous Approach (ICD-10-PCS; principal; 2022-08-29)
PROC: 3E023NZ Introduction of Analgesics, Hypnotics, Sedatives into Muscle, Percutaneous Approach (ICD-10-PCS; 2022-08-29)
DX: R53.83 Other fatigue (principal)
CPT/HCPCS: 0241U-QW; 36415; 71045-TC-FY; 80053; 81003; 85025; 87086; 93005; 93010; 99285-25

== ENCOUNTER 2022-09-18 16:49 | Emergency (ER) | payer OTHER ==
[2022-09-18 17:03] VITALS: BP 118/89; PULSE 79; RESP 16; TEMP 98; BMI 28.3
== END 2022-09-18 18:48 | disposition home or self-care (01) ==
LOC: FER 16:49
PROC: 0CQ0XZZ Repair Upper Lip, External Approach (ICD-10-PCS; principal; 2022-09-18)
DX: S01.511A Laceration without foreign body of lip, initial encounter (principal); S09.90XA Unspecified injury of head, initial encounter; S80.211A Abrasion, right knee, initial encounter; W10.9XXA Fall (on) (from) unspecified stairs and steps, initial encounter
CPT/HCPCS: 70450-TC; 72125-TC; 73560-TC-RT-FY; 99285-25

== ENCOUNTER 2022-09-20 13:30 | Emergency (ER) | payer OTHER ==
[2022-09-20 13:49] VITALS: BP 129/74; PULSE 88; RESP 17; TEMP 97.9; BMI 27.3
== END 2022-09-20 16:04 | disposition home or self-care (01) ==
LOC: JER 13:30 → JERFT 13:30
DX: M25.562 Pain in left knee (principal)
CPT/HCPCS: 73562-TC-LT-FY; 99283-25

== ENCOUNTER 2022-09-23 12:45 | Emergency (ER) | payer OTHER ==
[2022-09-23 12:52] VITALS: BP 133/79; PULSE 76; RESP 18; TEMP 98.7; BMI 28.0
== END 2022-09-23 13:11 | disposition home or self-care (01) ==
LOC: FER 12:45
DX: S01.511A Laceration without foreign body of lip, initial encounter (principal); W19.XXXA Unspecified fall, initial encounter; Z48.02 Encounter for removal of sutures
CPT/HCPCS: 99281-25

== ENCOUNTER 2022-12-24 18:09 | Emergency (ER) | payer OTHER ==
[2022-12-24 18:31] VITALS: BP 148/106; PULSE 88; RESP 18; TEMP 97.5; BMI 21.4
== END 2022-12-24 19:47 | disposition home or self-care (01) ==
LOC: FER 18:09
DX: T17.308A Unspecified foreign body in larynx causing other injury, initial encounter (principal); R09.89 Other specified symptoms and signs involving the circulatory and respiratory systems; R22.41 Localized swelling, mass and lump, right lower limb; M70.41 Prepatellar bursitis, right knee
CPT/HCPCS: 70360-TC-FY; 71046-TC-FY; 99283-25

== ENCOUNTER 2023-01-27 21:06 | Emergency (ER) | payer OTHER ==
[2023-01-27 21:24] VITALS: BP 144/103; PULSE 89; RESP 16; TEMP 98.1
[2023-01-27 21:27] VITALS: BMI 29.5
== END 2023-01-27 22:07 | disposition home or self-care (01) ==
LOC: FER 21:06
DX: I10 Essential (primary) hypertension (principal)
CPT/HCPCS: 99282-25

== ENCOUNTER 2023-05-27 15:07 | Emergency (ER) | payer OTHER ==
[2023-05-27 15:12] VITALS: BP 145/103; PULSE 97; RESP 18; TEMP 98.9; BMI 28.8
== END 2023-05-27 16:45 | disposition home or self-care (01) ==
LOC: JERFT 15:07
DX: R09.89 Other specified symptoms and signs involving the circulatory and respiratory systems (principal); T17.308A Unspecified foreign body in larynx causing other injury, initial encounter
CPT/HCPCS: 99282-25

== ENCOUNTER 2023-08-03 21:17 | Emergency (ER) | payer OTHER ==
[2023-08-03 21:26] VITALS: RESP 14; BMI 28.8
[2023-08-03 21:46] VITALS: BP 104/72; PULSE 101; TEMP 97.5
== END 2023-08-04 00:42 | disposition home or self-care (01) ==
LOC: FER 21:17
DX: M79.642 Pain in left hand (principal); S00.03XA Contusion of scalp, initial encounter; X58.XXXA Exposure to other specified factors, initial encounter
CPT/HCPCS: 70450-TC; 73130-TC-LT-FY; 99284-25

== ENCOUNTER 2023-08-09 13:34 | Emergency (ER) | payer OTHER ==
[2023-08-09 13:51] VITALS: BP 126/90; PULSE 95; RESP 20; TEMP 98.2; BMI 25.1
== END 2023-08-09 14:16 | disposition home or self-care (01) ==
LOC: FER 13:34
DX: H57.89 Other specified disorders of eye and adnexa (principal); B30.9 Viral conjunctivitis, unspecified
CPT/HCPCS: 99283-25

== ENCOUNTER 2023-11-06 14:22 | Emergency (ER) | payer OTHER ==
[2023-11-06 14:51] VITALS: BP 151/77; PULSE 98; RESP 16; TEMP 98.6; BMI 22.9
[2023-11-06] MEDS ORDERED: LIDOCAINE 2.5%/PRILOCAINE 2.5% (5 Gram/TUBE) TP ONE (15:12)
[2023-11-06] MEDS: LIDOCAINE 2.5%/PRILOCAINE 2.5% 30 GRAM TUBE TP ONE (15:23)
== END 2023-11-06 16:12 | disposition home or self-care (01) ==
LOC: FER 14:22
PROC: 0HQ1XZZ Repair Face Skin, External Approach (ICD-10-PCS; principal; 2023-11-06)
DX: S01.412A Laceration without foreign body of left cheek and temporomandibular area, initial encounter (principal); W22.8XXA Striking against or struck by other objects, initial encounter
CPT/HCPCS: 99282-25

== ENCOUNTER 2023-12-28 15:40 | Emergency (ER) | payer OTHER ==
[2023-12-28 16:04] VITALS: BP 132/79; PULSE 81; RESP 18; TEMP 98.6; BMI 22.9
== END 2023-12-28 16:18 | disposition home or self-care (01) ==
LOC: FER 15:40
DX: R09.89 Other specified symptoms and signs involving the circulatory and respiratory systems (principal)
CPT/HCPCS: 99282-25

== ENCOUNTER 2024-01-26 11:44 | Emergency (ER) | payer OTHER ==
[2024-01-26 12:41] LABS: HEMATOCRIT 35.5 % (35.4-49); HEMOGLOBIN 11.8 G/dL (11.7-16.9); MCH 30.5 pg (25.7-33.7); MCHC 33.2 g/dl (32.0-35.9); MEAN PLT VOLUME 9.9 fl (7.5-11.1); PLATELET COUNT 230.1 10^3/uL (134-434); RBC 3.86 10^6/uL (4.00-5.60); RDW 13.9 % (11.9-15.9); WHITE BLOOD COUNT 3.7 10^3/uL (4.0-10.8)
[2024-01-26 12:53] LABS: ANION GAP 7 mmol/L (4-13); CALCIUM 9.3 mg/dl (8.5-10.1); CHLORIDE 107 mmol/L (98-107); CO2 26 mmol/L (21-32); CREATININE 0.9 mg/dl (0.6-1.3); GLUCOSE,RANDOM 119 mg/dl (74-106); POTASSIUM 3.7 mmol/L (3.5-5.1); SODIUM 140 mmol/L (136-145)
[2024-01-26 13:29] VITALS: BP 119/83; PULSE 85; RESP 16; TEMP 97.8; BMI 25.1
[2024-01-26 13:38] LABS: PLATELET ESTIMATE ADEQUATE
== END 2024-01-26 14:11 | disposition home or self-care (01) ==
LOC: FER 11:44
DX: G40.909 Epilepsy, unspecified, not intractable, without status epilepticus (principal)
CPT/HCPCS: 36415; 70450-TC; 80048; 80164; 85027; 99284-25

== ENCOUNTER 2024-09-13 09:29 | Emergency (ER) | payer OTHER ==
[2024-09-13 09:54] VITALS: BP 127/82; PULSE 92; RESP 16; TEMP 97.9; BMI 25.2
[2024-09-13 11:12] LABS: ALBUMIN 4.6 g/dl (3.4-5.0); BILIRUBIN,TOTAL 0.5 mg/dl (0.2-1); CALCIUM 9.7 mg/dl (8.5-10.1); POTASSIUM 4.4 mmol/L (3.5-5.1); TOT PROT 7.6 g/dl (6.4-8.2)
[2024-09-13] MEDS ORDERED: IBUPROFEN 100 MG/5 ML UNIT DOSE CUPS ONE (12:11)
[2024-09-13] MEDS: IBUPROFEN 200 MG TABLET PO ONE (12:13)
== END 2024-09-13 12:19 | disposition home or self-care (01) ==
LOC: FER 09:29 → SUPCPDRO 09:29 → FER 12:19
DX: R09.89 Other specified symptoms and signs involving the circulatory and respiratory systems (principal); R11.10 Vomiting, unspecified; R05.9 Cough, unspecified; Z20.822 Contact with and (suspected) exposure to COVID-19
CPT/HCPCS: 0241U-QW; 36415; 71046-TC-FY; 80053; 80164; 99284-25